=== PATIENT | male | born 1940 | race Caucasian/White ===

== ENCOUNTER → 2018-03-13 | Outpatient (CLI) | payer MEDICARE, OTHER ==
--- NOTE | 2018-03-14 07:33 | MR ---
EXAMINATION TYPE: MR lumbar spine wo con DATE OF EXAM: 03/13/2018 COMPARISON: Prior MRI lumbar spine November 22, 2011. HISTORY: Lumbar radiculopathy per order. Low back pain radiating to left buttocks for 6 months per keagan hernandez. History of back surgery 1999. TECHNIQUE: Multiplanar, multisequence imaging of the lumbar spine is performed without IV contrast. FINDINGS: Survey images redemonstrate levoconvex scoliosis centered in the mid lumbar spine. Sagittal images of the lumbar spine show vertebral body heights to remain satisfactory. There is loss of norm al lumbar lordosis redemonstrated on sagittal images. Multilevel disc desiccation and moderate to adv anced disc space narrowing remains present. There is now some ossific fusion identified involving the right L2-L3 level with increased disc space loss from prior study. Sagittal images show multilevel s mall posterior spur disc complexes and disc herniation similar to prior mildly effacing anterior thec al sac. The conus medullaris remains normal in position and signal ending at inferior L1 level. The bone marrow signal intensity redemonstrate overall heterogeneity and diffuse endplate changes through out the mid to lower lumbar spine at site of disc space narrowing and multilevel spurring most promin ent anteriorly L3-L4 level similar to prior. Axial images beginning at labeled T11-T12 level axial image 35 which shows moderate broad disc bulge and mild facet arthropathy with ligamentum flavum hypertrophy. There is mild effacement of the anteri or posterior lateral thecal sac. Bilateral neural foramina are patent. Axial images at T12-L1 level show mild to moderate facet degenerative changes bilaterally. There is m ild to moderate broad disc bulge mildly effacing anterior thecal sac, no significant neural foraminal narrowing is present. Axial images at the L1-L2 levels shows mild to moderate broad disc bulge and mild facet arthropathy, there is mild effacement of left posterior lateral thecal sac. There is mild to moderate left-sided a nterior inferior neural foraminal narrowing. Right-sided neural foramen is patent. Axial images at L2-L3 level show advanced disc space loss and mild facet arthropathy. There is efface ment anterior thecal sac due to spur disc complex axial image 19. There is moderate bilateral anterio r inferior neural foraminal narrowing. Axial images at L3-L4 level show moderate right greater than left facet degenerative changes. There i s mild to moderate broad disc bulge. There is advanced right-sided neural foraminal narrowing with en croachment on right L3 nerve redemonstrated even more prominent than prior. Left-sided neural foramin a shows mild to moderate anterior inferior neural foraminal narrowing. Axial images at L4-L5 level show mild facet arthropathy bilaterally. There is moderate broad disc bul ge. Spinal canal is preserved. There is mild to moderate right greater than left anterior inferior ne ural foraminal narrowing. Axial images at L5-S1 level show sacralization of left L5 segment. Spinal canal is preserved. Bilater al neural foramina are patent. There is prominent left renal pelvis without calyceal dilatation suggesting extrarenal pelvis unchang ed from prior. IMPRESSION: Scoliosis and loss of normal lumbar lordosis with advanced multilevel degenerative change s and some progression from 2012 MRI noted. Further details as discussed above.
== END | disposition home or self-care (01) ==
LOC: RADMRIMAIN 18:13
PROVIDERS: ATTEND Family Medicine
DX: M47.816 Spondylosis without myelopathy or radiculopathy, lumbar region (principal); M41.86 Other forms of scoliosis, lumbar region; M43.8X6 Other specified deforming dorsopathies, lumbar region
CPT/HCPCS: 72148

== ENCOUNTER 2018-09-05 15:02 | Inpatient (IN) | payer MEDICARE, OTHER ==
[2018-09-05] MEDS ORDERED: SODIUM CHLORIDE 0.9% 1,000 ML IV STA ×3 (15:52→17:26)
--- NOTE | 2018-09-05 16:01 | ED ---
Weakness HPI - General Chief complaint: Extremity Problem,Nontraumatic Stated complaint: Shoulder, leg pain Time Seen by Provider: 09/05/18 15:47 Source: patient, RN notes reviewed, old records reviewed Mode of arrival: wheelchair Limitations: no limitations - History of Present Illness Initial comments: This is an 78-year-old male to the ER for evaluation. Patient was sent in for evaluation of weakness. Inability to ambulate today. Patient's noticed fever for maybe 2-3 days. No significant diarrhea nausea vomiting no rashes. No known sick contacts no travel history. Patient states he did have the flu last year but he states he feels worse this time. No recent medication changes. Patient hasn't taken some Tylenol with no significant improvement MD Complaint: generalized weakness, lack of energy, difficulty walking -: days(s) (4) Location: generalized Severity: moderate Severity scale (1-10): 5 Quality: aching Consistency: constant Improves with: none Worsens with: none Context: recent illness Associated Symptoms: confusion, fever/chills, loss of appetite - Related Data Home Medications Medication Instructions Recorded Confirmed Aspirin [Adult Low Dose Aspirin EC] 81 mg PO DAILY 09/24/15 09/05/18 Lisinopril [Zestril] 20 mg PO DAILY 09/24/15 09/05/18 Metoprolol Succinate [Toprol XL] 25 mg PO DAILY 09/24/15 09/05/18 Acetaminophen Tab [Tylenol] 500 mg PO Q6H 09/05/18 09/05/18 Allergies Allergy/AdvReac Type Severity Reaction Status Date / Time adhesive tape AdvReac Rash/Hives Verified 09/05/18 16:31 Review of Systems ROS Statement: Those systems with pertinent positive or pertinent negative responses have been documented in the HPI. ROS Other: All systems not noted in ROS Statement are negative. Past Medical History Past Medical History: Deep Vein Thrombosis (DVT), Hyperlipidemia, Hypertension Additional Past Medical History / Comment(s): wound on buttocks History of Any Multi-Drug Resistant Organisms: None Reported Past Surgical History: Appendectomy, Cardiac Valve Replacement, Heart Catheterization, Joint Replacement Additional Past Surgical History / Comment(s): cardiac valve replacement x2, taryn shoulder replacement, lt hip replacement Past Anesthesia/Blood Transfusion Reactions: No Reported Reaction Smoking Status: Former smoker Past Alcohol Use History: Occasional Past Drug Use History: None Reported - Past Family History Brother(s) Family Medical History: Cancer Additional Family Medical History / Comment(s): melanoma General Exam Limitations: no limitations General appearance: alert, in no apparent distress Head exam: Present: atraumatic, normocephalic, normal inspection Eye exam: Present: normal appearance, PERRL, EOMI. Absent: scleral icterus, conjunctival injection, periorbital swelling ENT exam: Present: normal exam, mucous membranes moist Neck exam: Present: normal inspection. Absent: tenderness, meningismus, lymphadenopathy Respiratory exam: Present: normal lung sounds bilaterally. Absent: respiratory distress, wheezes, rales, rhonchi, stridor Cardiovascular Exam: Present: normal rhythm, tachycardia, normal heart sounds. Absent: systolic murmur, diastolic murmur, rubs, gallop, clicks GI/Abdominal exam: Present: soft, normal bowel sounds. Absent: distended, tenderness, guarding, rebound, rigid Extremities exam: Present: normal inspection, full ROM, normal capillary refill. Absent: tenderness, pedal edema, joint swelling, calf tenderness Back exam: Present: normal inspection Neurological exam: Present: alert, oriented X3, CN II-XII intact Psychiatric exam: Present: normal affect, normal mood Skin exam: Present: warm, dry, intact, normal color. Absent: rash Course Vital Signs 09/05/18 09/05/18 09/05/18 15:31 15:48 17:03 Temperature 100.6 F H 99.5 F 102.6 F H Pulse Rate 120 H 117 H Respiratory 20 20 Rate Blood Pressure 138/90 132/91 O2 Sat by Pulse 95 99 Oximetry 09/05/18 17:36 Temperature 101.3 F H Pulse Rate 120 H Respiratory 18 Rate Blood Pressure 123/63 O2 Sat by Pulse 97 Oximetry - Reevaluation(s) Reevaluation #1: 09/05/18 17:41 Medical record review noncontributory Reevaluation #2: 09/05/18 17:41 Patient feels mildly improved with fever control, still feeling very weak EKG Findings - EKG Comments: EKG Findings:: EKG shows sinus tacahycardia rate of 118, OH 184, QRS 96, QTc 437 Medical Decision Making - Medical Decision Making 78 male the ER for evaluation of fever and weakness, patient with persistent significant fever here in the emergency room, no acute cause found for fever either on exam or testing, patient will be admitted for blood cultures, broad- spectrum antibiotics - Lab Data Result diagrams: 09/05/18 16:20 09/05/18 16:20 Lab Results 09/05/18 09/05/18 09/05/18 Range/Units 16:20 16:20 16:20 WBC 8.9 (3.8-10.6) k/uL RBC 4.31 (4.30-5.90) m/uL Hgb 13.6 (13.0-17.5) gm/dL Hct 39.6 (39.0-53.0) % MCV 91.8 (80.0-100.0) fL MCH 31.6 (25.0-35.0) pg MCHC 34.4 (31.0-37.0) g/dL RDW 13.6 (11.5-15.5) % Plt Count 115 L (150-450) k/uL Neutrophils % 92 % Lymphocytes % 3 % Monocytes % 3 % Eosinophils % 1 % Basophils % 0 % Neutrophils # 8.2 H (1.3-7.7) k/uL Lymphocytes # 0.2 L (1.0-4.8) k/uL Monocytes # 0.3 (0-1.0) k/uL Eosinophils # 0.1 (0-0.7) k/uL Basophils # 0.0 (0-0.2) k/uL PT (9.0-12.0) sec INR (<1.2) APTT (22.0-30.0) sec Sodium 129 L (137-145) mmol/L Potassium 4.8 (3.5-5.1) mmol/L Chloride 96 L (98-107) mmol/L Carbon Dioxide 23 (22-30) mmol/L Anion Gap 10 mmol/L BUN 32 H (9-20) mg/dL Creatinine 0.82 (0.66-1.25) mg/dL Est GFR (CKD-EPI)AfAm >90 (>60 ml/min/1.73 sqM) Est GFR (CKD-EPI)NonAf 84 (>60 ml/min/1.73 sqM) Glucose 106 H (74-99) mg/dL Calcium 9.2 (8.4-10.2) mg/dL Phosphorus 3.0 (2.5-4.5) mg/dL Magnesium 1.7 (1.6-2.3) mg/dL Total Bilirubin 0.9 (0.2-1.3) mg/dL AST 37 (17-59) U/L ALT 31 (21-72) U/L Alkaline Phosphatase 65 (38-126) U/L Total Creatine Kinase 62 (55-170) U/L CK-MB (CK-2) 1.4 (0.0-2.4) ng/mL CK-MB (CK-2) Rel Index 2.3 Troponin I <0.012 (0.000-0.034) ng/mL Total Protein 7.0 (6.3-8.2) g/dL Albumin 3.9 (3.5-5.0) g/dL Influenza Type A RNA (Not Detectd) Influenza Type B (PCR) (Not Detectd) 09/05/18 09/05/18 Range/Units 16:20 16:37 WBC (3.8-10.6) k/uL RBC (4.30-5.90) m/uL Hgb (13.0-17.5) gm/dL Hct (39.0-53.0) % MCV (80.0-100.0) fL MCH (25.0-35.0) pg MCHC (31.0-37.0) g/dL RDW (11.5-15.5) % Plt Count (150-450) k/uL Neutrophils % % Lymphocytes % % Monocytes % % Eosinophils % % Basophils % % Neutrophils # (1.3-7.7) k/uL Lymphocytes # (1.0-4.8) k/uL Monocytes # (0-1.0) k/uL Eosinophils # (0-0.7) k/uL Basophils # (0-0.2) k/uL PT 11.6 (9.0-12.0) sec INR 1.1 (<1.2) APTT 28.1 (22.0-30.0) sec Sodium (137-145) mmol/L Potassium (3.5-5.1) mmol/L Chloride (98-107) mmol/L Carbon Dioxide (22-30) mmol/L Anion Gap mmol/L BUN (9-20) mg/dL Creatinine (0.66-1.25) mg/dL Est GFR (CKD-EPI)AfAm (>60 ml/min/1.73 sqM) Est GFR (CKD-EPI)NonAf (>60 ml/min/1.73 sqM) Glucose (74-99) mg/dL Calcium (8.4-10.2) mg/dL Phosphorus (2.5-4.5) mg/dL Magnesium (1.6-2.3) mg/dL Total Bilirubin (0.2-1.3) mg/dL AST (17-59) U/L ALT (21-72) U/L Alkaline Phosphatase (38-126) U/L Total Creatine Kinase (55-170) U/L CK-MB (CK-2) (0.0-2.4) ng/mL CK-MB (CK-2) Rel Index Troponin I (0.000-0.034) ng/mL Total Protein (6.3-8.2) g/dL Albumin (3.5-5.0) g/dL Influenza Type A RNA Not Detected (Not Detectd) Influenza Type B (PCR) Not Detected (Not Detectd) - Radiology Data Radiology results: report reviewed (Chest x-ray negative for acute disease, x- ray right shoulder negative for acute disease, x-ray pelvis negative for acute disease), image reviewed Disposition Clinical Impression: Fever, Weakness Narrative: roBacteremia Disposition: ADMITTED IP TO THIS HOSP Condition: Fair Is patient prescribed a controlled substance at d/c from ED?: No Referrals: Campos Girard MD [Primary Care Provider] - 1-2 days
[2018-09-05] MEDS ORDERED: DIAZEPAM 5 MG/ML 2 ML INJ IVP STA (16:16)
[2018-09-05] MEDS ORDERED: IBUPROFEN IV 800 MG in SODIUM CHLORIDE 0.9% 250 ML IV ONE (16:16)
[2018-09-05] MEDS ORDERED: ACETAMINOPHEN IV (For NPO) 1,000 MG in EMPTY BAG 1 BAG IVPB STA (16:16)
[2018-09-05 16:49] LABS: Basophils % (A) 0 %; Eosinophils # (A) 0.1 k/uL (0-0.7); Eosinophils % (A) 1 %; HCT 39.6 % (39.0-53.0); HGB 13.6 gm/dL (13.0-17.5); Lymphocytes # (A) 0.2 k/uL (1.0-4.8); Lymphocytes % (A) 3 %; MCH 31.6 pg (25.0-35.0); MCHC 34.4 g/dL (31.0-37.0); MCV 91.8 fL (80.0-100.0); Mean Platelet Volume 7.2; Monocytes # (A) 0.3 k/uL (0-1.0); Monocytes % (A) 3 %; Neutrophils # (A) 8.2 k/uL (1.3-7.7); Neutrophils % (A) 92 %; Platelet Count 115 k/uL (150-450); RBC 4.31 m/uL (4.30-5.90); RDW 13.6 % (11.5-15.5); WBC 8.9 k/uL (3.8-10.6)
--- NOTE | 2018-09-05 16:59 | XR ---
EXAMINATION TYPE: XR chest 2V DATE OF EXAM: 09/05/2018 COMPARISON: NONE HISTORY: Leg weakness TECHNIQUE: Frontal and lateral views of the chest are obtained. FINDINGS: There is moderate hiatal hernia. There is no heart failure. I see no pleural effusion. The re is minimal pleural reaction at the lateral right lung base. There are sternal wires. There is bila teral shoulder prosthesis. IMPRESSION: Mild pleural reaction or scarring at the lateral right lung base. No heart failure. Hiat al hernia. Previous cardiac surgery noted.
[2018-09-05 17:00] LABS: ALT 31 U/L (21-72); AST 37 U/L (17-59); Albumin 3.9 g/dL (3.5-5.0); Alkaline Phosphatase 65 U/L (38-126); Anion Gap 10 mmol/L; Blood Urea Nitrogen 32 mg/dL (9-20); Calcium 9.2 mg/dL (8.4-10.2); Carbon Dioxide 23 mmol/L (22-30); Chloride 96 mmol/L (98-107); Glucose 106 mg/dL (74-99); Magnesium 1.7 mg/dL (1.6-2.3); Potassium 4.8 mmol/L (3.5-5.1); Sodium 129 mmol/L (137-145); Total Bilirubin 0.9 mg/dL (0.2-1.3)
[2018-09-05 17:01] LABS: INR 1.1 (<1.2); Partial Thromboplastin Time 28.1 sec (22.0-30.0); Prothrombin Time 11.6 sec (9.0-12.0)
[2018-09-05 17:03] LABS: Creatine Kinase 62 U/L (55-170)
[2018-09-05 17:16] LABS: Creatine Kinase MB 1.4 ng/mL (0.0-2.4); Troponin I <0.012 ng/mL (0.000-0.034)
[2018-09-05] MEDS ORDERED: SODIUM CHLORIDE 0.9% 500 ML 500 ML IV STA (17:26)
--- NOTE | 2018-09-05 17:26 | XR ---
EXAMINATION TYPE: XR shoulder complete RT DATE OF EXAM: 09/05/2018 COMPARISON: NONE HISTORY: Shoulder pain TECHNIQUE: 3 views FINDINGS: There is right shoulder prosthesis. Components appear in anatomic position. There is narrow ing of the joint space. There is some narrowing of subacromial joint space. IMPRESSION: No fracture seen.
--- NOTE | 2018-09-05 17:27 | XR ---
EXAMINATION TYPE: XR pelvis AP view DATE OF EXAM: 09/05/2018 COMPARISON: NONE HISTORY: Bilateral leg weakness TECHNIQUE: Single view FINDINGS: Pelvic ring is intact. There is a left hip prosthesis. Components are in anatomic position. Sacroiliac joints are intact. There is no evidence of a fracture. IMPRESSION: No acute abnormality of the pelvis.
[2018-09-05 17:44] LABS: Appearance,Urine Clear (Clear); Bilirubin,Urine Negative (Negative); Blood,Urine Negative (Negative); Color,Urine Yellow; Glucose,Urine (UA) Negative (Negative); Ketones,Urine 1+ (Negative); Leukocyte Esterase,Urine Negative (Negative); Mucus,Urine Rare /hpf; Nitrite,Urine Negative (Negative); Protein,Urine 1+ (Negative); RBC,Urine 1 /hpf (0-5); Specific Gravity,Urine 1.022 (1.001-1.035); Urobilinogen,Urine <2.0 mg/dL (<2.0); WBC,Urine <1 /hpf (0-5)
[2018-09-05] MEDS ORDERED: ACETAMINOPHEN TAB 500 MG TAB PO PRN (21:00)
--- NOTE | 2018-09-05 21:41 | HP ---
HISTORY AND PHYSICAL DATE OF SERVICE: 09/05/2018. CHIEF COMPLAINT: Fever and shoulder pain. HISTORY OF PRESENT ILLNESS: This 78-year-old gentleman with a past medical history of DVT, history of hypertension and hyperlipidemia, also had a cardiac valve replacement. The patient also had recent stem cell injection for back pain. The patient apparently went to [facility] a few days ago and the patient developed fever, chills, and weakness. The patient is also complaining of some right shoulder pain. The patient was admitted for further evaluation and treatment. There is no history any headache, loss conscious, hematochezia or melena at this time. PAST MEDICAL HISTORY: History of DVT, hypertension, hyperlipidemia, history of cardiac valve replacement and appendectomy. MEDICATIONS: Prior to admission include: 1. Toprol-XL 25 mg daily. 2. Zestril 20 mg daily. 3. Ecotrin 81 mg daily. 4. Tylenol 100 mg p.m. ALLERGIES: ADHESIVE TAPES. FAMILY HISTORY: History of cancer, melanoma. SOCIAL HISTORY: Previous history of smoking. Occasional alcohol intake. REVIEW OF SYSTEMS: ENT: No diminished hearing or vision. CARDIOVASCULAR: No angina. GI: No nausea or vomiting. : No dysuria or hematuria. NERVOUS SYSTEM: No numbness or weakness. ALLERGY: No asthma or hayfever. MUSCULOSKELETAL: As mentioned. HEMATOLOGY: As mentioned. ENDOCRINE: No history of diabetes or hypothyroidism. CONSTITUTIONAL: No numbness or weakness. PSYCHIATRIC: As mentioned earlier. PHYSICAL EXAMINATION: GENERAL: Alert and oriented x3. VITAL SIGNS: Pulse is 117, blood pressure 118/66, respirations 20, temperature 100.1, pulse ox 96% on 2 L. HEENT: Conjunctivae normal. NECK: No JVD. CARDIOVASCULAR: S1 and S2 muffled. LUNGS: Breath sounds diminished at the bases. Scattered rhonchi and crackles. ABDOMEN: Soft, nontender. LEGS: No edema. NERVOUS SYSTEM: No focal weakness. LABS: WBC 8, hemoglobin 13.2, platelets 115. Sodium 129. ASSESSMENT: 1. Fever, for evaluation, possible influenza, possible pneumonia. 2. Hyponatremia. 3. Thrombocytopenia. 4. Deep venous thrombosis history. 5. Hypertension. 6. Hyperlipidemia. 7. History of cardiac valve replacement. 8. History of nicotine dependence. 9. History of degenerative joint disease. RECOMMENDATIONS AND DISCUSSION: This 78-year-old gentleman who presented with multiple complex medical issues, we will monitor the patient closely, continue the current management and symptomatic treatment. The patient is started on empiric antibiotics. I would also recommend cultures. Infectious disease evaluation. Symptomatic treatment. Resume home medications. Prognosis guarded because of multiple complex medical issues. Further recommendations to follow. MMYUMIKOL / SOBIAN: [id number] /
[2018-09-05] MEDS: OSELTAMIVIR 75 MG CAP PO SCH (23:32)
[2018-09-06] MEDS: HYDROcodone/APAP 5-325MG 1 EACH TAB PO PRN (05:06)
[2018-09-06] MEDS: OSELTAMIVIR 75 MG CAP PO SCH (07:52)
[2018-09-06] MEDS: ENOXAPARIN 40 MG/0.4 ML SYRINGE SQ SCH (07:52)
[2018-09-06] MEDS: PANTOPRAZOLE 40 MG TABLET PO SCH (07:53)
[2018-09-06] MEDS: METOPROLOL SUCCINATE (ER) 25 MG TAB.ER.24H PO SCH (07:53)
[2018-09-06] MEDS: LISINOPRIL 20 MG TAB PO SCH (07:53)
[2018-09-06] MEDS: ASPIRIN 81 MG PO SCH (07:53)
[2018-09-06 09:00] LABS: Basophils % (A) 0 %; Eosinophils % (A) 0 %; HCT 37.6 % (39.0-53.0); HGB 12.2 gm/dL (13.0-17.5); Lymphocytes # (A) 0.7 k/uL (1.0-4.8); Lymphocytes % (A) 8 %; MCH 30.7 pg (25.0-35.0); MCHC 32.5 g/dL (31.0-37.0); MCV 94.5 fL (80.0-100.0); Mean Platelet Volume 6.9; Monocytes # (A) 0.5 k/uL (0-1.0); Monocytes % (A) 6 %; Neutrophils # (A) 7.9 k/uL (1.3-7.7); Neutrophils % (A) 84 %; Platelet Count 117 k/uL (150-450); RBC 3.98 m/uL (4.30-5.90); RDW 13.9 % (11.5-15.5); WBC 9.4 k/uL (3.8-10.6)
[2018-09-06 09:04] LABS: Anion Gap 9 mmol/L; Blood Urea Nitrogen 20 mg/dL (9-20); Calcium 8.6 mg/dL (8.4-10.2); Carbon Dioxide 23 mmol/L (22-30); Chloride 103 mmol/L (98-107); Glucose 127 mg/dL (74-99); Potassium 4.3 mmol/L (3.5-5.1); Sodium 135 mmol/L (137-145)
[2018-09-06 11:18] VITALS: BMI 25.8
[2018-09-06] MEDS ORDERED: VANCOMYCIN IV PER PHARMACY 1 EACH MISC MISCELLANE PRN (12:44)
[2018-09-06] MEDS: NAPROXEN 250 MG TAB PO SCH ×2 (13:28→22:00)
--- NOTE | 2018-09-06 13:48 | CT ---
EXAMINATION TYPE: CT cervical spine wo/w con DATE OF EXAM: 09/06/2018 COMPARISON: 07/30/2012 HISTORY: Shoulder pain CT DLP: 851.2 mGycm CONTRAST: Performed without and with IV Contrast, patient injected with 100 mL of Isovue M300. CT of the cervical spine is performed in the axial plane at 2 mm thick sections. Reconstructed image s in the coronal, and sagittal plane are reviewed on the computer. No acute fractures are evident. There is a grade 1 spondylolisthesis of C7 anterior and T1. There is loss of disc height C5-6 C6-7. Vertebral body heights are preserved. No spinal canal stenosis is evident. Posterior spinal lamellar line has some anterior displacement of C7 in relation to T1. Facet changes are present on the left at C2-C3. Mild foraminal narrowing is present. Facet changes ar e present on the left at C3-4 with uncovertebral joint hypertrophy contributing to moderate left fora amilcar narrowing at this level. Facet hypertrophy and uncovertebral joint hypertrophy at C4-5 is contr ibuting to moderate right foraminal stenosis. Uncovertebral joint hypertrophy at C5-6 contributes to bilateral foraminal stenosis. Uncovertebral joint hypertrophy is C6-7 has bilateral moderate foramina l stenosis. IMPRESSIONS: 1. Grade 1 spondylolisthesis of C7 anterior and T1. No stenosis is evident. 2. Multilevel foraminal narrowing due to uncovertebral joint hypertrophy and facet hypertrophy discus sed above. Consider additional evaluation with MRI.
[2018-09-06] MEDS ORDERED: VANCOMYCIN 1,250 MG in SODIUM CHLORIDE 0.9% 250 ML IVPB ONE (14:00)
--- NOTE | 2018-09-06 15:24 | PN ---
PROGRESS NOTE DATE OF SERVICE: 09/06/2018 PRESENTING COMPLAINT: Fever, chills. INTERVAL HISTORY: This patient presented with fever, chills, had a temperature up to 102.6. Really did not have any much respiratory symptoms, was empirically treated for influenza with Tamiflu but influenza work has come back negative. Denies any urinary symptoms. Patient has been complaining of pain in the right shoulder, not able to move the shoulder much. Patient also has been seen by a bone specialist. He describes down in the [facility] and has had a bone marrow, stem cells infused for his arthritis that was about 4 months ago. is present. Fevers have come down a bit, though does feel weak and tired. REVIEW OF SYSTEMS: Done for constitutional, cardiovascular, GI, pulmonary; relevant findings as above. CURRENT MEDICATIONS: Reviewed that include IV ceftriaxone and Tamiflu. PHYSICAL EXAMINATION: On examination, T-max a 101.3, 102.6 yesterday evening. This morning, afebrile, pulse 117, respirations 20, blood pressure 135/86, pulse ox 96% on 2 L. GENERAL APPEARANCE: Tired-appearing. EYES: Pupils equal, conjunctivae normal. NECK: JVD not raised. Mass not palpable. RESPIRATORY: Effort normal. LUNGS: Slightly decreased breath sounds. CARDIOVASCULAR: First and second sounds normal. No edema. ABDOMEN: Soft, nontender. Liver and spleen not palpable. LYMPHATIC: No lymph node palpable. PSYCHIATRY: Alert and oriented x3. MUSCULOSKELETAL: Limited range of motion of the right shoulder. No point tenderness in upper spine, the cervical area where he complains of pain. INVESTIGATIONS: White count 9.5, hemoglobin 12.2, potassium 4.3, BUN and creatinine are normal. Patient's blood cultures are showing gram-positive cocci. ASSESSMENT: 1. This is a patient who presented with a septic picture with high fevers, tachycardia, complaining of upper back pain between the shoulder blades and pain in the right shoulder. The shoulder could be a source of infection. Also, the spine could be a source of infection. 2. Hyperlipidemia. 3. Essential hypertension. 4. Chronic osteoarthritis. 5. Sepsis. PLAN: Given patient's blood cultures coming back positive for gram-positive cocci., will add vancomycin. Will get a CT scan of the spine. Also consult Dr. Arboleda from Orthopedics both from a spine standpoint and the shoulder and also follow up with Orthopedics. Care was discussed in detail with the patient and . MMYUMIKOL / IJN: [id number] /
[2018-09-07] MEDS ORDERED: VANCOMYCIN 1,250 MG in SODIUM CHLORIDE 0.9% 250 ML IVPB SCH ×2
[2018-09-07] MEDS: ALPRAZolam 0.25 MG TAB PO PRN ×2 (00:22→21:43)
--- NOTE | 2018-09-07 01:29 | CONS ---
CONSULTATION DATE OF SURGERY: 09/06/2018. REASON FOR CONSULTATION: Bacteremia. HISTORY OF PRESENT ILLNESS: The patient is an 78-year-old male presenting to the ER with chief complaints of rigors and chills and fever that has been going on for the last 3 days. The patient also complaining of significant pain to his right shoulder area. Pain described to more of a throbbing almost 10/10 in severity, is worse with movement of the shoulder joint and relieved with some rest. Subsequently the patient also complaining of pain in his posterior neck area. The pain in the neck is almost 7 to 8/10, and no radiation. The patient denies any numbness or tingling in his arm. The patient with these symptoms, was evaluated by the ER physician. On arrival to the ER the patient did have a fever of 100.6. Subsequently did have fever 102.6. The patient did have shoulder x-rays, which shows no fracture seen and there was narrowing of the joint space though. He did have blood cultures drawn in the ER, which came back positive gram-positive cocci that prompted this infectious disease consultation. REVIEW OF SYSTEMS: Positive for weakness along with the fever. Eyes: No complaint. ENT no complaint. Respiratory no complaint. Cardiovascular no complaint. Genitourinary no complaint. Gastrointestinal: No complaint. Musculoskeletal as per HPI. Integumentary: No complaint. Psychological no complaint. Endocrine no complaint. Neurologic no complaint. PAST MEDICAL HISTORY: Hypertension, hyperlipidemia, DVT, chronic back pain. PAST SURGICAL HISTORY: Appendectomy, cardiac valve replacement, heart catheterization, multiple surgeries on his lumbosacral spine and he also had some stem cell injection 6 months ago. SOCIAL HISTORY: Remote history of smoking. Occasionally drinks, no drug use. FAMILY HISTORY: Brother history of melanoma. ALLERGIES: ADHESIVE TAPE. MEDICATIONS: The patient is currently on Tylenol, [place], Xanax, aspirin, Rocephin 1 g daily, Zestril, Melatonin, Toprol-XL, naproxen, Protonix and vancomycin pharmacy to dose. EXAMINATION: Blood pressure 104/61 with a pulse of 65, temperature 98.8, T-max 101. He is 96% on room air. General description is an elderly male lying in bed in no distress. No tachypnea or accessory muscles of respiration use. HEENT: Shows no pallor or scleral icterus. His oral mucosa is dry. No pharyngeal erythema or thrush. Neck: Trachea central. No thyromegaly. Lungs unlabored breathing, clear to auscultation. No wheeze or crackles. Heart S1, S2. Regular rate and rhythm with a systolic murmur. ABDOMEN: Soft, no tenderness. No guarding. No rigidity. Extremities: No edema of the feet. Examination right shoulder, the patient did have minimal swelling. No redness. Slight tenderness noticed. Examination of cervical spine currently with no significant tenderness, swelling, redness. Skin examination: No rash or mass palpable. Neurological: Patient is awake, alert, oriented times three. Mood and affect normal. LABS: Hemoglobin is 12.2, white count 9.4 with a BUN of 23 and creatinine 0.68. Electrolytes have been normal. Liver enzymes normal. Urine is negative. Influenza A/B PCR was negative. Chest x-ray report negative for any pneumonia. DIAGNOSTIC IMPRESSION AND PLAN: Patient presented to the hospital with a fever in this patient who did not have evidence of a gram-positive bacteremia. The patient has significant pain to his right shoulder area with a question of possible right shoulder septic arthritis. The patient also has pain in his posterior neck area however no significant tenderness was noticed on the cervical spine. Clinically doubt secondary to cervical spine diskitis. PLAN: 1. Recommend ortho evaluation and possible aspirate of his right shoulder. 2. Repeat blood cultures repeat to document clearance with bacteremia. 3. Vancomycin pharmacy to dose target of 15 while watching his kidney function closely. 4. We will follow up on clinical condition and culture to further adjust medication if needed. Thank you for this consultation. We will follow the patient along with you. MMODL / IJN: [id number] /
[2018-09-07] MEDS: ceFAZolin IN SWFI 2 GM/20 ML SYRINGE IVP SCH ×3 (02:07→16:52)
[2018-09-07] MEDS: MELATONIN 3 MG TABLET PO PRN ×2 (02:08→21:43)
[2018-09-07] MEDS: HYDROcodone/APAP 5-325MG 1 EACH TAB PO PRN ×2 (03:24→18:28)
[2018-09-07] MEDS: PANTOPRAZOLE 40 MG TABLET PO SCH (08:58)
[2018-09-07] MEDS: ASPIRIN 81 MG PO SCH (08:58)
[2018-09-07] MEDS: ENOXAPARIN 40 MG/0.4 ML SYRINGE SQ SCH (08:58)
[2018-09-07] MEDS: NAPROXEN 250 MG TAB PO SCH ×3 (08:58→21:13)
[2018-09-07] MEDS: METOPROLOL SUCCINATE (ER) 25 MG TAB.ER.24H PO SCH (08:59)
[2018-09-07] MEDS: LISINOPRIL 20 MG TAB PO SCH (08:59)
[2018-09-07 10:46] LABS: Basophils % (A) 0 %; Eosinophils # (A) 0.1 k/uL (0-0.7); Eosinophils % (A) 1 %; HCT 34.3 % (39.0-53.0); HGB 11.2 gm/dL (13.0-17.5); Lymphocytes # (A) 0.7 k/uL (1.0-4.8); Lymphocytes % (A) 9 %; MCHC 32.7 g/dL (31.0-37.0); MCV 94.7 fL (80.0-100.0); Mean Platelet Volume 7.2; Monocytes # (A) 0.5 k/uL (0-1.0); Monocytes % (A) 6 %; Neutrophils # (A) 6.7 k/uL (1.3-7.7); Neutrophils % (A) 81 %; Platelet Count 110 k/uL (150-450); RBC 3.62 m/uL (4.30-5.90); WBC 8.3 k/uL (3.8-10.6)
[2018-09-07 11:00] LABS: Anion Gap 7 mmol/L; Blood Urea Nitrogen 20 mg/dL (9-20); Calcium 8.5 mg/dL (8.4-10.2); Carbon Dioxide 25 mmol/L (22-30); Chloride 103 mmol/L (98-107); Glucose 97 mg/dL (74-99); Sodium 135 mmol/L (137-145)
--- NOTE | 2018-09-07 22:54 | PN ---
PROGRESS NOTE DATE OF SERVICE: 09/07/2018. REASON FOR FOLLOW UP: Gram-positive bacteremia, question of septic arthritis, right shoulder. INTERVAL HISTORY: The patient is afebrile. Did mention he had another episode of rigors and chills last night and did have a fever of 100.2 this afternoon. The patient pain is mostly in the right shoulder area. The patient denies having any chest pain or shortness of breath or cough. No abdominal pain. No diarrhea. PHYSICAL EXAMINATION: Blood pressure 109/70 with a pulse of 59, temperature 98.2. He is 96% on room air. General description is a middle aged male up in the chair in no distress. Respiratory system: Unlabored breathing. Clear to auscultation anteriorly. Heart S1, S2. Regular rate and rhythm. Abdomen soft, no tenderness. LABS: Hemoglobin 11.1, white count of 8.3 with a BUN of 20, creatinine 0.79. Blood culture with . DIAGNOSTIC IMPRESSION AND PLAN: Patient admitted to the hospital with fever, rigors and chills. The patient did have an initial presentation with right shoulder pain, concern for possible right shoulder septic arthritis. Blood cultures repeat currently pending. PLAN: 2 g q.8 hours. The patient will benefit from aspiration of the right shoulder which should be sent for cell count differential as well as cultures. Plan was discussed with the PA for the Orthopedic's. Continue supportive care. DAKOTA / JULIO: [id number] /
[2018-09-08] MEDS: ceFAZolin IN SWFI 2 GM/20 ML SYRINGE IVP SCH ×3 (00:11→16:37)
--- NOTE | 2018-09-08 08:17 | PN ---
PROGRESS NOTE DATE OF SERVICE: September 07, 2018. PRESENTING COMPLAINT: Fever, chills, shoulder pain. INTERVAL HISTORY: The patient was seen by me on September 07, 2018. Presented with pain in the right shoulder and positive blood cultures suspicious for septic arthritis. CT scan came back showing severe arthritis. Also being followed by ID and Orthopedics. Does feel a bit better today. at the bedside. REVIEW OF SYSTEMS: Done for constitutional, cardiovascular, GI, pulmonary, musculoskeletal and relevant findings as above. CURRENT MEDICATIONS: Reviewed that include IV Ancef. PHYSICAL EXAMINATION: VITAL SIGNS: T-max last night was 100.2. Pulse 59, respirations 16, blood pressure 108/70, pulse ox 96 percent on room air. GENERAL APPEARANCE: Lying in bed, looking slightly better. EYES: Pupils equal, conjunctivae normal. NECK: JVD not raised. Mass not palpable. RESPIRATORY: Effort normal. LUNGS: Decreased breath sounds. CARDIOVASCULAR: 1st and 2nd sounds normal. No edema. ABDOMEN: Soft, nontender. Liver and spleen not palpable. PSYCHIATRY: Alert and oriented times three. Mood and affect normal. MUSCULOSKELETAL: Slightly improved range of motion of the right shoulder. INVESTIGATIONS: White count 8.3, hemoglobin 11.2, potassium 4. Blood cultures growing alpha hemolytic Streptococcus cocci in 2 sets of cultures. ASSESSMENT: 1. Possibly septic arthritis of the right shoulder with blood cultures positive for alpha streptococcus. 2. Hyperlipidemia. 3. Essential hypertension. 4. Chronic osteoarthritis. 5. Sepsis on presentation. PLAN: Orthopedics was consulted. Awaiting the input. Should get right shoulder to be tapped as soon as possible. Infectious Disease is already involved. Care was discussed with the patient and . Patient's CT scan of the cervical spine showing multiple levels of arthritis. Follow. MMODL / IJN: [id number] /
[2018-09-08] MEDS: ENOXAPARIN 40 MG/0.4 ML SYRINGE SQ SCH (08:23)
[2018-09-08] MEDS: NAPROXEN 250 MG TAB PO SCH ×3 (08:24→20:57)
[2018-09-08] MEDS: METOPROLOL SUCCINATE (ER) 25 MG TAB.ER.24H PO SCH (08:24)
[2018-09-08] MEDS: ASPIRIN 81 MG PO SCH (08:25)
[2018-09-08] MEDS: LISINOPRIL 20 MG TAB PO SCH (08:25)
[2018-09-08] MEDS: PANTOPRAZOLE 40 MG TABLET PO SCH (08:25)
[2018-09-08 08:36] LABS: Basophils % (A) 0 %; Eosinophils # (A) 0.1 k/uL (0-0.7); Eosinophils % (A) 1 %; HCT 35.7 % (39.0-53.0); Lymphocytes # (A) 0.9 k/uL (1.0-4.8); Lymphocytes % (A) 12 %; MCHC 33.7 g/dL (31.0-37.0); MCV 94.9 fL (80.0-100.0); Monocytes # (A) 0.5 k/uL (0-1.0); Monocytes % (A) 7 %; Neutrophils # (A) 5.6 k/uL (1.3-7.7); Neutrophils % (A) 77 %; Platelet Count 129 k/uL (150-450); RBC 3.76 m/uL (4.30-5.90); WBC 7.3 k/uL (3.8-10.6)
[2018-09-08 08:49] LABS: Anion Gap 6 mmol/L; Blood Urea Nitrogen 20 mg/dL (9-20); Calcium 8.7 mg/dL (8.4-10.2); Carbon Dioxide 28 mmol/L (22-30); Chloride 103 mmol/L (98-107); Glucose 89 mg/dL (74-99); Potassium 4.2 mmol/L (3.5-5.1); Sodium 137 mmol/L (137-145)
--- NOTE | 2018-09-08 08:53 | P.CNOR ---
History of Present Illness - [facility] Consult date: 09/07/18 Requesting physician: Ovi Joiner Consult reason: joint pain (Right shoulder pain), neck pain (Cervical pain) History of present illness: Patient is a pleasant 78-year-old male who is seen and examined at bedside in regards to cervical pain and right shoulder pain. He states he has a history of previous right total shoulder arthroplasty and left total shoulder arthroplasty. He states last 09/01/2018 he began experiencing increased pain at the cervical spine radiating towards the right shoulder. He denies specific injury. He states he presented to the emergency department due to his symptoms on 09/05/2018. At that time he was found to have some weakness , a fever, as well as some pain towards his right shoulder. He continues to be seen and examined by medicine. After further testing, patient was found to have positive blood cultures with gram-positive cocci. He was started on vancomycin and Kefzol. Consultation has also been placed with infectious disease. He has continued to have some pain at the right shoulder. His pain is controlled while at rest. He does feel some weakness with the right upper extremity which she feel may be due to pain. 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 Imaging cervical spine and right shoulder were taken during his presentation without significant acute findings. Fever or presentation has resolved. Past Medical History Past Medical History: Deep Vein Thrombosis (DVT), Hyperlipidemia, Hypertension Additional Past Medical History / Comment(s): 09-05-18 pt wants a pne vaccine while here. other hx:wound on buttocks since healed, "hands shaky at times" History of Any Multi-Drug Resistant Organisms: None Reported Past Surgical History: Appendectomy, Cardiac Valve Replacement, Heart Catheterization, Joint Replacement Additional Past Surgical History / Comment(s): cardiac valve replacement x2, taryn shoulder replacement, lt hip replacement, cataracts, lt eye retinal tear-sx to repair, dental implants Past Anesthesia/Blood Transfusion Reactions: No Reported Reaction Additional Past Anesthesia/Blood Transfusion Reaction / Comm: past blood transfusions-no reactions Smoking Status: Former smoker - Past Family History Mother Family Medical History: Dementia Father History Unknown: Yes Brother(s) Family Medical History: Cancer Additional Family Medical History / Comment(s): melanoma Medications and Allergies Home Medications Medication Instructions Recorded Confirmed Type Aspirin [Adult Low Dose Aspirin EC] 81 mg PO DAILY 09/24/15 09/05/18 History Lisinopril [Zestril] 20 mg PO DAILY 09/24/15 09/05/18 History Metoprolol Succinate [Toprol XL] 25 mg PO DAILY 09/24/15 09/05/18 History Acetaminophen Tab [Tylenol] 500 mg PO Q6H 09/05/18 09/05/18 History Allergies Allergy/AdvReac Type Severity Reaction Status Date / Time adhesive tape AdvReac Rash/Hives Verified 09/05/18 16:31 Physical Examination Physical exam: Patient is awake, alert, and oriented 3 Vital signs stable Good chest excursion with deep inspiration and expiration Abdomen soft nontender Examination of the cervical spine reveals skin is intact with no abrasions, lacerations, or bruises; no erythema, purulence or signs of infection No significant pain with palpation of the cervical spine Full range of motion of the cervical spine with adequate flexion, extension, and bilateral rotation 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, thumb strength, interosseous strength, biceps strength, triceps strength, and shoulder strength positive sustained bilaterally Motor strength of the upper extremity is 4/5 including campus recruiting internship, thumb extension, and interosseous Pain with palpation over the right biceps tendon Increased pain at the right shoulder with active range of motion of the right shoulder Evidence of a well-healed incision over the anterior right shoulder Evidence of some spastic movements of the bilateral hands No significant erythema, bruising, swelling or obvious sign of infection over the right shoulder Upper extremity strength 5/5 on the left No upper extremity hyperreflexia bilaterally Hoffmans sign negative upper extremity bilaterally No signs or symptoms of DVT; no calf pain Results Pertinent studies: CT cervical spine: C2-3 facet arthropathy; C3-4 facet arthropathy greater on the left and uncovertebral joint hypertrophy resulting left neural foraminal narrowing C4-5 facet arthropathy and uncovertebral joint hypertrophy resulting in right neural foraminal stenosis; C5-6 severe degenerative disc disease and uncovertebral joint hypertrophy resulting in bilateral neural foraminal stenosis ; C6-7 severe degenerative disc diseaseand uncovertebral joint hypertrophy resulting in bilateral moderate foraminal stenosis: C7-T1 spondylolisthesis; No evidence of significant central canal stenosis; no evidence of fracture; could consider MRI for further evaluation X-rays the right shoulder: Evidence of right shoulder prosthesis which appear an anatomic position; narrowing of the joint space; evidence of some narrowing of the subacromial joint space - Labs Labs: Abnormal Lab Results - Last 24 Hours (Table) 09/07/18 09/07/18 Range/Units 10:14 10:14 RBC 3.62 L (4.30-5.90) m/uL Hgb 11.2 L (13.0-17.5) gm/dL Hct 34.3 L (39.0-53.0) % Plt Count 110 L (150-450) k/uL Lymphocytes # 0.7 L (1.0-4.8) k/uL Sodium 135 L (137-145) mmol/L Microbiology - Last 24 Hours (Table) 09/05/18 17:29 Urine Culture - Final Urine,Voided 09/05/18 16:25 Blood Culture Gram Stain - Preliminary Blood Blood Culture - Preliminary Alpha Hemolytic Streptococcus 09/05/18 16:25 Blood Culture - Final Blood H & H 09/05/18 09/06/18 09/07/18 Range/Units 16:20 08:00 10:14 Hgb 13.6 12.2 L 11.2 L (13.0-17.5) gm/dL Hct 39.6 37.6 L 34.3 L (39.0-53.0) % Coagulation 09/05/18 Range/Units 16:20 INR 1.1 (<1.2) Result Diagrams: 09/08/18 08:01 09/08/18 08:01 Assessment and Plan Assessment: Assessment: Cervical pain Right shoulder pain Right upper extremity weakness History of bilateral total shoulder arthroplasty Cervical degenerative disc disease and facet arthropathy Cervical foraminal stenosis C7-T1 spondylolisthesis Sepsis with positive blood cultures for gram-positive cocci; cause currently unknown (1) Cervical pain Current Visit: Yes Status: Acute Code(s): M54.2 - CERVICALGIA SNOMED Code( s): 04639018 (2) Right shoulder pain Current Visit: Yes Status: Acute Code(s): M25.511 - PAIN IN RIGHT SHOULDER SNOMED Code(s): 73882971 (3) History of arthroplasty of right shoulder Current Visit: Yes Status: Acute Code(s): Z96.611 - PRESENCE OF RIGHT ARTIFICIAL SHOULDER JOINT SNOMED Code(s): 6616125753700445 (4) History of arthroplasty of left shoulder Current Visit: Yes Status: Acute Code(s): Z96.612 - PRESENCE OF LEFT ARTIFICIAL SHOULDER JOINT SNOMED Code(s): 9164347551340484 (5) Right arm weakness Current Visit: Yes Status: Acute Code(s): R29.898 - OTH SYMPTOMS AND SIGNS INVOLVING THE MUSCULOSKELETAL SYSTEM SNOMED Code(s): 003322636 (6) Sepsis Current Visit: Yes Status: Acute Code(s): A41.9 - SEPSIS, UNSPECIFIED ORGANISM SNOMED Code(s): 72346812 (7) Degenerative disc disease, cervical Current Visit: Yes Status: Acute Code(s): M50.30 - OTHER CERVICAL DISC DEGENERATION, UNSP CERVICAL REGION SNOMED Code(s): 33911797 (8) Cervical radiculopathy Current Visit: Yes Status: Acute Code(s): M54.12 - RADICULOPATHY, CERVICAL REGION SNOMED Code(s): 91957874 Plan: Plan: 1. Patient will be discussed in detail with Dr. Lexx Arboleda. Imaging has been reviewed in detail by myself. After physical examination of the patient and discussion with the patient, we were planning to proceed forward with conservative treatment in regards to his cervical spine right shoulder. He has a history of bilateral total shoulder arthroplasty. He does have significant changes in his cervical spine. His cervical pain radiates towards the right shoulder started approximately 1 week ago without known injury. At presentation to the emergency department he was found to have a fever. Blood cultures have been positive for gram-positive cocci. Patient is currently on vancomycin and Kefzol. Patient has been seen and examined by infectious disease prior to the dictation of this note. Infectious disease does not feel his symptoms are stemming specifically from his cervical spine from in infectious disease standpoint they concerned his symptoms may be coming from his right shoulder. They're recommending possible right shoulder aspiration. There also planning for repeat blood cultures to document clearance of bacteremia. On physical examination, patient does not have significant findings to correlate with a septic joint. He has pain over the biceps tendon with palpation and pain with active range of motion of the shoulder. I do not see evidence of significant erythema, swelling, drainage, warmth to palpation, or obvious on infection of the right shoulder. There is evidence of a well- healed incision over the right anterior shoulder which has healed appropriately. Patient will be discussed in detail with Dr. Lexx Arboleda to discuss an appropriate plan of care proceeding forward. 2. Medicine and infectious disease will continue following the patient closely. Time with Patient: Less than 30
--- NOTE | 2018-09-08 11:07 | P.PCN ---
Date of Procedure: 09/08/18 Preoperative Diagnosis: Right shoulder pain with history of shoulder hemiarthroplasty approximately [address] Garcia Bacteremia Anesthesia: none Pathology: other (Minimal contents from aspiration sent in a culture tube to microbiology) Condition: stable Description of Procedure: Patient is seen and examined at bedside. I reviewed the notation from [facility] and discussed case with him. I reviewed the imaging of his shoulders as well as his cervical spine. His been requested from medicine and infectious disease to obtain aspiration of his right shoulder. The patient has been having some right shoulder pain which increased last month. He is not having specific injury or trauma that is new for him but does have history of chronic right shoulder pain and had shoulder hemiarthroplasty approximately [address] Garcia. He had both shoulders replaced with hemiarthroplasty and has done well over the past 18-20 years. He had some increased pain last month and he feels that is subsiding to some degree now. Both his bacteremia/diseases interested in us having a aspiration of his right shoulder. He does have some history of cervical issues and has significant disc degeneration and stenosis at his cervical spine as well. He does not feel he is having weakness. The patient has been afebrile and his white count has been normal. His labs showed positive cultures bacteremia Assessment and plan The patient has history of hemiarthroplasty had some increased pain in his right shoulder and also developed bacteremia. There was possibility of septic arthritis causing his bacteremia and we have been requested to do aspiration for his right shoulder. Patient has good motion in his right shoulder though is somewhat stiff which is chronic for him. I do not see any erythema or fluid collection. Per their request, I performed a right shoulder aspiration at bedside today. at bedside today I was able to diligently prep the right shoulder. I establish access point posteriorly and did multiple phase prepping to ensure sterile technique. The area of his right shoulder was isolated to provide sterility. Once we had adequate sterility and isolated feels I was able to use 18-gauge needle and a syringe to establish access to the right shoulder joint. I used one stick and I was able to enter into the shoulder joint itself. As able to feel the metal of the knee arthroplasty with my needle tip. I was not able to withdraw any significant fluid. There is no purulence. There is no pus. There is no significant fluid in the shoulder joint itself. I was able to redirect the needle without further needlesticks but I was not able to withdraw any fluid. I was not able to get any purulence or pus from the shoulder joint. We withdrew less than 1 small drop of blood which I injected into a sterile culture tube to be sent. There is no fluid for cell count. There is no joint fluid or pus. The patient tolerated the procedure very well The needle Is removed was cleaned and a Band-Aid was placed over the space. I think that he should continue with his treatment as per medicine and I do not anticipate further orthopedic intervention at this point. We will await cultures.
--- NOTE | 2018-09-08 20:02 | PN ---
PROGRESS NOTE DATE OF SERVICE: 09/08/2018 PRESENTING COMPLAINT: Fever, chills, shoulder pain. INTERVAL HISTORY: This patient presented with what appeared to be septic arthritis of the right shoulder. The patient did have a shoulder tap today, not much was obtained. The patient has had positive blood cultures. Overall pain is better. Fevers have come down. Did tolerate some diet. REVIEW OF SYSTEMS: Done for constitutional, cardiovascular, GI and pulmonary; findings as above. CURRENT MEDICATIONS: Reviewed that include IV Ancef. EXAMINATION: Afebrile, pulse 60, respirations 20, blood pressure 145/89, pulse ox 97% on room air. GENERAL APPEARANCE: Lying in bed, awake. EYES: Pupils equal. Conjunctivae normal. NECK: JVD not raised. Mass not palpable. Respiratory effort increased. LUNGS: Decreased breath sounds. CARDIOVASCULAR: First and second sounds. No edema. ABDOMEN: Soft, nontender. Liver and spleen not palpable. PSYCHIATRY: Alert and oriented x3. Mood and affect normal. MUSCULOSKELETAL: Limited range of motion of the right shoulder. INVESTIGATIONS: White count 7.3, hemoglobin 12, potassium 4.2. Blood cultures growing alpha hemolytic strep. ASSESSMENT: 1. Possible septic arthritis of the right shoulder with blood cultures positive for alpha streptococcus, status post right shoulder being tapped today. 2. Hyperlipidemia. 3. Essential hypertension. 4. Chronic osteoarthritis. 5. Sepsis on presentation. PLAN: Overall clinically she is doing better. Repeat blood cultures are pending. I spoke with the patient and . Await repeat blood cultures to come back and see what the shoulder tap showing. Follow. MMODL / IJN: [id number] /
[2018-09-08] MEDS: MELATONIN 3 MG TABLET PO PRN (20:57)
[2018-09-08] MEDS: ALPRAZolam 0.25 MG TAB PO PRN (20:58)
[2018-09-09] MEDS: ceFAZolin IN SWFI 2 GM/20 ML SYRINGE IVP SCH ×3 (00:01→15:39)
[2018-09-09] MEDS: HYDROcodone/APAP 5-325MG 1 EACH TAB PO PRN (04:12)
[2018-09-09] MEDS: ENOXAPARIN 40 MG/0.4 ML SYRINGE SQ SCH (08:32)
[2018-09-09] MEDS: LISINOPRIL 20 MG TAB PO SCH (08:33)
[2018-09-09] MEDS: METOPROLOL SUCCINATE (ER) 25 MG TAB.ER.24H PO SCH (08:33)
[2018-09-09] MEDS: ASPIRIN 81 MG PO SCH (08:33)
[2018-09-09] MEDS: PANTOPRAZOLE 40 MG TABLET PO SCH (08:33)
[2018-09-09] MEDS: NAPROXEN 250 MG TAB PO SCH ×3 (08:33→20:46)
[2018-09-09 09:50] LABS: Basophils % (A) 0 %; Eosinophils # (A) 0.1 k/uL (0-0.7); Eosinophils % (A) 2 %; HCT 34.1 % (39.0-53.0); HGB 11.4 gm/dL (13.0-17.5); Lymphocytes # (A) 0.5 k/uL (1.0-4.8); Lymphocytes % (A) 10 %; MCH 31.4 pg (25.0-35.0); MCHC 33.5 g/dL (31.0-37.0); Mean Platelet Volume 7.2; Monocytes # (A) 0.5 k/uL (0-1.0); Monocytes % (A) 11 %; Neutrophils # (A) 3.7 k/uL (1.3-7.7); Neutrophils % (A) 74 %; Platelet Count 159 k/uL (150-450); RBC 3.63 m/uL (4.30-5.90); RDW 13.8 % (11.5-15.5)
[2018-09-09 10:05] LABS: Anion Gap 8 mmol/L; Blood Urea Nitrogen 19 mg/dL (9-20); Calcium 8.7 mg/dL (8.4-10.2); Carbon Dioxide 25 mmol/L (22-30); Chloride 104 mmol/L (98-107); Glucose 130 mg/dL (74-99); Potassium 4.1 mmol/L (3.5-5.1); Sodium 137 mmol/L (137-145)
[2018-09-09] MEDS: ALPRAZolam 0.25 MG TAB PO PRN (20:45)
--- NOTE | 2018-09-09 22:32 | PN ---
PROGRESS NOTE DATE OF SERVICE: 09/09/2018 PRESENTING COMPLAINT: Right shoulder pain. INTERVAL HISTORY: Patient admitted with what appears now to be septic arthritis, right shoulder. Has been on antibiotics. Blood cultures were positive. Shoulder wound is much improved. Overall feeling better. Did walk. Appetite is getting better. at the bedside. REVIEW OF SYSTEMS: Done for constitutional, cardiovascular, GI, pulmonary, musculoskeletal and relevant findings as above. CURRENT MEDICATIONS: Reviewed that include IV Ancef. PHYSICAL EXAMINATION: VITAL SIGNS: Temperature 98.2, pulse 61, respiration 16, blood pressure 130/91, pulse ox 97% on room air. GENERAL APPEARANCE: Sitting up. Looking better. EYES: Pupils equal. Conjunctivae normal. NECK: JVD not raised. Mass not palpable. RESPIRATORY: Effort normal. LUNGS: Decreased breath sounds. CARDIOVASCULAR: 1st and 2nd sounds normal. No edema. ABDOMEN: Soft, nontender. Liver and spleen not palpable. PSYCHIATRY: Alert and oriented times three. Mood and affect normal. MUSCULOSKELETAL: Much improved range of motion of the right shoulder. INVESTIGATIONS: White count 5, hemoglobin 11.4, potassium 4.1, repeat blood cultures from September 06 are negative. Right shoulder culture also pending. ASSESSMENT: 1. Possible septic arthritis of the right shoulder with blood cultures positive for alpha strep with significant clinical improvement. 2. Hyperlipidemia. 3. Essential hypertension. 4. Chronic primary osteoarthritis. 5. Sepsis on presentation. Clinically patient doing much better. Await shoulder culture results. 6. Follow. MMODL / IJN: [id number] /
[2018-09-10] MEDS: ceFAZolin IN SWFI 2 GM/20 ML SYRINGE IVP SCH ×4 (00:09→23:42)
--- NOTE | 2018-09-10 00:09 | PN ---
PROGRESS NOTE DATE OF SERVICE: 09/09/2018. REASON FOR FOLLOWUP: Fever with strep bacteremia. INTERVAL HISTORY: The patient is currently afebrile. The patient was evaluated by Ortho and did have an aspirate of the right shoulder, however, no purulence was noted. The patient did mention improvement in the right shoulder and neck pain. Denies having any chest pain or shortness of breath or cough. No abdominal pain. No diarrhea. REVIEW OF SYSTEMS: Positive points have been mentioned in HPI. MEDICATIONS: No change in medications. EXAMINATION: Blood pressure 132/91 with a pulse of 61, temperature 98.2, he is 97% on room air. GENERAL DESCRIPTION: An elderly male up in the chair in no distress. HEENT: Shows slight pallor. No scleral icterus. Oral mucosa is dry. LUNGS: Unlabored breathing. Clear to auscultation anteriorly. No wheeze or crackle. HERAT: S1, S2. Regular rate and rhythm with systolic murmur. ABDOMEN: Soft, no tenderness. EXTREMITIES: No edema of feet. SKIN: No rashes or masses palpable. NEUROLOGIC: The patient is awake, alert, oriented. Mood and affect normal. LABS: Blood culture repeat 09/06/15. Troponin has been negative. The right shoulder respiratory cultures are currently pending. DIAGNOSTIC IMPRESSION AND PLAN: Patient presented to the hospital with fevers, rigors and chills. The patient did have evidence of alpha hemolytic streptococcus bacteremia. With symptom mostly right shoulder pain concern for likely right shoulder septic arthritis in patient who did have underlying hardware. However, the patient is status post aspirate of the joint with no evidence of any purulent fluid. A CT of the neck was negative for any destructive changes. The patient did have a systolic murmur and did have a history of heart valve replacements with alpha hemolytic Streptococcus bacteremia. Underlying endocarditis needs to be ruled out. The patient did have a short-lived bacteremia, which is not very typical for endocarditis. An echo will be ordered. Will also ordered the whole body WBC scan. Keep the patient on cefazolin 2 g every 8 hours while the workup is currently pending. Continue current care. MMODL / IJN: [id number] /
[2018-09-10] MEDS: METOPROLOL SUCCINATE (ER) 25 MG TAB.ER.24H PO SCH (08:41)
[2018-09-10] MEDS: ENOXAPARIN 40 MG/0.4 ML SYRINGE SQ SCH (08:41)
[2018-09-10] MEDS: LISINOPRIL 20 MG TAB PO SCH (08:41)
[2018-09-10] MEDS: PANTOPRAZOLE 40 MG TABLET PO SCH (08:42)
[2018-09-10] MEDS: NAPROXEN 250 MG TAB PO SCH ×3 (08:42→20:32)
[2018-09-10] MEDS: ASPIRIN 81 MG PO SCH (08:42)
[2018-09-10 10:54] LABS: Basophils % (A) 0 %; Eosinophils # (A) 0.2 k/uL (0-0.7); Eosinophils % (A) 2 %; HCT 34.3 % (39.0-53.0); Lymphocytes # (A) 0.6 k/uL (1.0-4.8); Lymphocytes % (A) 9 %; MCH 30.4 pg (25.0-35.0); MCHC 32.1 g/dL (31.0-37.0); MCV 94.7 fL (80.0-100.0); Mean Platelet Volume 6.7; Monocytes # (A) 0.5 k/uL (0-1.0); Monocytes % (A) 8 %; Neutrophils % (A) 79 %; Platelet Count 216 k/uL (150-450); RBC 3.63 m/uL (4.30-5.90); RDW 13.8 % (11.5-15.5); WBC 6.3 k/uL (3.8-10.6)
[2018-09-10 11:33] LABS: Anion Gap 7 mmol/L; Blood Urea Nitrogen 15 mg/dL (9-20); C Reactive Protein 52.5 mg/L (<10.0); Calcium 8.7 mg/dL (8.4-10.2); Carbon Dioxide 28 mmol/L (22-30); Chloride 101 mmol/L (98-107); Glucose 129 mg/dL (74-99); Potassium 4.4 mmol/L (3.5-5.1); Sodium 136 mmol/L (137-145)
[2018-09-10 12:51] LABS: Erythrocyte Sedimentation Rate 35 mm/hr (0-15)
--- NOTE | 2018-09-10 13:18 | ECHOF ---
Referral Reason:Bacteremia and murmur MEASUREMENTS -------- HEIGHT: 170.2 cm WEIGHT: 74.8 kg BP: 166/98 RVIDd: 3.6 cm (< 3.3) IVSd: 1.6 cm (0.6 - 1.1) LVIDd: 4.2 cm (3.9 - 5.3) LVPWd: 1.5 cm (0.6 - 1.1) IVSs: 2.2 cm LVIDs: 2.1 cm LVPWs: 1.9 cm LAESV Index (A-L): 68.08 ml/m Ao Diam: 3.8 cm (2.0 - 3.7) AV Cusp: 1.5 cm (1.5 - 2.6) LA Diam: 5.9 cm (2.7 - 3.8) MV E Stefan: 2.14 m/s MV DecT: 275 ms MV A Stefan: 0.66 m/s MV E/A Ratio: 3.24 AV maxP.36 mmHg AV meanP.37 mmHg RAP: 5.00 mmHg RVSP: 53.17 mmHg FINDINGS -------- Sinus rhythm. This was a technically adequate study. The left ventricular size is normal. There is moderate concentric left ventricular hypertrophy. O verall left ventricular systolic function is normal with, an EF between 65 - 70 %. The right ventricle is mildly enlarged. LA is severely dilated >40 ml/m2 RA appears enlarged. There is no evidence of aortic regurgitation. There is no evidence of aortic stenosis. Peak/mean gradient across the Aortic Valve is 29.36mmHg / 16.37mmHg. Normally functioning bioprosthetic valve . Ahwv-rn-cpbuqoip mitral regurgitation is present. The peak and mean MV gradients are 22.46mmHg 5.7 1mmHg as measured by doppler. Normally functioning bioprosthetic mitral valve. Difficult to estim ate mitral regurgitation due to artifact from MVR. Moderate tricuspid regurgitation present. There is mild to moderate pulmonary hypertension. The r ight ventricular systolic pressure, as measured by Doppler, is 53.17mmHg. Trace/mild (physiologic) pulmonic regurgitation. The aortic root is borderline dilated up to 3.9 cm. There is no pericardial effusion. CONCLUSIONS -------- 1. Sinus rhythm. 2. This was a technically adequate study. 3. The left ventricular size is normal. 4. There is moderate concentric left ventricular hypertrophy. 5. Overall left ventricular systolic function is normal with, an EF between 65 - 70 %. 6. The right ventricle is mildly enlarged. 7. LA is severely dilated >40 ml/m2 8. RA appears enlarged. 9. Peak/mean gradient across the Aortic Valve is 29.36mmHg / 16.37mmHg. 10. Normally functioning bioprosthetic valve. 11. Iacz-dp-vtpxsgam mitral regurgitation is present. 12. The peak and mean MV gradients are 22.46mmHg 5.71mmHg as measured by doppler. 13. Normally functioning bioprosthetic mitral valve. 14. Difficult to estimate mitral regurgitation due to artifact from MVR. 15. Moderate tricuspid regurgitation present. 16. There is mild to moderate pulmonary hypertension. 17. The right ventricular systolic pressure, as measured by Doppler, is 53.17mmHg. 18. Trace/mild (physiologic) pulmonic regurgitation. 19. The aortic root is borderline dilated up to 3.9 cm. 20. There is no pericardial effusion. SUPERVISOR SOUND TECHNICIAN: Patrice Oseguera RDCS
--- NOTE | 2018-09-10 22:24 | PN ---
PROGRESS NOTE DATE OF SERVICE: 09/10/2018. REASON FOR FOLLOWUP: Streptococcus bacteremia. INTERVAL HISTORY: The patient is afebrile. He has been breathing comfortably. Denies having any chest pain or shortness of breath or cough. His right shoulder pain has improved. No nausea, vomiting. No abdominal pain. No diarrhea. PHYSICAL EXAMINATION: Blood pressure is 139/98 with a pulse of 67, temperature 96.5. He is 95% on room air. General description is an elderly male up in the bed in no distress. Respiratory system: Unlabored breathing, clear to auscultation anteriorly. Heart S1, S2. Regular rate and rhythm. ABDOMEN: Soft, no tenderness. LABS: Hemoglobin is 11, white count 6.3, BUN of 15, creatinine 0.72. Echocardiogram with normal functioning bioprosthetic valve, no vegetation. WBC scan is currently pending. DIAGNOSTIC IMPRESSION AND PLAN: Patient with bacteremia in this patient admitted to the hospital with a fever predominantly right shoulder pain. However, the patient did not have any purulent secretion through the aspirate of the right shoulder. CT of the cervical spine did not show any destructive changes. Echocardiogram has been negative. Waiting for the WBC scan to pinpoint any possible source of infection. If the WBC scan is negative, we will recommend obtaining a PICC line for IV Rocephin 2 g daily for at least 4 weeks in view of patient with bacteremia and fever and did have a significant including both bioprosthetic valve and shoulder. Continue supportive care. MMODL / IJN: [id number] /
--- NOTE | 2018-09-10 23:25 | PN ---
PROGRESS NOTE DATE OF SERVICE: 09/10/2018. PRESENTING COMPLAINT: Right shoulder pain. INTERVAL HISTORY: The patient presented with positive blood cultures, right shoulder pain, severe, which is actually improving. The patient's shoulder type was rather relatively unremarkable. Earlier today ID did order a WBC scan. 2D echocardiogram was unremarkable. Overall, patient feels better. REVIEW OF SYSTEMS: Done for constitutional, cardiovascular, GI, pulmonary and relevant findings as above. Right shoulder is greatly improved. CURRENT MEDICATIONS: Reviewed that include IV Ancef. PHYSICAL EXAMINATION: VITAL SIGNS: Afebrile, pulse 61, respiratory 18, blood pressure 166/98, pulse 94 percent on room air. GENERAL APPEARANCE: Sitting up, more comfortable. EYES: Pupils equal. Conjunctivae normal. NECK: JVD not raised. Mass not palpable. RESPIRATORY: Effort normal. LUNGS: Decreased breath sounds. CARDIOVASCULAR: 1st and 2nd sounds normal. No edema. ABDOMEN: Soft, nontender. Liver and spleen not palpable. PSYCHIATRY: Alert and oriented times three. Mood and affect normal. MUSCULOSKELETAL: Much improved range of motion from right shoulder. INVESTIGATIONS: White count 6.3, hemoglobin 11, potassium 4.4. 2D echo does not report any vegetation. ASSESSMENT: 1. Possibly septic arthritis of the right shoulder with blood cultures positive for alpha Strep with significant clinical improvement, looking for any other source of infection. 2. Hyperlipidemia. 3. Essential hypertension. 4. Chronic primary osteoarthritis. 5. Sepsis on presentation. PLAN: Patient overall doing much better. High WBC scan has been ordered. We will see how it is all scored. We will then discuss with Dr. Miller about final disposition from there. This was discussed with the patient and the . MMYUMIKOL / IJN: [id number] /
[2018-09-10] MEDS: ALPRAZolam 0.25 MG TAB PO PRN (23:42)
[2018-09-11] MEDS: ASPIRIN 81 MG PO SCH (08:22)
[2018-09-11] MEDS: NAPROXEN 250 MG TAB PO SCH ×3 (08:22→21:51)
[2018-09-11] MEDS: METOPROLOL SUCCINATE (ER) 25 MG TAB.ER.24H PO SCH (08:22)
[2018-09-11] MEDS: PANTOPRAZOLE 40 MG TABLET PO SCH (08:23)
[2018-09-11] MEDS: LISINOPRIL 20 MG TAB PO SCH (08:23)
[2018-09-11] MEDS: ENOXAPARIN 40 MG/0.4 ML SYRINGE SQ SCH (08:23)
[2018-09-11] MEDS: ceFAZolin IN SWFI 2 GM/20 ML SYRINGE IVP SCH ×2 (08:37→16:13)
--- NOTE | 2018-09-11 15:41 | NM ---
EXAMINATION TYPE: NM WBC whole body DATE OF EXAM: 09/11/2018 COMPARISON: NONE HISTORY: 78-year-old male fever and strep bacteremia of unknown origin. TECHNIQUE: Following administration of 20.4 mCi Tc99m Ceretec. Images obtained 4 hour(s) and 24 jazmyn r(s) post injection. FINDINGS: Normal physiological tracer activity is noted in the liver and spleen and in the bone marrow of the a xial and appendicular skeleton. No focal abnormal activity is identified to explain a potential sourc e of infection. IMPRESSION: Normal white blood cell scan. No evidence for abnormal tracer activity.
[2018-09-11] MEDS: ALPRAZolam 0.25 MG TAB PO PRN (21:51)
--- NOTE | 2018-09-11 23:35 | PN ---
PROGRESS NOTE DATE OF SERVICE: 09/11/2028. REASON FOR FOLLOW UP: Bacteremia. INTERVAL HISTORY: The patient is afebrile. The patient right shoulder pain has improved as well as the neck pain. Denies having any chest pain or shortness of breath or cough. No abdominal pain. No diarrhea. EXAMINATION: Blood pressure 169/96, pulse of 73, temperature 97.6. He is 98% on room air. General description is an elderly male up in the room in no distress. Respiratory system: Unlabored breathing. Clear to auscultation anteriorly. Heart S1, S2. Regular rate and rhythm. Abdomen soft, no tenderness. LABS: Hemoglobin is 11.0, white count 6.3 with a BUN of 15, creatinine 0.72. Blood culture repeat has been negative. DIAGNOSTIC IMPRESSION AND PLAN: Patient enterococcal bacteremia in this patient admitted to the hospital with fever. The patient did have two bioprosthetic valve and hardware especially to the right shoulder and has been complaining of pain on initial presentation. However, aspirate of the right shoulder was negative. However, the patient improved with the IV cefazolin therapy. Will be transitioned to Rocephin 2 g daily for another 4 weeks with close outpatient followup. Family present at bedside. Questions answered. MMODL / IJN: [id number] /
[2018-09-12] MEDS: ceFAZolin IN SWFI 2 GM/20 ML SYRINGE IVP SCH ×2 (00:36→09:04)
--- NOTE | 2018-09-12 06:18 | PN ---
PROGRESS NOTE DATE OF SERVICE: September 11, 2018 PRESENTING COMPLAINT: Right shoulder pain. INTERVAL HISTORY: This patient with positive blood cultures, felt to have right shoulder septic arthritis on clinical grounds. Did have a WBC scan the 2nd part of which was pending for this afternoon. Overall feeling better. No more fevers. Tolerating a diet. REVIEW OF SYSTEMS: Done for constitutional, cardiovascular, GI, pulmonary, relevant findings as above. CURRENT MEDICATIONS: Reviewed that include IV Ancef. PHYSICAL EXAMINATION: VITAL SIGNS: Temperature 97.6, pulse 50, respiration 14, blood pressure 169/96, pulse ox 98% on room air. GENERAL APPEARANCE: Sitting up. Comfortable. EYES: Pupils equal. Conjunctivae normal. NECK: JVD not raised. Mass not palpable. RESPIRATORY: Effort normal. LUNGS: Decreased breath sounds. CARDIOVASCULAR: First and second sounds normal. No edema. ABDOMEN: Soft, nontender. Liver and spleen not palpable. PSYCHIATRY: Alert and oriented x3. Mood and affect normal. INVESTIGATIONS: White count 6.3, hemoglobin 11, potassium 4.4. Repeat blood cultures are negative. ASSESSMENT: 1. Possible septic arthritis of the right shoulder with blood cultures positive for alpha Strep with significant clinical improvement. 2. Hyperlipidemia. 3. Essential hypertension. 4. Chronic primary osteoarthritis. 5. Sepsis on presentation. PLAN: The patient did have a tagged WBC scan, second part of which is pending this afternoon. Antibiotics will be finalized by Dr. Miller. Clinically, otherwise patient doing much better. MMODL / IJN: [id number] /
[2018-09-12] MEDS ORDERED: LIDOCAINE 1% INJ 10MG/ML (20 ML MDV) ONE (08:33)
[2018-09-12] MEDS ORDERED: LIDOCAINE 1% INJ 10MG/ML (20 ML MDV) SQ ONE (08:42)
[2018-09-12] MEDS: METOPROLOL SUCCINATE (ER) 25 MG TAB.ER.24H PO SCH (09:04)
[2018-09-12] MEDS: NAPROXEN 250 MG TAB PO SCH ×2 (09:04→15:04)
[2018-09-12] MEDS: ENOXAPARIN 40 MG/0.4 ML SYRINGE SQ SCH (09:05)
[2018-09-12] MEDS: ASPIRIN 81 MG PO SCH (09:05)
[2018-09-12] MEDS: PANTOPRAZOLE 40 MG TABLET PO SCH (09:05)
[2018-09-12] MEDS: LISINOPRIL 20 MG TAB PO SCH (09:05)
[2018-09-12] MEDS ORDERED: cefTRIAXone 2,000 MG in SODIUM CHLORIDE 0.9% 100 ML IVPB STA (11:18)
--- NOTE | 2018-09-12 12:54 | IR ---
PICC LINE PLACEMENT: HISTORY: Infection requiring long-term antibiotic therapy PROCEDURE: Ultrasound and fluoroscopic guidance of PICC line placement. COMPLICATIONS: None ANESTHESIA: 1. 1% Lidocaine locally. FINDINGS/TECHNIQUE: The procedure was explained to the patient. The risks, complications, benefits and alternatives were discussed and any questions were answered. Informed consent was obtained. The patient was placed supine on the fluoroscopic table and prepped and draped in the usual sterile fash ion. Utilizing a 21 gauge needle and sonographic and fluoroscopic guidance, access in the left basi lic vein was achieved and there is placement of a 0.018 guidewire. The vein is patent. A 4-F sheath was placed over the guidewire. The guidewire and dilator were removed and a 4-F. PICC line was plac ed through the sheath with the tip at the level of the SVC. The sheath was removed, the catheter was flushed and sutured into position. The patient was stable throughout the procedure and remained sta ble upon discharge from the Department of Radiology. The vein puncture was patent under ultrasound. A mcknight scale image was obtained to document patency of the vein punctured. All elements of the maximal barrier technique were utilized. FLUOROSCOPY TIME: 0.3 minutes and one image submitted IMPRESSION: Successful PICC line placement under ultrasound and fluoroscopic guidance.
[2018-09-12 15:05] VITALS: BP 122/77; PULSE 63; RESP 16; TEMP 97.1
--- NOTE | 2018-09-12 17:27 | PN ---
PROGRESS NOTE DATE OF SERVICE: 09/12/2018 REASON FOR FOLLOWUP: Alpha hemolytic streptococcus bacteremia and a question of right shoulder septic arthritis. INTERVAL HISTORY: The patient is currently afebrile. He is feeling better, breathing comfortably. The patient did get his PICC line for outpatient IV antibiotic therapy. The patient's right shoulder pain has improved. No nausea, vomiting, no abdominal pain, no diarrhea. PHYSICAL EXAMINATION: Blood pressure 148/80 with a pulse of 65, temperature 98.3. He is 97% on room air. General description is an elderly male lying in bed in no distress. RESPIRATORY SYSTEM: Unlabored breathing. Clear to auscultation anteriorly. HEART: S1, S2. Regular rate and rhythm. ABDOMEN: Soft. No tenderness. LABS: Hemoglobin is 11, white count 6.3, BUN of 15, creatinine 0.72. Blood culture repeat has been negative so far. DIAGNOSTIC IMPRESSION AND PLAN: Patient with alpha hemolytic streptococcus bacteremia in a patient who did have a fever on presentation. Concern likely for a deep infection. Plan at this time is to switch him over to Rocephin 2 grams daily for a total of 4 weeks with weekly monitoring of CBC, BMP and sed rate. Continue supportive care. MMODL / IJN: [id number] /
--- NOTE | 2018-09-13 09:10 | DS ---
DISCHARGE SUMMARY DATE OF ADMISSION: 09/05/2018 DATE OF DISCHARGE: 09/12/2018 FINAL DIAGNOSES: 1. Possible septic arthritis of the right shoulder with blood cultures positive for alpha strep. 2. Hyperlipidemia. 3. Essential hypertension. 4. Primary osteoarthritis. 5. Sepsis on presentation. HOSPITAL COURSE: This patient presented with severe pain in the right shoulder and upper back. Patient was started on antibiotics. Shoulder tap was done, not much was improved. Not much resolved, but patient already had been on antibiotics for a good 48 hours. Patient did also have a WBC scan was unremarkable. Did also have a CT scan of the upper spine that was negative. A 2D echocardiogram did not reveal any vegetations. Patient will be treated for 4 weeks with antibiotics. Seen by Dr. Miller from Infectious Disease. Doing much better. CONSULTATION: 1. Dr. Miller from Infectious Disease. 2. Dr. Arboleda from Orthopedic Spine. PHYSICAL EXAMINATION: Temperature 97.1, pulse 63, respirations 16, blood pressure 120/77, pulse ox 95% on room air. Normal range of motion of the right shoulder, which he could hardly move when he first came in. INVESTIGATION: White count 6.3, hemoglobin 11. DISCHARGE MEDICATIONS: 1. Aspirin 81 mg a day. 2. Zestril 20 mg a day. 3. Toprol-XL 25 mg a day. 4. Tylenol 500 mg q.6. 5. Ceftriaxone 2 g IV piggyback daily for 28 days. 6. Naproxen 250 mg p.o. t.i.d. for 21 tablets. FOLLOWUP: Follow up with Dr. Girard on 09/21/2018. Follow up with Dr. Miller on 10/01/2018. [facility] infusion as well. Labs CBC, BMP, C-reactive protein, ESR weekly results to Dr. Miller. Discussion and discharge planning more than 35 minutes. Care was discussed with the patient. Questions were answered. MMODL / IJN: [id number] /
--- NOTE | 2018-09-14 08:22 | CDI ---
Documentation Clarification Form Date: 09/14/18 From: Ariane Shelton Phone: If you have a question regarding this query, please contact Kim Muro at [phone] between 8am and 5pm. Admit Date: 09/05/2018 5:43:00 PM Patient Name: Ruel Cook Visit Number: [id number] Discharge Date: 09/12/2018 3:35:00 PM ATTENTION: The Clinical Documentation Specialists (CDI) and [facility] Coding Staff appreciate your assistance in clarifying documentation. Please respond to the clarification below the line at the bottom and electronically sign. The CDI & [facility] Coding staff will review the response and follow-up if needed. Please note: Queries are made part of the Legal Health Record. If you have any questions, please contact the author of this message via ITS. Dr. Ovi Joiner The patient presented with septic arthritis of the right shoulder. History/Risk Factors: Patient has a history of bilateral shoulder prosthesis. Patieint also had sepsis on admission. Clinical Indicators: R shoulder pain, neck pain, right arm weakness and fever. Radiology findings: R. Shoulder: No fracture seen. Vital Signs: T. 100.6, P. 120, R. 20, BP 138/90 Treatment: IV Kefzol, IV Ceftriaxone, IV Vancomycin Consults: Dr. Miller documented possible right shoulder septic arthritis. In your professional opinion, can you please clarify the cause of the right shoulder septic arthritis? Due to internal joint prosthesis Joint trauma Other, please specify Unable to determine unable to determine MTDD
== END 2018-09-12 15:35 | disposition home health service (06) | DRG 872 ==
LOC: EC 15:02 → 4MS4W 17:43
PROVIDERS: ADMIT Hospitalist; ATTEND Hospitalist
PROC: 0R9J3ZZ Drainage of Right Shoulder Joint, Percutaneous Approach (ICD-10-PCS; principal; 2018-09-08)
PROC: 02HV33Z Insertion of Infusion Device into Superior Vena Cava, Percutaneous Approach (ICD-10-PCS; 2018-09-12 08:30)
DX: A40.8 Other streptococcal sepsis (principal); M00.211 Other streptococcal arthritis, right shoulder; E87.1 Hypo-osmolality and hyponatremia; D69.6 Thrombocytopenia, unspecified; M48.02 Spinal stenosis, cervical region; E78.5 Hyperlipidemia, unspecified; I10 Essential (primary) hypertension; M19.91 Primary osteoarthritis, unspecified site; M43.13 Spondylolisthesis, cervicothoracic region; M50.10 Cervical disc disorder with radiculopathy, unspecified cervical region; G89.29 Other chronic pain; M79.606 Pain in leg, unspecified; Z79.82 Long term (current) use of aspirin; Z79.899 Other long term (current) drug therapy; Z96.642 Presence of left artificial hip joint; Z96.612 Presence of left artificial shoulder joint; Z95.2 Presence of prosthetic heart valve; Z87.891 Personal history of nicotine dependence; Z86.718 Personal history of other venous thrombosis and embolism; Z90.49 Acquired absence of other specified parts of digestive tract; Z98.42 Cataract extraction status, left eye; Z98.41 Cataract extraction status, right eye; Z96.1 Presence of intraocular lens; Z80.8 Family history of malignant neoplasm of other organs or systems
CPT/HCPCS: 36415; 36569; 71046; 72127; 72170; 76937; 77001; 78806; 80048; 80053; 81001; 82550; 82553; 83605; 83735; 84100; 84484; 85025; 85610; 85652; 85730; 86140; 87040; 87070; 87075; 87086; 87150; 87205; 87502; 93005; 93306; 96361; 96365; 96367; 96375; 99285

== ENCOUNTER → 2018-09-13 | Outpatient (CLI) | payer MEDICARE, OTHER ==
--- NOTE | 2018-09-14 10:38 | MR ---
EXAMINATION TYPE: MR lumbar spine wo con DATE OF EXAM: 09/13/2018 7:02 PM COMPARISON: 03/13/2018 HISTORY: Low back pain Multiplanar, MultiSpin echo imaging of the lumbar spine was performed. L1-L2: Severe disc desiccation with vacuum disc. Mild posterior disc bulge. No evidence for herniatio n or central stenosis. Moderate bilateral foraminal encroachment. L2-L3: Severe disc desiccation with partial fusion. Posterior disc endplate complex effaces the ventr al thecal sac. No evidence for central stenosis. Right lateral recess stenosis noted. Moderate to sev ere bilateral foraminal encroachment. L3-L4: Severe disc desiccation with partial fusion. Posterior disc endplate complex effaces the ventr al thecal sac. No evidence for central stenosis. Left lateral recess stenosis noted. Moderate to derick re bilateral foraminal encroachment. L4-L5: Severe disc desiccation with vacuum disc. Mild posterior disc bulge. No evidence for herniatio n or central stenosis. Moderate bilateral foraminal encroachment. L5-S1: Partial sacralization of L5. Normal disc appearance without desiccation. No herniation, protr usion or disc bulging. No canal stenosis is present. Foramina are patent bilaterally. Moderate to large ventral spondylosis. Levoconvex scoliotic curvature is noted. Lumbar segments are i ntact. No paraspinal masses are identified. Conus medullaris has a normal appearance. IMPRESSION: 1. Severe multilevel degenerative disc disease with disc endplate complex noted and foraminal encroac hment. See above.
== END ==
LOC: RADMRIMAIN 18:04
PROVIDERS: ATTEND Physical Medicine & Rehabilitation
DX: M48.061 Spinal stenosis, lumbar region without neurogenic claudication (principal); M51.36 Other intervertebral disc degeneration, lumbar region; M47.816 Spondylosis without myelopathy or radiculopathy, lumbar region
CPT/HCPCS: 72148

== ENCOUNTER → 2018-12-03 | Outpatient (CLI) | payer MEDICARE ==
[2018-12-03 15:18] LABS: HCT 39.7 % (39.0-53.0); MCH 30.9 pg (25.0-35.0); MCHC 32.7 g/dL (31.0-37.0); MCV 94.6 fL (80.0-100.0); Mean Platelet Volume 7.2; Platelet Count 216 k/uL (150-450); RDW 14.7 % (11.5-15.5); WBC 5.9 k/uL (3.8-10.6)
[2018-12-03 15:23] LABS: Appearance,Urine Clear (Clear); Bilirubin,Urine Negative (Negative); Blood,Urine Negative (Negative); Color,Urine Yellow; Glucose,Urine (UA) Negative (Negative); Ketones,Urine Negative (Negative); Leukocyte Esterase,Urine Negative (Negative); Nitrite,Urine Negative (Negative); Protein,Urine Negative (Negative); Specific Gravity,Urine 1.012 (1.001-1.035); Urobilinogen,Urine <2.0 mg/dL (<2.0)
[2018-12-03 15:32] LABS: ALT 24 U/L (21-72); AST 27 U/L (17-59); Albumin 4.3 g/dL (3.5-5.0); Alkaline Phosphatase 72 U/L (38-126); Anion Gap 11 mmol/L; Blood Urea Nitrogen 28 mg/dL (9-20); Calcium 9.6 mg/dL (8.4-10.2); Carbon Dioxide 28 mmol/L (22-30); Chloride 97 mmol/L (98-107); Glucose 89 mg/dL (74-99); Potassium 4.8 mmol/L (3.5-5.1); Sodium 136 mmol/L (137-145); Total Bilirubin 0.6 mg/dL (0.2-1.3); Total Protein 7.3 g/dL (6.3-8.2)
[2018-12-03 15:33] LABS: INR 1.1 (<1.2); Partial Thromboplastin Time 25.4 sec (22.0-30.0); Prothrombin Time 11.4 sec (9.0-12.0)
== END | disposition home or self-care (01) ==
LOC: LABPAT 14:36
PROVIDERS: ATTEND Orthopaedic Surgery Sports Medicine
DX: Z01.812 Encounter for preprocedural laboratory examination (principal); Z79.01 Long term (current) use of anticoagulants
CPT/HCPCS: 36415; 80053; 81003; 85027; 85610; 85730; 87070

== ENCOUNTER 2018-12-26 10:06 | Inpatient (IN) | payer MEDICARE, OTHER ==
[2018-12-17 10:00] VITALS: BMI 25.0
[~2018-12-26 10:06] MED LIST: ACETAMINOPHEN TAB 500 MG TAB PO ONE; HYDROmorphone 0.5 MG/0.5 ML SYRINGE IVP PRN; LIDOCAINE 1% 20 ML VIAL (10MG/ML) FOR IV START INTRADERMA PRN; MELOXICAM 7.5 MG TAB PO ONE; ONDANSETRON 4 MG/2 ML VIAL IVP ONE; ONDANSETRON 4 MG/2 ML VIAL IVP PRN; ROPIVACAINE 246.25 MG, EPINEPHrine 0.5 MG, KETOROLAC 30 MG, cloNIDine HCL/PF 80 MCG, WA... MISCELLANE ONE; TRANEXAMIC ACID 1,000 MG in SODIUM CHLORIDE 0.9% 100 ML IVPB ONE; ceFAZolin IN SWFI 2 GM/20 ML SYRINGE IVP ONE
[2018-12-26] MEDS: LACTATED RINGERS 1,000 ML IV SCH ×3 (11:45→23:52)
[2018-12-26] MEDS ORDERED: LIDOCAINE 1% 20 ML VIAL (10MG/ML) FOR IV START INTRADERMA ONE (11:46)
[2018-12-26] MEDS ORDERED: TRANEXAMIC ACID 1,000 MG/10 ML VIAL ONE (12:49)
[2018-12-26] MEDS ORDERED: MIDAZOLAM 2 MG/2 ML VIAL ONE (12:49)
[2018-12-26] MEDS ORDERED: SODIUM CHLORIDE 0.9% 100 ML BAG ONE (12:49)
[2018-12-26] MEDS ORDERED: MORPHINE SULFATE (PF) 0.3 MG/0.3 ML SYR ONE (12:49)
[2018-12-26] MEDS ORDERED: ONDANSETRON 4 MG/2 ML VIAL IVP PRN (13:05)
[2018-12-26] MEDS ORDERED: DIAZEPAM 5 MG TAB PO PRN (13:05)
[2018-12-26] MEDS ORDERED: NALOXONE 0.4 MG/ML 1 ML VIAL IV PRN ×2 (13:05→15:36)
[2018-12-26] MEDS ORDERED: HYDROmorphone 0.5 MG/0.5 ML SYRINGE IVP PRN ×3 (13:05)
[2018-12-26] MEDS ORDERED: traMADol 50 MG TAB PO PRN (13:05)
[2018-12-26] MEDS ORDERED: TEMAZEPAM 15 MG CAP PO PRN (13:05)
[2018-12-26] MEDS ORDERED: HYDROcodone/APAP 7.5-325MG 1 EACH TAB PO PRN (13:05)
[2018-12-26] MEDS ORDERED: MAGNESIUM HYDROXIDE 2,400 MG/10 ML CUP PO PRN (13:05)
[2018-12-26] MEDS ORDERED: HYDROcodone/APAP 5-325MG 1 EACH TAB PO PRN ×2 (13:05)
[2018-12-26] MEDS ORDERED: HYDROcodone/APAP 10-325MG 1 EACH TAB PO PRN (13:05)
[2018-12-26] MEDS ORDERED: BISACODYL 10 MG SUPP RECTAL PRN (13:05)
[2018-12-26] MEDS ORDERED: NA PHOS,M-B/NA PHOS,DI-BA 133 ML ENEMA RECTAL PRN (13:05)
[2018-12-26] MEDS ORDERED: ACETAMINOPHEN TAB 325 MG TAB PO PRN (13:05)
[2018-12-26] MEDS ORDERED: ceFAZolin 3,000 MG in SODIUM CHLORIDE 0.9% IRRIGATIO 3,000 ML IRRIGATION ONE (13:24)
[2018-12-26] MEDS ORDERED: LACTATED RINGERS 1,000 ML IV ONE (14:00)
--- NOTE | 2018-12-26 15:21 | XR ---
EXAMINATION TYPE: XR knee limited LT DATE OF EXAM: 12/26/2018 COMPARISON: None HISTORY: Postop knee replacement TECHNIQUE: 2 views the left knee were obtained FINDINGS: Postsurgical changes are within the left knee. A tibial and femoral component placed. No ac douglas fractures are evident. Vascular calcification is noted. IMPRESSION: 1. No acute fractures post knee replacement.
[2018-12-26] MEDS ORDERED: METOCLOPRAMIDE 5 MG/ML 2 ML VIAL IVP PRN (15:36)
[2018-12-26] MEDS ORDERED: diphenhydrAMINE 50 MG/ML 1 ML VIAL IVP PRN (15:36)
[2018-12-26] MEDS ORDERED: NALBUPHINE 10 MG/ML (1 ML AMP) IV PRN (15:36)
[2018-12-26] MEDS: ceFAZolin IN SWFI 2 GM/20 ML SYRINGE IVP SCH (16:56)
[2018-12-26] MEDS: ASPIRIN 325 MG TAB PO SCH (20:45)
[2018-12-26] MEDS ORDERED: SENNOSIDES-DOCUSATE SODIUM 1 EACH TAB PO SCH (21:00)
--- NOTE | 2018-12-26 22:13 | CONS ---
CONSULTATION REASON FOR CONSULTATION: Advice regarding atrial ablation DVT and other medical issues requested by Dr. Morrow. HISTORY OF PRESENT ILLNESS: This 78-year-old gentleman with a past medical history of multiple medical problems including history of atrial fibrillation, history of DVT, hypertension, history of DJD, history of cardiac valve replacement x2, underwent left total knee joint arthroplasty. The patient tolerated the procedure well. The patient was admitted to the hospital for further evaluation and treatment. There is no history of fever, rigors or chills. No history of headache, loss of consciousness, seizures. PAST MEDICAL HISTORY: History of atrial ablation, history of DVT, history of hypertension, history of DJD, history of appendectomy, cardiac replacement. MEDICATIONS: Home medications are prior to admission include: 1. Testosterone 5 mg topically daily. 2. Toprol-XL 25 mg. 3. Zestril 20 mg. 4. Fish oil 1 p.o. daily. 5. Ecotrin 320 mg daily. 6. Tylenol 500 mg q.6h p.r.n. ALLERGIES: ADHESIVE TAPE AND GARLIC. FAMILY HISTORY: History of melanoma cancer. SOCIAL HISTORY: History of occasional alcohol. Previous history of smoking. REVIEW OF SYSTEMS: ENT: No diminished vision. No diminished hearing. CARDIOVASCULAR: As mentioned earlier. RESPIRATORY: As mentioned earlier. GI: No nausea or vomiting. no dysuria. CENTRAL NERVOUS SYSTEM: No numbness or weakness. ALLERGY/IMMUNOLOGY: No asthma or hayfever. MUSCULOSKELETAL: As mentioned earlier. HEMATOLOGY/ONCOLOGY: No history of anemia. ENDOCRINE: As mentioned earlier. CONSTITUTIONAL: As mentioned earlier. Dermatology: Negative. Rheumatology: Negative. Psychiatry: As mentioned earlier. PHYSICAL EXAMINATION: Alert and oriented x3. Pulse is 69, blood pressure 124/70, temperature normal, pulse ox 98% on room air. HEENT: Conjunctivae normal. Oral mucosa moist. Neck is no jugular venous distention. No carotid bruit. No lymph node enlargement. Cardiovascular system: S1, S2 muffled. RESPIRATORY: Breath sounds diminished in the bases. Ejection systolic murmur present. Otherwise, no S3, no S4. RESPIRATORY: Breath sounds diminished in the bases. No rhonchi. No crackles. ABDOMEN: Soft, nontender. No mass palpable. LEGS: Status post left knee knee arthroplasty. CENTRAL NERVOUS SYSTEM: Higher functions as mentioned earlier. Moves all four extremities. No focal deficits. Lymphatics: No lymph nodes palpable in the neck, axillae or groin. SKIN: No ulcer, no rash. No bleeding. JOINTS: No active deforming arthropathy. LABS: At this time not available. Preop labs: The CBC within normal limits. Coags are normal. Chemistry shows sodium 136 and UA unremarkable. ASSESSMENT: 1. Status post left total knee arthroplasty. 2. History atrial fibrillation. 3. History of deep vein thrombosis. 4. Hypertension. 5. Hyperlipidemia. 6. Degenerative joint disease. 7. 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 8. History of cardiac valve replacement x2. 9. Remote history of nicotine dependence. RECOMMENDATIONS AND DISCUSSION: In this 78-year-old gentleman who presented with multiple medical issues. I would recommend continue the current medications, management and symptomatic treatment. I would recommend remote telemetry for 24 hours. Otherwise, I would also recommend resume the home medications. Lovenox for DVT prophylaxis. We will continue to monitor. Thank you, Dr. Morrow, for letting us participate in the care of this patient. MMYUMIKOL / SOBIAN: [id number] / MTDD
--- NOTE | 2018-12-26 22:23 | OP ---
OPERATIVE REPORT DATE OF PROCEDURE: 12/26/2018. PREOPERATIVE DIAGNOSIS: Left knee osteoarthrosis. POSTOPERATIVE DIAGNOSIS: Left knee osteoarthrosis. OPERATION PERFORMED: Left total knee arthroplasty. SURGEON: Jose Morrow M.D. POWER TRANSFORMER REPAIRER: Romero KNOX. ANESTHESIA: Spinal with sedation. ESTIMATED BLOOD LOSS: 100 mL. TOURNIQUET TIME: 50 minutes at 250 mmHg. COMPLICATIONS: None apparent. DRAINS: None. DISPOSITION: Postanesthesia care unit. INDICATIONS: Ruel is an 78-year-old male with longstanding history of left knee pain. History and physical examination are consistent with advanced left knee osteoarthrosis. He has been through significant nonoperative management up to this point. Further treatment options were discussed and he decided to go forward with the left total knee arthroplasty. The risks of procedure were discussed with him in detail. These risks include, but are not limited to risk of infection, nerve damage, bleeding, pain, and a small risk of deep vein thrombosis which could lead to fatal pulmonary embolism. There is also risk of loosening of the implant which could require revision operation. The patient understands these risks. All of his questions were answered to his satisfaction. Appropriate informed consent was obtained. PROCEDURE: The patient identified in the preoperative holding area. Surgical sites marked by both the patient and myself. Given 2 g of Ancef IV for prophylactic purposes. He was then transferred to the operative suite. He was placed supine on the operative table. Spinal anesthetic was then administered and dosed per the anesthesia department without apparent complication. Examination under anesthesia was then performed. The patient was 2-3 degrees shy of full extension. He had 100 degrees of flexion. The medial collateral ligament, lateral collateral ligament and posterior cruciate ligaments were stable. Tourniquet was then placed high on the left upper thigh well-padded in preparation for surgery. The patient's left lower extremity was then prepped and draped in usual sterile fashion. Standard surgical pause undertaken to ensure that we were operating on the correct site and that appropriate preop antibiotics were given. All staff in the room were in agreement and we proceeded. The outlines of the patella were marked surgical pen. A planned 12 cm vertical incision centered over the patella was marked surgical pen. Leg was then exsanguinated with an Esmarch dressing. The knee was then flexed and the tourniquet was inflated to 250 mmHg. The total tourniquet time for the procedure was 50 minutes at 250 mmHg. Incision was then made with a 10 blade scalpel. Dissection was carried down sharply overlying fascia. Great care was taken to minimize the skin flaps. The knee was then exposed using a standard medial parapatellar approach. A small cuff of quadriceps tendon was then left for suturing. He was in quite a bit of valgus preoperatively. A very minimal medial release was made. This was done just for placement of the medial retractor. The medial meniscus was then excised as well. The lateral meniscus was also released anteriorly. The leg was then externally rotated. The patella was everted. The knee was flexed. The retractors were then placed to protect the collateral ligaments. I then proceeded to remove the infrapatellar fat pad. This was excised sharply tangentially with the fibers of the patellar tendon. I then proceeded to remove peripheral osteophytes. This was done with a rongeur. I then proceeded with the distal femoral resection. He did have near full extension. The planned 9 mm resection was then done. The femoral canal was then entered in midline of the femur approximately 10 mm anterior to the origin of the posterior cruciate ligament. The grace was then advanced down the center of the femur and placed intramedullary. Based on the preoperative radiographs, the angle between the anatomic and mechanical axis of the femur was approximately 4-5 degrees. The valgus angle the distal femoral cutting guide was then set at 4 degrees for the left knee. The distal femoral cutting guide was then advanced over the intramedullary grace. This was seated firmly against the femur. I then as mentioned planned to take 9 mm off the distal femur. The cutting block was then secured onto the femur with pins. The jig was removed. The distal femoral cut was made through the slot of the block. The pins were then removed. The distal femoral cutting block was removed. The accuracy of the distal femoral cuts was checked with 2 flat bars. I then proceeded with femoral sizing. The posterior referencing sizing guide was held firmly against the resected distal surface of the femur. The posterior condyles were resting on the posterior plane of the guide. The sizing stylus was then placed on the anterior femur. The size was measured as a size 8. I then assessed for femoral rotation. Plan was for 3 degrees of external rotation. Three degrees external rotation was placed onto the jig. These holes were then marked. I then confirmed the rotation by 3 separate methods. This was done using epicondylar axis as well as Whitesides line and posterior referencing. It was deemed that the external rotation was proper. I then went forward with placing the femoral cutting block. This was placed over the previously placed pin holes. The Armando wing was then placed onto the anterior slots to ensure that we would not notch the anterior femur with the anterior femoral cut. I then proceed with the anterior femoral cut. This was flush with the anterior cortex of the femur. The posterior cuts were then made followed by the anterior chamfer cut, then the posterior chamfer cut. The cutting block was then removed. Throughout the resection, the collateral ligaments were protected with retractors. I then placed a trial size 8 femur. It fit very nice medial-lateral and fit flush with the distal end of the femur. The drill holes were then made. I then proceeded with the tibial cut. I planned for cruciate retaining knee. The guide was placed and set for varus valgus and for slope. The height was set for approximate 2 mm resection from the lateral tibial plateau which was the lower side appears happy with the alignment and the model resection. The cutting block was then pinned to the proximal tibia. The alignment grace was removed and the proximal tibia was resected with a reciprocating saw. Again this was done with retractors protecting the collateral ligaments as well as the posterior cruciate ligament. I then proceeded to evaluate the flexion and extension gaps. A 10 mm block was then placed. The flexion-extension gaps were equal. I then proceed to resection of posterior osteophytes. Very minimal posterior osteophytes. This is done using a curved osteotome. This resected the posterior osteophytes and posterior capsule stripping was also done off the posterior aspect of the femur at this time, the osteophytes were then removed. I then proceeded with resection of patella. The thickness of patella was measured using the caliper. Thickness 22 mm. The thickness of the anticipated patellar dome was taken into account. Resection was then performed and confirmed to be equal in 4 quadrants using a caliper. Approximately 14 mm of bone remained after the resection. A 29 x 8 standard patellar trial was then placed. The holes were drilled. The trial was then placed. I then proceeded to size the tibial plate. A size F tibial plate fit very nicely. I then placed the trial femur in the tibial tray and patellar button. A 10 mm trial insert was also placed. The components fit very nicely. He had full extension and flexion. The extension and flexion gaps were equal and stable to both varus and valgus stress. The patella tracked appropriately. The tibial tray rotation was marked with a Bovie. This was externally rotated properly. I then proceeded with tibial preparation. I first drilled the femoral hole, removed the femoral component. The tibial tray was then set for proper external rotation as well as mediolateral placement of the tibia. It was then pinned into place. I then proceed with punching the keel. I then decided to proceed with cementing of all of our components. The knee was thoroughly irrigated with sterile saline solution via pulse lavage. The lateral geniculate artery was identified and cauterized. All blood was removed from the bone of the tibia femur and patella with pulse lavage. I then proceed with cementing. Two packs of antibiotic bone cement prepared on the back table by the biomedical equipment tech. I then proceed with cementing the tibia first. The cement was impacted into the keel as well as deeply seated in the bone. A second coat of cement was then placed. The tibia was then impacted into place. Excess cement was removed with [place]'s and Joker's. I then proceed with cementing of the femoral component. The femoral component was also cemented using standard technique. Excess cement was removed. A 10 mm trial insert was then placed into the knee. It was brought into full extension with a constant axial load placed until the cement had hardened. The patellar component was then cemented. This held firmly with a compressive device until the cement had dried. When the cement had dried, the knee was taken out of extension. All excess cement was removed from around the prosthesis. I then trialed the knee with a 10 mm insert. Flexion extension gaps were appropriate. The knee was stable. It came to full extension. I decided to go forward with a 10 mm cross-linked cruciate-retaining tibial insert. Polyethylene was then placed onto the tibial tray and locked into place. The knee was then reduced. The knee was again further irrigated with sterile saline solution with antibiotic added. The tourniquet was then deflated. Total tourniquet time for the procedure was 50 minutes at 250 mmHg. Final components were Shahab Persona size 8 cruciate-retaining femoral component, a size F tibial tray, a 10 mm cruciate retaining polyethylene insert and a 29 x 8 mm patella. I then proceeded with closure. Again, the knee was thoroughly irrigated. The quadriceps tendon and medial retinaculum reapproximated with #2 Ethibond suture. Next extensor mechanism was then closed with a running #2 Quill suture. Subcutaneous tissues were closed with 2-0 Vicryl suture. The skin was closed with a running 3-0 Quill suture. Dermabond was applied to the incision. All sponge and needle counts were deemed correct prior to closure. The patient tolerated procedure without apparent complication. He was transferred to recovery room in stable condition. MMODL / IJN: [id number] /
[2018-12-27] MEDS: ceFAZolin IN SWFI 2 GM/20 ML SYRINGE IVP SCH (00:22)
[2018-12-27] MEDS: LACTATED RINGERS 1,000 ML IV SCH ×2 (05:17→09:18)
--- NOTE | 2018-12-27 07:34 | P.PN ---
Progress Note - Text Anesthesia POD 1. Patient is status post left TKR under spinal anesthesia with intra-thecal preservative free morphine 300 g. No pruritus, excellent post-op analgesia, and no headache or other complications.
[2018-12-27 08:17] VITALS: BP 133/82; PULSE 117; TEMP 96.9
[2018-12-27 08:35] LABS: Basophils % (A) 1 %; Eosinophils # (A) 0.1 k/uL (0-0.7); Eosinophils % (A) 1 %; HCT 37.1 % (39.0-53.0); HGB 12.4 gm/dL (13.0-17.5); Lymphocytes # (A) 0.6 k/uL (1.0-4.8); Lymphocytes % (A) 9 %; MCH 30.6 pg (25.0-35.0); MCHC 33.5 g/dL (31.0-37.0); MCV 91.4 fL (80.0-100.0); Mean Platelet Volume 7.1; Monocytes # (A) 0.4 k/uL (0-1.0); Monocytes % (A) 6 %; Neutrophils # (A) 5.6 k/uL (1.3-7.7); Neutrophils % (A) 82 %; Platelet Count 179 k/uL (150-450); RBC 4.06 m/uL (4.30-5.90); RDW 14.6 % (11.5-15.5); WBC 6.8 k/uL (3.8-10.6)
[2018-12-27 08:38] LABS: Anion Gap 9 mmol/L; Blood Urea Nitrogen 17 mg/dL (9-20); Calcium 9.2 mg/dL (8.4-10.2); Carbon Dioxide 28 mmol/L (22-30); Chloride 96 mmol/L (98-107); Glucose 85 mg/dL (74-99); Potassium 4.4 mmol/L (3.5-5.1); Sodium 133 mmol/L (137-145)
[2018-12-27] MEDS ORDERED: ENOXAPARIN 30 MG/0.3 ML SYRINGE SQ SCH (09:00)
[2018-12-27] MEDS ORDERED: METOPROLOL SUCCINATE (ER) 25 MG TAB.ER.24H PO SCH (09:00)
[2018-12-27] MEDS ORDERED: LISINOPRIL 20 MG TAB PO SCH (09:00)
[2018-12-27] MEDS: ASPIRIN 325 MG TAB PO SCH (09:19)
[2018-12-27 10:08] VITALS: RESP 18
--- NOTE | 2018-12-27 10:11 | P.DS ---
Providers Date of admission: 12/26/18 10:37 Expected date of discharge: 12/27/18 Attending physician: Jose Morrow Consults: 12/26/18 13:05 Consult Physician Routine Consulting Provider: Ovi Joiner Consult Reason/Comments: post op medical management Do you want consulting provider notified?: Yes Primary care physician: Campos Girard - Discharge Diagnosis(es) (1) Status post total left knee replacement Patient was admitted to the OR on 12/26/2018 to undergo a left total knee arthroplasty. He had failed conservative measures as an outpatient and desired to proceed with elective surgery after given informed consent. He underwent the above procedure which he tolerated well without complication. Postoperative hospital course has remained without complication. On day of discharge he is afebrile, vital signs stable, labs within acceptable ranges, tolerating by mouth meds and diet, voiding without difficulty, positive flatus, denies abdominal pain or calf pain, pain is controlled on oral pain medication and has no new complaints. Wound is benign, neurovascular status is intact, calf is soft and nontender, abdomen soft and nontender. Review of systems is negative for numbness, tingling, fever, chills, chest pain, shortness breath, nausea, vomiting, dizziness, headaches, slurred speech or other Current Visit: Yes Status: Acute Priority: Medium (2) Osteoarthritis of left knee Current Visit: Yes Status: Acute Priority: Medium Procedures: Left TKA Patient Condition at Discharge: Good Plan - Discharge Summary Discharge Rx Participant: Yes New Discharge Prescriptions: No Action Metoprolol Succinate [Toprol XL] 25 mg PO DAILY Lisinopril [Zestril] 20 mg PO DAILY Acetaminophen Tab [Tylenol] 500 mg PO Q6H PRN PRN Reason: Pain Fish Oil/Dha/Epa [Fish Oil 1,200 mg Fish Oil] 1 each PO DAILY Testosterone [Testim 1%] 5 gm TOPICAL DAILY Aspirin EC [Ecotrin] 325 mg PO DAILY Discharge Medication List Lisinopril [Zestril] 20 mg PO DAILY 09/24/15 [History] Metoprolol Succinate [Toprol XL] 25 mg PO DAILY 09/24/15 [History] Acetaminophen Tab [Tylenol] 500 mg PO Q6H PRN 09/05/18 [History] Fish Oil/Dha/Epa [Fish Oil 1,200 mg Fish Oil] 1 each PO DAILY 12/17/18 [History] Testosterone [Testim 1%] 5 gm TOPICAL DAILY 12/17/18 [History] Aspirin EC [Ecotrin] 325 mg PO DAILY 12/26/18 [History] Follow up Appointment(s)/Referral(s): [facility], [[facility]STAFF[facility] - [facility] - 1 Week Jose Morrow MD [STAFF PHYSICIAN] - 10 Days Activity/Diet/Wound Care/Special Instructions: Walker to be delivered to the bedside before discharge by [facility]. Keep wound clean and dry Take meds as directed Follow-up with Dr. Morrow in office Weight bear as tolerated May shower in 3 days if no bleeding Discharge Disposition: HOME WITH HOME HEALTH SERVICES
[2018-12-27] MEDS ORDERED: MULTIVITAMINS, THERA 1 EACH TAB PO SCH (13:07)
--- NOTE | 2018-12-27 23:15 | PN ---
PROGRESS NOTE DATE OF VISIT: 12/27/2018 This 78-year-old gentleman who was admitted after left knee arthroplasty improving significantly. No chest pain. No palpitations. No fever. EXAM: Alert and oriented times three. Pulse 117, blood pressure 133/84, respiratory 20, temperature 96.9, pulse ox 94% on room air. HEENT: Conjunctivae normal. NECK: No jugular venous distention. CARDIOVASCULAR: S1, S2 muffled. RESPIRATORY: Breath sounds diminished in the bases. No rhonchi. No crackles. Abdomen is soft. Nervous system: No focal deficits. LABS: WBC 6.2, hemoglobin is 12.4, sodium 133. ASSESSMENT: 1. Status post left total knee arthroplasty. 2. History of atrial fibrillation. 3. History of deep vein thrombosis. 4. Mild hyponatremia. 5. Hypertension. 6. Hyperlipidemia. 7. History of degenerative joint disease. 8. 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 9. History of cardiac valve replacement times two. 10.Remote history of nicotine dependence. RECOMMENDATIONS AND DISCUSSION: Recommend continue current medications, management and symptomatic treatment. I would recommend Xarelto for 10 mg daily for 2 weeks followed by aspirin b.i.d. per Ortho recommendations. Otherwise, closely follow with the primary physician as well as orthopedic surgery. Further recommendations to follow. MMODL / IJN: [id number] /
== END 2018-12-27 15:10 | disposition home health service (06) | DRG 470 ==
LOC: 2ORMAIN 10:37 → 4SSUR 14:52
PROVIDERS: ADMIT Orthopaedic Surgery Sports Medicine; ATTEND Orthopaedic Surgery Sports Medicine
PROC: 0SRD0J9 Replacement of Left Knee Joint with Synthetic Substitute, Cemented, Open Approach (ICD-10-PCS; principal; 2018-12-26 12:30)
DX: M17.12 Unilateral primary osteoarthritis, left knee (principal); E87.1 Hypo-osmolality and hyponatremia; I42.9 Cardiomyopathy, unspecified; I48.91 Unspecified atrial fibrillation; E78.5 Hyperlipidemia, unspecified; I10 Essential (primary) hypertension; Z86.718 Personal history of other venous thrombosis and embolism; Z87.891 Personal history of nicotine dependence; Z90.49 Acquired absence of other specified parts of digestive tract; Z95.2 Presence of prosthetic heart valve; Z79.82 Long term (current) use of aspirin; Z79.899 Other long term (current) drug therapy; Z83.3 Family history of diabetes mellitus; Z80.8 Family history of malignant neoplasm of other organs or systems; Z82.49 Family history of ischemic heart disease and other diseases of the circulatory system
CPT/HCPCS: 80048; 85025; 88300

== ENCOUNTER → 2019-01-07 | Outpatient (CLI) | payer MEDICARE ==
--- NOTE | 2019-01-07 13:35 | US ---
EXAMINATION TYPE: US venous doppler duplex LE LT DATE OF EXAM: 01/07/2019 1:25 PM COMPARISON: NONE CLINICAL HISTORY: 78-year-old male R60.0 Edema. Total knee 14 days prior. SIDE PERFORMED: Left TECHNIQUE: The lower extremity deep venous system is examined utilizing real time linear array sonog kassandra with graded compression, doppler sonography and color-flow sonography. FINDINGS: VESSELS IMAGED: External Iliac Vein (EIV) Common Femoral Vein Deep Femoral Vein Greater Saphenous Vein * Femoral Vein Popliteal Vein Small Saphenous Vein * Proximal Calf Veins (* superficial vessels) Left Leg: Negative for DVT IMPRESSION: No evidence for DVT within the left lower extremity imaged from the groin to the upper calf.
== END | disposition home or self-care (01) ==
LOC: RADUSWWP 12:44
PROVIDERS: ATTEND Family Medicine
DX: R60.0 Localized edema (principal)

== ENCOUNTER → 2019-07-26 | Outpatient (CLI) | payer MEDICARE ==
--- NOTE | 2019-07-28 17:32 | US ---
EXAMINATION TYPE: US carotid duplex BILAT DATE OF EXAM: 07/26/2019 COMPARISON: NONE CLINICAL HISTORY: 79-year-old male R09.89 Carotid Bruit. Bruit. JH TECHNIQUE: Carotid duplex ultrasound examination. In direct Doppler criteria is utilized. FINDINGS: EXAM MEASUREMENTS: RIGHT: Peak Systolic Velocity (PSV) cm/sec ----- Right CCA: 75.3 ----- Right ICA: 67.7 ----- Right ECA: 75.3 ICA/CCA ratio: 0.9 RIGHT: End Diastole cm/sec ----- Right CCA: 19.7 ----- Right ICA: 24.8 ----- Right ECA: 12.1 LEFT: Peak Systolic Velocity (PSV) cm/sec ----- Left CCA: 65.2 ----- Left ICA: 65.2 ----- Left ECA: 62.7 ICA/CCA ratio: 0.8 LEFT: End Diastole cm/sec ----- Left CCA: 23.5 ----- Left ICA: 21 ----- Left ECA: 0 VERTEBRALS (direction of flow): Right Vertebral: Antegrade Left Vertebral: Antegrade Rhythm: Normal Mild atherosclerotic calcifications at the bifurcations. No significant stenosis seen IMPRESSION: No hemodynamically significant proximal ICA stenosis on either side. Criteria for Assigning % of Stenosis / Diameter reduction (Estimation based on the indirect measurements of the internal carotid artery velocities (ICA PSV). 1. Normal (no stenosis)=ICA PSV < 125 cm/s: ratio < 2.0: ICA EDV<40 cm/s. 2. Less than 50% stenosis=ICA PSV < 125 cm/s: ratio < 2.0: ICA EDV<40 cm/s. 3. 50 to 69% stenosis=ICA PSV of 125 to 230 cm/s: ration 2.0 ? 4.0: ICA EDV 40-100 cm/s. 4. Greater than 70% stenosis to near occlusion= ICA PSV > 230 cm/s: ratio > 4.0: ICA EDV > 100 cm/s. 5. Near occlusion= ICA PSV velocities may be low or undetectable: variable ratio and ICA EDV. 6. Total occlusion=unable to detect flow.
== END | disposition home or self-care (01) ==
LOC: RADUSWWP 14:47
PROVIDERS: ATTEND Family Medicine
DX: R09.89 Other specified symptoms and signs involving the circulatory and respiratory systems (principal)
CPT/HCPCS: 93880

== ENCOUNTER → 2019-11-29 | Outpatient (CLI) | payer MEDICARE ==
--- NOTE | 2019-12-04 10:36 | P.ARTDOP ---
Arterial Doppler LOWER EXTREMITY ARTERIAL DOPPLER: DATE OF SERVICE: 11/29/2019 Reason for study: Lower extremity occlusive disease. Doppler waveforms: Multiphasic bilaterally throughout but blunted at the toe level. Pulse volume recording: Toe waveforms blunted bilaterally. Pressure gradients: []. Ankle-brachial indices: Greater than 1 on the right and 0.95 on the left. left Toe brachial indices: 0.53 on the right and not registered on the left Impression: Suspect flattening of toe pressures related to vasospastic phenomenon. Distal disease less likely. Otherwise normal study..
== END | disposition home or self-care (01) ==
LOC: RADUSWWP 12:55
PROVIDERS: ATTEND Family Medicine
DX: I73.9 Peripheral vascular disease, unspecified (principal)
CPT/HCPCS: 93923

== ENCOUNTER 2021-04-12 18:12 | Inpatient (IN) | payer MEDICARE ==
[2021-04-12 18:23] LABS: Glucose,Whole Blood 153 mg/dL (75-99)
[2021-04-12] MEDS ORDERED: Alteplase PER PHARMACY Stroke 1 EACH MISC MISCELLANE PRN (18:41)
[2021-04-12 18:45] LABS: INR 1.1 (<1.2); Partial Thromboplastin Time 23.4 sec (22.0-30.0); Prothrombin Time 11.8 sec (9.0-12.0)
[2021-04-12 18:47] LABS: ALT 24 U/L (4-49); AST 38 U/L (17-59); African American GFR (CKD) >90 (>60 ml/min/1.73 sqM); Albumin 4.4 g/dL (3.5-5.0); Alkaline Phosphatase 93 U/L (38-126); Anion Gap 9 mmol/L; Blood Urea Nitrogen 25 mg/dL (9-20); Calcium 9.4 mg/dL (8.4-10.2); Carbon Dioxide 27 mmol/L (22-30); Chloride 99 mmol/L (98-107); Glucose 160 mg/dL (74-99); Non-African American GFR(CKD) 83 (>60 ml/min/1.73 sqM); Potassium 4.6 mmol/L (3.5-5.1); Sodium 135 mmol/L (137-145); Total Bilirubin 0.7 mg/dL (0.2-1.3); Total Protein 7.1 g/dL (6.3-8.2)
[2021-04-12] MEDS ORDERED: LABETALOL 5 MG/ML VIAL MDV IVP STA ×2 (18:48→19:17)
[2021-04-12 18:49] LABS: Basophils # (A) 0.1 k/uL (0-0.2); Basophils % (A) 1 %; Eosinophils # (A) 0.2 k/uL (0-0.7); Eosinophils % (A) 3 %; HCT 47.4 % (39.0-53.0); HGB 15.9 gm/dL (13.0-17.5); Lymphocytes # (A) 2.1 k/uL (1.0-4.8); Lymphocytes % (A) 27 %; MCH 33.2 pg (25.0-35.0); MCHC 33.6 g/dL (31.0-37.0); MCV 98.7 fL (80.0-100.0); Mean Platelet Volume 7.4; Monocytes # (A) 0.7 k/uL (0-1.0); Monocytes % (A) 9 %; Neutrophils # (A) 4.5 k/uL (1.3-7.7); Neutrophils % (A) 57 %; Platelet Count 181 k/uL (150-450); WBC 7.9 k/uL (3.8-10.6)
[2021-04-12] MEDS ORDERED: ALTEPLASE 62 MG in EMPTY BAG 1 BAG IV STA (18:49)
[2021-04-12] MEDS ORDERED: ALTEPLASE BOLUS 7 MG in EMPTY SYRINGE 1 SYR IV STA (18:50)
--- NOTE | 2021-04-12 18:51 | CT ---
EXAMINATION TYPE: CT brain wo con for TPA DATE OF EXAM: 04/12/2021 COMPARISON: None HISTORY: Confusion. CT DLP: 1197.8 mGycm Automated exposure control for dose reduction was used. There is cerebral cortical atrophy. There is no mass effect nor mid line shift. There is no sign of i ntracranial hemorrhage. The calvarium is intact. There is normal aeration of the mastoid sinuses. The re is some symmetric mild thalamic calcification. IMPRESSION: Cerebral atrophy. No acute intracranial abnormality.
[2021-04-12] MEDS ORDERED: SODIUM CHLORIDE 0.9% 1,000 ML IV ONE (19:15)
--- NOTE | 2021-04-12 19:20 | CT ---
EXAMINATION TYPE: CT angio head neck DATE OF EXAM: 04/12/2021 COMPARISON: None HISTORY: Confusion. CT DLP: 543.1 mGycm Automated exposure control for dose reduction was used. CONTRAST: Performed with IV Contrast, patient injected with 65 mL of Isovue 370. Images obtained from the aortic arch to the vertex of the brain with IV contrast. There are 3-D post processed images. There is normal branching pattern of the great vessels on the aortic arch. There is arterial flow in both subclavian arteries. There is arterial flow in the common internal and external carotid arteries bilaterally. There is arterial flow in the vertebrobasilar artery system. Vertebral arteries are lynn rly symmetric. There is no evidence of carotid or vertebral artery aneurysm or dissection. There is s ome plaque formation at the carotid artery bifurcations. Estimated stenosis is less than 20%. There is arterial flow in the anterior middle and posterior cerebral arteries. There is no mass effec t. There is no evidence of intracranial aneurysm or neovascularity. I see no evidence of intracranial arterial stenosis. There is normal enhancement of the venous sinuses. IMPRESSION: Negative CT angiogram of the brain. Minimal plaque at the carotid artery bifurcations with less than 20% stenosis.
[2021-04-12] MEDS: niCARdipine 20 MG in SODIUM CHLORIDE 0.9% 192 ML IV SCH (19:25)
[2021-04-12] MEDS ORDERED: LORazepam 2 MG/ML INJ IV STA (19:31)
[2021-04-12] MEDS: levETIRAcetam IV 1,000 MG in SALINE 1 100ML.BAG IVPB SCH ×2 (19:48→20:01)
[2021-04-12] MEDS ORDERED: SODIUM CHLORIDE 0.9% 50 ML MINI-BAG IV ONE (19:48)
--- NOTE | 2021-04-12 19:50 | ED ---
General Adult HPI - General Chief complaint: Neuro Symptoms/Deficit Stated complaint: confusion Time Seen by Provider: 04/12/21 18:18 Source: patient, RN notes reviewed, old records reviewed Mode of arrival: ambulatory Limitations: no limitations - History of Present Illness Initial comments: Patient is an 81-year-old male with past medical history multiple for multiple replacements. Valves, hypertension who is not on anticoagulation presents emergency Department with strokelike symptoms. At approximately 5 PM, patient began having symptoms where he was talking but not making sense. He seemed a little weak per family members. Patient was brought to the emergency department for evaluation for possible stroke. Patient has extensive expressive dysphasia which makes it difficult to understand him. He cannot provide a review of systems. Patient's is the primary historian. She states she has no history of blood thinners as, TIAs, strokes. She states that this was sudden onset of 5 PM. He is not having any complaints at the time. He was otherwise acting normally. Has not missed any medications. - Related Data Home Medications Medication Instructions Recorded Confirmed Metoprolol Succinate [Toprol XL] 25 mg PO DAILY 09/24/15 04/12/21 lisinopriL [Zestril] 20 mg PO DAILY 09/24/15 04/12/21 Fluocinolone Acetonide Oil 1 applic BOTH EARS DAILY PRN 04/12/21 04/12/21 [Dermotic] Testosterone Cypionate 200 mg IM MO 04/12/21 04/12/21 [Depo-Testosterone] Allergies Allergy/AdvReac Type Severity Reaction Status Date / Time adhesive tape AdvReac Rash/Hives Verified 04/12/21 19:03 garlic AdvReac Rash/Hives Verified 04/12/21 19:03 Review of Systems ROS Statement: Those systems with pertinent positive or pertinent negative responses have been documented in the HPI. Unable to obtain secondary to patient's clinical status. ROS Other: All systems not noted in ROS Statement are negative. Past Medical History Past Medical History: Deep Vein Thrombosis (DVT), Hyperlipidemia, Hypertension Additional Past Medical History / Comment(s): 09-05-18 pt wants a pne vaccine while here. other hx:wound on buttocks since healed, "hands shaky at times" History of Any Multi-Drug Resistant Organisms: None Reported Past Surgical History: Appendectomy, Cardiac Valve Replacement, Heart Catheterization, Joint Replacement Additional Past Surgical History / Comment(s): cardiac valve replacement x2, taryn shoulder replacement, lt hip replacement, cataracts, lt eye retinal tear-sx to repair, dental implants Past Anesthesia/Blood Transfusion Reactions: No Reported Reaction Additional Past Anesthesia/Blood Transfusion Reaction / Comment(s): past blood transfusions-no reactions Past Psychological History: No Psychological Hx Reported Smoking Status: Unknown if ever smoked Past Alcohol Use History: Occasional Past Drug Use History: None Reported - Past Family History Mother Family Medical History: Dementia Father History Unknown: Yes Brother(s) Family Medical History: Cancer Additional Family Medical History / Comment(s): melanoma General Exam - General Exam Comments Initial Comments: General: Appears in mild distress but is now making sense secondary to expressive aphasia. HEAD: Normal with no signs of head trauma. EYES: PERRLA, EOMI, conjunctiva normal, no discharge. Pupils are 3 mm and equal bilaterally. ENT: Hearing grossly intact, normal oropharynx. RESPIRATORY: Clear breath sounds bilaterally. No wheezes, rales, or rhonchi. C/V: Patient is mildly tachycardic with an irregular rhythm. S1 and S2 auscultated. No peripheral edema. Peripheral pulses are 2+ and intact throughout. ABD: Abd is soft, nontender, nondistended EXT: Normal range of motion, no obvious deformity SKIN: No rashes or lesions observed on exposed skin. NEURO: Alert but not oriented Neurological exam is difficult to complete secondary to patient's strokelike symptoms. He does have expressive aphasia. He appears to be able to move all 4 extremities with some mild weakness in the right upper extremity. There is no facial droop. He has full range of motion of the eyes. Does not appear to have neglect. NIH stroke scale was found to be 7, 1. for right upper extremity weakness, 2 points for aphasia, 2 points for confusion with month and age, as well as 2 points for inability to follow commands. Patient's sensation appears to be intact as he does pull away with light touch. Limitations: no limitations Course Vital Signs 04/12/21 04/12/21 04/12/21 18:13 18:28 18:43 Temperature 97.8 F Pulse Rate 104 H 112 H 112 H Respiratory 20 20 20 Rate Blood Pressure 189/133 201/125 195/139 O2 Sat by Pulse 90 L 97 98 Oximetry 07/04/12/21 04/12/21 18:58 19:13 19:26 Temperature Pulse Rate 67 108 H 69 Respiratory 20 20 20 Rate Blood Pressure 243/157 225/154 198/153 O2 Sat by Pulse 98 96 97 Oximetry 04/12/21 04/12/21 04/12/21 19:31 19:32 19:35 Temperature Pulse Rate 101 H 104 H 107 H Respiratory 20 20 20 Rate Blood Pressure 108/51 127/104 172/110 O2 Sat by Pulse 96 97 96 Oximetry 04/12/21 04/12/21 04/12/21 19:37 19:40 19:45 Temperature Pulse Rate 104 H 104 H 108 H Respiratory 20 20 20 Rate Blood Pressure 162/104 160/98 139/112 O2 Sat by Pulse 98 98 96 Oximetry 04/12/21 04/12/21 04/12/21 19:50 19:55 20:00 Temperature Pulse Rate 107 H 108 H 109 H Respiratory 20 20 20 Rate Blood Pressure 141/89 135/87 134/84 O2 Sat by Pulse 96 96 96 Oximetry 04/12/21 04/12/21 04/12/21 20:05 20:10 20:15 Temperature Pulse Rate 109 H 110 H 110 H Respiratory 20 20 20 Rate Blood Pressure 129/83 135/86 137/89 O2 Sat by Pulse 96 97 98 Oximetry 04/12/21 04/12/21 04/12/21 20:20 20:30 20:45 Temperature Pulse Rate 110 H 110 H 111 H Respiratory 20 20 20 Rate Blood Pressure 143/98 150/97 160/102 O2 Sat by Pulse 97 96 96 Oximetry 04/12/21 04/12/21 04/12/21 20:50 20:55 21:00 Temperature Pulse Rate 112 H 112 H 112 H Respiratory 20 20 20 Rate Blood Pressure 147/95 146/92 148/92 O2 Sat by Pulse 96 95 96 Oximetry 04/12/21 04/12/21 04/12/21 21:05 21:10 21:15 Temperature Pulse Rate 112 H 112 H 112 H Respiratory 20 20 20 Rate Blood Pressure 136/94 142/94 143/90 O2 Sat by Pulse 96 97 96 Oximetry Medical Decision Making - Medical Decision Making Based on the patient's presentation and physical exam, I'm concerned for an acute stroke. Differential also includes possible hypertensive emergency the patient is mildly hypertensive with systolics in the 180s. However he has extensive aphasia. He is not on blood thinners. Therefore code stroke was called. Point of care blood sugar was within normal limits. IV access was obtained. Laboratory studies were drawn and sent. EKG was obtained as I was evaluating the patient which revealed atrial fibrillation which is suspected to be new onset. Patient was immediately taken to CT for imaging. The neuro veneer supervisor was paged. Patient is in the TPA window. Patient's CT head revealed no acute intracranial bleed., And no acute intracranial process. Patient CTAs of the brain and neck were negative for acute occlusion. There is a minimal plaque at the carotid artery bifurcations with less than 20% stenosis. Imaging was reviewed by the neuro veneer supervisor and I spoke with him over the phone. As the patient is within the TPA window, we did discuss the patient is a TPA candidate pending consent from family members as the patient is not consentable.The neurointensivist, Dr. Holly evaluated the patient via robot and was in agreement with my assessment. The patient is hypertensive, his symptoms did not resolve upon administration of labetalol and lowering his blood pressures to within a reasonable level. My suspicion is extremely high for CVA at this time as the patient's neurological exam did not improve with improvement of the blood pressure. I spoke with family members extensively both in person and over the phone. I explained to the risks and benefits of tPA, including the risk of and bleeding. The possible benefits of that for the patient, as he does have a life altering stroke with his extensive aphasia. After speaking with the patient's and daughter for approximately 10 minutes, they did consent for TPA administration. The patient returned from CT imaging, he was hypertensive and wasn't ministered 20 mg of IV push of labetalol. Blood pressure did improve, however it did worsen. TPA was at bedside the blood pressure was systolics to 250. Patient was ministered an additional labetalol 20 mg IV push was placed on nicardipine drip. Just prior to starting the nicardipine drip, with the patient having systolics above 200, he did have a short seizure that lasted less than 1 minute that self resolved. He was initially 1 mg of IV Ativan. He was administered a 2 g bolus of Keppra. Patient was still maintaining his airway and was alert following the seizure. Blood pressure at this time was <180 systolic. As a seizure at this point is a relative contraindication to TPA, as the seizure did not start on the onset of symptoms, I do believe it is still appropriate to administer TPA at this time with his significant aphasia and prior negative CT brain just prior to the seizure. Patient was administered TPA while on the Cardene drip. Goal Systolic blood pressures are less than 180 while on nicardipine. Patient's chest x-ray was completed was read as possible new-onset congestive heart failure with some pulmonary interstitial edema. Laboratory studies were remarkable for normal glycemia. Troponin is negative. Remainder of his labs are unremarkable. On reevaluation, patient is still alert. Neurological exam is still still difficult to obtained as he does not follow commands. Intermittently moves his extremities. Aphasia is slightly worsening, and sees no longer talking but does address the speaker with his eyes. I reevaluated the patient many times to monitor his blood pressure as well as neurological condition. I spoke with family multiple times updating them on the status and the overall plan. After discussion with Dr. holly, the patient will remain here at our hospital and be admitted to the ICU. Patient will be given rectal aspirin as I do not believe he is able tolerate swallowing aspirin. I spoke with the veneer supervisor on-call, Dr. Antonio, who accepted the patient. The patient will be admitted under [facility] Dr. Tsai, who I spoke with and who accepted the patient. The patient's new-onset atrial fibrillation as well as his hypertensive elodia gency/urgency, did consult cardiology. I spoke with Dr. Ortiz who agreed to consult. Dr. Antonio of neurology was consulted for evaluation of the patient in the morning. Patient was therefore admitted to the ICU in serous condition. - Lab Data Result diagrams: 04/12/21 18:27 04/12/21 18:28 Lab Results 04/12/21 04/12/21 04/12/21 Range/Units 18: 18:27 18:27 WBC 7.9 (3.8-10.6) k/uL RBC 4.80 (4.30-5.90) m/uL Hgb 15.9 (13.0-17.5) gm/dL Hct 47.4 (39.0-53.0) % MCV 98.7 (80.0-100.0) fL MCH 33.2 (25.0-35.0) pg MCHC 33.6 (31.0-37.0) g/dL RDW 13.0 (11.5-15.5) % Plt Count 181 (150-450) k/uL MPV 7.4 Neutrophils % 57 % Lymphocytes % 27 % Monocytes % 9 % Eosinophils % 3 % Basophils % 1 % Neutrophils # 4.5 (1.3-7.7) k/uL Lymphocytes # 2.1 (1.0-4.8) k/uL Monocytes # 0.7 (0-1.0) k/uL Eosinophils # 0.2 (0-0.7) k/uL Basophils # 0.1 (0-0.2) k/uL PT 11.8 (9.0-12.0) sec INR 1.1 (<1.2) APTT 23.4 (22.0-30.0) sec Sodium (137-145) mmol/L Potassium (3.5-5.1) mmol/L Chloride (98-107) mmol/L Carbon Dioxide (22-30) mmol/L Anion Gap mmol/L BUN (9-20) mg/dL Creatinine (0.66-1.25) mg/dL Est GFR (CKD-EPI)AfAm (>60 ml/min/1.73 sqM) Est GFR (CKD-EPI)NonAf (>60 ml/min/1.73 sqM) Glucose (74-99) mg/dL POC Glucose (mg/dL) 153 H (75-99) mg/dL POC Glu Global Ceo ID Rivera Humza Calcium (8.4-10.2) mg/dL Total Bilirubin (0.2-1.3) mg/dL AST (17-59) U/L ALT (4-49) U/L Alkaline Phosphatase (38-126) U/L Troponin I (0.000-0.034) ng/mL Total Protein (6.3-8.2) g/dL Albumin (3.5-5.0) g/dL 04/12/21 04/12/21 Range/Units 18:28 18:28 WBC (3.8-10.6) k/uL RBC (4.30-5.90) m/uL Hgb (13.0-17.5) gm/dL Hct (39.0-53.0) % MCV (80.0-100.0) fL MCH (25.0-35.0) pg MCHC (31.0-37.0) g/dL RDW (11.5-15.5) % Plt Count (150-450) k/uL MPV Neutrophils % % Lymphocytes % % Monocytes % % Eosinophils % % Basophils % % Neutrophils # (1.3-7.7) k/uL Lymphocytes # (1.0-4.8) k/uL Monocytes # (0-1.0) k/uL Eosinophils # (0-0.7) k/uL Basophils # (0-0.2) k/uL PT (9.0-12.0) sec INR (<1.2) APTT (22.0-30.0) sec Sodium 135 L (137-145) mmol/L Potassium 4.6 (3.5-5.1) mmol/L Chloride 99 (98-107) mmol/L Carbon Dioxide 27 (22-30) mmol/L Anion Gap 9 mmol/L BUN 25 H (9-20) mg/dL Creatinine 0.79 (0.66-1.25) mg/dL Est GFR (CKD-EPI)AfAm >90 (>60 ml/min/1.73 sqM) Est GFR (CKD-EPI)NonAf 83 (>60 ml/min/1.73 sqM) Glucose 160 H (74-99) mg/dL POC Glucose (mg/dL) (75-99) mg/dL POC Glu Global Ceo ID Calcium 9.4 (8.4-10.2) mg/dL Total Bilirubin 0.7 (0.2-1.3) mg/dL AST 38 (17-59) U/L ALT 24 (4-49) U/L Alkaline Phosphatase 93 (38-126) U/L Troponin I <0.012 (0.000-0.034) ng/mL Total Protein 7.1 (6.3-8.2) g/dL Albumin 4.4 (3.5-5.0) g/dL - EKG Data -: EKG Interpreted by Me EKG Comments: 12-lead Electrocardiogram Interpretation Note EKG was reviewed and interpreted by myself. 12-lead ECG performed at 1816 is interpreted by me as revealing atrial fibrillation at a rate of 103 beats per minute. [place] is normal. IN interval is unobtainable. QRS duration is 96 pulse seconds, QTC is 434 ms.. [There were no ST or T wave abnormalities to suggest myocardial ischemia or injury]. [R wave progression across the precordium was satisfactory]. [By my interpretation this EKG is non-diagnostic for acute ischemia]. Prior EKG shows sinus rhythm, and I suspect this is new onset atrial fibrillation. Critical Care Time Critical Care Time: Yes Critical Care Time: Upon my evaluation, this patient had a high probability of imminent or life- threatening deterioration due to cerebral vascular accident, which required my direct attention, intervention, and personal management. I have personally provided 35 minutes of critical care time exclusive of time spent on separately billable procedures. Time includes review of laboratory data, radiology results, discussion with consultants, and monitoring for potential decompensation. Interventions were performed as documented in my note. Disposition Clinical Impression: Cerebrovascular accident (CVA), Uncontrolled hypertension, Seizure, New onset atrial fibrillation Disposition: ADMITTED IP TO THIS HOSP Condition: Critical
--- NOTE | 2021-04-12 20:21 | XR ---
EXAMINATION TYPE: XR chest 1V portable DATE OF EXAM: 04/12/2021 COMPARISON: NONE HISTORY: Weakness. Short of breath. TECHNIQUE: FINDINGS: A single view shows some pulmonary vascular congestion. Heart appears enlarged. There are c hest leads. There is pulmonary interstitial edema. IMPRESSION: There is evidence of congestive heart failure that appears new compared to last exam. Moderate hiatal hernia noted. Previous cardiac valve surgery noted.
[2021-04-12 21:48] LABS: Glucose,Whole Blood 165 mg/dL (75-99)
[2021-04-12] MEDS ORDERED: ASPIRIN 600 MG SUPP RECTAL ONE (22:15)
--- NOTE | 2021-04-12 22:45 | CT ---
EXAMINATION TYPE: CT brain wo con DATE OF EXAM: 04/12/2021 COMPARISON: Today HISTORY: neuro changes CT DLP: 1111.4 mGycm Automated exposure control for dose reduction was used. There is cerebral cortical atrophy. There is no mass effect nor midline shift. There is no sign of in tracranial hemorrhage. Calvarium is intact. IMPRESSION: Cerebral atrophy. No acute intracranial abnormality. No change compared to the exam 4 hours ago.
--- NOTE | 2021-04-13 03:09 | P.HPIM ---
History of Present Illness H&P Date: 04/12/21 Chief Complaint: Stroke 81-year-old male with history of valve replacement in the heart family thinks possibly aortic valve, hypertension. Patient was at his baseline status of health per the he is an active person and continues to workout in the care of his yard and mowing on daily basis. Today after dinner he starting to show abnormal behavior describes that he was having his hand in the plate not talking back to her when she tried to get his attention and she noticed that he is not being himself for which she suspected stroke and decided to bring him to the hospital for evaluation upon arrival he seems to be having severe suppressive aphasia code stroke activated CT angiogram of the brain did not show significant disease, CT of the brain showed no acute pathology. Interventional neurologist salesperson pianos and organs. The patient is a good candidate for TPA however his blood pressure was elevated. In the ED blood pressure medications were given to help lower blood pressure to below 185/110. However patient did experience a possible seizure-like activity he was given Ativan and then loaded with Keppra, per ED doctor he did not have any post ictal confusion and he remained aphasic for which TPA was given for the stroke and patient was started on cardene drip and admitted to the ICU for strict blood pressure control and close monitoring. denies any prior history of seizures Patient is unable to provide any meaningful history due to expressive aphasia. However patient is observed moving all 4 extremities but does not follow commands properly Patient indicated that the patient is on baby aspirin but no blood thinners. She denies any recent GI bleeding or hospitalization. Upon arrival to the [facility] noticed that the patient was having possible new focal neuro deficits for which she communicated with the on-call neurologist who ordered a CAT scan of the brain to be repeated and that was unremarkable again showing no acute pathology Review of Systems ROS unobtainable: due to mental status Past Medical History Past Medical History: Deep Vein Thrombosis (DVT), Hyperlipidemia, Hypertension Additional Past Medical History / Comment(s): 09-05-18 pt wants a pne vaccine while here. other hx:wound on buttocks since healed, "hands shaky at times" History of Any Multi-Drug Resistant Organisms: None Reported Past Surgical History: Appendectomy, Cardiac Valve Replacement, Heart Cathete rization, Joint Replacement Additional Past Surgical History / Comment(s): cardiac valve replacement x2, taryn shoulder replacement, lt hip replacement, cataracts, lt eye retinal tear-sx to repair, dental implants Past Anesthesia/Blood Transfusion Reactions: No Reported Reaction Additional Past Anesthesia/Blood Transfusion Reaction / Comment(s): past blood transfusions-no reactions Past Psychological History: No Psychological Hx Reported Smoking Status: Unknown if ever smoked Past Alcohol Use History: Occasional Past Drug Use History: None Reported - Past Family History Mother Family Medical History: Dementia Father History Unknown: Yes Brother(s) Family Medical History: Cancer Additional Family Medical History / Comment(s): melanoma Medications and Allergies Home Medications Medication Instructions Recorded Confirmed Type Metoprolol Succinate [Toprol XL] 25 mg PO DAILY 09/24/15 04/12/21 History lisinopriL [Zestril] 20 mg PO DAILY 09/24/15 04/12/21 History Fluocinolone Acetonide Oil 1 applic BOTH EARS DAILY PRN 04/12/21 04/12/21 History [Dermotic] Testosterone Cypionate 200 mg IM MO 04/12/21 04/12/21 History [Depo-Testosterone] Allergies Allergy/AdvReac Type Severity Reaction Status Date / Time adhesive tape AdvReac Rash/Hives Verified 04/12/21 19:03 garlic AdvReac Rash/Hives Verified 04/12/21 19:03 Physical Exam Vitals: Vital Signs Temp Pulse Resp BP Pulse Ox 04/13/21 02:30 114 H 23 130/86 96 04/13/21 02:15 115 H 25 H 136/81 97 04/13/21 02:00 115 H 26 H 135/82 96 04/13/21 01:45 115 H 136/80 96 04/13/21 01:30 115 H 18 141/91 96 04/13/21 01:15 114 H 28 H 145/90 96 04/13/21 01:00 114 H 20 143/83 97 04/13/21 00:45 113 H 143/90 97 04/13/21 00:30 114 H 22 150/88 95 04/13/21 00:15 113 H 20 158/93 96 04/13/21 00:00 113 H 23 160/94 89 L 04/12/21 23:45 113 H 22 146/92 97 04/12/21 23:42 16 04/12/21 23:30 112 H 20 143/94 96 04/12/21 23:15 113 H 20 157/98 95 04/12/21 23:00 113 H 16 145/96 96 04/12/21 22:45 112 H 16 154/100 98 04/12/21 22:30 18 140/97 98 04/12/21 22:15 112 H 23 146/96 96 04/12/21 22:00 97.5 F L 111 H 20 150/98 97 04/12/21 21:44 150/98 04/12/21 21:35 107 H 20 154/100 96 04/12/21 21:20 112 H 20 145/97 96 04/12/21 21:15 112 H 20 143/90 96 04/12/21 21:10 112 H 20 142/94 97 04/12/21 21:05 112 H 20 136/94 96 04/12/21 21:00 112 H 20 148/92 96 04/12/21 20:55 112 H 20 146/92 95 04/12/21 20:50 112 H 20 147/95 96 04/12/21 20:45 111 H 20 160/102 96 04/12/21 20:35 110 H 20 154/96 96 04/12/21 20:30 110 H 20 150/97 96 04/12/21 20:20 110 H 20 143/98 97 04/12/21 20:15 110 H 20 137/89 98 04/12/21 20:10 110 H 20 135/86 97 04/12/21 20:05 109 H 20 129/83 96 04/12/21 20:00 109 H 20 134/84 96 04/12/21 19:55 108 H 20 135/87 96 04/12/21 19:50 107 H 20 141/89 96 04/12/21 19:45 108 H 20 139/112 96 04/12/21 19:40 104 H 20 160/98 98 04/12/21 19:37 104 H 20 162/104 98 04/12/21 19:35 107 H 20 172/110 96 04/12/21 19:32 104 H 20 127/104 97 04/12/21 19:31 101 H 20 108/51 96 04/12/21 19:26 69 20 198/153 97 04/12/21 19:13 108 H 20 225/154 96 04/12/21 18:58 67 20 243/157 98 04/12/21 18:43 112 H 20 195/139 98 04/12/21 18:28 112 H 20 201/125 97 04/12/21 18:13 97.8 F 104 H 20 189/133 90 L Intake and Output 04/12/21 04/12/21 04/13/21 14:59 22:59 06:59 Intake Total 34.334 20 Output Total 350 775 Balance -315.796 -074 Intake: IV 20 Sodium Chloride 0.9% 20 Intake, IV Titration 34.334 Amount niCARdipine 20 mg In 34.334 Sodium Chloride 0.9% 192 ml @ 5 MG/HR 50 mls/hr IV .Q4H [facility] Rx#:[id number] Output: Urine 350 775 Other: Voiding Method Indwelling Catheter Weight 79.2 kg Constitutional: No acute distress, makes brief eye contact, expressive aphasia Eyes: Anicteric sclerae, moist conjunctiva, Pupils equal round reactive to light ENMT: NC/AT Oropharynx clear, no erythema, or exudates Neck: Supple, FROM, no masses, or JVD No carotid bruits No thyromegaly Lungs: Clear to auscultation Clear to percussion Normal respiratory effort, no accessory muscle use Cardiovascular: Heart regular in rate and rhythm, No murmurs, gallops, or rubs No peripheral edema Abdominal: Soft Nontender, no guarding, rebound or rigidity Abdomen moving with respiration Normoactive bowel sounds No hepatomegaly, No splenomegaly No palpable mass No abdominal wall hernia noted Skin: Normal temperature, tone, texture, turgor No induration No subcutaneous nodules No rash, lesions No ulcers Extremities: No digital cyanosis No clubbing Pedal pulses intact and symmetrical Radial pulses intact and symmetrical No calf tenderness Psychiatric: Alert with severe expressive aphasia Neuro patient unable to follow instructions unable to perform neurologic exam however he is moving all 4 extremities spontaneously , and purposefully Lymphatics: no palpable cervical or supraclavicular , or inguinal lymph nodes Results CBC & Chem 7: 04/12/21 18:27 04/12/21 18:28 Labs: Abnormal Lab Results - Last 24 Hours (Table) 04/12/21 04/12/21 04/12/21 Range/Units 18:21 18:28 21:45 Sodium 135 L (137-145) mmol/L BUN 25 H (9-20) mg/dL Glucose 160 H (74-99) mg/dL POC Glucose (mg/dL) 153 H 165 H (75-99) mg/dL Thrombosis Risk Factor Assmnt - Choose All That Apply Each Factor Represents 1 point: Oral contraceptives or hormone replacement therapy Each Risk Factor Represents 5 Points: Stroke (< 1 month) Thrombosis Risk Factor Assessment Total Risk Factor Score: 6 Thrombosis Risk Factor Assessment Level: High Risk Assessment and Plan Assessment: Acute ischemic stroke Expressive aphasia secondary to above Possible seizure-like activity associated with stroke Malignant hypertension Plan Code stroke activated in the ED patient was evaluated by neuro intervention salesperson pianos and organs, CT angiogram the brain did not show any severe disease, CT of the brain was unremarkable Patient was given TPA Strict blood pressure control with Cardene Avoid any blood thinners anticoagulation or antiplatelet medications for at least 24-48 hours until cleared by neurology Neurochecks every hour Strict control of blood pressure to below 180/105 Continue with Cardene drip as needed Fall precautions PT/OT eval Check A1c, lipid profile, TSH Check echocardiogram Swallow eval Nothing by mouth History of coronary artery disease status post CABG with one-vessel bypass History of heart valve replacement with pig valve family thinks his aortic valve History of hypertension History of blood clots 2 not on chronic anticoagulation unknown precipitating factors CODE STATUS: Full code DVT prophylaxis: Mechanical Discussed with: Patient, ER, RN Anticipated length of stay more than [address]: Pending clinical course A total of 75 minutes was spent on the care of this complex patient more than 50% of the time was spent in counseling and care coordination.
[2021-04-13 03:58] LABS: Basophils # (A) 0.1 k/uL (0-0.2); Basophils % (A) 1 %; Eosinophils # (A) 0.1 k/uL (0-0.7); Eosinophils % (A) 1 %; HCT 47.7 % (39.0-53.0); HGB 15.7 gm/dL (13.0-17.5); Lymphocytes # (A) 0.4 k/uL (1.0-4.8); Lymphocytes % (A) 6 %; MCH 33.1 pg (25.0-35.0); MCV 100.2 fL (80.0-100.0); Mean Platelet Volume 7.6; Monocytes # (A) 0.3 k/uL (0-1.0); Monocytes % (A) 3 %; Neutrophils # (A) 7.1 k/uL (1.3-7.7); Neutrophils % (A) 89 %; Platelet Count 147 k/uL (150-450); RBC 4.76 m/uL (4.30-5.90); RDW 13.1 % (11.5-15.5)
[2021-04-13 04:13] LABS: African American GFR (CKD) >90 (>60 ml/min/1.73 sqM); Anion Gap 8 mmol/L; Blood Urea Nitrogen 21 mg/dL (9-20); Calcium 8.8 mg/dL (8.4-10.2); Carbon Dioxide 26 mmol/L (22-30); Chloride 100 mmol/L (98-107); Glucose 146 mg/dL (74-99); Non-African American GFR(CKD) >90 (>60 ml/min/1.73 sqM); Potassium 4.8 mmol/L (3.5-5.1); Sodium 134 mmol/L (137-145)
[2021-04-13] MEDS: niCARdipine 20 MG in SODIUM CHLORIDE 0.9% 192 ML IV SCH ×4 (04:31→19:38)
--- NOTE | 2021-04-13 07:02 | P.CNPUL ---
History of Present Illness Consult date: 04/13/21 Requesting physician: Marek Tsai Reason for consult: other Chief complaint: Stroke-like symptoms. History of present illness: Pulmonary/critical care consult dated 04/13/2021. 81-year-old male seen in the emergency department yesterday, April 12. The patient presented to the hospital with strokelike symptoms including difficulty in speech, confusion, right-sided weakness, and inappropriate behavior. The patient's NIH score initially was 7. The patient was hypertensive in the emergency department and got 2 doses of labetalol, and was placed on nicardipine. The patient also had a seizure at 1930 yesterday. The patient did receive TPA, and was admitted to the intensive care unit for further monitoring. Neurology consultation was performed. The patient's currently on 2 L nasal cannula. He is getting saline at 10 mL an hour. Still very confused with garbled speech. He does move all 4 extremities. White count 8, hemoglobin 15.7, hematocrit 47.7, and platelet count 147,000. Sodium 134, potassium 4.8, chlorides 100, CO2 26, anion gap 8, BUN 21, and creatinine 0.62. Initial brain CT showed cerebral atrophy but no acute intracranial abnormality. Angiography CT showed a negative CT angiogram of the brain. There was minimal plaque in the carotid artery bifurcations with less than 20% stenosis. Chest x-ray showed changes of CHF. Repeat brain CT showed no changes. Review of Systems A reliable review of systems cannot be obtained from this patient as he still quite confused. He's not really sure where he is at. He apparently presented with confusion, right-sided weakness, and unusual behavior, and an NIH score of 7. Past Medical History Past Medical History: Deep Vein Thrombosis (DVT), Hyperlipidemia, Hypertension Additional Past Medical History / Comment(s): 09-05-18 pt wants a pne vaccine while here. other hx:wound on buttocks since healed, "hands shaky at times" History of Any Multi-Drug Resistant Organisms: None Reported Past Surgical History: Appendectomy, Cardiac Valve Replacement, Heart Catheterization, Joint Replacement Additional Past Surgical History / Comment(s): cardiac valve replacement x2, taryn shoulder replacement, lt hip replacement, cataracts, lt eye retinal tear-sx to repair, dental implants Past Anesthesia/Blood Transfusion Reactions: No Reported Reaction Additional Past Anesthesia/Blood Transfusion Reaction / Comment(s): past blood transfusions-no reactions Past Psychological History: No Psychological Hx Reported Smoking Status: Unknown if ever smoked Past Alcohol Use History: Occasional Past Drug Use History: None Reported - Past Family History Mother Family Medical History: Dementia Father History Unknown: Yes Brother(s) Family Medical History: Cancer Additional Family Medical History / Comment(s): melanoma Medications and Allergies Home Medications Medication Instructions Recorded Confirmed Type Metoprolol Succinate [Toprol XL] 25 mg PO DAILY 09/24/15 04/12/21 History lisinopriL [Zestril] 20 mg PO DAILY 09/24/15 04/12/21 History Fluocinolone Acetonide Oil 1 applic BOTH EARS DAILY PRN 04/12/21 04/12/21 History [Dermotic] Testosterone Cypionate 200 mg IM MO 04/12/21 04/12/21 History [Depo-Testosterone] Allergies Allergy/AdvReac Type Severity Reaction Status Date / Time adhesive tape AdvReac Rash/Hives Verified 04/12/21 19:03 garlic AdvReac Rash/Hives Verified 04/12/21 19:03 Physical Exam Osteopathic Statement: *. No significant issues noted on an osteopathic structural exam other than those noted in the History and Physical/Consult. Vitals: Vital Signs Temp Pulse Resp BP Pulse Ox 04/13/21 06:15 115 H 22 126/88 96 04/13/21 06:00 115 H 20 123/75 96 04/13/21 05:45 114 H 22 133/75 95 04/13/21 05:30 114 H 24 137/89 96 04/13/21 05:15 115 H 21 137/95 94 L 04/13/21 05:00 117 H 20 122/80 97 04/13/21 04:45 116 H 23 122/77 97 04/13/21 04:30 115 H 25 H 124/84 96 04/13/21 04:15 115 H 23 139/88 96 04/13/21 04:00 98.0 F 114 H 20 136/89 97 04/13/21 03:45 115 H 18 142/101 97 04/13/21 03:30 116 H 20 135/88 97 04/13/21 03:15 115 H 27 H 146/83 97 04/13/21 03:00 115 H 14 135/75 97 04/13/21 02:45 114 H 25 H 143/35 98 04/13/21 02:30 114 H 23 130/86 96 04/13/21 02:15 115 H 25 H 136/81 97 04/13/21 02:00 115 H 26 H 135/82 96 04/13/21 01:45 115 H 136/80 96 04/13/21 01:30 115 H 18 141/91 96 04/13/21 01:15 114 H 28 H 145/90 96 04/13/21 01:00 114 H 20 143/83 97 04/13/21 00:45 113 H 143/90 97 04/13/21 00:30 114 H 22 150/88 95 04/13/21 00:15 113 H 20 158/93 96 04/13/21 00:00 113 H 23 160/94 89 L 04/12/21 23:45 113 H 22 146/92 97 04/12/21 23:42 16 04/12/21 23:30 112 H 20 143/94 96 04/12/21 23:15 113 H 20 157/98 95 04/12/21 23:00 113 H 16 145/96 96 04/12/21 22:45 112 H 16 154/100 98 04/12/21 22:30 18 140/97 98 04/12/21 22:15 112 H 23 146/96 96 04/12/21 22:00 97.5 F L 111 H 20 150/98 97 04/12/21 21:44 150/98 04/12/21 21:35 107 H 20 154/100 96 04/12/21 21:20 112 H 20 145/97 96 04/12/21 21:15 112 H 20 143/90 96 04/12/21 21:10 112 H 20 142/94 97 04/12/21 21:05 112 H 20 136/94 96 04/12/21 21:00 112 H 20 148/92 96 04/12/21 20:55 112 H 20 146/92 95 04/12/21 20:50 112 H 20 147/95 96 04/12/21 20:45 111 H 20 160/102 96 04/12/21 20:35 110 H 20 154/96 96 04/12/21 20:30 110 H 20 150/97 96 04/12/21 20:20 110 H 20 143/98 97 04/12/21 20:15 110 H 20 137/89 98 04/12/21 20:10 110 H 20 135/86 97 04/12/21 20:05 109 H 20 129/83 96 04/12/21 20:00 109 H 20 134/84 96 04/12/21 19:55 108 H 20 135/87 96 04/12/21 19:50 107 H 20 141/89 96 04/12/21 19:45 108 H 20 139/112 96 04/12/21 19:40 104 H 20 160/98 98 04/12/21 19:37 104 H 20 162/104 98 04/12/21 19:35 107 H 20 172/110 96 04/12/21 19:32 104 H 20 127/104 97 04/12/21 19:31 101 H 20 108/51 96 04/12/21 19:26 69 20 198/153 97 04/12/21 19:13 108 H 20 225/154 96 04/12/21 18:58 67 20 243/157 98 04/12/21 18:43 112 H 20 195/139 98 04/12/21 18:28 112 H 20 201/125 97 04/12/21 18:13 97.8 F 104 H 20 189/133 90 L Intake and Output 04/12/21 04/12/21 04/13/21 14:59 22:59 06:59 Intake Total 34.334 216.250 Output Total 350 1285 Balance -315.666 -1068.750 Intake: IV 70 Sodium Chloride 0.9% 70 Intake, IV Titration 34.334 146.250 Amount niCARdipine 20 mg In 34.334 146.250 Sodium Chloride 0.9% 192 ml @ 5 MG/HR 50 mls/hr IV .Q4H [facility] Rx#:[id number] Output: Urine 350 1285 Other: Voiding Method Indwelling Catheter Weight 79.2 kg 79.2 kg No acute distress, confused, with garbled speech. HEENT examination is grossly unremarkable. Neck supple. Full range of motion. No adenopathy thyromegaly or neck vein distention. Cardiovascular examination reveals regular rhythm rate. S1-S2 normal. No S3 or S4. No discernible murmur noted. Heart rate 115 bpm. Lungs reveal scattered bilateral rhonchi. No wheezes or crackles. Breath sounds are equal bilaterally. Abdomen soft bowel sounds are heard. No masses or tenderness. Extremities are intact. No cyanosis clubbing or edema. Skin is without rash or lesion. Neurologic examination reveals a confused gentleman, with garbled speech. He does move all 4 extremities. He is not quite sure where he sat. He was initially aphasic when he presented to the ICU. Results - Laboratory Findings CBC and BMP: 04/13/21 03:41 04/13/21 03:41 PT/INR, D-dimer PT 11.8 sec (9.0-12.0) 04/12/21 18:27 INR 1.1 (<1.2) 04/12/21 18:27 Abnormal lab findings: Abnormal Labs 04/12/21 04/12/21 04/12/21 18:21 18:28 21:45 MCV Plt Count Lymphocytes # Sodium 135 L BUN 25 H Creatinine Glucose 160 H POC Glucose (mg/dL) 153 H 165 H 04/13/21 04/13/21 03:41 03:41 MCV 100.2 H Plt Count 147 L Lymphocytes # 0.4 L Sodium 134 L BUN 21 H Creatinine 0.62 L Glucose 146 H POC Glucose (mg/dL) - Diagnostic Findings Chest x-ray: image reviewed Assessment and Plan Assessment: Acute CVA, status post TPA, with initial NIH score of 7. New-onset atrial fibrillation with RVR. Hypertensive urgency/emergency, with changes of CHF. History of deep venous thrombosis. History of hyperlipidemia. History of hypertension. Status post cardiac valve replacement 2. Plan: Plan dated 04/13/2021. Currently, the patient's on 2 L nasal cannula and saline at 10 mL an hour. Labs, and X-rays are reviewed. The patient came in initially with an NIH score of 7. The patient did receive TPA. In addition, the patient had some atrial fibrillation with RVR, and also had a seizure at 1930. Finally, the patient did present with hypertensive urgency/emergency, and changes of CHF on chest x-ray. Currently, the patient is much more stable. We will continue to follow. We will make recommendations where appropriate. Time with Patient: Greater than 30
[2021-04-13] MEDS ORDERED: METOPROLOL SUCCINATE (ER) 25 MG TAB.ER.24H PO SCH ×2 (09:00)
[2021-04-13] MEDS ORDERED: ATORVASTATIN 80 MG TAB PO SCH (09:00)
--- NOTE | 2021-04-13 09:12 | CONS ---
CONSULTATION Mr. Cook is an 81-year-old male who presented with symptoms consistent with cerebrovascular accident with speech disturbance, confusion and right-sided weakness as well as inappropriate behavior. He was evaluated in the emergency room and subsequently received tPA. He was noted to be in atrial fibrillation. Cardiology consultation was requested. The patient is awake, confused with garbled speech. Reviewing the records from the office, patient has been followed on a regular basis by Dr. Martinez. He has a history of chronic persistent atrial fibrillation. Patient declined anticoagulation and declined statin in the past. He has a history of aortic valve placement and mitral valve repair as well history of coronary bypass grafting, although the details of his CABG is not available to me. He had an echocardiogram in March of 2020. At that time, he had a normal left ventricular systolic function with normal function of his bioprosthetic aortic valve with a mean gradient of 16 mmHg. His mitral valve repair was stable. He had moderate pulmonary hypertension. I am not able to obtain any other history from the patient. MEDICATION: At the time of admission included: Zestril 20 mg daily and Toprol-XL 25 mg a day. PHYSICAL EXAMINATION: He is an 81-year-old male, alert, following command with garbled speech. Blood pressure 133/80 with a heart rate in the one teens with atrial fibrillation. HEAD: Normocephalic. Eyes: Sclerae anicteric. NECK: No bruit appreciated. LUNGS: Clear to auscultation. HEART: Irregularly irregular S1, S2. No S3 with systolic murmur heard at the base, ejection type. No diastolic murmur. No rub. ABDOMEN: Soft, nontender. Positive bowel sounds. No megaly. EXTREMITIES: No edema. NEUROLOGICAL: He is moving all extremities. He still has difficulty remembering words. LAB DATA: Lab data revealed a hemoglobin 15.7, BUN and creatinine 28 and 1.62. Potassium 4.8. His troponin less than 0.012. His EKG is consistent with atrial fibrillation with rapid ventricular response and nonspecific ST-T wave changes. His CT scan of the chest showed no acute bleeding. His CT angiogram of his neck showed minimal plaquing of the carotid arteries. IMPRESSION: 1. Status post cerebrovascular accident status post tPA. 2. Atrial fibrillation, chronic persistent. Patient has declined anticoagulation in the past. 3. Status post coronary artery bypass grafting and aortic valve replacement with mitral valve repair. 4. History of hyperlipidemia. Patient declined any statin in the past. 5. History of hypertension. 6. History of deep venous thrombosis. RECOMMENDATION: From the cardiac standpoint, we will obtain an echocardiogram with Doppler. Patient has been started on anticoagulation. He is on IV nicardipine at this time. I will increase the dose of his beta joan. The patient will need to be on chronic anticoagulation in view of his cerebrovascular accident and atrial fibrillation. Depending on his progress, further recommendations will be made. Thank you for this consult. We will follow with you. DAKOTA / SOBIAN: [id number] /
--- NOTE | 2021-04-13 10:08 | ECHOF ---
Referral Reason:post stroke MEASUREMENTS -------- HEIGHT: 175.3 cm WEIGHT: 78.9 kg BP: 133/86 IVSd: 1.8 cm (0.6 - 1.1) LVIDd: 2.9 cm (3.9 - 5.3) LVPWd: 1.7 cm (0.6 - 1.1) IVSs: 2.2 cm LVIDs: 2.7 cm LVPWs: 1.8 cm LAESV Index (A-L): 60.98 ml/m Ao Diam: 3.1 cm (2.0 - 3.7) AV Cusp: 1.2 cm (1.5 - 2.6) AV maxP.02 mmHg AV meanP.29 mmHg RAP: 15.00 mmHg RVSP: 79.55 mmHg FINDINGS -------- Undetermined rhythm. This was a technically good study. There is severe concentric left ventricular hypertrophy. Overall left ventricular systolic function is normal with, an EF between 60 - 65 %. The right ventricle is normal in size. LA is severely dilated >40 ml/m2 The right atrial size is normal. Peak/mean gradient across the Aortic Valve is 33.02mmHg / 19.29mmHg. Pt has bioprosthetic valve. The peak and mean MV gradients are 20.49mmHg 6.96mmHg as measured by doppler. Mitral ring annullopl asty is in place. Moderate to severe tricuspid regurgitation present. There is severe pulmonary hypertension. The r ight ventricular systolic pressure, as measured by Doppler, is 79.55mmHg. Trace/mild (physiologic) pulmonic regurgitation. The aortic root size is normal. There is no pericardial effusion. CONCLUSIONS -------- 1. There is severe concentric left ventricular hypertrophy. 2. Overall left ventricular systolic function is normal with, an EF between 60 - 65 %. 3. The right ventricle is normal in size. 4. LA is severely dilated >40 ml/m2 5. The right atrial size is normal. 6. Peak/mean gradient across the Aortic Valve is 33.02mmHg / 19.29mmHg. 7. Pt has bioprosthetic valve. 8. The peak and mean MV gradients are 20.49mmHg 6.96mmHg as measured by doppler. 9. Mitral ring annulloplasty is in place. 10. Moderate to severe tricuspid regurgitation present. 11. There is severe pulmonary hypertension. 12. The right ventricular systolic pressure, as measured by Doppler, is 79.55mmHg. 13. Trace/mild (physiologic) pulmonic regurgitation. 14. The aortic root size is normal. 15. There is no pericardial effusion. DIRECTOR OF MATERNITY SERVICES: Radha Ignacio RDCS
--- NOTE | 2021-04-13 10:22 | P.CNNES ---
History of Present Illness Consult date: 04/13/21 Requesting physician: Andrea Wilson Reason for Consult: CVA post tpa History of Present Illness: This is an 81-year-old gentleman with medical history of hypertension, dyslipidemia, DVT, cardiac valve replacement 2 who presented emergency department on 04/12/2021 for difficulty getting his words out at. History is obtained from medical record. It seems that the patient's symptoms onset was around 5:00 in the afternoon on 04/12/2021 in which he was having difficulty getting his words out and the family was having a hard time understanding him. Patient presented to our facility on the 04/12/2021 around 1812. The patient is not on any anticoagulation. It does not seem to the patient has any history of stroke or TIA from the medical record. As well as it does not seem to the patient has any history of seizures. Patient home medication per EMR as lisinopril, metoprolol, testosterone. Some of the work-up in the hospital consisted of: Per the ED the patient had NIH of 7: 1 for right upper extremity weakness, 2 for aphasia, 2 for confusion regarding the month and age, 2 for inability to follow commands. The ED team was concerned that the patient has acute ischemic stroke. A stroke code was activated that. He was discussed with the family regarding the TPA and the benefits and the risks was discussed per the ED note. Initial CT of the head is reported as cerebral atrophy. No acute intercranial abnormality. CT angiography of the head and neck was reported as negative CT angiography of the brain. Minimal plaque at the carotid artery bifurcation with less than 20% stenosis. Initial vitals: Blood pressure of 189/133, heart rate of 104, respiratory was 20, temperature of 97.8 Fahrenheit oral and pulse ox of 90% room air. Patient's blood pressure was uncontrolled and got as high as the 243/157 within the same hour of presenting to the hospital. The ED team the systolic blood pressure got as as high as a 250. Patient was given a 20 mg IV push of labetalol. Then the patient was started on nicardipine drip. Prior to the nicardipine drip by being started the patient's systolic blood pressure was above 200 and he had a short seizure that lasted less than 1 minute that self resolved. She was given 1 mg Ativan then was given 2 g of bolus of Keppra. The patient was given TPA because of his significant aphasia while he was on nicardipine that drip and was documented as blood pressu re during that time was less than 180 systolic. It seems that the patient was given 7mg milligrams of alteplase (bolus) at around 1935 and then maintenance of 62 mg at around 19:37. Dr. Byrd was the stroke attending and evaluated patient via robot. The night nurse called me regarding this patient prior to given the aspirin and notify me but the patient and I never received any information from the ED physician regarding what transpired and I notified her not to give the aspirin and avoid any anticoagulation on told 24 hours post TPA and we'll make that judgment. As well as in the ED note they mentioned that the patient that to be given rectal aspirin and they ordered aspirin which goes against IV tPA but upon looking at [facility] summary it was stated at 23:48 it was not given. Regarding the episode of the seizure I don't see any documentation regarding what type of seizure he had. Upon asking the ICU nurse regarding the sign out the seizure she stated that she didn't get any description regarding the seizure but it was short lasting. Per the patient's ICU nurse she was notified that the systolic blood pressure drops significantly after the labetalol. As a result I asked for repeat CT of the head and it's reported as cerebral atrophy. No acute intracranial abnormality. No change compared to the exam 4 hours ago. Per the patient ICU nurse at nighttime as well as that today and the patient has not had any further clinical seizures and no reported of seizures in the past. I also notified the patient nurse to keep the systolic blood pressure less than 185/110 per TPA protocol. I recommended that the goal to be between 160-180 systolic and diastolic 65-95 if possible and to try treated with nicardipine and the blood pressure has been the and manageable and the has not been over one the 185/110 over night. Other workup: CBC with differential initially is unremarkable. Repeated is that the MCV is 100.2 and the platelet count is 147. Initial chemistry panel is the serum glucose is 160 which is slightly elevated, sodium is 1:30/slightly low but not remarkable. Otherwise the rest of the chemistry panel is unremarkable. Calcium is 9.4, AST of 38, ALT of 24, TSH is 0.694 which is within normal limits. Coagulation study: PT of 11.8, INR 1.1 and PTT of 23.4 Review of Systems Review of system is limited because of his aphasia but the pertinent positive and negative as per HPI. Past Medical History Past Medical History: Deep Vein Thrombosis (DVT), Hyperlipidemia, Hypertension Additional Past Medical History / Comment(s): 09-05-18 pt wants a pne vaccine while here. other hx:wound on buttocks since healed, "hands shaky at times" History of Any Multi-Drug Resistant Organisms: None Reported Past Surgical History: Appendectomy, Cardiac Valve Replacement, Heart Catheterization, Joint Replacement Additional Past Surgical History / Comment(s): cardiac valve replacement x2, taryn shoulder replacement, lt hip replacement, cataracts, lt eye retinal tear-sx to repair, dental implants Past Anesthesia/Blood Transfusion Reactions: No Reported Reaction Additional Past Anesthesia/Blood Transfusion Reaction / Comment(s): past blood transfusions-no reactions Past Psychological History: No Psychological Hx Reported Smoking Status: Unknown if ever smoked Past Alcohol Use History: Occasional Past Drug Use History: None Reported - Past Family History Mother Family Medical History: Dementia Father History Unknown: Yes Brother(s) Family Medical History: Cancer Additional Family Medical History / Comment(s): melanoma Medications and Allergies Home Medications Medication Instructions Recorded Confirmed Type Metoprolol Succinate [Toprol XL] 25 mg PO DAILY 09/24/15 04/12/21 History lisinopriL [Zestril] 20 mg PO DAILY 09/24/15 04/12/21 History Fluocinolone Acetonide Oil 1 applic BOTH EARS DAILY PRN 04/12/21 04/12/21 History [Dermotic] Testosterone Cypionate 200 mg IM MO 04/12/21 04/12/21 History [Depo-Testosterone] Allergies Allergy/AdvReac Type Severity Reaction Status Date / Time adhesive tape AdvReac Rash/Hives Verified 04/12/21 19:03 garlic AdvReac Rash/Hives Verified 04/12/21 19:03 Physical Examination - Vital Signs Vital Signs: Vital Signs Temp Pulse Resp BP Pulse Ox 04/13/21 07:47 25 H 04/13/21 07:15 115 H 133/86 95 04/13/21 07:00 115 H 25 H 145/103 92 L 04/13/21 06:45 116 H 25 H 138/88 95 04/13/21 06:30 116 H 25 H 134/87 97 04/13/21 06:15 115 H 22 126/88 96 04/13/21 06:00 115 H 20 123/75 96 04/13/21 05:45 114 H 22 133/75 95 04/13/21 05:30 114 H 24 137/89 96 04/13/21 05:15 115 H 21 137/95 94 L 04/13/21 05:00 117 H 20 122/80 97 04/13/21 04:45 116 H 23 122/77 97 04/13/21 04:30 115 H 25 H 124/84 96 04/13/21 04:15 115 H 23 139/88 96 04/13/21 04:00 98.0 F 114 H 20 136/89 97 04/13/21 03:45 115 H 18 142/101 97 04/13/21 03:30 116 H 20 135/88 97 04/13/21 03:15 115 H 27 H 146/83 97 04/13/21 03:00 115 H 14 135/75 97 04/13/21 02:45 114 H 25 H 143/35 98 04/13/21 02:30 114 H 23 130/86 96 04/13/21 02:15 115 H 25 H 136/81 97 04/13/21 02:00 115 H 26 H 135/82 96 04/13/21 01:45 115 H 136/80 96 04/13/21 01:30 115 H 18 141/91 96 04/13/21 01:15 114 H 28 H 145/90 96 04/13/21 01:00 114 H 20 143/83 97 04/13/21 00:45 113 H 143/90 97 04/13/21 00:30 114 H 22 150/88 95 04/13/21 00:15 113 H 20 158/93 96 04/13/21 00:00 113 H 23 160/94 89 L 04/12/21 23:45 113 H 22 146/92 97 04/12/21 23:42 16 04/12/21 23:30 112 H 20 143/94 96 04/12/21 23:15 113 H 20 157/98 95 04/12/21 23:00 113 H 16 145/96 96 04/12/21 22:45 112 H 16 154/100 98 04/12/21 22:30 18 140/97 98 04/12/21 22:15 112 H 23 146/96 96 04/12/21 22:00 97.5 F L 111 H 20 150/98 97 04/12/21 21:44 150/98 04/12/21 21:35 107 H 20 154/100 96 04/12/21 21:20 112 H 20 145/97 96 04/12/21 21:15 112 H 20 143/90 96 04/12/21 21:10 112 H 20 142/94 97 04/12/21 21:05 112 H 20 136/94 96 04/12/21 21:00 112 H 20 148/92 96 04/12/21 20:55 112 H 20 146/92 95 04/12/21 20:50 112 H 20 147/95 96 04/12/21 20:45 111 H 20 160/102 96 04/12/21 20:35 110 H 20 154/96 96 04/12/21 20:30 110 H 20 150/97 96 04/12/21 20:20 110 H 20 143/98 97 04/12/21 20:15 110 H 20 137/89 98 04/12/21 20:10 110 H 20 135/86 97 04/12/21 20:05 109 H 20 129/83 96 04/12/21 20:00 109 H 20 134/84 96 04/12/21 19:55 108 H 20 135/87 96 04/12/21 19:50 107 H 20 141/89 96 04/12/21 19:45 108 H 20 139/112 96 04/12/21 19:40 104 H 20 160/98 98 04/12/21 19:37 104 H 20 162/104 98 04/12/21 19:35 107 H 20 172/110 96 04/12/21 19:32 104 H 20 127/104 97 04/12/21 19:31 101 H 20 108/51 96 04/12/21 19:26 69 20 198/153 97 04/12/21 19:13 108 H 20 225/154 96 04/12/21 18:58 67 20 243/157 98 04/12/21 18:43 112 H 20 195/139 98 04/12/21 18:28 112 H 20 201/125 97 04/12/21 18:13 97.8 F 104 H 20 189/133 90 L Intake and Output 04/12/21 04/13/21 04/13/21 22:59 06:59 14:59 Intake Total 34.334 216.250 20 Output Total 350 1285 120 Balance -315.666 -1068.750 -100 Intake: IV 70 20 Sodium Chloride 0.9% 70 20 Intake, IV Titration 34.334 146.250 Amount niCARdipine 20 mg In 34.334 146.250 Sodium Chloride 0.9% 192 ml @ 5 MG/HR 50 mls/hr IV .Q4H [facility] Rx#:[id number] Output: Urine 350 1285 120 Other: Voiding Method Indwelling Catheter Indwelling Catheter Weight 79.2 kg 79.2 kg GENERAL: The patient is lying in bed and is not in acute distress. CHEST: The heart rate is regular rate rhythm. No murmurs to auscultation. No carotid bruit bilaterally. LUNG: Clear to auscultation bilaterally no wheezing noted throughout. Not labored breathing. ABDOMEN/GI: Bowel sounds present in all 4 quadrants. No tenderness to palpation throughout. NEUROLOGICAL: Higher mental function: The patient is awake, alert, oriented to self. He state he was in the hospital and the year is 2021. He correctly stated the month. He has brocha aphasia. He has paraphrasic errors (states deek instead of cheek). He states time rather than watch. He had difficulty repeating sentences. Patient is following commands but needs pontomine at time. No neglect. Cranial nerves: The pupils are round, equal and reactive to light. Visual casanova are full to confrontation throughout. Extraocular movement is intact no nystagmus is noted. Facial sensation is normal to touch throughout. The facial strength is normal throughout. Hearing is mildly decrease bilaterally to hand rub. Tongue is midline and moved [id number] without any difficulty. No dysarthria is noted. Shoulder shrug is normal bilaterally. Motor: Gait is deferred. The strength is 5 over 5 throughout. Normal tone and bulk. Cerebellum: Normal finger to nose bilaterally. Sensation: Sensation is normal to touch throughout. Reflexes (right/left): 2+ throughout.. Plantars are mute bilaterally. Results - Laboratory Findings CBC and BMP: 04/13/21 03:41 04/13/21 03:41 Abnormal Lab Findings: Abnormal Labs 0704/12/21 04/12/21 18:21 18:28 21:45 MCV Plt Count Lymphocytes # Sodium 135 L BUN 25 H Creatinine Glucose 160 H POC Glucose (mg/dL) 153 H 165 H 04/13/21 04/13/21 03:41 03:41 MCV 100.2 H Plt Count 147 L Lymphocytes # 0.4 L Sodium 134 L BUN 21 H Creatinine 0.62 L Glucose 146 H POC Glucose (mg/dL) Assessment and Plan Assessment: Acute ischemic stroke (predominately broca aphasia with initial NIH 7) s/p IV tpa on 04/12/2021. Seems embolic especially with a new onset atrial fibrillation with RVR Questionable new reported seizure due to above and signifcant drop in blood pressure per ICU nurse (unknow description of seizure but reported it was < 1 minute) Hypertensive emergency on Nicardipine drip New onset atrial fibrillation with RVR Status post cardiac valve replacement 2 History of DVT History of hypertension History of dyslipidemia Plan: I ordered MRI of the brain for 4 PM today. After MRI and if it's negative we'll start the patient on aspirin (81mg) and Plavix (75mg). Placed the patient on Lipitor 80 mg daily at bedtime for secondary stroke prophylaxis. Continue to keep the systolic blood pressure less than 180 and diastolic blood pressure less than 110 per IV TPA protocol. We'll defer the management to the ICU as well as primary team. Ordered the lipid panel, hemoglobin A1c, 2-D echo. Continue neuro checks personality. Protocol Patient on continuous cardiac monitoring PT, OT and ACQUISITION ADVISOR are consulted Cardiology is consulted for atrial fibrillation with RVR. Please avoid any anticoagulation in the first 24 hours since patient got TPA and after MRI the brain we can decide regarding the use of anticoagulation. An EEG is ordered and is pending. I'll hold off on starting antiepileptic unless the EEG shows a seizure or epileptiform discharges. It's not clear [place] seizure the patient had and whether it was because of the drastic decrease in the blood pressure or as a result of the stroke. If the patient does have any further clinical seizures then we'll start the patient on maintenance of antiepileptic drug. Seizure precaution and seizure pads are ordered that. DVT prophylaxis: Recommend SCD for now and after MRI will consider modifying if needed. The plan is discussed with the patient's nurse. Thank you for the consultation. UPDATE: Patient did not get MRI the brain and rather got CT of the head since the no availability per the patient nurse. CT of the head is reported as cerebral atrophy. No acute intracranial abn ormality. No change compared to yesterday. I will start the patient on aspirin 81mg and Plavix 75mg daily starting at 2100 today. Brian Antonio MD Neuro-Hospitalist Time with Patient: Greater than 30
[2021-04-13 12:15] LABS: Chol/HDL Ratio 2.83; Cholesterol 130 mg/dL (0-200); Triglycerides <50.0 mg/dL (0.0-149.0)
--- NOTE | 2021-04-13 15:10 | EEG ---
ELECTROENCEPHALOGRAM REPORT DATE OF SERVICE: 04/13/2021. CLINICAL HISTORY: This is an an 81-year-old gentleman who presented to the ED for stroke-like symptoms, who had reported brief seizure-like episode per the ED. The video EEG is obtained to evaluate for seizure and epileptiform activity. RELEVANT MEDICATION: The patient received Keppra 2 g and 1 mg of Ativan in the ED. EEG TYPE: Routine 21 channel EEG is performed with video using the 10/20 electrode placement system. DESCRIPTION: Awake state is only obtained. The study is very difficult to assess because of diffuse myogenic artifact since the patient would not hold still. It is hard to assess the focal slowing as well as interictal and ictal. ACTIVATION PROCEDURE: Photic stimulation and hyperventilation is not performed. CLINICAL INTERPRETATION: This is a poor study because of the significant diffuse myogenic artifact. I cannot comment on the patient's background, neither interictal and ictal activity. Clinical correlation is recommended. RECOMMENDATION: Consider repeating the EEG if needed. MMYUMIKOL / IJN: [id number] / MARC
[2021-04-13 15:23] LABS: Hemoglobin A1C 5.2 % (4.0-6.0)
--- NOTE | 2021-04-13 15:34 | P.PN ---
Subjective Progress Note Date: 04/13/21 (Delayed charting seen and 0945) Principal diagnosis: aphasia Patient is an 81-year-old male with a history of hypertension, dyslipidemia, tremor, and prior DVT who presented to the hospital with a aphasia. He was diagnosed with a stroke and had an NIH of 7. [place] stroke workup was contacted and recommended TPA after CT brain ruled out hemorrhagic stroke. Patient received TPA and was admitted to the ICU. There was concern that he possibly had a seizure and he was given Keppra. He was noted to develop A. fib which was relatively rate controlled overnight after admission. Echocardiogram showed ejection fraction 60-65% with severely dilated left atria, moderate to severe tricuspid regurgitation, severe pulmonary hypertension, and bioprosthetic aortic valve. CTA head and neck head showed carotid artery bifurcations with less than 20% stenosis. He was noted to have hypertension and he was started on nifedipine drip. He was admitted to the ICU. Patient seen and examined at bedside. He appears very confused. We discussed that he is in the hospital for a stroke and I will not be leaving for a few days. He denies any headache, nausea, vomiting, chest pain, or shortness of breath. He is able to follow commands. General: non toxic, no distress, appears at stated age Derm: warm, dry Head: atraumatic, normocephalic, symmetric Eyes: EOMI, no lid lag, anicteric sclera Mouth: no lip lesion, mucus membranes moist Cardiovascular: [S1S2 irregular with grade 2 diastolic murmur, positive posterior tibial pulse bilateral, Lungs: CTA bilateral, no rhonchi, no rales , no accessory muscle use Abdominal: soft, nontender to palpation, no guarding, no appreciable organomegaly Ext: no gross muscle atrophy, no edema, no contractures Neuro: Pupils equal round reactive to light, extraocular motion intact, no tongue deviation, uvula palate elevation symmetric, light touch intact all 4 extremities and bilateral phase, muscle strength 4 out of 5 bilateral upper extremities and lower extremities Psych: Alert to self, not year or location Acute ischemic CVA status post TPA -Patient was administered TPA on 04/14 -Neurology recommendations -Patient was found to have A. fib -lipitor - ASA once cleared by nuerology - repeat head CT this AM - 24 hours of permissive HTN do not treat BP unless systolic blood pressure greater than 180 or diastolic blood pressure greater than 105. - PT/OT/Speech evaluation Paroxysmal A. fib newly recognized -Do not start anticoagulation until approved by neuro. Patient will need to be 48 hours to 5 days out from TPA prior to starting anticoagulation. -Continue with telemetry monitoring -Hold beta joan at this time his rate is currently controlled and ideally should allow for 24 hours of permissive hypertension for protection of the ischemic penumbra. Chronic: Hypertension Dyslipidemia DVT Malignant hypertension, improved -Off nicardipine drip -Allow for 24 hours of permissive hypertension tension as outlined with the rules above -Likely can resume a beta joan on the morning of 04/14 and orders are written. DVT prophylaxis: SCDs Discussed with: patient, neurology, nurisng Anticipated discharge: undetermined Anticipated discharge place: undetermined A total of 65 minutes was spent on the care of this complex patient more than 50% of the time was spent in counseling and care coordination. Objective - Vital Signs Vital signs: Vital Signs Temp 98.4 F 04/13/21 12:00 Pulse 58 L 04/13/21 14:15 Resp 12 04/13/21 14:15 BP 119/77 04/13/21 14:15 Pulse Ox 94 L 04/13/21 12:00 Intake & Output 04/12/21 04/13/21 04/13/21 18:59 06:59 18:59 Intake Total 250.584 280 Output Total 1635 465 Balance -1384.416 -185 Weight 79.2 kg 79.2 kg Intake: IV 70 30 Sodium Chloride 0.9% 70 30 Intake, IV Titration 180.584 Amount niCARdipine 20 mg In 180.584 Sodium Chloride 0.9% 192 ml @ 5 MG/HR 50 mls/hr IV .Q4H [facility] Rx#:[id number] Oral 250 Output: Urine 1635 465 Other: Voiding Method Indwelling Catheter Indwelling Catheter - Labs CBC & Chem 7: 04/13/21 03:41 04/13/21 03:41 Labs: Abnormal Lab Results - Last 24 Hours (Table) 04/12/21 04/12/21 04/12/21 Range/Units 18:21 18:28 21:45 MCV (80.0-100.0) fL Plt Count (150-450) k/uL Lymphocytes # (1.0-4.8) k/uL Sodium 135 L (137-145) mmol/L BUN 25 H (9-20) mg/dL Creatinine (0.66-1.25) mg/dL Glucose 160 H (74-99) mg/dL POC Glucose (mg/dL) 153 H 165 H (75-99) mg/dL 04/13/21 04/13/21 Range/Units 03:41 03:41 MCV 100.2 H (80.0-100.0) fL Plt Count 147 L (150-450) k/uL Lymphocytes # 0.4 L (1.0-4.8) k/uL Sodium 134 L (137-145) mmol/L BUN 21 H (9-20) mg/dL Creatinine 0.62 L (0.66-1.25) mg/dL Glucose 146 H (74-99) mg/dL POC Glucose (mg/dL) (75-99) mg/dL
[2021-04-13 17:01] LABS: Glucose,Whole Blood 111 mg/dL (75-99)
[2021-04-13] MEDS: INSULIN ASPART (NovoLOG) 100 UNIT/ML VIAL SQ SCH (17:37)
--- NOTE | 2021-04-13 18:30 | CT ---
EXAMINATION TYPE: CT brain wo con DATE OF EXAM: 04/13/2021 COMPARISON: 04/12/2021 HISTORY: Confusion. Post TPA CT DLP: 1217.4 mGycm Automated exposure control for dose reduction was used. There is cerebral atrophy. There is no mass effect nor midline shift. There is no sign of intracrania l hemorrhage. Calvarium is intact. There is normal aeration of the mastoid sinuses. IMPRESSION: Cerebral atrophy. No acute intracranial abnormality. No change compared to yesterday.
[2021-04-13] MEDS: ATORVASTATIN 80 MG TAB PO SCH (20:57)
[2021-04-13] MEDS: ASPIRIN 81 MG PO SCH (20:57)
[2021-04-13] MEDS: QUEtiapine 25 MG TAB PO SCH (20:57)
[2021-04-13] MEDS: CLOPIDOGREL 75 MG TAB PO SCH (20:57)
[2021-04-13 22:06] LABS: Glucose,Whole Blood 115 mg/dL (75-99)
[2021-04-13] MEDS: HALOPERIDOL LACTATE 5 MG/ML 1 ML VIAL IVP PRN (22:22)
[2021-04-13] MEDS: LORazepam 2 MG/ML INJ IV PRN (22:54)
[2021-04-13] MEDS ORDERED: SODIUM CHLORIDE 0.9% 500 ML 500 ML IV ONE (23:57)
[2021-04-14] MEDS: SODIUM CHLORIDE 0.9% 1,000 ML IV SCH ×2 (00:43→13:15)
[2021-04-14 04:25] LABS: Basophils % (A) 0 %; Eosinophils % (A) 0 %; HCT 41.6 % (39.0-53.0); HGB 13.5 gm/dL (13.0-17.5); Lymphocytes # (A) 0.8 k/uL (1.0-4.8); Lymphocytes % (A) 9 %; MCH 33.3 pg (25.0-35.0); MCHC 32.4 g/dL (31.0-37.0); MCV 102.8 fL (80.0-100.0); Macrocytosis Slight; Mean Platelet Volume 7.3; Monocytes # (A) 0.5 k/uL (0-1.0); Monocytes % (A) 5 %; Neutrophils # (A) 7.4 k/uL (1.3-7.7); Neutrophils % (A) 84 %; Platelet Count 147 k/uL (150-450); RBC 4.04 m/uL (4.30-5.90); RDW 13.7 % (11.5-15.5); WBC 8.9 k/uL (3.8-10.6)
[2021-04-14] MEDS: LORazepam 2 MG/ML INJ IV PRN ×3 (04:52→16:07)
[2021-04-14] MEDS: HALOPERIDOL LACTATE 5 MG/ML 1 ML VIAL IVP PRN ×3 (06:45→14:54)
[2021-04-14 07:10] LABS: ALT 41 U/L (4-49); AST 51 U/L (17-59); African American GFR (CKD) >90 (>60 ml/min/1.73 sqM); Albumin 3.6 g/dL (3.5-5.0); Alkaline Phosphatase 65 U/L (38-126); Anion Gap 3 mmol/L; Blood Urea Nitrogen 23 mg/dL (9-20); Calcium 8.9 mg/dL (8.4-10.2); Carbon Dioxide 32 mmol/L (22-30); Chloride 97 mmol/L (98-107); Glucose 108 mg/dL (74-99); Non-African American GFR(CKD) 88 (>60 ml/min/1.73 sqM); Potassium 4.2 mmol/L (3.5-5.1); Sodium 132 mmol/L (137-145); Total Bilirubin 1.1 mg/dL (0.2-1.3); Total Protein 6.1 g/dL (6.3-8.2)
[2021-04-14 07:13] LABS: Glucose,Whole Blood 102 mg/dL (75-99)
[2021-04-14] MEDS: INSULIN ASPART (NovoLOG) 100 UNIT/ML VIAL SQ SCH ×3 (07:14→17:06)
--- NOTE | 2021-04-14 08:32 | P.PN ---
Subjective Progress Note Date: 04/14/21 Principal diagnosis: CVA. Pulmonary/critical care consult dated 04/13/2021. 81-year-old male seen in the emergency department yesterday, April 12. The patient presented to the hospital with strokelike symptoms including difficulty in speech, confusion, right-sided weakness, and inappropriate behavior. The patient's NIH score initially was 7. The patient was hypertensive in the emergency department and got 2 doses of labetalol, and was placed on nicardipine. The patient also had a seizure at 1930 yesterday. The patient did receive TPA, and was admitted to the intensive care unit for further monitoring. Neurology consultation was performed. The patient's currently on 2 L nasal cannula. He is getting saline at 10 mL an hour. Still very confused with garbled speech. He does move all 4 extremities. White count 8, hemoglobin 15.7, hematocrit 47.7, and platelet count 147,000. Sodium 134, potassium 4.8, chlorides 100, CO2 26, anion gap 8, BUN 21, and creatinine 0.62. Initial brain CT showed cerebral atrophy but no acute intracranial abnormality. Angiography CT showed a negative CT angiogram of the brain. There was minimal plaque in the carotid artery bifurcations with less than 20% stenosis. Chest x-ray showed changes of CHF. Repeat brain CT showed no changes. Progress note dated 04/14/2021. 81-year-old male seen in consultation yesterday. He was initially admitted in the emergency department on April 12 with some mental status changes, and str okelike symptoms. He had confusion, some poor speech, aphasia, right-sided weakness, and inappropriate behavior. The patient's initial NIH score was 7. The patient was hypertensive in the emergency department and did receive some labetalol, and IV nicardipine. The patient did end up receiving TPA. The patient also had a seizure in the emergency department. Yesterday when I saw him, he was calm, but he was confused with garbled speech. Today he is a bit more agitated and pulling at things. I've asked the nurse to go ahead and give him some Haldol. White count 8.9, heme him 13.5, hematocrit 41.6, platelet count 147,000. Sodium 132, potassium 4.2, chlorides 97, CO2 32, anion gap 3, BU N 23, and creatinine 0.69. The repeat brain CT done yesterday shows only cerebral atrophy, nothing acute. Objective - Vital Signs Vital signs: Vital Signs Temp 98.3 F 04/14/21 08:00 Pulse 95 04/14/21 08:00 Resp 12 04/14/21 08:00 BP 145/78 04/14/21 08:00 Pulse Ox 95 04/14/21 08:00 Intake & Output 04/13/21 04/14/21 04/14/21 18:59 06:59 18:59 Intake Total 530 725 75 Output Total 915 352 20 Balance -385 373 55 Weight 77.6 kg Intake: IV 30 Sodium Chloride 0.9% 30 Intake, IV Titration 725 75 Amount Sodium Chloride 0.9% 1, 225 75 000 ml @ 75 mls/hr IV . [id number] [facility] Rx#:[id number] Sodium Chloride 0.9% 500 500 ml 500 ml @ 999 mls/hr IV .Q31M [facility] Rx#:[id number] Oral 500 Output: Urine 915 352 20 Other: Voiding Method Indwelling Catheter Indwelling Catheter # Bowel Movements 1 - Exam The patient is more agitated today, confused, with garbled speech, pulling at things including his IV and his gown. HEENT examination is grossly unremarkable. Nasal O2 in place at 3 L. Neck supple. Full range of motion. No adenopathy thyromegaly or neck vein distention. Cardiovascular examination reveals regular rhythm rate. S1-S2 normal. No S3 or S4. No discernible murmur noted. Heart rate 95 bpm. Lungs reveal scattered bilateral rhonchi. No wheezes or crackles. Breath sounds are equal bilaterally. Abdomen soft bowel sounds are heard. No masses or tenderness. Extremities are intact. No cyanosis clubbing or edema. Skin is without rash or lesion. Neurologic examination reveals a confused gentleman, with garbled speech. He does move all 4 extremities. The patient is and remains confused. He was initially aphasic when he presented to the ICU. Currently he is very agitated. - Labs CBC & Chem 7: 04/14/21 03:37 04/14/21 03:37 Labs: Abnormal Lab Results - Last 24 Hours (Table) 04/13/21 04/13/21 04/14/21 Range/Units 17:00 22:05 03:37 RBC (4.30-5.90) m/uL MCV (80.0-100.0) fL Plt Count (150-450) k/uL Lymphocytes # (1.0-4.8) k/uL Sodium 132 L (137-145) mmol/L Chloride 97 L (98-107) mmol/L Carbon Dioxide 32 H (22-30) mmol/L BUN 23 H (9-20) mg/dL Glucose 108 H (74-99) mg/dL POC Glucose (mg/dL) 111 H 115 H (75-99) mg/dL Total Protein 6.1 L (6.3-8.2) g/dL 04/14/21 04/14/21 Range/Units 03:37 07:12 RBC 4.04 L (4.30-5.90) m/uL MCV 102.8 H (80.0-100.0) fL Plt Count 147 L (150-450) k/uL Lymphocytes # 0.8 L (1.0-4.8) k/uL Sodium (137-145) mmol/L Chloride (98-107) mmol/L Carbon Dioxide (22-30) mmol/L BUN (9-20) mg/dL Glucose (74-99) mg/dL POC Glucose (mg/dL) 102 H (75-99) mg/dL Total Protein (6.3-8.2) g/dL Assessment and Plan Assessment: Acute CVA, status post TPA, with initial NIH score of 7. New-onset atrial fibrillation with RVR. Hypertensive urgency/emergency, with changes of CHF. History of deep venous thrombosis. History of hyperlipidemia. History of hypertension. Status post cardiac valve replacement 2. Plan: Plan dated 04/13/2021. Currently, the patient's on 2 L nasal cannula and saline at 10 mL an hour. Labs, and X-rays are reviewed. The patient came in initially with an NIH score of 7. The patient did receive TPA. In addition, the patient had some atrial fibrillation with RVR, and also had a seizure at 1930. Finally, the patient did present with hypertensive urgency/emergency, and changes of CHF on chest x-ray. Currently, the patient is much more stable. We will continue to follow. We will make recommendations where appropriate. Plan dated 04/14/2021. The patient remains on 3 L nasal cannula. The brain CT has not changed. Nothing acute. He is getting saline at 75 mL an hour. The patient is very agitated and confused this morning. I've asked the nurse to go ahead and give the patient Haldol IV. Additional recommendations and suggestions are for thcoming. Prognosis is guarded. We will continue to follow make recommendations where appropriate. Time with Patient: Less than 30
[2021-04-14] MEDS: METOPROLOL SUCCINATE (ER) 25 MG TAB.ER.24H PO SCH ×2 (08:54→22:00)
[2021-04-14] MEDS: QUEtiapine 25 MG TAB PO SCH ×2 (08:54→22:00)
--- NOTE | 2021-04-14 09:24 | PN ---
PROGRESS NOTE Mr. Cook is an 81-year-old male with a known history of mitral valve repair, aortic valve replacement, coronary bypass grafting, history of chronic persistent atrial fibrillation who has declined anticoagulation in the past, who presented with cerebrovascular accident. He is confused at this time, but appears to be more alert. He is following command. He knows where he is. He continues to be in atrial fibrillation was controlled ventricular response. He denies any dizziness or palpitation. Hemodynamically, he is stable. He had an echocardiogram performed that revealed an ejection fraction of 60-65% with normal functioning bioprosthetic aortic valve and a normal mitral valve. He had evidence of moderate to severe tricuspid regurgitation with severe pulmonary hypertension. He received tPA upon his admission. He is on aspirin once a day, Plavix 75 mg daily, Lipitor 80 mg daily, metoprolol succinate 25 mg twice a day. PHYSICAL EXAMINATION: Blood pressure running in the 110s to 130s, with a heart rate in the 80s. LUNGS: Clear. HEART: Irregularly irregular S1, S2. No S3 with a systolic murmur. No diastolic murmur. ABDOMEN: Soft and nontender. EXTREMITIES: No edema. He is following commands and has no weakness in the upper extremities or lower extremities. LAB DATA: Lab data revealed hemoglobin 13.5, BUN and creatinine 23 and 0.69, potassium 4.2. IMPRESSION: 1. Status post cerebrovascular accident, treated with tPA. 2. Chronic persistent atrial fibrillation. Patient declined anticoagulation in the past. 3. Status post coronary artery bypass grafting with aortic valve replacement and mitral valve repair. 4. History of hyperlipidemia. RECOMMENDATION: From the cardiac standpoint, I will recommend to initiate treatment with anticoagulation in the form of Eliquis or Xarelto. I will await for the input of the Neurology Service in that regard. I will continue on the rest of his medical regimen. Will follow his blood pressure and depending on his progress further recommendation will be made. MMODL / IJN: [id number] /
[2021-04-14 11:39] LABS: Glucose,Whole Blood 91 mg/dL (75-99)
[2021-04-14 12:09] LABS: Chol/HDL Ratio 3.14; Cholesterol 110 mg/dL (0-200); LDL Cholesterol,Calculated 62.6 mg/dL (0.0-131.0)
--- NOTE | 2021-04-14 12:32 | P.PN ---
Subjective Progress Note Date: 04/14/21 The patient was seen at bedside, and is agitated and restless. He keep on trying of getting out of bed. Per the patient's nurse no further seizure episodes. Because the patient agitation and restlessness the patient was started on Seroquel 25 mg 1 tablet twice a day yesterday at night and then the patient was started on the Haldol 4 mg IV every 4 hours as needed for acute psychosis and agitation but ICU team. I spoke with the via phone and she stated that regarding his seizure episode during ED she described as the right hand was tremoring, his face turned red. He was not responsive during. He does not having any seizure prior to that. Per the she stated that the patient gets the restless and agitated the because of his the lower back pain and she wants someone to address this. She said that this chronic low back pain. Objective - Vital Signs Vital signs: Vital Signs Temp 98.3 F 04/14/21 08:00 Pulse 105 H 04/14/21 11:00 Resp 22 04/14/21 11:00 BP 137/70 04/14/21 10:00 Pulse Ox 96 04/14/21 11:00 Intake & Output 04/13/21 04/14/21 04/14/21 18:59 06:59 18:59 Intake Total 530 725 300 Output Total 915 352 185 Balance -385 373 115 Weight 77.6 kg Intake: IV 30 225 Sodium Chloride 0.9% 30 Sodium Chloride 0.9% 1, 225 000 ml @ 75 mls/hr IV . [id number] [facility] Rx#:[id number] Intake, IV Titration 725 75 Amount Sodium Chloride 0.9% 1, 225 75 000 ml @ 75 mls/hr IV . [id number] [facility] Rx#:[id number] Sodium Chloride 0.9% 500 500 ml 500 ml @ 999 mls/hr IV .Q31M [facility] Rx#:[id number] Oral 500 Output: Urine 915 352 185 Other: Voiding Method Indwelling Catheter Indwelling Catheter Indwelling Catheter # Bowel Movements 1 - Exam GENERAL: The patient is lying in bed and is agitated and restless. NEUROLOGICAL: Higher mental function: The patient is severely drowsy but is awakeable to voice. He is oriented to self and stated he is in the hospital. He correctly stated the month. Is following commands (squeezing hands and wiggling toes on command). Hard to assess language because of limited examination. No neglect. Cranial nerves: The pupils are round, equal and reactive to light. Visual casanova could not assess. Extraocular movement is intact no nystagmus is noted. The facial strength is normal throughout. No dysarthria is noted. Could not assess rest of cranial nerves because of his cooperation. Motor: Gait is deferred. The strength is moving bilateral extremities above gravity. Normal tone and bulk. Cerebellum: Could not assess. Sensation: Could not assess. Reflexes (right/left): 2+ throughout.. Plantars are mute bilaterally. WORK-UP: CT of the head is reported as cerebral atrophy. No acute intercranial abnormality. CT angiography of the head and neck was reported as negative CT angiography of the brain. Minimal plaque at the carotid artery bifurcation with less than 20% stenosis. Repeat CT of the head (post 24 hour tpa) is reported as cerebral atrophy. No acute intracranial abnormality. No change compared to yesterday. 2-D echo was reported as severe concentric left ventricular hypertrophy. Overall left ventricular systolic function is normal with ejection fraction of 66 5%. Left atrium is severely dilated. Moderate to severe tricuspid regurgitation present. Lipid panel: Triglyceride of 62, cholesterol 110, LDL of 62, HDL of 35. TSH is 0.694 which is within normal limits. Hemoglobin A1c is 5.2 which is within normal limits. An EEG on 04/13/2021 it's a poor study because of significant diffuse myogenic artifact. I cannot comment on the patient's background, neither interictal and ictal activity. - Labs CBC & Chem 7: 04/14/21 03:37 04/14/21 03:37 Labs: Abnormal Lab Results - Last 24 Hours (Table) 04/13/21 04/13/21 04/14/21 Range/Units 17:00 22:05 03:37 RBC (4.30-5.90) m/uL MCV (80.0-100.0) fL Plt Count (150-450) k/uL Lymphocytes # (1.0-4.8) k/uL Sodium 132 L (137-145) mmol/L Chloride 97 L (98-107) mmol/L Carbon Dioxide 32 H (22-30) mmol/L BUN 23 H (9-20) mg/dL Glucose 108 H (74-99) mg/dL POC Glucose (mg/dL) 111 H 115 H (75-99) mg/dL Total Protein 6.1 L (6.3-8.2) g/dL 04/14/21 04/14/21 Range/Units 03:37 07:12 RBC 4.04 L (4.30-5.90) m/uL MCV 102.8 H (80.0-100.0) fL Plt Count 147 L (150-450) k/uL Lymphocytes # 0.8 L (1.0-4.8) k/uL Sodium (137-145) mmol/L Chloride (98-107) mmol/L Carbon Dioxide (22-30) mmol/L BUN (9-20) mg/dL Glucose (74-99) mg/dL POC Glucose (mg/dL) 102 H (75-99) mg/dL Total Protein (6.3-8.2) g/dL Assessment and Plan Assessment: Acute ischemic stroke (predominately broca aphasia with initial NIH 7) s/p IV tpa on 04/12/2021. Seems embolic especially with a new onset atrial fibrillation with RVR New onset seizure in the ED (per the had shaking of the right hand and face turned red < 1 minute. Possible due to above) Agitation/Restless New onset atrial fibrillation with RVR Hypertensive emergency ---resolved Chronic low back pain Status post cardiac valve replacement 2 History of DVT History of hypertension History of dyslipidemia Plan: * Continue aspirin 81mg and Plavix 75mg daily for now. After MRI Brain (hopefully today) will make recommendation of start on anticoagualtion (will avoid early start of anticoagulation to avoid hemorrhagic conversion). Continue Lipitor 80mg qhs. * Pending MRI of the brain. * Continue neuro checks. * Patient on continuous cardiac monitoring * PT, OT and ASSOCIATE SOFTWARE ENGINEER are consulted * Cardiology is consulted for atrial fibrillation with RVR. * Will try to repeat EEG today. I'll hold off on starting antiepileptic unless the EEG shows a seizure or epileptiform discharges. If the patient does have any further clinical seizures then we'll start the patient on maintenance of antiepileptic drug. * Seizure precaution and seizure pads are ordered. * Consulted Orthopedic team because of his low back pain (his wants it addressed). * Regarding Agitation on Haldol IV 4mg Q4hour. Also on seroquel 25mg 1 tab bid. * Recommend normotensive blood pressure control and will defer management to the primary team. * Will defer the rest of medical management to the primary/ICU team. * DVT prophylaxis: started the patient on subq heparin 5000U every 12 hours. The plan is discussed with the patient's (Miriam) and her son via phone. Brian Antonio MD Neuro-Hospitalist Time with Patient: Less than 30
[2021-04-14] MEDS: HEPARIN SODIUM,PORCINE/PF 5,000 UNIT/0.5 ML SYRINGE SQ SCH ×2 (13:15→22:00)
--- NOTE | 2021-04-14 13:23 | P.PN ---
Subjective Progress Note Date: 04/14/21 Principal diagnosis: aphasia Patient is still confused and agitated. He had to be placed on restraints and started on halodol as of last night. No other acute overnight events. Objective - Vital Signs Vital signs: Vital Signs Temp 98.3 F 04/14/21 12:00 Pulse 66 04/14/21 13:00 Resp 27 H 04/14/21 13:00 BP 158/92 04/14/21 13:00 Pulse Ox 96 04/14/21 13:00 Intake & Output 04/13/21 04/14/21 04/14/21 18:59 06:59 18:59 Intake Total 530 725 450 Output Total 915 352 385 Balance -385 373 65 Weight 77.6 kg Intake: IV 30 375 Sodium Chloride 0.9% 30 Sodium Chloride 0.9% 1, 375 000 ml @ 75 mls/hr IV . [id number] [facility] Rx#:[id number] Intake, IV Titration 725 75 Amount Sodium Chloride 0.9% 1, 225 75 000 ml @ 75 mls/hr IV . [id number] [facility] Rx#:[id number] Sodium Chloride 0.9% 500 500 ml 500 ml @ 999 mls/hr IV .Q31M [facility] Rx#:[id number] Oral 500 Output: Urine 915 352 385 Other: Voiding Method Indwelling Catheter Indwelling Catheter Indwelling Catheter # Bowel Movements 1 - Exam General: non toxic, no distress, appears at stated age Derm: warm, dry Head: atraumatic, normocephalic, symmetric Eyes: EOMI, no lid lag, anicteric sclera Mouth: no lip lesion, mucus membranes moist Cardiovascular: [S1S2 irregular with grade 2 diastolic murmur, positive posterior tibial pulse bilateral, Lungs: CTA bilateral, no rhonchi, no rales , no accessory muscle use Abdominal: soft, nontender to palpation, no guarding, no appreciable organomegaly Ext: no gross muscle atrophy, no edema, no contractures Neuro: confused and agitated. Pupils equal round reactive to light, extraocular motion intact, no tongue deviation, uvula palate elevation symmetric, light touch intact all 4 extremities and bilateral phase, muscle strength 4 out of 5 bilateral upper extremities and lower extremities Psych: Alert to self, not year or location - Labs CBC & Chem 7: 04/14/21 03:37 04/14/21 03:37 Labs: Abnormal Lab Results - Last 24 Hours (Table) 04/13/21 04/13/21 04/14/21 Range/Units 17:00 22:05 03:37 RBC (4.30-5.90) m/uL MCV (80.0-100.0) fL Plt Count (150-450) k/uL Lymphocytes # (1.0-4.8) k/uL Sodium 132 L (137-145) mmol/L Chloride 97 L (98-107) mmol/L Carbon Dioxide 32 H (22-30) mmol/L BUN 23 H (9-20) mg/dL Glucose 108 H (74-99) mg/dL POC Glucose (mg/dL) 111 H 115 H (75-99) mg/dL Total Protein 6.1 L (6.3-8.2) g/dL HDL Cholesterol 35.0 L (40.0-60.0) mg/dL 04/14/21 04/14/21 Range/Units 03:37 07:12 RBC 4.04 L (4.30-5.90) m/uL MCV 102.8 H (80.0-100.0) fL Plt Count 147 L (150-450) k/uL Lymphocytes # 0.8 L (1.0-4.8) k/uL Sodium (137-145) mmol/L Chloride (98-107) mmol/L Carbon Dioxide (22-30) mmol/L BUN (9-20) mg/dL Glucose (74-99) mg/dL POC Glucose (mg/dL) 102 H (75-99) mg/dL Total Protein (6.3-8.2) g/dL HDL Cholesterol (40.0-60.0) mg/dL Assessment and Plan Plan: Acute ischemic CVA status post TPA likely embolic due to newly found a-fib - Neurology recommendations - Continue statin - Started on ASA and plavix. - Repeat head CT ok - PT/OT/Speech evaluation Paroxysmal A. fib newly recognized -AC per neuro -Continue with telemetry monitoring -Hold beta joan at this time his rate is currently controlled and ideally should allow for 24 hours of permissive hypertension for protection of the ischemic penumbra. Possible seizure -Neuro following -No AED as of now. -EEG Malignant hypertension, improved -Off nicardipine drip, bp better controlled. -Resume lopressor Chronic: Hypertension Dyslipidemia DVT DVT prophylaxis: SCDs Anticipated discharge: undetermined Anticipated discharge place: undetermined A total of 65 minutes was spent on the care of this complex patient more than 50% of the time was spent in counseling and care coordination.
--- NOTE | 2021-04-14 16:13 | P.CNOR ---
History of Present Illness - [facility] Consult date: 04/14/21 Consult reason: low back pain History of present illness: 81-year-old male with a recent history of TIA CVA who has a long-standing history of chronic low back pain was seen and examined on consult from Dr. Antonio of neurology. Patient presented on Monday night Monday with signs and symptoms of TIA CVA. He was worked up appropriately for this and was treated appropriately. He is currently in the ICU for monitoring as well as mental status changes. The patient has a long history of prior himself his daughter and his of low back pain as well as lower extremity pain. He is able to answer questions appropriately although he is moving around a lot bed secondary to some mental status changes. His daughter and think that this is related to his back pain. He states the pain in his back is intermittent at this time and that it does go down his leg. It seems to go down the back of his right leg more than left and stops at about the calf. He denies any perineal numbness or tingling he denies any bowel or bladder issues he does currently have a Corral placed however this is due to his current restrained status in bed secondary to his agitation. His and daughter state no issues at home bowel or bladder they stated a long history of back pain but never any neurologic deficits. The and daughter state that he was seeing Dr. Bond outpatient for possible placement of a neurostimulator and they are still planning on continuing with this when he is able to Review of Systems 14 points review of systems completed and as stated in HPI, all other systems reviewed are negative. Past Medical History Past Medical History: Deep Vein Thrombosis (DVT), Hyperlipidemia, Hypertension Additional Past Medical History / Comment(s): 09-05-18 pt wants a pne vaccine while here. other hx:wound on buttocks since healed, "hands shaky at times" History of Any Multi-Drug Resistant Organisms: None Reported Past Surgical History: Appendectomy, Cardiac Valve Replacement, Heart Catheterization, Joint Replacement Additional Past Surgical History / Comment(s): cardiac valve replacement x2, taryn shoulder replacement, lt hip replacement, cataracts, lt eye retinal tear-sx to repair, dental implants Past Anesthesia/Blood Transfusion Reactions: No Reported Reaction Additional Past Anesthesia/Blood Transfusion Reaction / Comm: past blood transfusions-no reactions Past Psychological History: No Psychological Hx Reported Smoking Status: Unknown if ever smoked Past Alcohol Use History: Occasional Past Drug Use History: None Reported - Past Family History Mother Family Medical History: Dementia Father History Unknown: Yes Brother(s) Family Medical History: Cancer Additional Family Medical History / Comment(s): melanoma Medications and Allergies Home Medications Medication Instructions Recorded Confirmed Type Metoprolol Succinate [Toprol XL] 25 mg PO DAILY 09/24/15 04/12/21 History lisinopriL [Zestril] 20 mg PO DAILY 09/24/15 04/12/21 History Fluocinolone Acetonide Oil 1 applic BOTH EARS DAILY PRN 04/12/21 04/12/21 History [Dermotic] Testosterone Cypionate 200 mg IM MO 04/12/21 04/12/21 History [Depo-Testosterone] Allergies Allergy/AdvReac Type Severity Reaction Status Date / Time adhesive tape AdvReac Rash/Hives Verified 04/12/21 19:03 garlic AdvReac Rash/Hives Verified 04/12/21 19:03 Physical Examination Osteopathic Statement: *. No significant issues noted on an osteopathic structural exam other than those noted in the History and Physical/Consult. PHYSICAL EXAMINATION: Vitals: Stable at this time General: Awake, alert, appropriate for age, in no acute distress. HEENT: No unusual neck masses around region of lateral neck triangle, thyroid, supraclavicular groove. Extremities: Skin warm and dry without no acute lesions, coloration, temperature, skin intact, no tenderness or erythema. Integument: Hairy patches: Absent Dorsal skin dimples: Absent Cafe au lait spots: Absent Surgical incisions: None Palpation: Please see Pain drawing on Intake sheet for further detail. (Tenderness = T, Nontender = NT, Swelling = S, Ecchymosis = E) Findings on Midline and paraspinal palpation and percussion: Cervical: NT Thoracic: NT Lumbar: NT Sacral: NT Special findings: Known POSTURAL and MUSCULO-SKELETAL EVALUATION: Coronal Balance: Neutral Recumbent testing: Patient can lay flat on back Sagittal Balance: [Neutral] Shoulder Profile: [Level] Pelvic Girdle: [Level] Neck ROM: [Unrestricted in six directions] Lumbar ROM: [Unrestricted in six directions] Shoulder ROM: Symmetric in abduction, ER/IR Hip ROM: Symmetric in abduction, adduction, ER/IR Knee ROM: Symmetric and intact in Flexion / extension Hands: Normal appearing structure L and R Feet: Normal appearing structure L and R VASCULAR STATUS : Wrist Pulses: [2/4 bilateral radial and ulnar] Pedal Pulses: [2/4 bilateral DP and PT] Color: [Normal] Edema: [None] NEUROLOGIC EXAMINATION: Mental Status: Awake and alert, not fully oriented, with abnormal attention, concentration and memory. He does have fluent speech however he does not open his eyes he rises around in bed he answers questions appropriately however he does not seem to have full mental capacities at this time Attempted to test cranial nerves however patient was uncooperative with these te sts Special Tests: L'hermitte's Sign: Absent Spurling'Sign: Absent Bilateral Cubital percussion test: Absent Bilateral Rasheeda-Tinel sign - Carpal region: Absent Bilateral Straight Leg Raising: Absent Bilateral Motor Exam (0-5/5, N/T) STRENGTH UPPER EXTREMITY Patient again somewhat uncooperative however he is moving his upper extremities with reasonable and good strength with no focal deficits that can be determined at this point LOWER EXTREMITY Again patient moves bilateral lower extremities with reasonable strength and coordination however he is not very cooperative with specific exams are no focal deficits REFLEXES Biecp: RIGHT [2] LEFT [2] Tricep: RIGHT [2] LEFT [2] Brachioradialis: RIGHT [2] LEFT [2] Patellar: RIGHT [2] LEFT [2] Achilles: RIGHT [2] LEFT [2] Pathological Reflexes Sánchez's: RIGHT [Absent] LEFT [Absent] Babinski: RIGHT [Absent] LEFT [Absent] Clonus: RIGHT [None] LEFT [None] SENSORY SILT C5-T1 and L2-S1 B/L Results No spine imaging currently available for review - Labs Labs: Abnormal Lab Results - Last 24 Hours (Table) 04/13/21 04/13/21 04/14/21 Range/Units 17:00 22:05 03:37 RBC (4.30-5.90) m/uL MCV (80.0-100.0) fL Plt Count (150-450) k/uL Lymphocytes # (1.0-4.8) k/uL Sodium 132 L (137-145) mmol/L Chloride 97 L (98-107) mmol/L Carbon Dioxide 32 H (22-30) mmol/L BUN 23 H (9-20) mg/dL Glucose 108 H (74-99) mg/dL POC Glucose (mg/dL) 111 H 115 H (75-99) mg/dL Total Protein 6.1 L (6.3-8.2) g/dL HDL Cholesterol 35.0 L (40.0-60.0) mg/dL 04/14/21 04/14/21 Range/Units 03:37 07:12 RBC 4.04 L (4.30-5.90) m/uL MCV 102.8 H (80.0-100.0) fL Plt Count 147 L (150-450) k/uL Lymphocytes # 0.8 L (1.0-4.8) k/uL Sodium (137-145) mmol/L Chloride (98-107) mmol/L Carbon Dioxide (22-30) mmol/L BUN (9-20) mg/dL Glucose (74-99) mg/dL POC Glucose (mg/dL) 102 H (75-99) mg/dL Total Protein (6.3-8.2) g/dL HDL Cholesterol (40.0-60.0) mg/dL H & H 04/12/21 04/13/21 04/14/21 Range/Units 18:27 03:41 03:37 Hgb 15.9 15.7 13.5 (13.0-17.5) gm/dL Hct 47.4 47.7 41.6 (39.0-53.0) % Coagulation 04/12/21 Range/Units 18:27 INR 1.1 (<1.2) Result Diagrams: 04/14/21 03:37 04/14/21 03:37 Assessment and Plan Assessment: 81-year-old male status post TIA CVA with low back pain and complicated medical history Plan: Appreciate consult Continue conservative measures Recommend trial of gabapentin or Lyrica for any nerve pain Recommend anti-inflammatories or pain medications as needed for back pain Recommend lidocaine patches for the low back PT OT as appropriate Ice or heat to back as helpful No urgent or emergent surgical intervention Time with Patient: Greater than 30
--- NOTE | 2021-04-14 16:24 | EEG ---
ELECTROENCEPHALOGRAM REPORT DATE OF SERVICE: 04/14/2021 CLINICAL HISTORY: This is an 81-year-old gentleman who presented to the emergency department for stroke- like symptoms and had seizure-like episodes in the emergency department. This video EEG is obtained to evaluate for seizure epileptiform activity. RELEVANT MEDICATION: Currently, the patient is not on any antiepileptic drugs. He did receive Keppra in the ED. EEG TYPE: A routine 21 channel EEG is performed with video using the 10/20 electrode system. DESCRIPTION: Awake and drowsiness are obtained. During the awake state, there is significant myogenic artifact and it is hard to assess the patient's background. Otherwise, the patient is in a drowsy state. There is no sleep architecture seen. There is no focal slowing that is seen. Interictal and ictal is none. ACTIVATION PROCEDURE: Photic stimulation and hyperventilation is not performed. CLINICAL INTERPRETATION: There is no epileptiform or seizure seen during this study. I cannot comment on the patient's background since he was in a drowsy state. While during awake state, there is a significant myogenic artifact. Clinical correlation is recommended. MMODL / IJN: [id number] / MARC
[2021-04-14] MEDS ORDERED: LORazepam 2 MG/ML INJ IV PRN (16:38)
[2021-04-14 16:51] LABS: Glucose,Whole Blood 94 mg/dL (75-99)
[2021-04-14] MEDS: CLOPIDOGREL 75 MG TAB PO SCH (22:00)
[2021-04-14] MEDS: ASPIRIN 81 MG PO SCH (22:00)
[2021-04-14] MEDS: ATORVASTATIN 80 MG TAB PO SCH (22:00)
[2021-04-15] MEDS: HALOPERIDOL LACTATE 5 MG/ML 1 ML VIAL IVP PRN ×2 (00:30→05:45)
[2021-04-15] MEDS: LORazepam 2 MG/ML INJ IV PRN (01:46)
[2021-04-15 06:20] LABS: Basophils % (A) 0 %; Eosinophils # (A) 0.1 k/uL (0-0.7); Eosinophils % (A) 1 %; HCT 45.6 % (39.0-53.0); HGB 14.6 gm/dL (13.0-17.5); Lymphocytes # (A) 0.8 k/uL (1.0-4.8); Lymphocytes % (A) 10 %; MCH 32.3 pg (25.0-35.0); MCV 100.8 fL (80.0-100.0); Macrocytosis Slight; Monocytes # (A) 0.6 k/uL (0-1.0); Monocytes % (A) 7 %; Neutrophils # (A) 6.5 k/uL (1.3-7.7); Neutrophils % (A) 81 %; Platelet Count 134 k/uL (150-450); RBC 4.53 m/uL (4.30-5.90); RDW 13.6 % (11.5-15.5); WBC 8.1 k/uL (3.8-10.6)
[2021-04-15 06:33] VITALS: RESP 33
[2021-04-15 06:40] LABS: African American GFR (CKD) >90 (>60 ml/min/1.73 sqM); Anion Gap 7 mmol/L; Blood Urea Nitrogen 15 mg/dL (9-20); Calcium 8.9 mg/dL (8.4-10.2); Carbon Dioxide 30 mmol/L (22-30); Chloride 96 mmol/L (98-107); Glucose 82 mg/dL (74-99); Non-African American GFR(CKD) >90 (>60 ml/min/1.73 sqM); Potassium 3.7 mmol/L (3.5-5.1); Sodium 133 mmol/L (137-145)
[2021-04-15 07:10] LABS: Glucose,Whole Blood 73 mg/dL (75-99)
--- NOTE | 2021-04-15 10:03 | P.PN ---
Subjective Progress Note Date: 04/15/21 Principal diagnosis: CVA. Pulmonary/critical care consult dated 04/13/2021. 81-year-old male seen in the emergency department yesterday, April 12. The patient presented to the hospital with strokelike symptoms including difficulty in speech, confusion, right-sided weakness, and inappropriate behavior. The patient's NIH score initially was 7. The patient was hypertensive in the emergency department and got 2 doses of labetalol, and was placed on nicardipine. The patient also had a seizure at 1930 yesterday. The patient did receive TPA, and was admitted to the intensive care unit for further monitoring. Neurology consultation was performed. The patient's currently on 2 L nasal cannula. He is getting saline at 10 mL an hour. Still very confused with garbled speech. He does move all 4 extremities. White count 8, hemoglobin 15.7, hematocrit 47.7, and platelet count 147,000. Sodium 134, potassium 4.8, chlorides 100, CO2 26, anion gap 8, BUN 21, and creatinine 0.62. Initial brain CT showed cerebral atrophy but no acute intracranial abnormality. Angiography CT showed a negative CT angiogram of the brain. There was minimal plaque in the carotid artery bifurcations with less than 20% stenosis. Chest x-ray showed changes of CHF. Repeat brain CT showed no changes. Progress note dated 04/14/2021. 81-year-old male seen in consultation yesterday. He was initially admitted in the emergency department on April 12 with some mental status changes, and str okelike symptoms. He had confusion, some poor speech, aphasia, right-sided weakness, and inappropriate behavior. The patient's initial NIH score was 7. The patient was hypertensive in the emergency department and did receive some labetalol, and IV nicardipine. The patient did end up receiving TPA. The patient also had a seizure in the emergency department. Yesterday when I saw him, he was calm, but he was confused with garbled speech. Today he is a bit more agitated and pulling at things. I've asked the nurse to go ahead and give him some Haldol. White count 8.9, heme him 13.5, hematocrit 41.6, platelet count 147,000. Sodium 132, potassium 4.2, chlorides 97, CO2 32, anion gap 3, BU N 23, and creatinine 0.69. The repeat brain CT done yesterday shows only cerebral atrophy, nothing acute. Progress note dated 04/15/2021. 81-year-old male admitted with a diagnosis of CVA. The patient did receive TPA in the emergency department. He also was admitted with a diagnosis of hyperten sive emergency/urgency. He was treated with both labetalol and IV nicardipine. Currently, the patient's biggest issues related to agitation and confusion. The patient has been given Haldol, Seroquel, and Ativan, with some improvement. The patient is to go for an MRI scan in the near future. He has been seen by neurology here at the hospital. White count 8.1, hemoglobin 14.6, hematocrit 45.6, platelet count 134,000. Sodium 133, potassium 3.7, chlorides 96, CO2 30, anion gap 7, BUN 15, creatinine 0.54. Objective - Vital Signs Vital signs: Vital Signs Temp 98 F 04/15/21 04:00 Pulse 77 04/15/21 06:00 Resp 33 H 04/15/21 06:00 BP 144/96 04/15/21 06:00 Pulse Ox 95 04/15/21 06:00 Intake & Output 04/14/21 04/15/21 04/15/21 18:59 06:59 18:59 Intake Total 900 75 Output Total 1200 1770 180 Balance -300 -1695 -180 Weight 70.3 kg Intake: IV 825 75 Sodium Chloride 0.9% 150 75 Sodium Chloride 0.9% 1, 675 000 ml @ 75 mls/hr IV . [id number] [facility] Rx#:[id number] Intake, IV Titration 75 Amount Sodium Chloride 0.9% 1, 75 000 ml @ 75 mls/hr IV . [id number] [facility] Rx#:[id number] Output: Urine 1200 1770 180 Other: Voiding Method Indwelling Catheter Indwelling Catheter - Exam The patient is more agitated today, confused, with garbled speech, pulling at things including his IV and his gown. HEENT examination is grossly unremarkable. Currently not receiving any supplemental oxygen. Neck supple. Full range of motion. No adenopathy thyromegaly or neck vein distention. Cardiovascular examination reveals regular rhythm rate. S1-S2 normal. No S3 or S4. No discernible murmur noted. Heart rate 77 bpm. Lungs reveal scattered bilateral rhonchi. No wheezes or crackles. Breath sounds are equal bilaterally. Abdomen soft bowel sounds are heard. No masses or tenderness. Extremities are intact. No cyanosis clubbing or edema. Skin is without rash or lesion. Neurologic examination reveals a confused gentleman, with garbled speech. He do es move all 4 extremities. The patient is and remains confused. He was initially aphasic when he presented to the ICU. Currently he is very agitated. - Labs CBC & Chem 7: 04/15/21 05:49 04/15/21 05:49 Labs: Abnormal Lab Results - Last 24 Hours (Table) 04/14/21 04/15/21 04/15/21 Range/Units 03:37 05:49 05:49 MCV 100.8 H (80.0-100.0) fL Plt Count 134 L (150-450) k/uL Lymphocytes # 0.8 L (1.0-4.8) k/uL Sodium 133 L (137-145) mmol/L Chloride 96 L (98-107) mmol/L Creatinine 0.54 L (0.66-1.25) mg/dL POC Glucose (mg/dL) (75-99) mg/dL HDL Cholesterol 35.0 L (40.0-60.0) mg/dL 04/15/21 Range/Units 07:08 MCV (80.0-100.0) fL Plt Count (150-450) k/uL Lymphocytes # (1.0-4.8) k/uL Sodium (137-145) mmol/L Chloride (98-107) mmol/L Creatinine (0.66-1.25) mg/dL POC Glucose (mg/dL) 73 L (75-99) mg/dL HDL Cholesterol (40.0-60.0) mg/dL Assessment and Plan Assessment: Acute CVA, status post TPA, with initial NIH score of 7. New-onset atrial fibrillation with RVR. Hypertensive urgency/emergency, with changes of CHF. History of deep venous thrombosis. History of hyperlipidemia. History of hypertension. Status post cardiac valve replacement 2. Plan: Plan dated 04/13/2021. Currently, the patient's on 2 L nasal cannula and saline at 10 mL an hour. Labs, and X-rays are reviewed. The patient came in initially with an NIH score of 7. The patient did receive TPA. In addition, the patient had some atrial fibrillation with RVR, and also had a seizure at 1930. Finally, the patient did present with hypertensive urgency/emergency, and changes of CHF on chest x-ray. Currently, the patient is much more stable. We will continue to follow. We will make recommendations where appropriate. Plan dated 04/14/2021. The patient remains on 3 L nasal cannula. The brain CT has not changed. Nothing acute. He is getting saline at 75 mL an hour. The patient is very agitated and confused this morning. I've asked the nurse to go ahead and give the patient Haldol IV. Additional recommendations and suggestions are forthcoming. Prognosis is guarded. We will continue to follow make recommendations where appropriate. Plan dated 04/15/2021. The patient's overall neurologic status is about the same today as it was yesterday. He has been given Haldol, Seroquel, and Ativan when necessary. He's to have an MRI in the near future. No additional recommendations are made at this time. From the cardiopulmonary standpoint, the patient stable could be transferred out. Additional recommendations and suggestions are forthcoming. Once he leaves the ICU, will see the patient only as needed. Time with Patient: Less than 30
--- NOTE | 2021-04-15 10:23 | P.PN ---
Subjective Progress Note Date: 04/15/21 Principal diagnosis: aphasia Patient continues to be confused and agitated. He is currently off restraints. He is asking to ''get moving''. Still on halodol prn. No other acute overnight events. Objective - Vital Signs Vital signs: Vital Signs Temp 98 F 04/15/21 04:00 Pulse 77 04/15/21 06:00 Resp 33 H 04/15/21 06:00 BP 144/96 04/15/21 06:00 Pulse Ox 95 04/15/21 06:00 Intake & Output 04/14/21 04/15/21 04/15/21 18:59 06:59 18:59 Intake Total 900 75 Output Total 1200 1770 180 Balance -300 -1695 -180 Weight 70.3 kg Intake: IV 825 75 Sodium Chloride 0.9% 150 75 Sodium Chloride 0.9% 1, 675 000 ml @ 75 mls/hr IV . [id number] [facility] Rx#:[id number] Intake, IV Titration 75 Amount Sodium Chloride 0.9% 1, 75 000 ml @ 75 mls/hr IV . [id number] [facility] Rx#:[id number] Output: Urine 1200 1770 180 Other: Voiding Method Indwelling Catheter Indwelling Catheter - Exam General: non toxic, no distress, appears at stated age Derm: warm, dry Head: atraumatic, normocephalic, symmetric Eyes: EOMI, no lid lag, anicteric sclera Mouth: no lip lesion, mucus membranes moist Cardiovascular: [S1S2 irregular with grade 2 diastolic murmur, positive posterior tibial pulse bilateral, Lungs: CTA bilateral, no rhonchi, no rales , no accessory muscle use Abdominal: soft, nontender to palpation, no guarding, no appreciable organomegaly Ext: no gross muscle atrophy, no edema, no contractures Neuro: confused and agitated. Pupils equal round reactive to light, extraocular motion intact, no tongue deviation, uvula palate elevation symmetric, light touch intact all 4 extremities and bilateral phase, muscle strength 4 out of 5 bilateral upper extremities and lower extremities Psych: Alert to self, not year or location - Labs CBC & Chem 7: 04/15/21 05:49 04/15/21 05:49 Labs: Abnormal Lab Results - Last 24 Hours (Table) 04/14/21 04/15/21 04/15/21 Range/Units 03:37 05:49 05:49 MCV 100.8 H (80.0-100.0) fL Plt Count 134 L (150-450) k/uL Lymphocytes # 0.8 L (1.0-4.8) k/uL Sodium 133 L (137-145) mmol/L Chloride 96 L (98-107) mmol/L Creatinine 0.54 L (0.66-1.25) mg/dL POC Glucose (mg/dL) (75-99) mg/dL HDL Cholesterol 35.0 L (40.0-60.0) mg/dL 04/15/21 Range/Units 07:08 MCV (80.0-100.0) fL Plt Count (150-450) k/uL Lymphocytes # (1.0-4.8) k/uL Sodium (137-145) mmol/L Chloride (98-107) mmol/L Creatinine (0.66-1.25) mg/dL POC Glucose (mg/dL) 73 L (75-99) mg/dL HDL Cholesterol (40.0-60.0) mg/dL Assessment and Plan Plan: Acute ischemic CVA status post TPA likely embolic due to newly found a-fib - Neurology recommendations - Continue statin - Started on ASA and plavix. - Repeat head CT ok - PT/OT/Speech evaluation - Reattempt MRI brain today under mild sedation Paroxysmal A. fib newly recognized -AC per neuro, continue toprol xl -Continue with telemetry monitoring Possible seizure -Neuro following -No AED as of now. -EEG ok Malignant hypertension, improved -Off nicardipine drip, bp better controlled. -Resume lopressor Chronic: Hypertension Dyslipidemia DVT DVT prophylaxis: SCDs Anticipated discharge: undetermined Anticipated discharge place: undetermined A total of 65 minutes was spent on the care of this complex patient more than 50% of the time was spent in counseling and care coordination.
--- NOTE | 2021-04-15 11:21 | PN ---
PROGRESS NOTE Mr. Cook is an 80-year-old male known history of aortic valve replacement and mitral valve repair, history of chronic persistent atrial fibrillation who declined anticoagulation in the past. He presents with cerebrovascular accident, received tPA. He is awake, following commands, then becomes confused. He is agitated, trying to get out of bed. He continued to be in atrial fibrillation with controlled ventricular response. There is no evidence of malignant arrhythmia. He continues to be at this time on aspirin once a da, Lipitor 80 mg daily, Plavix 75 mg daily, metoprolol succinate 25 mg twice a day. PHYSICAL EXAMINATION: Blood pressure running in the 120s with a heart rate in the 70s. LUNGS: Clear heart irregular regular S1, S2. No S3. No rub with a systolic murmur. ABDOMEN: Soft nontender. EXTREMITIES: No edema. There is weakness and mild weakness noted on the right side, although he is not very cooperative. LAB DATA: Lab data revealed BUN and creatinine 15, .054, potassium 3.7, hemoglobin 14.6. IMPRESSION: 1. Status post cerebrovascular accident, treated with tPA. 2. Chronic persistent atrial fibrillation, patient declined anticoagulation in the past. 3. History of aortic valve replacement and mitral valve repair. RECOMMENDATION: From the cardiac standpoint, will await the input of Neurology Service regarding anticoagulation with Eliquis or Xarelto. They are awaiting to proceed with a MRI and depending on his progress further recommendation will be made. MMYUMIKOL / JULIO: [id number] /
[2021-04-15 11:38] LABS: Glucose,Whole Blood 75 mg/dL (75-99)
[2021-04-15] MEDS: INSULIN ASPART (NovoLOG) 100 UNIT/ML VIAL SQ SCH ×3 (11:47→17:06)
[2021-04-15] MEDS: SODIUM CHLORIDE 0.9% 1,000 ML IV SCH ×2 (11:47→18:35)
[2021-04-15 12:23] VITALS: PULSE 106; TEMP 98
[2021-04-15 12:25] VITALS: BP 154/89
[2021-04-15] MEDS: METOPROLOL SUCCINATE (ER) 25 MG TAB.ER.24H PO SCH (12:25)
[2021-04-15] MEDS: HEPARIN SODIUM,PORCINE/PF 5,000 UNIT/0.5 ML SYRINGE SQ SCH (12:25)
[2021-04-15] MEDS: QUEtiapine 25 MG TAB PO SCH (12:37)
[2021-04-15] MEDS ORDERED: LORazepam 2 MG/ML INJ IV ONE (13:30)
--- NOTE | 2021-04-15 14:57 | P.PN ---
Subjective Progress Note Date: 04/15/21 The patient is seen at bedside and that per the patient nurse she did not get the MRI since the patient was extremely agitated that yesterday at. But will attempt to get the MRI today. Patient has a sitter and that they stated that the patient has the fluctuation of restlessness and agitation. Patient has a sitter at bedside and she stated that the patient gets restless and agitated and that's without even given her Ativan. Patient wants to get out of bed. Objective - Vital Signs Vital signs: Vital Signs Temp 98.0 F 04/15/21 09:00 Pulse 106 H 04/15/21 09:00 Resp 33 H 04/15/21 06:00 BP 154/89 04/15/21 09:00 Pulse Ox 95 04/15/21 09:00 Intake & Output 04/14/21 04/15/21 04/15/21 18:59 06:59 18:59 Intake Total 900 75 Output Total 1200 1770 180 Balance -300 -1695 -180 Weight 70.3 kg Intake: IV 825 75 Sodium Chloride 0.9% 150 75 Sodium Chloride 0.9% 1, 675 000 ml @ 75 mls/hr IV . [id number] NAVI Rx#:[id number] Intake, IV Titration 75 Amount Sodium Chloride 0.9% 1, 75 000 ml @ 75 mls/hr IV . [id number] NAVI Rx#:[id number] Output: Urine 1200 1770 180 Other: Voiding Method Indwelling Catheter Indwelling Catheter Indwelling Catheter - Exam GENERAL: The patient is lying in bed and is mildly restless. NEUROLOGICAL: Higher mental function: The patient is awake, alert, oriented to self, place but not time (stated it was 1997). He is able to name objects (pen and watch). He is able to repeat sentences appropriately. No paraphrasic error. No obvious aphasia noted . No neglect. . Cranial nerves: The pupils are round, equal and reactive to light. Visual fi elds are full to confrontation throughout. Extraocular movement is intact no nystagmus is noted. Facial sensation is normal to touch throughout. The facial strength is normal throughout. Tongue is midline and moved [id number]-nosp without any difficulty. No dysarthria is noted. Shoulder shrug is normal bilaterally. Motor: Gait is deferred. The strength is 5 over 5 throughout. Normal tone and bulk. Cerebellum: Normal finger to nose bilaterally. Sensation: Sensation is normal to touch throughout. Reflexes (right/left): 2+ throughout.. Plantars are mute bilaterally. WORK-UP: CT of the head is reported as cerebral atrophy. No acute intercranial abnormality. CT angiography of the head and neck was reported as negative CT angiography of the brain. Minimal plaque at the carotid artery bifurcation with less than 20% stenosis. Repeat CT of the head (post 24 hour tpa) is reported as cerebral atrophy. No acute intracranial abnormality. No change compared to yesterday. 2-D echo was reported as severe concentric left ventricular hypertrophy. Overall left ventricular systolic function is normal with ejection fraction of 66 5%. Left atrium is severely dilated. Moderate to severe tricuspid regurgitation present. Lipid panel: Triglyceride of 62, cholesterol 110, LDL of 62, HDL of 35. TSH is 0.694 which is within normal limits. Hemoglobin A1c is 5.2 which is within normal limits. An EEG on 04/13/2021 it's a poor study because of significant diffuse myogenic artifact. I cannot comment on the patient's background, neither interictal and ictal activity. A repeat EEG on 04/14/2021: There is no epileptiform or seizures seen during the study. I cannot comment on the patient background since he was in a drowsy state. While he was in the awake state there is significant myogenic artifact. 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 Seems embolic especially history of atrial fibrillation New onset seizure in the ED (per the had shaking of the right hand and face turned red < 1 minute. Possible due to above)--no further seizures Delerium with Agitation/Restless Chronic atrial fibrillation (per photoengraving helper this is chronic and not new) Hypertensive emergency ---resolved Chronic low back pain Status post cardiac valve replacement 2 History of DVT History of hypertension History of dyslipidemia Plan: * Continue aspirin 81mg and Plavix 75mg daily for now. After MRI Brain (hopefully today) will make recommendation of start on anticoagualtion (will avoid early start of anticoagulation to avoid hemorrhagic conversion). If cannot get MRI then will get repeat CT head. Continue Lipitor 80mg qhs. * Pending MRI of the brain. wants anesthesiology team involved and it was consulted to assist with sedation for MRI. * Continue neuro checks. * Patient on continuous cardiac monitoring * PT, OT and RN POOL are consulted * Cardiology is consulted for atrial fibrillation with RVR. * Seizure precaution and seizure pads are ordered. * Orthopedic team is consulted for his chronic low back pain. * Regarding Agitation on Haldol IV 4mg Q4hour. Also on seroquel 25mg 1 tab bid. I started the patient on gabapentin 100 mg 1 tablet 3 times a day and if needed will gradually increase dose. Also ordered lidocaine patch for his low back. * Recommend normotensive blood pressure control and will defer management to the primary team. * Will defer the rest of medical management to the primary/ICU team. * DVT prophylaxis:On subq heparin 5000U every 12 hours. The plan is discussed with the patient's (Miriam) via phone. UPDATE: Late in the afternoon, was notified by the patient nurse that the patient could not handle the MRI. Patient was too restless and agitated. Patient received 2 mg to help assist with MRI. The patient arriving to the floors the patient was sleepy and the family arrived and the I spoke with the patient daughter and she was not happy with the management because the patient was drowsy and sleepy. I notified her that the patient is restless and agitated even before given Ativan and I got multiple calls at nighttime and during the day that the patient is restless agitated, trying to get out of bed and that gave him Seroquel and Haldol and that is not helping and he is at risk of falling and he requires a sitter. I notified her that we consulted anesthesiology team to help assist in sedation in order to get the MRI but that was unsuccessful. I notified her that we will use Ativan unless the patient has a seizure and he requires a sitter. Notified the family that we would not pursue with MRIs since we tried multiple a ttempts and they're all unsuccessful and he is at risk of hurting himself. Therefore will get a repeat CT of the head to assess whether there is any ischemia seen on the CT which would be a sufficient time to see a stroke by now. The patient family requested transfer to a different facility for escalation of care. Brian Antonio MD Neuro-Hospitalist Time with Patient: Greater than 30
[2021-04-15] MEDS ORDERED: LIDOCAINE 5% PATCH TOPICAL SCH (15:00)
[2021-04-15] MEDS ORDERED: GABAPENTIN 100 MG CAP PO SCH (16:00)
[2021-04-15 17:05] LABS: Glucose,Whole Blood 88 mg/dL (75-99)
--- NOTE | 2021-04-15 18:41 | P.DS ---
Providers Date of admission: 04/12/21 20:44 Expected date of discharge: 04/15/21 Attending physician: Marek Tsai MD Consults: 04/12/21 20:35 Consult Physician Stat Consulting Provider: Marck Antonio Consult Reason/Comments: CVA, HTN emergency, TPA Do you want consulting provider notified?: Already Contacted Consult Physician Stat Consulting Provider: Brian Antonio Consult Reason/Comments: CVA, TPA Do you want consulting provider notified?: Yes, Notify in am Consult Physician Stat Consulting Provider: Konrad Ortiz Consult Reason/Comments: New onset Afib. Do you want consulting provider notified?: Already Contacted 04/14/21 12:18 Consult Physician Routine Consulting Provider: Tae Singleton Consult Reason/Comments: low back pain Do you want consulting provider notified?: Yes 04/15/21 11:52 Consult to Anesthesia Routine Consulting Provider: Anesthesia,Services Consult Reason/Comments: possible sedation for MRI 04/15/21 13:58 Consult Physician Routine Consulting Provider: Alessio Emmanuel Consult Reason/Comments: possible IPR Do you want consulting provider notified?: Yes Primary care physician: Campos Oakes [facility] Course: 81-year-old gentleman with medical history of hypertension, dyslipidemia, DVT, cardiac valve replacement 2 who presented emergency department on 04/12/2021 for right-sided weakness as well as difficulty getting his words out at. His family was having a hard time understanding him. Patient also had a questionable seizure episode with right-sided shaking. Per the ED the patient had NIH of 7: 1 for right upper extremity weakness, 2 for aphasia, 2 for confusion regarding the month and age, 2 for inability to follow commands. The ED team was concerned that the patient has acute ischemic stroke. A stroke code was activated that. He was discussed with the family regarding the TPA and the benefits and the risks was discussed per the ED note. Initial CT of the head is reported as cerebral atrophy. No acute intercranial abnormality. CT angiography of the head and neck was reported as negative CT angiography of the brain. Minimal plaque at the carotid artery bifurcation with less than 20% stenosis. Initial vitals: Blood pressure of 189/133, heart rate of 104, respiratory was 20, temperature of 97.8 Fahrenheit oral and pulse ox of 90% room air. Patient's blood pressure was uncontrolled and got as high as the 243/157 within the same hour of presenting to the hospital. Patient was given a 20 mg IV push of labetalol. Then the patient was started on nicardipine drip. Clinically at that time patient was agitated and restless. Due to suspicion for seizure patient was given 1 mg Ativan then was given 2 g of bolus of Keppra. After controlling the blood pressure with nicardipine drip patient was given TPA because of his significant aphasia. His blood pressure during that time was less than [address] Byrd was the stroke attending and evaluated patient via robot. Due questionable seizure history a repeat head computed tomography scan was ordered by the neurologist and did not show any acute intracranial abnormality. Throughout the course of the admission and due to severe and persistent agitation even with sedatives including Haldol and Ativan, patient could not undergo MRI of the brain. His HbA1c was normal, LDL was 62 and his serial 35. According to cardiology notes patient has a history of persistent atrial fibrillation and he declined treatment with anticoagulation in the past. During the hospitalization patient also had an EEG that did not show any seizure focus. Patient also had an echocardiogram that showed severe LVH, severe tricuspid regurgitation, severe pulmonary hypertension, normal EF. Patient was started on aspirin, Plavix as well as high-intensity statin by neurology. Hospitalization was most prominent for severe agitation requiring recurrent and multiple doses of Haldol and Ativan. Patient was also require a sitter 17/04. He was flailing all of his extremities all over the place. His family elected to transfer him to the higher level of care where a continuous EEG monitoring is available. Case was discussed with the neurologist who spoke with the chief drop wire stringer in [facility]. Patient will be transferred to the ICU at [facility] by ambulance shortly. Patient Condition at Discharge: Critical Plan - Discharge Summary Discharge Rx Participant: No New Discharge Prescriptions: No Action Metoprolol Succinate [Toprol XL] 25 mg PO DAILY lisinopriL [Zestril] 20 mg PO DAILY Testosterone Cypionate [Depo-Testosterone] 200 mg IM MO Fluocinolone Acetonide Oil [Dermotic] 1 applic BOTH EARS DAILY PRN PRN Reason: Itching Discharge Medication List Metoprolol Succinate [Toprol XL] 25 mg PO DAILY 09/24/15 [History] lisinopriL [Zestril] 20 mg PO DAILY 09/24/15 [History] Fluocinolone Acetonide Oil [Dermotic] 1 applic BOTH EARS DAILY PRN 04/12/21 [History] Testosterone Cypionate [Depo-Testosterone] 200 mg IM MO 04/12/21 [History] Follow up Appointment(s)/Referral(s): Campos Girard MD [Primary Care Provider] - 1-2 days (Patient to call to make appt ) Milton Martinez MD [STAFF PHYSICIAN] - 2 Weeks (patient to call to make appointment ) [facility] Visiting Nurse, [NON-STAFF] - 1 Week (patient to call to make appt. ) Patient Instructions/Handouts: Seizure/Epilepsy Discharge Instructions & Follow-Up, Stroke (DC)
== END 2021-04-15 18:52 | disposition short-term general hospital (02) | DRG 62 ==
LOC: EC 18:12 → 2SICU 20:44 → 3SCARD 04-15 14:17
PROVIDERS: ADMIT Internal Medicine; ATTEND Internal Medicine
DX: I63.9 Cerebral infarction, unspecified (principal); I48.19 Other persistent atrial fibrillation; I16.1 Hypertensive emergency; R29.707 NIHSS score 7; I27.20 Pulmonary hypertension, unspecified; I07.1 Rheumatic tricuspid insufficiency; I25.10 Atherosclerotic heart disease of native coronary artery without angina pectoris; I50.9 Heart failure, unspecified; R56.9 Unspecified convulsions; Z95.3 Presence of xenogenic heart valve; I11.0 Hypertensive heart disease with heart failure; E78.5 Hyperlipidemia, unspecified; G89.29 Other chronic pain; R45.1 Restlessness and agitation; R47.01 Aphasia; R47.02 Dysphasia; Z78.1 Physical restraint status; Z79.02 Long term (current) use of antithrombotics/antiplatelets; Z79.82 Long term (current) use of aspirin; Z79.899 Other long term (current) drug therapy; Z80.8 Family history of malignant neoplasm of other organs or systems; Z86.718 Personal history of other venous thrombosis and embolism; Z86.73 Personal history of transient ischemic attack (TIA), and cerebral infarction without residual deficits; Z95.1 Presence of aortocoronary bypass graft; Z96.612 Presence of left artificial shoulder joint; Z96.611 Presence of right artificial shoulder joint; Z96.642 Presence of left artificial hip joint; Z98.890 Other specified postprocedural states; Z98.49 Cataract extraction status, unspecified eye; Z79.890 Hormone replacement therapy; Z90.49 Acquired absence of other specified parts of digestive tract
CPT/HCPCS: 36415; 70450; 70496; 70498; 71045; 80048; 80053; 80061; 83036; 84443; 84484; 85025; 85610; 85730; 93005; 93306; 95816; 96365; 96368; 96375; 99291

== ENCOUNTER → 2021-08-18 | Outpatient (CLI) | payer MEDICARE ==
[2021-08-18 15:19] LABS: HCT 39.9 % (39.0-53.0); HGB 13.6 gm/dL (13.0-17.5); MCH 33.5 pg (25.0-35.0); MCV 98.4 fL (80.0-100.0); Mean Platelet Volume 7.5; Platelet Count 183 k/uL (150-450); RBC 4.05 m/uL (4.30-5.90); RDW 13.2 % (11.5-15.5); WBC 6.3 k/uL (3.8-10.6)
[2021-08-18 15:28] LABS: ALT 17 U/L (4-49); AST 30 U/L (17-59); African American GFR (CKD) >90 (>60 ml/min/1.73 sqM); Albumin 4.1 g/dL (3.5-5.0); Alkaline Phosphatase 86 U/L (38-126); Anion Gap 9 mmol/L; Blood Urea Nitrogen 22 mg/dL (9-20); Calcium 9.5 mg/dL (8.4-10.2); Carbon Dioxide 25 mmol/L (22-30); Chloride 97 mmol/L (98-107); Glucose 108 mg/dL (74-99); Non-African American GFR(CKD) 79 (>60 ml/min/1.73 sqM); Potassium 4.1 mmol/L (3.5-5.1); Sodium 131 mmol/L (137-145); Total Bilirubin 0.5 mg/dL (0.2-1.3); Total Protein 7.1 g/dL (6.3-8.2)
[2021-08-18 15:33] LABS: INR 1.1 (<1.2); Partial Thromboplastin Time 24.8 sec (22.0-30.0); Prothrombin Time 11.5 sec (9.0-12.0)
[2021-08-18 17:37] LABS: Appearance,Urine Clear (Clear); Bilirubin,Urine Negative (Negative); Blood,Urine Negative (Negative); Color,Urine Yellow; Glucose,Urine (UA) Negative (Negative); Ketones,Urine Negative (Negative); Leukocyte Esterase,Urine Negative (Negative); Nitrite,Urine Negative (Negative); PH, Urine 6.5 (5.0-8.0); Protein,Urine Negative (Negative); Specific Gravity,Urine 1.018 (1.001-1.035); Urobilinogen,Urine <2.0 mg/dL (<2.0)
== END | disposition home or self-care (01) ==
LOC: LABWHC1 14:54
PROVIDERS: ATTEND Orthopaedic Surgery Sports Medicine
DX: Z01.812 Encounter for preprocedural laboratory examination (principal)
CPT/HCPCS: 80053; 81003; 85027; 85610; 85730; 87070; 93005

== ENCOUNTER 2021-09-02 10:55 | Day surgery (SDC) | payer MEDICARE ==
[2021-08-26 15:21] VITALS: BMI 24.3
[~2021-09-02 10:55] MED LIST changes: -ACETAMINOPHEN TAB 500 MG TAB PO ONE; +ACETAMINOPHEN TAB 500 MG TAB PO PRN; +GABAPENTIN 300 MG CAP PO PRN; +LACTATED RINGERS 1,000 ML IV SCH; +LIDOCAINE 1% (10MG/ML) FOR IV START INTRADERMA PRN; -LIDOCAINE 1% 20 ML VIAL (10MG/ML) FOR IV START INTRADERMA PRN; -MELOXICAM 7.5 MG TAB PO ONE; +MELOXICAM 7.5 MG TAB PO PRN; -ONDANSETRON 4 MG/2 ML VIAL IVP ONE; -ROPIVACAINE 246.25 MG, EPINEPHrine 0.5 MG, KETOROLAC 30 MG, cloNIDine HCL/PF 80 MCG, WA... MISCELLANE ONE; -TRANEXAMIC ACID 1,000 MG in SODIUM CHLORIDE 0.9% 100 ML IVPB ONE; +TRANEXAMIC ACID 1,000 MG in SODIUM CHLORIDE 0.9% 100 ML IVPB PRN; -ceFAZolin IN SWFI 2 GM/20 ML SYRINGE IVP ONE
[2021-09-02] MEDS ORDERED: MIDAZOLAM 2 MG/2 ML VIAL IVP ONE (12:06)
[2021-09-02] MEDS ORDERED: HYDROmorphone 0.2 MG/1 ML SYRINGE IVP PRN (12:33)
[2021-09-02] MEDS ORDERED: NALOXONE 0.4 MG/ML 1 ML VIAL IV PRN (12:33)
[2021-09-02] MEDS ORDERED: NA PHOS,M-B/NA PHOS,DI-BA 133 ML ENEMA RECTAL PRN (12:33)
[2021-09-02] MEDS ORDERED: traMADol 50 MG TAB PO PRN (12:33)
[2021-09-02] MEDS ORDERED: bisacodyL 10 MG SUPP RECTAL PRN (12:33)
[2021-09-02] MEDS ORDERED: ACETAMINOPHEN TAB 325 MG TAB PO PRN (12:33)
[2021-09-02] MEDS ORDERED: MAGNESIUM HYDROXIDE 2,400 MG/10 ML CUP PO PRN (12:33)
[2021-09-02] MEDS ORDERED: HYDROcodone/APAP 10-325MG 1 EACH TAB PO PRN (12:33)
[2021-09-02] MEDS ORDERED: ONDANSETRON 4 MG/2 ML VIAL IVP PRN (12:33)
[2021-09-02] MEDS ORDERED: HYDROmorphone 0.5 MG/0.5 ML SYRINGE IVP PRN ×2 (12:33)
[2021-09-02] MEDS ORDERED: LACTATED RINGERS 1,000 ML IV ONE (13:44)
[2021-09-02] MEDS ORDERED: ROPIVACAINE 0.2%-NS ON-Q PUMP 1,090 MG, EMPTY PAIN BALL 1 EACH MISCELLANE PRN (15:24)
--- NOTE | 2021-09-02 15:40 | XR ---
Right knee HISTORY: Status post right knee arthroplasty 2 views the right knee Patient is status post right knee arthroplasty. There is near anatomic alignment. Lucency is present in the soft tissues. There are dense vascular calcifications. Bone mineralization is reduced. IMPRESSION: Orthopedic follow-up.
--- NOTE | 2021-09-02 17:49 | OP ---
OPERATIVE REPORT DATE OF PROCEDURE: 09/02/2021. SURGEON: Jose Morrow MD. STRATEGIC SOURCING MANAGER: Romero KNOX. PREOPERATIVE DIAGNOSIS: Right knee osteoarthrosis. POSTOP DIAGNOSIS: Right knee osteoarthrosis. OPERATION: Right total knee arthroplasty. ANESTHESIA: Spinal with sedation. ESTIMATED BLOOD LOSS: 100 mL. TOURNIQUET: Tourniquet time was 43 minutes at 250 mmHg. COMPLICATIONS: None apparent. DRAINS: None. DISPOSITION: Postanesthesia care unit. INDICATIONS: Ruel is a very pleasant 81-year-old male with longstanding history of right knee pain. History and physical examination are consistent with advanced right knee osteoarthrosis. He has been through significant nonoperative management up to this point. Further treatment options were discussed and he has decided to go forward with a right total knee arthroplasty. The risks of the procedure were discussed with him in detail. These risks included, but were not with limited to risk of infection, nerve damage, bleeding, pain, and a small risk of deep vein thrombosis which could lead to fatal pulmonary embolism. There is also risk of loosening of the implant which could require revision operation. The patient understands these risks. All of his questions were answered to his satisfaction. An appropriate informed consent was obtained. DESCRIPTION OF THE PROCEDURE: The patient was identified in the preoperative holding area. Surgical site was marked by both the patient and myself. He was given 2 grams of Ancef IV for prophylactic purposes. He was then transferred to the operative suite. He was placed supine on the operative table. Spinal anesthetic was then administered, dosed per the Anesthesia Department without apparent complication. Examination under anesthesia was then performed. The patient was 2-3 degrees shy of full extension. He had 100 degrees of flexion. Medial collateral ligament, lateral collateral ligament posterior cruciate ligaments were stable. Tourniquet was then placed high on the right upper thigh well-padded in preparation for surgery. The patient's right lower extremity was then prepped and draped in usual sterile fashion. Standard surgical pause undertaken to ensure that we were operating on the correct site and that appropriate preoperative antibiotics were given. All staff in the room were in agreement and we proceeded. The outlines of patella marked with surgical pen. A planned 12 cm vertical incision centered over the patella was marked with a surgical pen. Leg was then exsanguinated with an Esmarch dressing. The knee was then flexed and tourniquet inflated to 250 mmHg. Total tourniquet time for the procedure was 43 minutes Incision was then made with a 10 blade scalpel. Dissection carried down sharply overlying fascia. Great care was taken to minimize the skin flaps. The knee was then exposed using a standard medial parapatellar approach. A small cuff of quadriceps tendon was then left for suturing. He was in a bit of valgus preoperatively. A very minimal medial release was made. This was just enough to place the medial retractor to protect the medial collateral ligament. The medial meniscus was then excised as well. The lateral meniscus was also released anteriorly. The leg was then externally rotated. The patella was everted. The knee was flexed. Retractors were then placed to protect the collateral ligaments. I then proceeded to remove the infrapatellar fat pad. This was excised sharply tangentially with fibers of the patellar tendon. I then proceeded to remove the peripheral osteophytes. This was done with a rongeur. I then proceeded with the distal femoral resection. He did have near full extension. A planned 9 mm resection was then done. The femoral canal was then entered in the midline. The femur approximately 10 mm anterior to the origin of the posterior cruciate ligament. The grace was then advanced on the center of the femur and placed intramedullary. Based on the preoperative radiographs, the angle between the anatomic and mechanical axis of the femur was approximately 4-5 degrees. The valgus angle of the distal femoral cutting guide was set at 4 degrees for the right knee. The distal femoral cutting guide was then advanced over the intramedullary grace. This was seated firmly against the femur. Then as mentioned planned to take 9 mm off the distal femur. The cutting block was then secured onto the femur with pins. The jig was then removed. The distal femoral cut was then made through the slot of the block. The pins were then removed. The distal femoral cutting block was removed. The accuracy of the distal femoral cuts was checked with 2 flat bars. I then proceeded with femoral sizing. Posterior referencing sizing guide was held firmly against the resected distal surface of the femur. The posterior condyles were resting on the posterior plane of the guide. The sizing guide was then placed on the anterior femur. The size was measured as a size 8. I then assessed for femoral rotation. Plan was for 3 degrees of external rotation. Three degrees external rotation was placed onto the jig. These holes were then marked. I then confirmed the rotation by 3 separate methods. This was done using epicondylar axis as well as Whitesides line and posterior referencing. It was deemed that the external rotation was proper. I then went forward with placing the femoral cutting block. This was placed over the previously placed pin holes. The Armando wing was then placed on the anterior slots to ensure that we would not notch the anterior femur with the anterior femoral cut. I then proceeded with the anterior femoral cut. This was flush with the anterior cortex of the femur. The posterior cuts were then made followed by the anterior chamfer cut, then the posterior chamfer cut. The cutting block was then removed. Throughout the resection, the collateral ligaments were protected with retractors. I then placed a trial size 8 femur. It would fit very nice medial-lateral and fit flush with the distal end of the femur. The drill holes were then made. I then proceeded with the tibial cut. I planned for a cruciate-retaining knee. The guide was placed in separate varus valgus and for slope. The height was set for approximate 2 mm resection from the lateral tibial plateau which was the lower side. I was happy with the alignment and the amount of resection. The cutting block was then pinned to the proximal tibia. The alignment grace was removed and the proximal tibia was resected with a reciprocating saw. Again, this was done with retractors protecting the collateral ligaments as well as the posterior cruciate ligament. I then proceeded to evaluate the flexion extension gaps. A 10 mm block was then placed. The flexion and extension gaps were equal. I then proceeded with resection of posterior osteophytes. He had very minimal posterior osteophytes. This was done using a curved osteotome. This resected the posterior osteophytes and posterior capsule stripping was done off the posterior aspect of the femur at this time. The osteophytes were then removed. I then proceeded with resection of the patella. The thickness of patella was measured using the caliper. The thickness was 22 mm. The thickness of the anticipated patellar dome was taken into account. The resection was then performed and confirmed to be equal in 4 quadrants using a caliper. Approximately 14 mm of bone remained after resection. A 29 x 8 standard patellar trial was then placed. The holes drilled. The trial was then placed. I then proceeded with sizing tibial plate and a size E tibial plate fit very nicely. I then placed the trial femur in the tibial tray and patellar button. A 10 mm trial tibial insert was also placed. The components fit very nicely. He had full extension and flexion. The extension and flexion gaps were equal and stable to both varus and valgus stress. The patella tracked appropriately. The tibial tray rotation was marked with a Bovie. This was externally rotated properly. I then proceeded with tibial preparation. First drilled the femoral holes, removed femoral component. The tibial tray was then set for proper external rotation as well as mediolateral placement onto the tibia. It was then pinned into place. I then proceeded with punching the keel. I then decided to proceed with cementing of all of our components. The knee was thoroughly irrigated with sterile saline solution via pulse lavage. The lateral geniculate artery was identified and cauterized. All blood was removed from the bone of the tibia femur and patella with pulse lavage. I then proceed with cementing. Two packs of antibiotic bone cement prepared on the back table by the surgical supply assistant. I then proceed with cementing the tibia first. Cement was impacted into the keel as well as deeply seated in the bone. A second coat of cement was then placed. The tibia was then impacted in place. Excess cement was removed with Clint's and jokers. I then proceeded with cementing the femoral component. The femoral component was also cemented using standard technique. Excess cement was removed. A 10 mm trial insert was then placed into the knee. It was brought in full extension with a constant axial load placed until the cement had hardened. The patellar component was then cemented. This held with the compressive device until the cement had dried. When the cement had dried, using our extension, all excess cement was removed from around the prosthesis. I then trialed the knee with a 10 mm insert. Flexion extension gaps were appropriate. The knee was stable. It came into full extension. I decided to go forward with a 10 mm medial congruent cross-linked cruciate-retaining tibial insert. Polyethylene was then placed on the tibial tray and locked in place. The knee was then reduced. The knee was again further irrigated with sterile saline solution with antibiotic added. The tourniquet was then deflated. Total tourniquet time for the procedure was 43 minutes at 250 mmHg. Final components were Shahab Persona size 8 cruciate-retaining femoral component, size E tibial tray, a 10 mm medial congruent cross cruciate-retaining polyethylene insert, and a 29 x 8 mm patella. I then proceeded with closure. Again, the knee was thoroughly irrigated. The quadriceps tendon and medial retinaculum were reapproximated with #2 Ethibond suture. The extensor mechanism was then closed with a running #2 Quill suture. Subcutaneous tissues were closed with 2-0 Vicryl interrupted suture. The skin was closed with a running 3-0 Quill suture. Dermabond applied to the incision. Sterile compressive dressings were applied. All sponge and needle counts were deemed correct prior to closure. The patient tolerated the procedure without apparent complication. He was transferred to recovery room in stable condition. MMODL / IJN: [id number] /
--- NOTE | 2021-09-02 18:45 | P.ANPRN ---
Procedure Note - Anesthesia - Nerve Block Performed Right Adductor Canal Infusion Time Out Performed: Yes Date of Procedure: 09/02/21 Procedure Start Time: 12:05 Procedure Stop Time: 12:14 Indication: Acute Post-Operative Pain, Requested by Surgeon Sedation Type: Sedate with meaningful contact maintained Preparation: Sterile Prep, Sterile Dressing Position: Supine Catheter: Indwelling Needle Types: Pajunk Needle Gauge: 21 Ultrasound used to visualize needle placement: Yes Ultrasound used to observe medication spread: Yes Blood Aspirated: No Pain Paresthesia on Injection Noted: No Resistance on Injection: Normal Image Stored and Saved: Yes Events: Uneventful and Well Tolerated (ropi .5% 20cc)
--- NOTE | 2021-09-02 18:46 | P.ANPRN ---
Procedure Note - Anesthesia - Nerve Block Performed Right Blasck Single Time Out Performed: Yes Date of Procedure: 09/02/21 Procedure Start Time: 12:15 Procedure Stop Time: 12:19 Location of Patient: PreOp Indication: Acute Post-Operative Pain, Requested by Surgeon Sedation Type: Sedate with meaningful contact maintained Preparation: Sterile Prep Position: Supine Needle Gauge: 21, Other (see comment) Ultrasound used to visualize needle placement: Yes Ultrasound used to observe medication spread: Yes Blood Aspirated: No Pain Paresthesia on Injection Noted: No Resistance on Injection: Normal Image Stored and Saved: Yes Events: Uneventful and Well Tolerated (ropi .5% 20cc plus dexamethasone 4mg)
[2021-09-02] MEDS: LACTATED RINGERS 1,000 ML IV SCH (20:32)
[2021-09-02] MEDS: ASPIRIN 81 MG PO SCH (20:38)
[2021-09-02] MEDS ORDERED: SENNOSIDES-DOCUSATE SODIUM 1 EACH TAB PO SCH (21:00)
[2021-09-03] MEDS: LACTATED RINGERS 1,000 ML IV SCH (00:18)
[2021-09-03] MEDS ORDERED: MELATONIN 3 MG TABLET PO SCH (00:30)
--- NOTE | 2021-09-03 00:39 | P.CONS ---
History of Present Illness - Reason for Consult Consult date: 09/02/21 MEDICAL MANAGEMENT Requesting physician: Jose Morrow - Chief Complaint scheduled right knee replacement - History of Present Illness 81 year old male with hypertension , OA patient comes in for scheduled right total knee replacement due to advanced OA . patient tolerated procedure well, no immediate observed post op complications. denies any chest pain or trouble breathing ,he was ambulating with assistance. he tolerated PO intake pain is currently well controlled and tolerated Review of Systems Pertinent positives as noted in HPI. All other systems were reviewed and are negative Past Medical History Past Medical History: Atrial Fibrillation, CVA/TIA, Deep Vein Thrombosis (DVT), Hyperlipidemia, Hypertension, Osteoarthritis (OA) Additional Past Medical History / Comment(s): "hands shaky at times", blood clot in leg 2-3 yrs. ago, TIA in February-mild memory issues History of Any Multi-Drug Resistant Organisms: None Reported Past Surgical History: Appendectomy, Cardiac Valve Replacement, Coronary Bypass/CABG, Heart Catheterization, Joint Replacement Additional Past Surgical History / Comment(s): aortic valve replacement & mitral valve repair, taryn shoulder replacement, lt hip replacement, left knee replacement, cataracts, lt eye retinal tear-sx to repair, dental implants Past Anesthesia/Blood Transfusion Reactions: No Reported Reaction Additional Past Anesthesia/Blood Transfusion Reaction / Comm: past blood transfusions-no reactions Past Psychological History: No Psychological Hx Reported Additional Psychological History / Comment(s): lives with spouse alex Smoking Status: Never smoker Past Alcohol Use History: Occasional Additional Past Alcohol Use History / Comment(s): started smoking at age 11(1951) and quit 1984 smoked 1 ppd Past Drug Use History: None Reported - Past Family History Mother Family Medical History: Dementia Father History Unknown: Yes Brother(s) Family Medical History: Cancer Additional Family Medical History / Comment(s): melanoma Medications and Allergies Home Medications Medication Instructions Recorded Confirmed Type Metoprolol Succinate [Toprol XL] 25 mg PO DAILY 09/24/15 09/02/21 History lisinopriL [Zestril] 20 mg PO DAILY 09/24/15 09/02/21 History Aspirin 81 mg PO DAILY 08/26/21 09/02/21 History Ibuprofen 200 mg PO Q6H PRN 08/26/21 09/02/21 History Allergies Allergy/AdvReac Type Severity Reaction Status Date / Time adhesive tape AdvReac Rash/Hives Verified 09/02/21 11:25 garlic AdvReac Rash/Hives Verified 09/02/21 11:25 Physical Exam Vitals: Vital Signs Temp Pulse Pulse Resp BP BP Pulse Ox 09/02/21 20:37 15 09/02/21 19:20 97.7 F 54 L 15 132/87 94 L 09/02/21 18:06 17 09/02/21 16:30 88 18 149/85 95 09/02/21 16:00 54 L 16 138/83 98 09/02/21 15:45 54 L 16 121/78 98 09/02/21 15:30 52 L 17 140/80 09/02/21 15:15 54 L 16 141/74 98 09/02/21 15:00 54 L 18 125/74 100 09/02/21 14:48 99.3 F 18 1218/82 100 09/02/21 12:30 54 L 18 148/75 100 09/02/21 11:31 98.1 F 56 L 18 150/73 100 Intake and Output 09/02/21 09/02/21 09/03/21 14:59 22:59 06:59 Intake Total 751 150 Output Total 100 Balance 651 150 Intake: IV 751 150 Output: Estimated Blood Loss 100 Other: Voiding Method Toilet Weight 68.4 kg 68.4 kg Constitutional: No acute distress, conversant, pleasant Eyes: Anicteric sclerae, moist conjunctiva, Pupils equal round reactive to light ENMT: NC/AT Oropharynx clear, no erythema, or exudates Neck: Supple, FROM, no masses, or JVD No carotid bruits No thyromegaly Lungs: Clear to auscultation Clear to percussion Normal respiratory effort, no accessory muscle use Cardiovascular: Heart regular in rate and rhythm, systolic murmur, no gallops, or rubs No peripheral edema Abdominal: Soft Nontender, no guarding, rebound or rigidity Abdomen moving with respiration Normoactive bowel sounds No hepatomegaly, No splenomegaly No palpable mass No abdominal wall hernia noted Skin: Normal temperature, tone, texture, turgor No induration No subcutaneous nodules No rash, lesions No ulcers Extremities: right knee in surgical dressing dry intatct and clean , pain pump in place. No digital cyanosis No clubbing Pedal pulses intact and symmetrical Radial pulses intact and symmetrical No calf tenderness Psychiatric: Alert and oriented to person, place and time Appropriate affect fair judgement Neuro Muscles Strength 5/5 in all 4 extremities , limited over right lower extremity due to surgery Sensation to light touch grossly present throughout Cranial nerves II-XII grossly intact No focal sensory deficits Lymphatics: no palpable cervical or supraclavicular , or inguinal lymph nodes Assessment and Plan Assessment: right knee arthroplasty s/p total knee arthroplasty POD zero pain control and DVT ppx per orthopedics chronic conditions hypertension , resume BP meds follow up CBCand BMP Fall Code Thank you for allowing us to participate in the care of this patient. Do not hesitate to contact us with questions. Someone can be reached from the [facility] hospitalist group at all hours of the day at [phone].
[2021-09-03] MEDS: HYDROcodone/APAP 5-325MG 1 EACH TAB PO PRN ×2 (05:14→12:11)
--- NOTE | 2021-09-03 07:53 | P.PN ---
Progress Note - Text 09/03/21 700a,m 81-year-old male status post total knee replacement by Dr. Morrow area patient has an On-Q pump for postop pain control with the solution running at 8 mL an hour with a VAS of 1. Dressing clean dry and intact. Plan to continue On-Q pump infusion
[2021-09-03 08:38] VITALS: BP 111/72; PULSE 71; RESP 19; TEMP 97.9
[2021-09-03] MEDS ORDERED: lisinopriL 20 MG TAB PO SCH (09:00)
[2021-09-03] MEDS ORDERED: METOPROLOL SUCCINATE (ER) 25 MG TAB.ER.24H PO SCH (09:00)
[2021-09-03] MEDS: ASPIRIN 81 MG PO SCH (09:01)
[2021-09-03 09:18] LABS: Basophils # (A) 0.01 X 10*3/uL (0.00-0.10); Basophils % (A) 0.1 %; Eosinophils # (A) 0 X 10*3/uL (0.04-0.35); Eosinophils % (A) 0 %; HCT 35.9 % (39.6-50.0); HGB 11.8 g/dL (13.0-17.0); Lymphocytes # (A) 0.92 X 10*3/uL (0.90-5.00); Lymphocytes % (A) 9.9 %; MCH 32.1 pg (27.0-32.0); MCHC 32.9 g/dL (32.0-37.0); MCV 97.6 fL (80.0-97.0); Mean Platelet Volume 9.6 fL (9.5-12.2); Monocytes # (A) 0.73 X 10*3/uL (0.20-1.00); Monocytes % (A) 7.8 %; Neutrophils % (A) 81.8 %; Platelet Count 156 X 10*3/uL (140-440); RBC 3.68 X 10*6/uL (4.40-5.60); RDW 13.1 % (11.5-14.5)
[2021-09-03 10:27] LABS: African American GFR (CKD) 101.1 (60.0-200.0); Anion Gap 11.6 mmol/L (10.00-18.00); BUN/Creat Ratio 26.14 Ratio (12.00-20.00); Blood Urea Nitrogen 18.3 mg/dL (9.0-27.0); Calcium 9.1 mg/dL (8.7-10.3); Carbon Dioxide 22.4 mmol/L (20.0-27.5); Non-African American GFR(CKD) 87.3 (60.0-200.0); Potassium 4.7 mmol/L (3.5-5.5)
--- NOTE | 2021-09-03 10:57 | P.DS ---
Providers Expected date of discharge: 09/03/21 Attending physician: Jose Morrow Consults: 09/02/21 12:33 Consult Physician Routine Consulting Provider: Elsie Ramirez Consult Reason/Comments: post op medical management Do you want consulting provider notified?: Yes Primary care physician: Campos Girard - Discharge Diagnosis(es) (1) Osteoarthritis of right knee Patient was admitted to the OR on 09/02/21 to undergo a right total knee arthroplasty. He had failed conservative measures as an outpatient and desired to proceed with elective surgery after given informed consent. He underwent the above procedure which he tolerated well without complication. Postoperative hospital course has remained without complication. On day of discharge he is afebrile, vital signs stable, labs within acceptable ranges, tolerating by mouth meds and diet, voiding without difficulty, positive flatus, denies abdominal pain or calf pain, pain is controlled on oral pain medication and has no new complaints. Wound is benign, neurovascular status is intact, calf is soft and nontender, abdomen soft and nontender. Review of systems is negative for numbness, tingling, fever, chills, chest pain, shortness of breath, nausea, vomiting, dizziness, headaches, slurred speech or other. Current Visit: Yes Status: Acute Priority: Medium Procedures: Right TKA Patient Condition at Discharge: Good Plan - Discharge Summary Discharge Rx Participant: No New Discharge Prescriptions: New Aspirin [Adult Low Dose Aspirin EC] 81 mg PO BID #60 tab Docusate [Colace] 100 mg PO BID #60 capsule HYDROcodone/APAP 7.5-325MG [[place] 7.5-325] 1 - 2 each PO Q6HR PRN #42 tab PRN Reason: Pain Rosuvastatin Calcium [Crestor] 10 mg PO DAILY #30 tab Continue Metoprolol Succinate [Toprol XL] 25 mg PO DAILY lisinopriL [Zestril] 20 mg PO DAILY Aspirin 81 mg PO DAILY Discontinued Ibuprofen 200 mg PO Q6H PRN PRN Reason: Pain Discharge Medication List Metoprolol Succinate [Toprol XL] 25 mg PO DAILY 09/24/15 [History] lisinopriL [Zestril] 20 mg PO DAILY 09/24/15 [History] Aspirin 81 mg PO DAILY 08/26/21 [History] Aspirin [Adult Low Dose Aspirin EC] 81 mg PO BID #60 tab 09/03/21 [Rx] Docusate [Colace] 100 mg PO BID #60 capsule 09/03/21 [Rx] HYDROcodone/APAP 7.5-325MG [[place] 7.5-325] 1 - 2 each PO Q6HR PRN #42 tab 09/03/21 [Rx] Rosuvastatin Calcium [Crestor] 10 mg PO DAILY #30 tab 09/03/21 [Rx] Follow up Appointment(s)/Referral(s): Campos Girard MD [Primary Care Provider] - 1 Week [facility], [NON-STAFF] - ([facility] will call you to schedule your in home physical therapy visits. ) Jose Morrow MD [STAFF PHYSICIAN] - 09/13/21 1:00 pm Activity/Diet/Wound Care/Special Instructions: Weight bear as tolerated May shower after 3 days if no bleeding Keep wound clean and dry Take meds as directed F/U with Dr. Morrow in office Discharge Disposition: HOME WITH HOME HEALTH SERVICES
[2021-09-03] MEDS ORDERED: MULTIVITAMINS, THERA 1 EACH TAB PO SCH (12:00)
--- NOTE | 2021-09-03 15:23 | P.PN ---
Subjective Progress Note Date: 09/03/21 right knee arthroplasty s/p total knee arthroplasty POD zero pain control and DVT ppx per orthopedics chronic conditions hypertension , resume BP meds CAD s/p CABG - added atorvastatin on discharge. follow up CBCand BMP Fall Code Thank you for allowing us to participate in the care of this patient. Do not hesitate to contact us with questions. Someone can be reached from the [facility] hospitalist group at all hours of the day at [phone]. Objective - Vital Signs Vital signs: Vital Signs Temp 97.9 F 09/03/21 08:00 Pulse 71 09/03/21 08:00 Resp 19 09/03/21 08:00 BP 111/72 09/03/21 08:00 Pulse Ox 98 09/03/21 08:00 Intake & Output 09/02/21 09/03/21 09/03/21 18:59 06:59 18:59 Intake Total 901 Output Total 100 Balance 801 Weight 68.4 kg Intake: IV 901 Output: Estimated Blood Loss 100 Other: Voiding Method Toilet Toilet # Voids 2 - Labs CBC & Chem 7: 09/03/21 05:38 09/03/21 05:38 Labs: Abnormal Lab Results - Last 24 Hours (Table) 09/03/21 09/03/21 Range/Units 05:38 05:38 RBC 3.68 L (4.40-5.60) X 10*6/uL Hgb 11.8 L (13.0-17.0) g/dL Hct 35.9 L (39.6-50.0) % MCV 97.6 H (80.0-97.0) fL MCH 32.1 H (27.0-32.0) pg Eosinophils # 0 L (0.04-0.35) X 10*3/uL Sodium 132 L (135-145) mmol/L BUN/Creatinine Ratio 26.14 H (12.00-20.00) Ratio
== END 2021-09-03 13:45 | disposition home health service (06) ==
LOC: OR 10:55 → 4SSUR 17:27 → OR 09-03 13:45
PROVIDERS: ATTEND Orthopaedic Surgery Sports Medicine
DX: M17.11 Unilateral primary osteoarthritis, right knee (principal); Z20.822 Contact with and (suspected) exposure to COVID-19
CPT/HCPCS: 27447; 87635; 73560; J2250; J0690; J2405; J1170; J2795; 64448; 64999; 76942; 80048; 85025

== ENCOUNTER → 2021-11-23 | Outpatient (CLI) | payer MEDICARE ==
--- NOTE | 2021-11-23 08:34 | CT ---
EXAMINATION TYPE: CT iac wo con DATE OF EXAM: 11/23/2021 COMPARISON: CT dated 04/13/2021 HISTORY: nerve disorder and poss fluid CT DLP: 150.0mGycm Automated exposure control for dose reduction was used. FINDINGS: Opacified left mastoid cells with partial opacification of the left aditus ad antrum and middle ear c avity. This includes the epitympanum and mesotympanum. The hypotympanum is rather preserved. Intact s cutum. Apparently intact left middle ear ossicles with no evidence of erosion. Questionable subtle pe rforation of the left tympanic membrane superiorly. Symmetrical unremarkable inner ear structures and internal auditory canals. Unremarkable right mastoi d air cells and right middle ear cavity. Apparently intact right tympanic membrane. Debris is seen in the right external auditory canal, otherwise unremarkable external auditory canals. Intact tegmen ty mpani bilaterally. Clear visualized paranasal sinuses. Osteopenia. Scattered arterial atherosclerotic calcifications. IMPRESSION: Findings are suggestive of left otomastoiditis as described above, please correlate clinically.
== END | disposition home or self-care (01) ==
LOC: RADCTMAIN 06:50
PROVIDERS: ATTEND Otolaryngology
DX: H93.3X9 Disorders of unspecified acoustic nerve (principal)
CPT/HCPCS: 70480

== ENCOUNTER → 2022-01-05 | Outpatient (CLI) | payer MEDICARE ==
--- NOTE | 2022-01-07 06:54 | US ---
EXAMINATION TYPE: US arterial LE single level DATE OF EXAM: 01/05/2022 11:01 AM CLINICAL HISTORY: I27.0 PVOD. Pre-op study. History of hypertension. Doppler Waveforms: Right: Biphasic Left: Biphasic Ankle-Brachial Indices: Right: 1.23 Left: 1.05 Toe Brachial Indices: Right: 0.67 Left: 0.73 IMPRESSION: Normal values.
== END | disposition home or self-care (01) ==
LOC: RADUSWWP 09:47
PROVIDERS: ATTEND Orthopaedic Surgery Foot and Ankle Surgery
DX: Z01.818 Encounter for other preprocedural examination (principal)
CPT/HCPCS: 93922

== ENCOUNTER 2022-02-05 15:03 | Emergency (ER) | payer MEDICARE ==
[2022-02-05 15:09] VITALS: BP 133/76; PULSE 64; RESP 18; TEMP 98.2
[2022-02-05] MEDS ORDERED: methylPREDNISolone SOD SUCCI 125 MG/2 ML VIAL IM STA (16:30)
[2022-02-05] MEDS ORDERED: diphenhydrAMINE 25 MG CAP PO STA (16:30)
--- NOTE | 2022-02-05 16:32 | ED ---
General Adult HPI - General Chief complaint: Skin/Abscess/Foreign Body Stated complaint: Rash Time Seen by Provider: 02/05/22 15:51 Source: patient, family Mode of arrival: wheelchair Limitations: no limitations - History of Present Illness Initial comments: 82-year-old male presents to the emergency room for a chief complaint of hives. Patient developed hives last night. They are very itchy. He did take Benadryl around noon which helped with the itching started to come back. Patient and his wanted him evaluated because they were afraid it could progress to causing facial swelling or shortness of breath. Patient states he ate a lot of tomatoes yesterday which may have caused it however no previous ALLERGIES to tomatoes. No new medications. No new detergents. Patient denies any lip tongue or throat swelling. Denies shortness of breath.Patient has no other complaints at this time including shortness of breath, chest pain, abdominal pain, nausea or vomiting, headache, or visual changes. - Related Data Home Medications Medication Instructions Recorded Confirmed Metoprolol Succinate [Toprol XL] 25 mg PO DAILY 09/24/15 09/02/21 lisinopriL [Zestril] 20 mg PO DAILY 09/24/15 09/02/21 Aspirin 81 mg PO DAILY 08/26/21 09/02/21 Previous Rx's Medication Instructions Recorded Aspirin [Adult Low Dose Aspirin EC] 81 mg PO BID #60 tab 09/03/21 Docusate [Colace] 100 mg PO BID #60 capsule 09/03/21 HYDROcodone/APAP 7.5-325MG [[place] 1 - 2 each PO Q6HR PRN #42 tab 09/03/21 7.5-325] Rosuvastatin Calcium [Crestor] 10 mg PO DAILY #30 tab 09/03/21 predniSONE 50 mg PO DAILY #4 tablet 02/05/22 Allergies Allergy/AdvReac Type Severity Reaction Status Date / Time adhesive tape AdvReac Rash/Hives Verified 02/05/22 15:09 garlic AdvReac Rash/Hives Verified 02/05/22 15:09 Review of Systems ROS Statement: Those systems with pertinent positive or pertinent negative responses have been documented in the HPI. ROS Other: All systems not noted in ROS Statement are negative. Past Medical History Past Medical History: Deep Vein Thrombosis (DVT), Hyperlipidemia, Hypertension Additional Past Medical History / Comment(s): 09-05-18 pt wants a pne vaccine while here. other hx:wound on buttocks since healed, "hands shaky at times" History of Any Multi-Drug Resistant Organisms: None Reported Past Surgical History: Appendectomy, Cardiac Valve Replacement, Heart Catheterization, Joint Replacement Additional Past Surgical History / Comment(s): cardiac valve replacement x2, taryn shoulder replacement, lt hip replacement, cataracts, lt eye retinal tear-sx to repair, dental implants Past Anesthesia/Blood Transfusion Reactions: No Reported Reaction Additional Past Anesthesia/Blood Transfusion Reaction / Comment(s): past blood transfusions-no reactions Past Psychological History: No Psychological Hx Reported Smoking Status: Never smoker Past Alcohol Use History: Occasional Past Drug Use History: None Reported - Past Family History Mother Family Medical History: Dementia Father History Unknown: Yes Brother(s) Family Medical History: Cancer Additional Family Medical History / Comment(s): melanoma General Exam Limitations: no limitations General appearance: alert, in no apparent distress Head exam: Present: atraumatic Eye exam: Present: normal appearance, PERRL, EOMI. Absent: scleral icterus, conjunctival injection ENT exam: Present: normal exam, normal oropharynx (No swelling of the lips tongue or throat), mucous membranes moist, normal external ear exam Neck exam: Present: normal inspection, full ROM. Absent: tenderness Respiratory exam: Present: normal lung sounds bilaterally. Absent: respiratory distress, wheezes Cardiovascular Exam: Present: regular rate, normal rhythm, normal heart sounds Neurological exam: Present: alert Skin exam: Present: other (Erythematous plaque-like lesions consistent with urticaria noted to the bilateral upper and lower extremities and back.) Course Vital Signs 02/05/22 15:05 Temperature 98.2 F Pulse Rate 64 Respiratory 18 Rate Blood Pressure 133/76 O2 Sat by Pulse 98 Oximetry Medical Decision Making - Medical Decision Making Patient is well-appearing. No evidence of angioedema or anaphylaxis. Patient given Benadryl for itching and Solu-Medrol. Prednisone sent to pharmacy. He does have a ride home. He will return for any worsening symptoms and will otherwise follow up with primary care. Disposition Clinical Impression: Urticaria Disposition: HOME SELF-CARE Condition: Good Instructions (If sedation given, give patient instructions): Urticaria (ED) Additional Instructions: Please continue to take Benadryl as needed for itching. Take prednisone as directed. Avoid hot showers or heat. Follow-up with primary care. Return to the emergency room for any worsening symptoms. Prescriptions: predniSONE 50 mg PO DAILY #4 tablet Is patient prescribed a controlled substance at d/c from ED?: No Referrals: Campos Girard MD [Primary Care Provider] - 1-2 days Time of Disposition: 16:30
== END 2022-02-05 17:18 | disposition home or self-care (01) ==
LOC: EC 15:03
DX: L50.9 Urticaria, unspecified (principal); I10 Essential (primary) hypertension; Z91.018 Allergy to other foods; Z91.09 Other allergy status, other than to drugs and biological substances; Z79.899 Other long term (current) drug therapy
CPT/HCPCS: 99282; 96372; J2930

== ENCOUNTER 2022-02-13 11:42 | Inpatient (IN) | payer MEDICARE ==
[2022-02-13 11:47] LABS: Glucose,Whole Blood 134 mg/dL (75-99)
[2022-02-13 11:54] LABS: Basophils % (A) 0 %; Eosinophils # (A) 0.1 k/uL (0-0.7); Eosinophils % (A) 1 %; HCT 44.2 % (39.0-53.0); HGB 14.4 gm/dL (13.0-17.5); Lymphocytes # (A) 1.4 k/uL (1.0-4.8); Lymphocytes % (A) 13 %; MCH 31.5 pg (25.0-35.0); MCHC 32.5 g/dL (31.0-37.0); MCV 96.8 fL (80.0-100.0); Mean Platelet Volume 6.9; Monocytes # (A) 0.6 k/uL (0-1.0); Monocytes % (A) 5 %; Neutrophils # (A) 8.9 k/uL (1.3-7.7); Neutrophils % (A) 81 %; Platelet Count 210 k/uL (150-450); RBC 4.56 m/uL (4.30-5.90); RDW 13.7 % (11.5-15.5); WBC 11.1 k/uL (3.8-10.6)
[2022-02-13] MEDS ORDERED: levETIRAcetam IV 1,000 MG in SALINE 1 100ML.BAG IVPB STA (11:55)
[2022-02-13] MEDS ORDERED: Alteplase PER PHARMACY Stroke 1 EACH MISC MISCELLANE PRN (11:55)
[2022-02-13] MEDS ORDERED: ALTEPLASE BOLUS FOR STROKE 6 MG in EMPTY SYRINGE 1 SYR IV STA (11:58)
[2022-02-13] MEDS ORDERED: ALTEPLASE 58 MG in EMPTY BAG 1 BAG IV STA (11:58)
[2022-02-13 12:02] LABS: INR 1.1 (<1.2); Prothrombin Time 11.9 sec (9.0-12.0)
--- NOTE | 2022-02-13 12:06 | CT ---
EXAMINATION TYPE: CT brain wo con for TPA DATE OF EXAM: 02/13/2022 HISTORY: Neuro deficit. Acute onset. CT DLP: 1110.6 mGycm. Automated Exposure Control for Dose Reduction was Utilized. TECHNIQUE: CT scan of the head is performed without contrast. COMPARISON: CT brain April 13, 2021. FINDINGS: There is no acute intracranial hemorrhage or midline shift identified. There is mild to m oderate diffuse ventricular and sulcal prominence consistent with diffuse age-related cerebral atroph y. There is mild to moderate low-attenuation in the periventricular white matter consistent with chr onic small vessel ischemic change. Vascular consultation distal internal carotid arteries is redemons trated. Globes are intact and visualized sinuses are clear. Bilateral basal ganglia calcifications ar e redemonstrated. IMPRESSION: No acute intracranial hemorrhage or midline shift. There is mild to moderate diffuse ce rebral atrophy and chronic small vessel ischemic change redemonstrated. No significant change from r ecent CT.
[2022-02-13] MEDS ORDERED: LORazepam 2 MG/ML INJ IV STA (12:08)
[2022-02-13 12:11] LABS: ALT 34 U/L (4-49); AST 41 U/L (17-59); African American GFR (CKD) >90 (>60 ml/min/1.73 sqM); Albumin 4.5 g/dL (3.5-5.0); Alkaline Phosphatase 91 U/L (38-126); Anion Gap 16 mmol/L; Blood Urea Nitrogen 31 mg/dL (9-20); Calcium 8.9 mg/dL (8.4-10.2); Carbon Dioxide 21 mmol/L (22-30); Chloride 94 mmol/L (98-107); Glucose 139 mg/dL (74-99); Non-African American GFR(CKD) 79 (>60 ml/min/1.73 sqM); Potassium 3.8 mmol/L (3.5-5.1); Sodium 131 mmol/L (137-145); Total Bilirubin 0.8 mg/dL (0.2-1.3); Total Protein 7.5 g/dL (6.3-8.2)
[2022-02-13 12:22] LABS: Partial Thromboplastin Time 21.1 sec (22.0-30.0)
[2022-02-13] MEDS ORDERED: LABETALOL SYRINGE 5 MG/ML IVP STA ×2 (12:37→12:41)
[2022-02-13] MEDS ORDERED: SODIUM CHLORIDE 0.9% 500 ML 500 ML IV STA ×2 (12:37→13:03)
[2022-02-13] MEDS ORDERED: LABETALOL 5 MG/ML VIAL MDV IVP STA (12:41)
[2022-02-13] MEDS ORDERED: SODIUM CHLORIDE 0.9% 50 ML MINI-BAG IV ONE ×2 (12:57→16:26)
--- NOTE | 2022-02-13 13:27 | CT ---
EXAMINATION TYPE: CT angio head neck DATE OF EXAM: 02/13/2022 HISTORY: Acute onset Neuro deficit and seizure COMPARISON: CTA head and neck April 12, 2021 CT DLP: 564.6 mGycm. Automated Exposure Control for Dose Reduction was Utilized. TECHNIQUE: CTA scan of the head and neck is performed with IV Contrast, patient injected with 65 mL of Isovue 370, axial images are obtained, coronal and sagittal reformatted images are reviewed. 3D re constructed images are created on an independent workstation and reviewed. FINDINGS: Carotid/Vascular Structures: Normal three-vessel origin from aortic arch without significant stenosis . Unusual origin right common carotid artery from the lateral aspect of the brachiocephalic artery wi th focal narrowing at the origin without focal plaque down to 2.6 mm raw data image 171 with reconsti tution to 6.7 mm superior to this. There is no significant plaque or stenosis along the common caroti d arteries bilaterally. Right common carotid artery has mild to moderate calcified plaque without sig nificant stenosis extending into proximal internal carotid artery. There is mild mixed plaque distal to this without significant stenosis. There is a patent right external carotid artery without signifi cant plaque or stenosis. There is moderate peripheral plaque left carotid bulb extending into proxima l internal carotid artery without significant stenosis. There is a patent external carotid artery wit hout significant stenosis. There is increased plaque with significant stenosis in the smaller caliber right vertebral artery but remains patent to the basilar junction. There is no significant stenosis in the dominant left verteb ral artery. No aneurysm in the posterior circulation. There is new significant stenosis in the left P1 segment wi th reconstitution in the P2 segment likely from patent posterior communicating artery for reference n ear raw data image 175. Small caliber patent right posterior communicating artery. Anterior circulati on redemonstrates hypoplastic right A1 segment with filling of the A2 segment due to patent anterior communicating artery. Small aneurysm up to 3.6 mm portion of right A2 segment axial image 180 is rede monstrated. Other: Slight scoliotic curvature redemonstrated. Grade 1 anterolisthesis C7 on T1. Advanced disc spa ce narrowing C5-C6 and C6-C7 levels redemonstrated. Moderate disc space narrowing C7-T1 level redemon strated. IMPRESSION: 1. 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 No significant plaque. No significant stenosis in the remainder of the common or internal carotid arteries. Signific ant narrowings of the nondominant right vertebral artery are now present. 2. Significant stenosis in the left P1 segment on current study. 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 NASCET criteria was used in interpretation of this exam?
--- NOTE | 2022-02-13 14:52 | ED ---
Neuro HPI - General Chief Complaint: Neuro Symptoms/Deficit Stated Complaint: stroke Time Seen by Provider: 02/13/22 11:42 Source: family, EMS, RN notes reviewed, old records reviewed Mode of arrival: EMS Limitations: altered mental status, physical limitation - History of Present Illness Is the patient presenting with stroke symptoms?: Yes Last Known Well Date: 02/13/22 Last Known Well Time: 11:10 Initial Comments: 82-year-old male with a history of previous CVA and seizures this past year who presents today with what appears be strokelike symptoms he apparently started de veloping some altered mental status this morning with difficulty placing a splint on his left foot that was recently operated on also some confusion apparently he later developed a seizure this lasted about 6 minutes. He did at that time demonstrate right lateral gaze shaking on the right side facility on the left side. He was given IV Versed in the seizure did cease. He still remained unresponsive with the above deficits noted. He was transported here for further evaluation. No trauma reported the last known well time was approximately 11 to 11:15 this morning. EMS report. - Related Data Home Medications: Home Medications Medication Instructions Recorded Confirmed Metoprolol Succinate [Toprol XL] 25 mg PO DAILY 09/24/15 02/13/22 lisinopriL [Zestril] 20 mg PO DAILY 09/24/15 02/13/22 Acetaminophen [Tylenol Extra 1,000 mg PO BID 02/13/22 02/13/22 Strength] Cephalexin [Keflex] 500 mg PO TID 02/13/22 02/13/22 predniSONE 10 mg PO TID 02/13/22 02/13/22 Previous Rx's Medication Instructions Recorded Rosuvastatin Calcium [Crestor] 10 mg PO DAILY #30 tab 09/03/21 Allergies/Adverse Reactions: Allergies Allergy/AdvReac Type Severity Reaction Status Date / Time adhesive tape AdvReac Rash/Hives Verified 02/13/22 13:43 garlic AdvReac Rash/Hives Verified 02/13/22 13:43 Review of Systems ROS Statement: Those systems with pertinent positive or pertinent negative responses have been documented in the HPI. ROS Other: All systems not noted in ROS Statement are negative. Limitations: ROS unobtainable due to patients medical condition General Exam - General Exam Comments Initial Comments: This is a well-developed well-nourished unresponsive male initially demonstrate no seizure activity evidence a right facial asymmetry Limitations: altered mental status, physical limitation General appearance: obtunded Head exam: Present: atraumatic, normocephalic, normal inspection Eye exam: Present: normal appearance, PERRL, EOMI. Absent: scleral icterus, conjunctival injection, periorbital swelling ENT exam: Present: normal exam, mucous membranes moist Neck exam: Present: normal inspection, other (Genitourinary or bruits). Absent: tenderness Respiratory exam: Present: normal lung sounds bilaterally. Absent: respiratory distress, wheezes, rales, rhonchi, stridor Cardiovascular Exam: Present: normal rhythm, tachycardia, normal heart sounds. Absent: systolic murmur, diastolic murmur, rubs, gallop, clicks GI/Abdominal exam: Present: soft, normal bowel sounds. Absent: distended, tenderness, guarding, rebound, rigid, bruit, pulsatile mass Extremities exam: Present: other (Orthopedic appliance on the left foot no obvious deformity seen on any extremity) Back exam: Present: normal inspection Neurological exam: Present: altered, motor sensory deficit Psychiatric exam: Present: other (Unable to evaluate) Skin exam: Present: warm, dry, intact Stroke MDM - Lab Data Result diagrams: 02/13/22 11:44 02/13/22 11:44 Lab Results 02/13/22 02/13/22 02/13/22 Range/Units 11:44 11:44 11:44 WBC 11.1 H (3.8-10.6) k/uL RBC 4.56 (4.30-5.90) m/uL Hgb 14.4 (13.0-17.5) gm/dL Hct 44.2 (39.0-53.0) % MCV 96.8 (80.0-100.0) fL MCH 31.5 (25.0-35.0) pg MCHC 32.5 (31.0-37.0) g/dL RDW 13.7 (11.5-15.5) % Plt Count 210 (150-450) k/uL MPV 6.9 Neutrophils % 81 % Lymphocytes % 13 % Monocytes % 5 % Eosinophils % 1 % Basophils % 0 % Neutrophils # 8.9 H (1.3-7.7) k/uL Lymphocytes # 1.4 (1.0-4.8) k/uL Monocytes # 0.6 (0-1.0) k/uL Eosinophils # 0.1 (0-0.7) k/uL Basophils # 0.0 (0-0.2) k/uL PT 11.9 (9.0-12.0) sec INR 1.1 (<1.2) APTT 21.1 L (22.0-30.0) sec Sodium 131 L (137-145) mmol/L Potassium 3.8 (3.5-5.1) mmol/L Chloride 94 L (98-107) mmol/L Carbon Dioxide 21 L (22-30) mmol/L Anion Gap 16 mmol/L BUN 31 H (9-20) mg/dL Creatinine 0.88 (0.66-1.25) mg/dL Est GFR (CKD-EPI)AfAm >90 (>60 ml/min/1.73 sqM) Est GFR (CKD-EPI)NonAf 79 (>60 ml/min/1.73 sqM) Glucose 139 H (74-99) mg/dL POC Glucose (mg/dL) (75-99) mg/dL POC Glu Commissioning Editor ID Calcium 8.9 (8.4-10.2) mg/dL Total Bilirubin 0.8 (0.2-1.3) mg/dL AST 41 (17-59) U/L ALT 34 (4-49) U/L Alkaline Phosphatase 91 (38-126) U/L Troponin I (0.000-0.034) ng/mL Total Protein 7.5 (6.3-8.2) g/dL Albumin 4.5 (3.5-5.0) g/dL 02/13/22 02/13/22 Range/Units 11:44 11:44 WBC (3.8-10.6) k/uL RBC (4.30-5.90) m/uL Hgb (13.0-17.5) gm/dL Hct (39.0-53.0) % MCV (80.0-100.0) fL MCH (25.0-35.0) pg MCHC (31.0-37.0) g/dL RDW (11.5-15.5) % Plt Count (150-450) k/uL MPV Neutrophils % % Lymphocytes % % Monocytes % % Eosinophils % % Basophils % % Neutrophils # (1.3-7.7) k/uL Lymphocytes # (1.0-4.8) k/uL Monocytes # (0-1.0) k/uL Eosinophils # (0-0.7) k/uL Basophils # (0-0.2) k/uL PT (9.0-12.0) sec INR (<1.2) APTT (22.0-30.0) sec Sodium (137-145) mmol/L Potassium (3.5-5.1) mmol/L Chloride (98-107) mmol/L Carbon Dioxide (22-30) mmol/L Anion Gap mmol/L BUN (9-20) mg/dL Creatinine (0.66-1.25) mg/dL Est GFR (CKD-EPI)AfAm (>60 ml/min/1.73 sqM) Est GFR (CKD-EPI)NonAf (>60 ml/min/1.73 sqM) Glucose (74-99) mg/dL POC Glucose (mg/dL) 134 H (75-99) mg/dL POC Glu Commissioning Editor ID Pierre Romero Calcium (8.4-10.2) mg/dL Total Bilirubin (0.2-1.3) mg/dL AST (17-59) U/L ALT (4-49) U/L Alkaline Phosphatase (38-126) U/L Troponin I <0.012 (0.000-0.034) ng/mL Total Protein (6.3-8.2) g/dL Albumin (3.5-5.0) g/dL - NIH Stroke Scale 1a. Level of Consciousness: (2) not alert, rep stimuli 1b. LOC Questions: (2) answers no questions correctly 1c. LOC Commands: (2) performs no tasks correctly 2. Best Gaze: (1) partial gaze palsy 3. Visual: (0) no visual loss 4. Facial Palsy: (2) partial paralysis 5a. Motor Arm Left: (4) no movement 5b. Motor Arm Right: (4) no movement 6a. Motor Leg Left: (4) no movement 6b. Motor Leg Right: (4) no movement 7. Limb Ataxia: (0) absent 8. Sensory: (2) severe/total sensory loss 9. Best Language: (un) mute/global aphasia 10. Dysarthria: (un) intubated/barrier 11. Extinction/Inattention: (2) profound inattention - Thrombolytic Inclusion/Exclusion Thrombolytic Inclusion Criteria: Symptom Onset < 4.5 h, NIH Stroke Scale Deficit, Negative CT Scan for ICH, Age 18 or Older - Medical Decision Making Patient present with evidence of CVA with seizure activity additionally. I had a long discussion on multiple occasions with the patient's family the patient's family did finally agree after some time to TPA administration. Patient did get some return of of function though he still remains confused. Patient will be admitted to intensive care unit with neurological consultation by Dr. Ho. The patient has a history of noncompliance of medication he does have a history of atrial flutter is currently not on anticoagulants. - EKG Data -: EKG Interpreted by Me (Evidence of atrial flutter rate 1:15 QRS 106 QT since QTC 302/370 ) Past Medical History Past Medical History: Deep Vein Thrombosis (DVT), Hyperlipidemia, Hypertension Additional Past Medical History / Comment(s): 09-05-18 pt wants a pne vaccine while here. other hx:wound on buttocks since healed, "hands shaky at times" History of Any Multi-Drug Resistant Organisms: None Reported Past Surgical History: Appendectomy, Cardiac Valve Replacement, Heart Catheteriz ation, Joint Replacement Additional Past Surgical History / Comment(s): cardiac valve replacement x2, taryn shoulder replacement, lt hip replacement, cataracts, lt eye retinal tear-sx to repair, dental implants Past Anesthesia/Blood Transfusion Reactions: No Reported Reaction Additional Past Anesthesia/Blood Transfusion Reaction / Comment(s): past blood transfusions-no reactions Past Psychological History: No Psychological Hx Reported Smoking Status: Never smoker Past Alcohol Use History: Occasional Past Drug Use History: None Reported - Past Family History Mother Family Medical History: Dementia Father History Unknown: Yes Brother(s) Family Medical History: Cancer Additional Family Medical History / Comment(s): melanoma Course Vital Signs 02/13/22 02/13/22 02/13/22 11:42 11:57 12:12 Temperature 97.8 F Pulse Rate 107 H 111 H 114 H Respiratory 18 18 18 Rate Blood Pressure 121/94 125/90 150/106 O2 Sat by Pulse 99 99 95 Oximetry 02/13/22 02/13/22 02/13/22 12:27 12:34 12:42 Temperature Pulse Rate 104 H 90 109 H Respiratory 18 16 18 Rate Blood Pressure 147/111 147/111 127/95 O2 Sat by Pulse 98 96 97 Oximetry 02/13/22 02/13/22 02/13/22 12:57 13:12 13:27 Temperature Pulse Rate 92 92 89 Respiratory 18 18 20 Rate Blood Pressure 140/110 158/98 162/105 O2 Sat by Pulse 996 H 96 96 Oximetry 02/13/22 02/13/22 02/13/22 13:42 13:57 14:12 Temperature Pulse Rate 90 91 91 Respiratory 20 22 22 Rate Blood Pressure 150/102 162/103 167/107 O2 Sat by Pulse 96 96 96 Oximetry 02/13/22 02/13/22 14:27 14:42 Temperature Pulse Rate 96 96 Respiratory 20 20 Rate Blood Pressure 161/104 147/107 O2 Sat by Pulse 96 96 Oximetry - Reevaluation(s) Reevaluation #1: 02/13/22 15:09 The patient was a code alteplase. Patient did have a CAT scan with and without contrast. Dr. Harding fellow was contacted. Based on findings the patient would be a candidate for alteplase if the CT was negative which it was. Reevaluation #2: 02/13/22 15:09 I did a long discussion with the patient's family has and son. There is delay and decision-making with multiple discussions with both parties. They did ultimately decide to have tPA administered. He was still within the window of 4-1/2 hours with the last known well time being approximately 11 to 11:15 AM. Critical Care Time Critical Care Time: Yes Total Critical Care Time: 49 Critical Care Time: Critical care time including initial presentation with history physical labs x- rays and other imaging studies multiple evaluations the patient review old charting was available discussed with multiple physicians including the admitting physician Dr. Berrios as well as Dr. Morales and Dr. Dave. Dr. Ho as he contacted also. Disposition Clinical Impression: Cerebrovascular accident (CVA), Seizure, Atrial flutter, Noncompliance Disposition: ADMITTED IP TO THIS [facility] Condition: Serious Referrals: Campos Girard MD [Primary Care Provider] - 1-2 days Decision Date: 02/13/22 Decision Time: 14:00
[2022-02-13] MEDS ORDERED: MORPHINE SULFATE 4 MG/ML SYRINGE IVP PRN (15:38)
--- NOTE | 2022-02-13 16:53 | XR ---
EXAMINATION TYPE: XR chest 2V DATE OF EXAM: 02/13/2022 4:36 PM COMPARISON: Chest radiographs from 04/12/2021 TECHNIQUE: XR chest 2V Frontal and lateral views of the chest. CLINICAL INDICATION:Male, 82 years old with history of altered mental status; FINDINGS: Lungs/Pleura: There is no evidence of pleural effusion, focal consolidation, or pneumothorax. Pulmonary vascularity: Pulmonary vascular congestion. Heart/mediastinum: Cardiomediastinal silhouette is enlarged and stable. Aortic valve replaced in finley ges are present. Musculoskeletal: No acute osseous pathology. Sternotomy wires are present. Partial visualization of r ight shoulder arthroplasty. IMPRESSION: Cardiomegaly and mild pulmonary vascular congestion. Correlate with BNP for congestive heart failure.
[2022-02-13 17:05] LABS: Glucose,Whole Blood 112 mg/dL (75-99)
[2022-02-13] MEDS ORDERED: ACETAMINOPHEN IV (For NPO) 1,000 MG in EMPTY BAG 1 BAG IVPB STA (18:17)
[2022-02-13] MEDS ORDERED: ONDANSETRON 4 MG/2 ML VIAL IVP PRN (19:10)
[2022-02-13] MEDS ORDERED: NALOXONE 0.4 MG/ML 1 ML VIAL IV PRN (19:10)
[2022-02-13] MEDS ORDERED: LABETALOL 5 MG/ML VIAL MDV IVP PRN (19:10)
--- NOTE | 2022-02-13 19:10 | P.HPIM ---
History of Present Illness H&P Date: 02/13/22 Chief Complaint: Decreased responsiveness Patient is an 82 yo male with hx of CVA, Seizures, HTN, and HLD who presented to the ED after a sizure and was noted to have lateral gaze preference and weakness. Stroke network was activated and patient was determined to be a TPA ca ndidate. CT head showed no acute intracranial hemorrhage or midline shift. It did show chronic small vessel ischemic changes. 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 He was slightly tachycardic on arrival. Initial laboratory analysis showed an elevated white blood cell count of 11, sodium 131, BUN 31, carbon dioxide 21. EKG demonstrated a regular rhythm at 115 appears to be consistent with possible atrial tachycardia. He was also loaded with Keppra in the ER. He was admitted to the ICU for further monitoring. He was noted to have A fib with controlled ventricular response on tele in the ICU. Patient seen and examined at bedside. He is not responding to questioning. All information is gathered from family. Per patient was attempting to place boot on recent surgery site on left foot and stood back up. He was confused and not responding and staring into space. She lead him to a chair and he then developed tonic/clonic movements. This resolved and then recurred at home. On EMS arrival he was seiziin in chair with right sided facial droop and right larios gaze. He again had another seizure during transport to the hospital and then another in the emergency department. He had a similar episode in March 2021. It when he was here was difficult to ascertain whether he was continuing to have seizures due to his severe agitation. Patient ultimately required transfer to [place]. and son state that he had a continuous EEG and an MRI there area and they're unsure if he was diagnosed with a stroke at that time or just seizures. They report that he was discharged home on medications they're unsure what. He did follow with the neurologist and the believes he was supposed to be on seizure medications however he did not take these. He had an episode similar to this in June which abated after several minutes and he did not seek medical attention at that time. He follows with Dr. Garcia for cardiology. The pros reports no history of A. fib but he has had valve replacements. She also states that he does not typically follow cardiology's or physician's recommendation. He did have surgery on his right foot to fix a great toe deformity about 2 weeks ago. She states he was not supposed to be walking on it without a boot however he has been. 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 She is unsure of a history of congestive heart failure but states he did need to valve replacement. Past medical history confirmed with . Unable to obtain ROS due to altered mentation. General: non toxic, no distress, appears at stated age Derm: warm, dry Head: atraumatic, normocephalic, symmetric Eyes: EOMI, no lid lag, anicteric sclera, pupils equal round reactive to light ENT: Nose and ears atraumatic, no thrush, no pharyngeal erythema Neck: No thyromegaly, no cervical lymphadenopathy, trachea midline, supple Mouth: no lip lesion, mucus membranes moist Cardiovascular: S1S2 reg, no murmur, positive posterior tibial pulse bilateral, no edema, capillary refill less than 2 seconds Lungs: clear to ascultation bilateral, no ronchi, no rales, no wheeze, no accessory muscle use Abdominal: soft, nontender to palpation, no guarding, no appreciable organomegaly, normal bowel sounds Ext: no gross muscle atrophy, muscle strength muscle strength 5 out of 5 in all 4 extremities, no contractures Neuro: PERRL, Moving upper and lower extrmities independently against gravity but will not follow commands for formal testing, + withdrawal to pain in all 4 extremities, not phonating Psych: awake agitated and moving all over bed. Assessment/plan: Status epilepticus Right-sided flaccid paralysis, improving -Status post TPA for possible CVA -Loaded with Keppra -Neuro recommendations -Seizure precautions -EEG -MRI in a.m. if able -PT/OT/speech evaluation -Start aspirin and DVT prophylaxis in a.m. - Echo - Obtain records from [facility] Atrial fibrillation -Appears to be new onset -[facility] -If confirmations me that this is new onset patient will need cardiology consultation. -Obtain echocardiogram -We'll need to start anticoagulation when patient is appropriate after TPA Valvular disease status post valve replacement Hypertension Dyslipidemia The patient is admitted with an anticipated greater than 2 midnight stay for evaluation of acute CVA. Surrogate decision-maker: CODE STATUS: DNR DVT prophylaxis: SCDs Discussed with: Nursing, Dr. Garcia, and family Anticipated discharge date: undetermined Anticipated discharge place: undetermined A total of 65 minutes was spent on the care of this complex patient more than 50% of the time was spent in counseling and care coordination. Past Medical History Past Medical History: Deep Vein Thrombosis (DVT), Hyperlipidemia, Hypertension, Seizure Disorder Additional Past Medical History / Comment(s): hx:wound on buttocks since healed History of Any Multi-Drug Resistant Organisms: None Reported Past Surgical History: Appendectomy, Cardiac Valve Replacement, Heart C atheterization, Joint Replacement Additional Past Surgical History / Comment(s): cardiac valve replacement x2 bioprosthetic, taryn shoulder replacement, lt hip replacement, cataracts, lt eye retinal tear-sx to repair, dental implants, right toe surgeyr Past Anesthesia/Blood Transfusion Reactions: No Reported Reaction Additional Past Anesthesia/Blood Transfusion Reaction / Comment(s): past blood transfusions-no reactions Past Psychological History: No Psychological Hx Reported Smoking Status: Never smoker Past Alcohol Use History: Occasional Past Drug Use History: None Reported Additional History: uses a cane since surgery - Past Family History Mother Family Medical History: Dementia Father History Unknown: Yes Brother(s) Family Medical History: Cancer Additional Family Medical History / Comment(s): melanoma Medications and Allergies Home Medications Medication Instructions Recorded Confirmed Type Metoprolol Succinate [Toprol XL] 25 mg PO DAILY 09/24/15 02/13/22 History lisinopriL [Zestril] 20 mg PO DAILY 09/24/15 02/13/22 History Rosuvastatin Calcium [Crestor] 10 mg PO DAILY #30 tab 09/03/21 02/13/22 Rx Acetaminophen [Tylenol Extra 1,000 mg PO BID 02/13/22 02/13/22 History Strength] Cephalexin [Keflex] 500 mg PO TID 02/13/22 02/13/22 History predniSONE 10 mg PO TID 02/13/22 02/13/22 History Allergies Allergy/AdvReac Type Severity Reaction Status Date / Time adhesive tape AdvReac Rash/Hives Verified 02/13/22 13:43 garlic AdvReac Rash/Hives Verified 02/13/22 13:43 hydrocodone AdvReac Rash/Hives Verified 02/13/22 15:39 Physical Exam Osteopathic Statement: *. No significant issues noted on an osteopathic structural exam other than those noted in the History and Physical/Consult. Vitals: Vital Signs Temp Pulse Resp BP Pulse Ox 02/13/22 16:29 97.8 F 95 20 146/102 96 02/13/22 16:12 95 20 146/102 96 02/13/22 15:42 95 20 144/107 96 02/13/22 15:12 96 20 146/107 96 02/13/22 14:42 96 20 147/107 96 02/13/22 14:27 96 20 161/104 96 02/13/22 14:12 91 22 167/107 96 02/13/22 13:57 91 22 162/103 96 02/13/22 13:42 90 20 150/102 96 02/13/22 13:27 89 20 162/105 96 02/13/22 13:12 92 18 158/98 96 02/13/22 12:57 92 18 140/110 996 H 02/13/22 12:42 109 H 18 127/95 97 02/13/22 12:34 90 16 147/111 96 02/13/22 12:27 104 H 18 147/111 98 02/13/22 12:12 114 H 18 150/106 95 02/13/22 11:57 111 H 18 125/90 99 02/13/22 11:42 97.8 F 107 H 18 121/94 99 Intake and Output 02/13/22 02/13/22 02/13/22 06:59 14:59 22:59 Other: Weight 71.6 kg Results CBC & Chem 7: 02/13/22 11:44 02/13/22 11:44 Labs: Abnormal Lab Results - Last 24 Hours (Table) 02/13/22 02/13/22 02/13/22 Range/Units 11:44 11:44 11:44 WBC 11.1 H (3.8-10.6) k/uL Neutrophils # 8.9 H (1.3-7.7) k/uL APTT 21.1 L (22.0-30.0) sec Sodium 131 L (137-145) mmol/L Chloride 94 L (98-107) mmol/L Carbon Dioxide 21 L (22-30) mmol/L BUN 31 H (9-20) mg/dL Glucose 139 H (74-99) mg/dL POC Glucose (mg/dL) (75-99) mg/dL 02/13/22 02/13/22 Range/Units 11:44 17:03 WBC (3.8-10.6) k/uL Neutrophils # (1.3-7.7) k/uL APTT (22.0-30.0) sec Sodium (137-145) mmol/L Chloride (98-107) mmol/L Carbon Dioxide (22-30) mmol/L BUN (9-20) mg/dL Glucose (74-99) mg/dL POC Glucose (mg/dL) 134 H 112 H (75-99) mg/dL
[2022-02-13] MEDS ORDERED: diphenhydrAMINE 50 MG/ML 1 ML VIAL IVP PRN (19:21)
[2022-02-13] MEDS: ATORVASTATIN 80 MG TAB PO SCH (20:37)
[2022-02-13] MEDS: FAMOTIDINE 20 MG/2 ML VIAL IV SCH (20:37)
[2022-02-13] MEDS: levETIRAcetam IV 1,000 MG in SALINE 1 100ML.BAG IVPB SCH (20:37)
[2022-02-13 21:34] LABS: Amphetamine Screen,Urine Not Detected (NotDetected); Barbiturate Screen,Urine Not Detected (NotDetected); Benzodiazepines Screen,Urine Not Detected (NotDetected); Cocaine Screen,Urine Not Detected (NotDetected); Methadone Screen, Urine Not Detected (NotDetected); Opiate Screen,Urine Detected (NotDetected); Oxycodone Screen, Urine Not Detected (NotDetected); Phencyclidine Screen,Urine Not Detected (NotDetected); Tricyclic Antidepressant,Urine Not Detected (NotDetected); Urn Cannabinoid Scrn Not Detected (NotDetected)
[2022-02-13 22:17] LABS: Glucose,Whole Blood 93 mg/dL (75-99)
--- NOTE | 2022-02-14 00:06 | P.CNNES ---
History of Present Illness Consult date: 02/13/22 Requesting physician: Marck Mcneil Reason for Consult: CVA, seizure, status post TPA History of Present Illness: Patient is a 82-year-old male came to the hospital by ambulance at 11:42 AM. As per EMS flow sheet, when they arrived, patient was actively seizing in the chair with pronounced right-sided facial droop. Patient's left arm was flaccid with rigidity right side and rightward gaze. Per patient's , patient was having a good morning when he started seizing. 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 Patient has not had any seizures since having the stroke. EKG did reveal atrial flutter with rapid ventricular rate. Oxygen saturation was 95% on room air. Blood glucose was 156. Patient was given 2.5 mg Versed via IV push and seizures stopped. Patient remained nonverbal with moaning to painful stimuli. While en-route patient started to have another seizure, was given additional 2.5 mg Versed via IVP which stopped the seizure. Patient was placed on oxygen at 15 liter per minute. Patient's blood pressure was 145/95 pulse rate 114, respiration 16 saturation 95%. Blood glucose 156. Per patient's description, patient was attempting to place boot on recent surgery site on the left foot and he stood back up. He was confused and not responding and staring into space. She led him into the chair and he then developed tonic-clonic seizure. On EMS arrival, he was seizing in the chair with right-sided facial droop and right gaze deviation. He had another seizure during transport as mentioned above. Vital signs on arrival blood pressure 121/94 pulse rate 107 temperature 97.8. Blood tests with WBC 11.1 hemoglobin 14.4, platelets 210. PT/PTT normal, sodium 131 potassium 3.8, normal renal functions. Hepatic panel is normal troponin negative. CT head showed no acute intracranial hemorrhage or midline shift. There is mild to moderate diffuse cerebral atrophy and chronic small vessel ischemic change redemonstrated. No significant change from recent CT. I personally reviewed CT of the head and agree with the findings. EKG shows atrial flutter/tachycardia with rapid 20 to her response. Chest x-ray revealed cardiomegaly and mild pulmonary vascular congestion. Patient's last hemoglobin A1c 5.2 on 04/13/2021. Lipid panel with LDL 62.6. Patient's home medications include Crestor 10 mg, prednisone 10 mg 3 times a day, lisinopril 20 mg and metoprolol 25 mg. Patient does not take any antiplatelet medication or seizure medication. Patient's family has mentioned that patient had a seizure versus stroke on 04/12/2021. He received TPA at that time as well. Patient was diagnosed with new onset atrial fibrillation at that time. He was transferred to [facility] for continuous EEG monitoring. Patient had an MRI performed in that [facility]. Family does not remember if the MRI showed positive for stroke. Patient was subsequently followed up with Dr. Humphreys, who recommended a seizure medication, but patient apparently did not continue the seizure medication. He had 1 further episode on 07/23/2021, when he was sitting and started moaning, gurgling and shortly after came out of it. He did not seek medical attention for that. Review of Systems ROS unobtainable: due to mental status Past Medical History Past Medical History: Deep Vein Thrombosis (DVT), Hyperlipidemia, Hypertension Additional Past Medical History / Comment(s): 09-05-18 pt wants a pne vaccine while here. other hx:wound on buttocks since healed, "hands shaky at times" History of Any Multi-Drug Resistant Organisms: None Reported Past Surgical History: Appendectomy, Cardiac Valve Replacement, Heart Ca theterization, Joint Replacement Additional Past Surgical History / Comment(s): cardiac valve replacement x2, taryn shoulder replacement, lt hip replacement, cataracts, lt eye retinal tear-sx to repair, dental implants Past Anesthesia/Blood Transfusion Reactions: No Reported Reaction Additional Past Anesthesia/Blood Transfusion Reaction / Comment(s): past blood transfusions-no reactions Past Psychological History: No Psychological Hx Reported Smoking Status: Never smoker Past Alcohol Use History: Occasional Past Drug Use History: None Reported - Past Family History Mother Family Medical History: Dementia Father History Unknown: Yes Brother(s) Family Medical History: Cancer Additional Family Medical History / Comment(s): melanoma Medications and Allergies Home Medications Medication Instructions Recorded Confirmed Type Metoprolol Succinate [Toprol XL] 25 mg PO DAILY 09/24/15 02/13/22 History lisinopriL [Zestril] 20 mg PO DAILY 09/24/15 02/13/22 History Rosuvastatin Calcium [Crestor] 10 mg PO DAILY #30 tab 09/03/21 02/13/22 Rx Acetaminophen [Tylenol Extra 1,000 mg PO BID 02/13/22 02/13/22 History Strength] Cephalexin [Keflex] 500 mg PO TID 02/13/22 02/13/22 History predniSONE 10 mg PO TID 02/13/22 02/13/22 History Allergies Allergy/AdvReac Type Severity Reaction Status Date / Time adhesive tape AdvReac Rash/Hives Verified 02/13/22 13:43 garlic AdvReac Rash/Hives Verified 02/13/22 13:43 hydrocodone AdvReac Rash/Hives Verified 02/13/22 15:39 lorazepam [From Ativan] AdvReac Hallucinati Verified 02/13/22 20:09 ons Physical Examination - Vital Signs Vital Signs: Vital Signs Temp Pulse Resp BP Pulse Ox 02/13/22 17:20 65 19 96 02/13/22 17:10 98.3 F 62 18 147/92 96 02/13/22 17:01 76 18 02/13/22 16:29 97.8 F 95 20 146/102 96 02/13/22 16:12 95 20 146/102 96 02/13/22 15:42 95 20 144/107 96 02/13/22 15:12 96 20 146/107 96 02/13/22 14:42 96 20 147/107 96 02/13/22 14:27 96 20 161/104 96 02/13/22 14:12 91 22 167/107 96 02/13/22 13:57 91 22 162/103 96 02/13/22 13:42 90 20 150/102 96 02/13/22 13:27 89 20 162/105 96 02/13/22 13:12 92 18 158/98 96 02/13/22 12:57 92 18 140/110 996 H 02/13/22 12:42 109 H 18 127/95 97 02/13/22 12:34 90 16 147/111 96 02/13/22 12:27 104 H 18 147/111 98 02/13/22 12:12 114 H 18 150/106 95 02/13/22 11:57 111 H 18 125/90 99 02/13/22 11:42 97.8 F 107 H 18 121/94 99 Intake and Output 05/22/22 05/22/22 05/22/22 06:59 14:59 22:59 Other: # Voids 2 Weight 71.6 kg Patient is an elderly male, who is laying in the bed, appears quite restless, aphasic. Patient is awake, restless, and does make eye contact at times, but does not follow directions. Patient is aphasic/mute. Attention, concentration is impaired and fund of knowledge cannot be assessed. On cranial examination, pupils are equal, round and reacting to light, visual casanova cannot be tested, extraocular muscles appears intact. He did not cooperate with the testing, only on random eye movements. Face is symmetric, lower cranial nerves cannot be tested due to mental status. On muscle strength testing, there is no pronator drift. Patient was not co operating with examination. He did hold the arms in the air for few seconds and slowly bring it down. No flaccidity on one side. At times it appears that patient was moving less than the right side, but on repeated testing, appeared equal. Likewise in the lower limbs, he appeared to move right leg slightly less, but when both legs were held in the air, he kept them up equally. Deep tendon reflexes are diminished and plantars are downgoing. Sensory examination couldn't be performed. Cerebellar function and gait cannot be assessed. Tone and bulk of muscles normal. On general examination, there is no carotid bruit or murmur, S1-S2 audible. Abdomen is soft nontender. no organomegaly, bowel sounds present. Chest is clear to auscultation . Peripheral pulses are present. No edema. No obvious seizure activity noted. Results - Laboratory Findings CBC and BMP: 02/13/22 11:44 02/13/22 11:44 Abnormal Lab Findings: Abnormal Labs 02/13/22 02/13/22 02/13/22 11:44 11:44 11:44 WBC 11.1 H Neutrophils # 8.9 H APTT 21.1 L Sodium 131 L Chloride 94 L Carbon Dioxide 21 L BUN 31 H Glucose 139 H POC Glucose (mg/dL) 02/13/22 02/13/22 11:44 17:03 WBC Neutrophils # APTT Sodium Chloride Carbon Dioxide BUN Glucose POC Glucose (mg/dL) 134 H 112 H Assessment and Plan Assessment: * Status epilepticus, resolved. Patient now with aphasia, perhaps postictal effect. Rule out CVA due to atrial fibrillation. Patient was not on anticoagulation. Patient is status post TPA. * History of similar presentation on 04/12/2021. Patient had no residual deficits. * Paroxysmal Atrial fibrillation. Patient had atrial fibrillation also confirmed with the previous admission 04/12/2021. * Seizure disorder, currently not on seizure medication due to medication nonc ompliance. * Hyperlipidemia * Hypertension * History of cardiac valve replacement Plan: * Patient has received TPA. Need to follow-up post-TPA order set. * Patient has clear seizure witnessed by family, as well as paramedics. Patient was not taking antiepileptic medication despite recommendation by the neurologist in the past. Patient will be continued on Keppra 1000 mg IV twice a day. * Consider MRI brain, if patient cooperates to evaluate for CVA * Obtain records from hospitalization at [facility]. * 2-D echo to evaluate for embolic source. 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 No significant plaque. No significant stenosis in the remainder of the common or internal carotid arteri es. Significant narrowings of the nondominant right vertebral artery are normal present. Significant stenosis of the P1 segment on current study. 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 * No antiplatelets or anticoagulants for 24 hour post-TPA. * Stat EEG in the morning. * Repeat CT head 24 hours post-TPA rule out hemorrhage. * Lipid panel, hemoglobin A1c * Consider Cardiology consultation for atrial fibrillation. * Discussed with family and primary physician in detail. * For DVT prophylaxis, suggest SCDs. * Continue Pepcid 20 mg IV every 12 hours for gastric ulcer prophylaxis. * Dr. Brian Antonio Will resume neurology service the morning. Thank you for the consult. Time with Patient: Greater than 30
[2022-02-14 02:28] LABS: Glucose,Whole Blood 76 mg/dL (75-99)
[2022-02-14 05:01] LABS: HCT 45.2 % (39.0-53.0); HGB 14.3 gm/dL (13.0-17.5); MCH 30.9 pg (25.0-35.0); MCHC 31.7 g/dL (31.0-37.0); MCV 97.5 fL (80.0-100.0); Mean Platelet Volume 7.3; Platelet Count 162 k/uL (150-450); RBC 4.63 m/uL (4.30-5.90); RDW 13.1 % (11.5-15.5)
[2022-02-14 07:24] LABS: Magnesium 2.2 mg/dL (1.6-2.3); Phosphorus 3.9 mg/dL (2.5-4.5)
--- NOTE | 2022-02-14 08:46 | P.CNPUL ---
History of Present Illness Consult date: 02/13/22 History of present illness: Patient is an 82 yo male with hx of CVA, Seizures, HTN, and HLD who presented to the ED after a seizure and was noted to have lateral gaze preference and weakness. Per patient was attempting to place boot on recent surgery site on left foot. He did have surgery on his right foot to fix a great toe deformity about 2 weeks ago He was confused and not responding and staring. She lead him to a chair and he then developed tonic/clonic movements. This resolved and then recurred. On EMS arrival he was seizing in chair with right sided facial droop and right larios gaze. He again had another seizure during transport to the hospital and then another in the emergency department. Stroke network was activated and patient was determined to be a TPA candidate. He was given TPA for an NIH score of 34 , completed [address] head showed no acute intracranial hemorrhage or midline shift. It did show chronic small vessel ischemic changes. 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 He was also loaded with Keppra in the ER. He was admitted to the ICU for further monitoring. He was noted to have A fib with controlled ventricular response on telemetry in the ICU. He had a similar episode in March 2021 and he was evaluated at [facility]. and son state that he had a continuous EEG and an MRI and they're unsure if he was diagnosed with a stroke at that time or just seizures. They report that he was discharged home on medications they're unsure what. He did follow with the neurologist and the believes he was supposed to be on seizure medications however he did not take these. He had an episode similar to this in June which abated after several minutes and he did not seek medical attention at that time. He follows with Dr. Garcia for cardiology. This morning, the patient is awake. He has expressive aphasia. He remains hard to communicate with. As such, no information can be obtained from this patient. He will occasionally gets agitated, shouts randomly and he is requiring a sitter at all times. He is unable to fully communicate. Have some right-sided weakness. Nevertheless, no seizure activity has been noted overnight. The patient is hemodynamically stable. His cardiac rhythm is atrial fibrillation. A swallow evaluation is to be done this morning. He is currently on oxygen at 4 L per minute nasal cannula. Neurologist on the case. EEG has been done . Review of Systems ROS unobtainable: due to mental status Past Medical History Past Medical History: Deep Vein Thrombosis (DVT), Hyperlipidemia, Hypertension, Seizure Disorder Additional Past Medical History / Comment(s): hx:wound on buttocks since healed, severe OA, history of valvular heart disease and the patient has AVR (bioprosthetic valve and mitral valve repair and preserved LV with severe concentric LVH and secondary pulmonary hypertension. History of Any Multi-Drug Resistant Organisms: None Reported Past Surgical History: Appendectomy, Cardiac Valve Replacement, Heart Catheterization, Joint Replacement Additional Past Surgical History / Comment(s): cardiac valve replacement x2 bioprosthetic, taryn shoulder replacement, lt hip replacement, cataracts, lt eye retinal tear-sx to repair, dental implants, right toe surgeyr Past Anesthesia/Blood Transfusion Reactions: No Reported Reaction Additional Past Anesthesia/Blood Transfusion Reaction / Comment(s): past blood transfusions-no reactions Past Psychological History: No Psychological Hx Reported Additional Psychological History / Comment(s): lives with spouse alex Smoking Status: Never smoker Past Alcohol Use History: Occasional Additional Past Alcohol Use History / Comment(s): started smoking at age 11(1953) and quit 1985 smoked 1 ppd Past Drug Use History: None Reported - Past Family History Mother Family Medical History: Dementia Father History Unknown: Yes Brother(s) Family Medical History: Cancer Additional Family Medical History / Comment(s): melanoma Medications and Allergies Home Medications Medication Instructions Recorded Confirmed Type Metoprolol Succinate [Toprol XL] 25 mg PO DAILY 09/24/15 02/13/22 History lisinopriL [Zestril] 20 mg PO DAILY 09/24/15 02/13/22 History Rosuvastatin Calcium [Crestor] 10 mg PO DAILY #30 tab 09/03/21 02/13/22 Rx Acetaminophen [Tylenol Extra 1,000 mg PO BID 02/13/22 02/13/22 History Strength] Cephalexin [Keflex] 500 mg PO TID 02/13/22 02/13/22 History predniSONE 10 mg PO TID 02/13/22 02/13/22 History Allergies Allergy/AdvReac Type Severity Reaction Status Date / Time adhesive tape AdvReac Rash/Hives Verified 02/13/22 13:43 garlic AdvReac Rash/Hives Verified 02/13/22 13:43 hydrocodone AdvReac Rash/Hives Verified 02/13/22 15:39 lorazepam [From Ativan] AdvReac Hallucinati Verified 02/13/22 20:09 ons Physical Exam Vitals: Vital Signs Temp Pulse Resp BP Pulse Ox 02/13/22 19:00 96 12 153/72 99 02/13/22 18:50 62 12 153/72 99 02/13/22 18:45 20 02/13/22 18:40 96 16 153/72 98 02/13/22 18:30 94 18 152/119 96 02/13/22 18:20 90 93 L 02/13/22 18:10 96 20 152/119 02/13/22 18:00 105 H 14 02/13/22 17:50 61 19 96 02/13/22 17:40 76 18 126/86 96 02/13/22 17:30 63 18 147/92 96 02/13/22 17:20 65 19 96 02/13/22 17:10 98.3 F 62 18 147/92 96 02/13/22 17:01 76 18 02/13/22 16:29 97.8 F 95 20 146/102 96 02/13/22 16:12 95 20 146/102 96 02/13/22 15:42 95 20 144/107 96 02/13/22 15:12 96 20 146/107 96 02/13/22 14:42 96 20 147/107 96 02/13/22 14:27 96 20 161/104 96 02/13/22 14:12 91 22 167/107 96 02/13/22 13:57 91 22 162/103 96 02/13/22 13:42 90 20 150/102 96 02/13/22 13:27 89 20 162/105 96 02/13/22 13:12 92 18 158/98 96 02/13/22 12:57 92 18 140/110 996 H 02/13/22 12:42 109 H 18 127/95 97 02/13/22 12:34 90 16 147/111 96 02/13/22 12:27 104 H 18 147/111 98 02/13/22 12:12 114 H 18 150/106 95 02/13/22 11:57 111 H 18 125/90 99 02/13/22 11:42 97.8 F 107 H 18 121/94 99 Intake and Output 02/13/22 02/13/22 02/13/22 06:59 14:59 22:59 Output Total 0 Balance 0 Output: Urine 0 Other: Voiding Method Incontinent External Catheter # Voids 0 Weight 71.6 kg 71.6 kg General: non toxic, no distress, the patient keeps on saying that he doesn't know. He is unable to ambulate conversation. He is unable to answer questions appropriately. He is currently on oxygen at 4 L per minute nasal cannula. Derm: warm, dry Head: atraumatic, normocephalic, symmetric Eyes: EOMI, no lid lag, anicteric sclera, pupils equal round reactive to light ENT: Nose and ears atraumatic, no thrush, no pharyngeal erythema Neck: No thyromegaly, no cervical lymphadenopathy, trachea midline, supple Mouth: no lip lesion, mucus membranes moist Cardiovascular: S1S2 reg, no murmur, positive posterior tibial pulse bilateral, no edema, capillary refill less than 2 seconds Lungs: clear to ascultation bilateral, no ronchi, no rales, no wheeze, no accessory muscle use Abdominal: soft, nontender to palpation, no guarding, no appreciable organomegaly, normal bowel sounds Ext: no gross muscle atrophy, muscle strength muscle strength 5 out of 5 in all 4 extremities, no contractures Neuro: PERRL, Moving upper and lower extrmities independently against gravity does have some weakness in the right side especially in the right upper extremity. No seizure activity has been noted. No facial asymmetry. Speech is consistent with expressive aphasia. The patient also has receptive aphasia. Pupils are equal and reactive to light. No facial asymmetry. Tongue is in midline. Results - Laboratory Findings CBC and BMP: 02/14/22 03:45 02/13/22 11:44 PT/INR, D-dimer PT 11.9 sec (9.0-12.0) 02/13/22 11:44 INR 1.1 (<1.2) 02/13/22 11:44 Abnormal lab findings: Abnormal Labs 02/13/22 02/13/22 02/13/22 11:44 11:44 11:44 WBC 11.1 H Neutrophils # 8.9 H APTT 21.1 L Sodium 131 L Chloride 94 L Carbon Dioxide 21 L BUN 31 H Glucose 139 H POC Glucose (mg/dL) 02/13/22 02/13/22 11:44 17:03 WBC Neutrophils # APTT Sodium Chloride Carbon Dioxide BUN Glucose POC Glucose (mg/dL) 134 H 112 H - Diagnostic Findings Chest x-ray: image reviewed Assessment and Plan Plan: Status epilepticus, known history of previous seizure and the patient is stable on Keppra, no seizure activity over the past 24 hours and the patient had an EEG this morning. Acute CVA, likely embolic. The patient presented to us with Right-sided flaccid paralysis, post TPA and the patient had an initial NIH score of 34 and the current score is down to 7, improving, and on today's evaluation, it's hard to assess the patient's motor function. Nevertheless, the motor function on the right is improved although still weak compared to the left. Follow-up CAT scan of the brain is pending. The patient continues to be in atrial fibrillation. 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 No significant plaque. No significant stenosis and the remainder of the common or internal carotid arteries. 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 The left vertebral arteries were patent. paroxysmal atrial fibrillation current rhythm is atrial fibrillation with a controlled rate Aortic valve replacement and mitral valve repair , secondary pulmonary hypertension Hypertension Hyperlipidemia Severe OA Left foot surgery, surgical wound site is dry clean and intact. plan Neuro checks in the MICU Repeat CT of the brain 24 hours post TPA, a repeat CAT scan of the brain will be done at around 3 PM today. Motor function on the right that is improving although it still be compared to the left MRI of the brain Continue with Keppra 1 gram BID Seizure precautions EEG results are still pending PT/OT/speech evaluation/swallow evaluation was completed today and the patient was able to swallow appropriately Echo this am Neurology consult Start the patient on aspirin within 24 hours of the TPA. The need for anticoagulation will be kept up to neurology as the patient has chronic atrial fibrillation. We'll start the patient on oral statins. DC Benadryl. Restart the patient on metoprolol at a dose of 25 mg by mouth XL 1 tablet a day. We will also investigate the reason why the patient was on prednisone on outpatient basis. If needed, we'll restart the prednisone. Keep the patient intensive care unit for today.
[2022-02-14] MEDS: levETIRAcetam IV 1,000 MG in SALINE 1 100ML.BAG IVPB SCH ×2 (09:07→20:02)
[2022-02-14] MEDS: FAMOTIDINE 20 MG/2 ML VIAL IV SCH ×2 (09:07→20:02)
[2022-02-14 09:24] LABS: Glucose,Whole Blood 44 mg/dL (75-99)
[2022-02-14 09:26] LABS: Glucose,Whole Blood 38 mg/dL (75-99)
[2022-02-14] MEDS ORDERED: DEXTROSE 50% SYRINGE 50 ML IVP STA (09:30)
[2022-02-14 09:33] LABS: Estimated Average Glucose UNC
[2022-02-14 09:57] LABS: Glucose,Whole Blood 112 mg/dL (75-99)
[2022-02-14] MEDS: METOPROLOL SUCCINATE (ER) 25 MG TAB.ER.24H PO SCH (09:58)
[2022-02-14 10:37] LABS: ALT 28 U/L (4-49); AST 33 U/L (17-59); African American GFR (CKD) >90 (>60 ml/min/1.73 sqM); Alkaline Phosphatase 72 U/L (38-126); Anion Gap 9 mmol/L; Blood Urea Nitrogen 19 mg/dL (9-20); Calcium 9.1 mg/dL (8.4-10.2); Carbon Dioxide 28 mmol/L (22-30); Chloride 96 mmol/L (98-107); Glucose 167 mg/dL (74-99); Non-African American GFR(CKD) >90 (>60 ml/min/1.73 sqM); Potassium 3.7 mmol/L (3.5-5.1); Sodium 133 mmol/L (137-145); Total Bilirubin 0.9 mg/dL (0.2-1.3); Total Protein 6.7 g/dL (6.3-8.2)
[2022-02-14] MEDS ORDERED: ONDANSETRON 4 MG/2 ML VIAL IVP PRN (11:12)
[2022-02-14] MEDS ORDERED: bisacodyL 5 MG TABLET.DR PO PRN (11:12)
[2022-02-14 11:40] LABS: Glucose,Whole Blood 73 mg/dL (75-99)
[2022-02-14] MEDS ORDERED: POTASSIUM CHLORIDE 10 MEQ in WATER FOR INJECTION 1 100ML.BAG IVPB STA (11:58)
--- NOTE | 2022-02-14 12:00 | P.PN ---
Subjective Progress Note Date: 02/14/22 I am seeing the patient for the first time during this admission. Per Dr. Ho it was felt patient was in status epilepticus that resuloved with aphasia and possibly due to post-ictal state. To rule out CVA due to atrial fibrillation. Patient received IV tpa yesterday. Please refer to Dr. Ho's note for further details. Per the nurse the patient continues to be aphasic. No clinical seizure witn essed. Objective - Vital Signs Vital signs: Vital Signs Temp 97.8 F 02/14/22 08:00 Pulse 71 02/14/22 09:00 Resp 24 02/14/22 09:00 BP 154/94 02/14/22 09:00 Pulse Ox 96 02/14/22 06:00 FiO2 Intake & Output 02/13/22 02/14/22 02/14/22 18:59 06:59 18:59 Intake Total 100 100 Output Total 2450 Balance -2350 100 Weight 71.6 kg Intake: IV 100 100 levETIRAcetam IV 1,000 mg 100 100 In Saline 1 100ml.bag @ 400 mls/hr IVPB ONCE STA Rx#:[id number] Output: Urine 2450 Other: Voiding Method Incontinent Incontinent Incontinent External Catheter External Catheter External Catheter # Voids 2 0 0 - Exam GENERAL: The patient is lying in bed and does not seem in acute distress. NEUROLOGICAL: Limited. Higher mental function: The patient is awake, alert. Is aphasic and seems global aphasia. All he tells me is "I have not seen you before" and repeats that phrase. Is not following commands. Cranial nerves: The pupils are round, equal and reactive to light. Has sleft nasolabial flattening (unsure if acute or chronic). No dysarthria. Otherwise rest could not be assess. Motor: The strength is hard to assess because of his condition. He spontaneously lifts bilateral uppers above gravity and no focality noted. While lowers he would cross his feet. Normal tone and bulk. Cerebellum: Unable to assess. Sensation: Unable to assess sensation. - Labs CBC & Chem 7: 02/14/22 03:45 02/14/22 10:03 Labs: Abnormal Lab Results - Last 24 Hours (Table) 02/13/22 02/13/22 02/13/22 Range/Units 11:44 11:44 11:44 WBC 11.1 H (3.8-10.6) k/uL Neutrophils # 8.9 H (1.3-7.7) k/uL APTT 21.1 L (22.0-30.0) sec Sodium 131 L (137-145) mmol/L Chloride 94 L (98-107) mmol/L Carbon Dioxide 21 L (22-30) mmol/L BUN 31 H (9-20) mg/dL Creatinine (0.66-1.25) mg/dL Glucose 139 H (74-99) mg/dL POC Glucose (mg/dL) (75-99) mg/dL Urine Opiates Screen (NotDetected) 02/13/22 02/13/22 02/13/22 Range/Units 11:44 17:03 20:13 WBC (3.8-10.6) k/uL Neutrophils # (1.3-7.7) k/uL APTT (22.0-30.0) sec Sodium (137-145) mmol/L Chloride (98-107) mmol/L Carbon Dioxide (22-30) mmol/L BUN (9-20) mg/dL Creatinine (0.66-1.25) mg/dL Glucose (74-99) mg/dL POC Glucose (mg/dL) 134 H 112 H (75-99) mg/dL Urine Opiates Screen Detected H (NotDetected) 02/14/22 02/14/22 02/14/22 Range/Units 03:45 09:22 09:24 WBC 12.0 H (3.8-10.6) k/uL Neutrophils # (1.3-7.7) k/uL APTT (22.0-30.0) sec Sodium (137-145) mmol/L Chloride (98-107) mmol/L Carbon Dioxide (22-30) mmol/L BUN (9-20) mg/dL Creatinine (0.66-1.25) mg/dL Glucose (74-99) mg/dL POC Glucose (mg/dL) 44 L 38 L (75-99) mg/dL Urine Opiates Screen (NotDetected) 02/14/22 02/14/22 02/14/22 Range/Units 09:56 10:03 11:38 WBC (3.8-10.6) k/uL Neutrophils # (1.3-7.7) k/uL APTT (22.0-30.0) sec Sodium 133 L (137-145) mmol/L Chloride 96 L (98-107) mmol/L Carbon Dioxide (22-30) mmol/L BUN (9-20) mg/dL Creatinine 0.60 L (0.66-1.25) mg/dL Glucose 167 H (74-99) mg/dL POC Glucose (mg/dL) 112 H 73 L (75-99) mg/dL Urine Opiates Screen (NotDetected) Assessment and Plan Assessment: * 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 I feel unlikely seizure since continues aphasia and especially with history of atrial fibrillation my suspicion of stroke is higher. Post IV tpa. For atrial fibrillation he was not on anticoagulation. * Reported Status epilepticus, resolved. * History of similar presentation on 04/12/2021. Patient had no residual deficits. * Paroxysmal Atrial fibrillation. Patient had atrial fibrillation also confirmed with the previous admission 04/12/2021. * Seizure disorder, currently not on seizure medication due to medication noncompliance. * Hyperlipidemia * Hypertension * History of cardiac valve replacement Plan: * Pending repeat [address] post IV tpa today (around 3pm). If negative for stroke recommend ASA 325mg daily and will recommend start of anticoagulation for atrial fibrillation after imaging. * Lipid panel pending. Primary team ordered [facility]. * Consider MRI brain, if patient cooperates to evaluate for CVA * Patient has clear seizure that is reported witnessed by family, as well as paramedics. Patient was not taking antiepileptic medication despite recommendation by the neurologist in the past. Patient will be continued on Keppra 1000 mg IV twice a day. * Stat EEG in the morning is pending. * Obtain records from hospitalization at [facility]. 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 No significant plaque. No significant stenosis in the remainder of the common or internal carotid arteries. Significant narrowings of the nondominant right vertebral artery are normal present. Significant stenosis of the P1 segment on current study. 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 * Consider Cardiology consultation for atrial fibrillation. * For DVT prophylaxis, suggest SCDs for now since received IV tpa. If negative for bleed post 24 hours tpa then can start on subq heparin or lovenox. The plan is discussed with the patient's nurse. Brian Antonio M.D. Neuro-Hospitalist Time with Patient: Less than 30
[2022-02-14] MEDS ORDERED: HYDROCORTISONE 1% CREAM 30 GM TUBE TOPICAL PRN (12:58)
[2022-02-14 14:24] LABS: Glucose,Whole Blood 86 mg/dL (75-99)
[2022-02-14 14:37] LABS: LDL Cholesterol,Calculated 58.5 mg/dL (0.0-131.0); VLDL Calculation 10.42 mg/dL (5.00-40.00)
--- NOTE | 2022-02-14 14:40 | EEG ---
ELECTROENCEPHALOGRAM REPORT DATE OF SERVICE: 02/14/2022. CLINICAL HISTORY: This is an 82-year-old gentleman with reported status epilepticus that resolved. He continues to have aphasia. The video EEG is obtained to evaluate for seizure epileptiform activity. RELEVANT MEDICATION: Keppra. EEG TYPE: A routine 21-channel EEG is performed with video using the 10/20 electrode system. DESCRIPTION: Awake state is obtained. During awake state, the posterior-dominant rhythm consists of low to moderate voltage of 9.5 to 10 hertz activity. There is no physiological stage II sleep architecture. There is no focal slowing. There is a moderate amount of bilateral hemispheric myogenic artifact, predominantly the temporal/central regions. Interictal and ictal is none. ACTIVATION PROCEDURE: Photic stimulation and hyperventilation are not performed. CLINICAL INTERPRETATION: This is a normal routine EEG. There is no focal slowing, epileptiform discharge or seizure on the EEG. Clinical correlation is recommended. DAKOTA / JULIO: [id number] / MTDD
--- NOTE | 2022-02-14 15:28 | CT ---
EXAMINATION TYPE: CT brain wo con DATE OF EXAM: 02/14/2022 COMPARISON: CT dated 02/13/2022 HISTORY: [address] DLP: 1100.4 mGycm Automated exposure control for dose reduction was used. TECHNIQUE: CT scan of the brain is performed without IV contrast administration. FINDINGS: Stable brain volume loss changes and chronic microvascular ischemic changes. Scattered arterial ather osclerotic calcifications. No acute intracranial hemorrhage or gross acute cortical infarct. No midli ne shift or herniation. No gross space-occupying lesion, vasogenic edema or mass effect. Unremarkable orbits. Stable right oc cipital subcutaneous tissue density measuring up to 2.7 cm, please correlate clinically. Opacified le ft inferior mastoid air cells. Osteopenia. IMPRESSION: No acute intracranial hemorrhage or gross acute cortical infarct. Incidental findings as described ab ove.
[2022-02-14 16:24] LABS: Glucose,Whole Blood 68 mg/dL (75-99)
--- NOTE | 2022-02-14 16:44 | P.PN ---
Subjective Progress Note Date: 02/14/22 (delayed charting seen at 1100) Principal diagnosis: CVA Patient is an 82 yo male with hx of CVA, Seizures, HTN, and HLD who presented to the ED after a sizure and was noted to have lateral gaze preference and weakness. Stroke network was activated and patient was determined to be a TPA candidate. CT head showed no acute intracranial hemorrhage or midline shift. It did show chronic small vessel ischemic changes. 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 He was slightly tachycardic on arrival. Initial laboratory analysis showed an elevated white blood cell count of 11, sodium 131, BUN 31, carbon dioxide 21. EKG demonstrated a regular rhythm at 115 appears to be consistent with possible atrial tachycardia. He was also loaded with Keppra in the ER. He was admitted to the ICU for further monitoring. He was noted to have A fib with controlled ventri cular response on tele in the ICU. Patient had a similar episode in March 2021. Records reviewed from [place]. At that point in time he did have a small CVA. He was also known to have A. fib. He has been recommended for anticoagulation by [facility] and his primary care physician however he does not take this. He was also discharged from [facility] on Depakote but again has not been taking this per the . Patient seen and examined at bedside. He now has clear and fluent speech that i s nonsensical. He is unable to follow commands. He is moving all 4 extremity's independently. Per nursing episode of hypoglycemia over night corrected with dextrose and son at bedside all questions answered. General: non toxic, no distress, appears at stated age Derm: warm, dry Head: atraumatic, normocephalic, symmetric Eyes: EOMI, no lid lag, anicteric sclera Mouth: no lip lesion, mucus membranes moist Cardiovascular: S1S2 reg, no murmur, positive posterior tibial pulse bilateral, Lungs: CTA bilateral, no rhonchi, no rales , no accessory muscle use Abdominal: soft, nontender to palpation, no guarding, no appreciable organomegaly Ext: no gross muscle atrophy, no edema, no contractures Neuro: CN II-XI grossly intact, unable to follow up commands or answer questions, moving all 4 extremities independently Psych: Awake, not following commands, appears slightly scared Assessment/plan: Status epilepticus Right-sided flaccid paralysis, improving -Status post TPA for possible CVA -[facility] -Neuro recommendations -Seizure precautions -EEG pending -repeat CT today unable to sit still for MRI -PT/OT/speech evaluation -Start aspirin and DVT prophylaxis per norco - Echo pending Hyponatremia, mild -IV fluids -Improving -Repeat in a.m. Perminent Atrial fibrillation -patient has refused anticoagulation in the past -awaitechocardiogram Valvular disease status post valve replacement Hypertension Dyslipidemia Active Medications Acetaminophen (Acetaminophen Tab 325 Mg Tab) 650 mg PO Q6HR PRN PRN Reason: Fever and/ or Pain Atorvastatin Calcium (Atorvastatin 80 Mg Tab) 80 mg PO HS [facility] Last Admin: 02/13/22 20:37 Dose: Not Given Bisacodyl (Bisacodyl 5 Mg Tablet.Dr) 5 mg PO DAILY PRN PRN Reason: Constipation Famotidine (Famotidine 20 Mg/2 Ml Vial) 20 mg IV Q12HR [facility] Last Admin: 02/14/22 09:07 Dose: 20 mg Hydrocortisone (Hydrocortisone 1% Cream 30 Gm Tube) 1 applic TOPICAL BID PRN; Protocol PRN Reason: Skin Irritation Last Admin: 02/14/22 13:34 Dose: 1 applic Levetiracetam 1,000 mg/ IV (Solution) 100 mls @ 400 mls/hr IVPB Q12HR [facility] Last Admin: 02/14/22 09:07 Dose: 400 mls/hr Labetalol HCl (Labetalol 5 Mg/Ml Vial Mdv) 10 mg IVP Q1HR PRN PRN Reason: Hypertension Stop: 02/14/22 19:11 Melatonin (Melatonin 5 Mg Tablet) 5 mg PO HS PRN PRN Reason: Insomnia Metoprolol Succinate (Metoprolol Succinate (Er) 25 Mg Tab.Er.24h) 25 mg PO DAILY [facility] Last Admin: 02/14/22 09:07 Dose: 25 mg Morphine Sulfate (Morphine Sulfate 4 Mg/Ml Syringe) 4 mg IVP ONCE PRN PRN Reason: Pain Last Admin: 02/13/22 15:38 Dose: 4 mg Naloxone HCl (Naloxone 0.4 Mg/Ml 1 Ml Vial) 0.2 mg IV Q2M PRN PRN Reason: Opioid Reversal Ondansetron HCl (Ondansetron 4 Mg/2 Ml Vial) 4 mg IVP Q8HR PRN PRN Reason: Nausea And Vomiting Ondansetron HCl (Ondansetron 4 Mg/2 Ml Vial) 4 mg IVP Q6H PRN PRN Reason: Nausea Objective - Vital Signs Vital signs: Vital Signs Temp 97.9 F 02/14/22 12:00 Pulse 60 02/14/22 15:00 Resp 11 L 02/14/22 15:00 BP 135/90 02/14/22 15:00 Pulse Ox 96 02/14/22 15:00 FiO2 Intake & Output 02/13/22 02/14/22 02/14/22 18:59 06:59 18:59 Intake Total 100 200 Output Total 2450 500 Balance -2350 -300 Weight 71.6 kg Intake: IV 100 100 levETIRAcetam IV 1,000 mg 100 100 In Saline 1 100ml.bag @ 400 mls/hr IVPB ONCE STA Rx#:[id number] Intake, IV Titration 100 Amount Potassium Chloride 10 meq 100 In Water For Injection 1 100ml.bag @ 100 mls/hr IVPB ONCE STA Rx#: [id number] Output: Urine 2450 500 Other: Voiding Method Incontinent Incontinent Incontinent External Catheter External Catheter External Catheter # Voids 2 0 0 - Labs CBC & Chem 7: 02/14/22 03:45 02/14/22 10:03 Labs: Abnormal Lab Results - Last 24 Hours (Table) 02/13/22 02/13/22 02/14/22 Range/Units 17:03 20:13 03:45 WBC 12.0 H (3.8-10.6) k/uL Sodium (137-145) mmol/L Chloride (98-107) mmol/L Creatinine (0.66-1.25) mg/dL Glucose (74-99) mg/dL POC Glucose (mg/dL) 112 H (75-99) mg/dL HDL Cholesterol (40.00-60.00) mg/dL Urine Opiates Screen Detected H (NotDetected) 02/14/22 02/14/22 02/14/22 Range/Units 09:22 09:24 09:56 WBC (3.8-10.6) k/uL Sodium (137-145) mmol/L Chloride (98-107) mmol/L Creatinine (0.66-1.25) mg/dL Glucose (74-99) mg/dL POC Glucose (mg/dL) 44 L 38 L 112 H (75-99) mg/dL HDL Cholesterol (40.00-60.00) mg/dL Urine Opiates Screen (NotDetected) 02/14/22 02/14/22 02/14/22 Range/Units 10:03 11:38 16:23 WBC (3.8-10.6) k/uL Sodium 133 L (137-145) mmol/L Chloride 96 L (98-107) mmol/L Creatinine 0.60 L (0.66-1.25) mg/dL Glucose 167 H (74-99) mg/dL POC Glucose (mg/dL) 73 L 68 L (75-99) mg/dL HDL Cholesterol 69.10 H (40.00-60.00) mg/dL Urine Opiates Screen (NotDetected)
[2022-02-14 18:11] LABS: Glucose,Whole Blood 102 mg/dL (75-99)
[2022-02-14] MEDS: ATORVASTATIN 80 MG TAB PO SCH (20:01)
[2022-02-14] MEDS: ASPIRIN 81 MG PO SCH (20:01)
[2022-02-14 22:07] LABS: Glucose,Whole Blood 102 mg/dL (75-99)
[2022-02-15] MEDS: HALOPERIDOL LACTATE 5 MG/ML 1 ML VIAL IVP PRN ×4 (00:38→20:22)
[2022-02-15 02:34] LABS: Glucose,Whole Blood 131 mg/dL (75-99)
[2022-02-15 07:19] LABS: Glucose,Whole Blood 120 mg/dL (75-99)
[2022-02-15 07:35] LABS: Basophils % (A) 0 %; Eosinophils # (A) 0.1 k/uL (0-0.7); Eosinophils % (A) 0 %; HCT 45.5 % (39.0-53.0); HGB 14.6 gm/dL (13.0-17.5); Lymphocytes # (A) 0.6 k/uL (1.0-4.8); Lymphocytes % (A) 4 %; MCH 30.6 pg (25.0-35.0); MCHC 32.1 g/dL (31.0-37.0); MCV 95.2 fL (80.0-100.0); Mean Platelet Volume 7.3; Monocytes # (A) 0.7 k/uL (0-1.0); Monocytes % (A) 5 %; Neutrophils # (A) 13.6 k/uL (1.3-7.7); Neutrophils % (A) 90 %; Platelet Count 179 k/uL (150-450); RBC 4.78 m/uL (4.30-5.90); RDW 13.1 % (11.5-15.5)
[2022-02-15 07:46] LABS: African American GFR (CKD) >90 (>60 ml/min/1.73 sqM); Anion Gap 12 mmol/L; Blood Urea Nitrogen 28 mg/dL (9-20); Calcium 9.5 mg/dL (8.4-10.2); Carbon Dioxide 23 mmol/L (22-30); Chloride 99 mmol/L (98-107); Glucose 124 mg/dL (74-99); Non-African American GFR(CKD) 88 (>60 ml/min/1.73 sqM); Potassium 4.5 mmol/L (3.5-5.1); Sodium 134 mmol/L (137-145)
[2022-02-15] MEDS: levETIRAcetam 500 MG TAB PO SCH ×2 (08:43→20:19)
[2022-02-15] MEDS: FAMOTIDINE 20 MG/2 ML VIAL IV SCH ×2 (08:43→20:22)
[2022-02-15] MEDS: HEPARIN SODIUM,PORCINE/PF 5,000 UNIT/0.5 ML SYRINGE SQ SCH ×2 (08:43→15:10)
[2022-02-15] MEDS: METOPROLOL SUCCINATE (ER) 25 MG TAB.ER.24H PO SCH (08:43)
--- NOTE | 2022-02-15 09:19 | P.PN ---
Subjective Progress Note Date: 02/15/22 Patient is an 82 yo male with hx of CVA, Seizures, HTN, and HLD who presented to the ED after a seizure and was noted to have lateral gaze preference and weakness. Per patient was attempting to place boot on recent surgery site on left foot. He did have surgery on his right foot to fix a great toe deformity about 2 weeks ago He was confused and not responding and staring. She lead him to a chair and he then developed tonic/clonic movements. This resolved and then recurred. On EMS arrival he was seizing in chair with right sided facial droop and right larios gaze. He again had another seizure during transport to the hospital and then another in the emergency department. Stroke network was activ ated and patient was determined to be a TPA candidate. He was given TPA for an NIH score of 34 , completed [address] head showed no acute intracranial hemorrhage or midline shift. It did show chronic small vessel ischemic changes. 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 He was also loaded with Keppra in the ER. He was admitted to the ICU for further monitoring. He was noted to have A fib with controlled ventricular response on telemetry in the ICU. He had a similar episode in March 2021 and he was evaluated at [place]. and son state that he had a continuous EEG and an MRI and they're unsure if he was diagnosed with a stroke at that time or just seizures. They report that he was discharged home on medications they're unsure what. He did follow with the neurologist and the believes he was supposed to be on seizure medications however he did not take these. He had an episode similar to this in June which abated after several minutes and he did not seek medical attention at that time. He follows with Dr. Garcia for cardiology. This morning, the patient is awake. He has expressive aphasia. He remains hard to communicate with. As such, no information can be obtained from this patient. He will occasionally gets agitated, shouts randomly and he is requiring a sitter at all times. He is unable to fully communicate. Have some right-sided weakness. Nevertheless, no seizure activity has been noted overnight. The patient is hemodynamically stable. His cardiac rhythm is atrial fibrillation. A swallow evaluation is to be done this morning. He is currently on oxygen at 4 L per minute nasal cannula. Neurologist on the case. EEG has been done . 02/15/2022, neurologically the patient is still having issues with expressive aphasia and receptive aphasia. I was told by the nursing staff that occasionally is following some commands. He has a sitter at the bedside and is resting comfortably in bed. No new onset focal neurological deficit. As far as motor function, it's hard to assess as the patient has also receptive aphasia. We have noted some weakness in the right upper extremity. A repeat CAT scan of the brain was done yesterday and showed no evidence of any acute bleed. The patient is going to have an MRI of the brain. Echocardiogram was also done today. His cardiac rhythm is still atrial fibrillation. No hypotension. Hemodynamically stable. He passed a swallow evaluation yesterday and the patient is being fed with chopped food diet. EEG of the brain was done yesterday and showed no this of any seizure activity. He was essentially normal EEG without any seizure activity. The CAT scan of the brain was repeated yesterday at 3:20 PM and it showed no evidence of any acute bleed. For now, the patient is being followed up by neurology. The patient was given aspirin 81 mg by mouth daily. He is also on heparin subcu for DVT prophylaxis. Objective - Vital Signs Vital signs: Vital Signs Temp 98.5 F 02/15/22 08:00 Pulse 120 H 02/15/22 08:00 Resp 18 02/15/22 08:00 BP 169/107 02/15/22 08:00 Pulse Ox 94 L 02/15/22 08:00 FiO2 Intake & Output 02/14/22 02/15/22 02/15/22 18:59 06:59 18:59 Intake Total 320 100 Output Total 900 850 Balance -580 -750 Weight 65.4 kg Intake: IV 100 levETIRAcetam IV 1,000 mg 100 In Saline 1 100ml.bag @ 400 mls/hr IVPB ONCE STA Rx#:[id number] Intake, IV Titration 100 100 Amount Potassium Chloride 10 meq 100 In Water For Injection 1 100ml.bag @ 100 mls/hr IVPB ONCE STA Rx#: [id number] levETIRAcetam IV 1,000 mg 100 In Saline 1 100ml.bag @ 400 mls/hr IVPB Q12HR [facility] Rx#:[id number] Oral 120 Output: Urine 900 850 Other: Voiding Method Incontinent Incontinent Incontinent External Catheter External Catheter External Catheter # Voids 0 0 0 - Exam General: non toxic, no distress, the patient keeps on saying that he doesn't know. He is unable to ambulate conversation. He is unable to answer questions appropriately. He is currently on oxygen at 2 L per minute nasal cannula. Derm: warm, dry Head: atraumatic, normocephalic, symmetric Eyes: EOMI, no lid lag, anicteric sclera, pupils equal round reactive to light ENT: Nose and ears atraumatic, no thrush, no pharyngeal erythema Neck: No thyromegaly, no cervical lymphadenopathy, trachea midline, supple Mouth: no lip lesion, mucus membranes moist Cardiovascular: S1S2 reg, no murmur, positive posterior tibial pulse bilateral, no edema, capillary refill less than 2 seconds Lungs: clear to ascultation bilateral, no ronchi, no rales, no wheeze, no accessory muscle use Abdominal: soft, nontender to palpation, no guarding, no appreciable organomegaly, normal bowel sounds Ext: no gross muscle atrophy, muscle strength muscle strength 5 out of 5 in all 4 extremities, no contractures Neuro: PERRL, Moving upper and lower extrmities independently against gravity does have some weakness in the right side especially in the right upper extremity. No seizure activity has been noted. No facial asymmetry. Speech is consistent with expressive aphasia. The patient also has receptive aphasia. Pupils are equal and reactive to light. No facial asymmetry. Tongue is in midline. - Labs CBC & Chem 7: 02/15/22 06:59 02/15/22 06:59 Labs: Abnormal Lab Results - Last 24 Hours (Table) 02/14/22 02/14/22 02/14/22 Range/Units 09:22 09:24 09:56 WBC (3.8-10.6) k/uL Neutrophils # (1.3-7.7) k/uL Lymphocytes # (1.0-4.8) k/uL Sodium (137-145) mmol/L Chloride (98-107) mmol/L BUN (9-20) mg/dL Creatinine (0.66-1.25) mg/dL Glucose (74-99) mg/dL POC Glucose (mg/dL) 44 L 38 L 112 H (75-99) mg/dL HDL Cholesterol (40.00-60.00) mg/dL 02/14/22 02/14/22 02/14/22 Range/Units 10:03 11:38 16:23 WBC (3.8-10.6) k/uL Neutrophils # (1.3-7.7) k/uL Lymphocytes # (1.0-4.8) k/uL Sodium 133 L (137-145) mmol/L Chloride 96 L (98-107) mmol/L BUN (9-20) mg/dL Creatinine 0.60 L (0.66-1.25) mg/dL Glucose 167 H (74-99) mg/dL POC Glucose (mg/dL) 73 L 68 L (75-99) mg/dL HDL Cholesterol 69.10 H (40.00-60.00) mg/dL 02/14/22 02/14/22 02/15/22 Range/Units 18:09 22:04 02:22 WBC (3.8-10.6) k/uL Neutrophils # (1.3-7.7) k/uL Lymphocytes # (1.0-4.8) k/uL Sodium (137-145) mmol/L Chloride (98-107) mmol/L BUN (9-20) mg/dL Creatinine (0.66-1.25) mg/dL Glucose (74-99) mg/dL POC Glucose (mg/dL) 102 H 102 H 131 H (75-99) mg/dL HDL Cholesterol (40.00-60.00) mg/dL 02/15/22 02/15/22 02/15/22 Range/Units 06:59 06:59 07:08 WBC 15.0 H (3.8-10.6) k/uL Neutrophils # 13.6 H (1.3-7.7) k/uL Lymphocytes # 0.6 L (1.0-4.8) k/uL Sodium 134 L (137-145) mmol/L Chloride (98-107) mmol/L BUN 28 H (9-20) mg/dL Creatinine (0.66-1.25) mg/dL Glucose 124 H (74-99) mg/dL POC Glucose (mg/dL) 120 H (75-99) mg/dL HDL Cholesterol (40.00-60.00) mg/dL Assessment and Plan Plan: Status epilepticus, known history of previous seizure and the patient is stable on Keppra, no seizure activity over the past 24 hours and the patient had an EEG and this was essentially a normal EEG without any ongoing seizure activity. Acute CVA, likely embolic. The patient presented to us with Right-sided flaccid paralysis, post TPA and the patient had an initial NIH score of 34 and the current score is down to 7, improving, and on today's evaluation, it's hard to assess the patient's motor function. Nevertheless, the motor function on the right is improved although still weak compared to the left. Follow-up CAT scan of the brain showed no evidence of any acute bleed and the patient remains on oral aspirin 81 mg by mouth daily.. The patient continues to be in atrial fibrillation. 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 No significant plaque. No significant stenosis and the remainder of the common or internal carotid arteries. 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 The left vertebral arteries were patent. paroxysmal atrial fibrillation current rhythm is atrial fibrillation with a controlled rate, and the patient remains in atrial fibrillation Aortic valve replacement and mitral valve repair , secondary pulmonary hypertension Hypertension Hyperlipidemia Severe OA Left foot surgery, surgical wound site is dry clean and intact. plan Neuro checks in the MICU MRI of the brain today No seizure activity MRI of the brain Continue with Keppra 1 gram BID Seizure precautions EEG results were noted PT/OT/speech evaluation/swallow evaluation was completed today and the patient was able to swallow appropriately Echo results are still pending for now Neurology consult Keep the patient intensive care unit or now and the patient should be able to chest out of the intensive care unit once cleared by neurology.
[2022-02-15] MEDS ORDERED: diphenhydrAMINE 50 MG/ML 1 ML VIAL IVP STA (11:25)
[2022-02-15 12:47] LABS: Glucose,Whole Blood 177 mg/dL (75-99)
--- NOTE | 2022-02-15 14:03 | MR ---
EXAMINATION TYPE: MR brain wo con DATE OF EXAM: 02/15/2022 COMPARISON: CT brain from yesterday HISTORY: Stroke, aphasia. Also seizure protocol TECHNIQUE: Multiplanar, multisequence imaging of the brain and brainstem is performed without IV cont rast. FINDINGS: Diffusion weighted images demonstrate no evidence of a recent infarct or other diffusion abnormality. There is mild to moderate ventricular and sulcal prominence. There are multifocal and confluent areas of T2 hyperintensity seen throughout the white matter bilaterally greatest at periventricular levels . T2 coronal weighted images show hippocampal gyri appear symmetric and felt within normal limits. Midline structures demonstrate normal morphology. The craniocervical junction appears within normal limits. Normal vascular flow voids are present. The visualized sinuses are clear and the globes are i ntact. Patchy fluid signal in the left mastoid air cells is now present. IMPRESSION: 1. No MRI evidence for a recent infarct. 2. [id number] diffuse cerebral atrophy and more moderate chronic small vessel ischemic changes redemonstrated. 3. Possible developing left side mastoiditis, correlate clinically.
--- NOTE | 2022-02-15 14:46 | P.PN ---
Subjective Progress Note Date: 02/15/22 The patient is seen at bedside and per nurse patient is about the same. He has a sitter at bedside since gets episodes of agitation. He had repeat CT head and it is reported as no acute intracranial hemorrhage or gross acute cortical infarct. I personally reviewed CT and agree with report. Routine EEG on 02/14/2022: Normal. Objective - Vital Signs Vital signs: Vital Signs Temp 97.9 F 02/15/22 12:00 Pulse 88 02/15/22 14:00 Resp 18 02/15/22 14:00 BP 114/88 02/15/22 14:00 Pulse Ox 94 L 02/15/22 14:00 FiO2 Intake & Output 02/14/22 02/15/22 02/15/22 18:59 06:59 18:59 Intake Total 320 100 Output Total 900 850 Balance -580 -750 Weight 65.4 kg Intake: IV 100 levETIRAcetam IV 1,000 mg 100 In Saline 1 100ml.bag @ 400 mls/hr IVPB ONCE STA Rx#:[id number] Intake, IV Titration 100 100 Amount Potassium Chloride 10 meq 100 In Water For Injection 1 100ml.bag @ 100 mls/hr IVPB ONCE STA Rx#: [id number] levETIRAcetam IV 1,000 mg 100 In Saline 1 100ml.bag @ 400 mls/hr IVPB Q12HR [facility] Rx#:[id number] Oral 120 Output: Urine 900 850 Other: Voiding Method Incontinent Incontinent Incontinent External Catheter External Catheter External Catheter # Voids 0 0 0 - Exam GENERAL: The patient is lying in bed and does not seem in acute distress. NEUROLOGICAL: Limited. Higher mental function: The patient is briefly awakeable to voice but most part is asleep. Not verbalizing or following commands. Cranial nerves: Could not assess because of his cooperation. Otherwise rest could not be assess. Motor: The strength is hard to assess because of his cooperation. He spontaneously lifts bilateral uppers above gravity and no focality noted. Cerebellum: Unable to assess. Sensation: Unable to assess sensation. SOME OF THE WORK-UP: * Routine EEG on 02/14/2022: Normal. 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 No significant plaque. No significant stenosis in the remainder of the common or internal carotid arteries. Significant narrowings of the nondominant right vertebral artery are normal present. Significant stenosis of the P1 segment on current study. 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 * He had repeat CT head post IV tpa and it is reported as no acute intracranial hemorrhage or gross acute cortical infarct. I personally reviewed CT and agree with report. * Lipid panel: T, Cholestrol 138, LDL 58. - Labs CBC & Chem 7: 02/15/22 06:59 02/15/22 06:59 Labs: Abnormal Lab Results - Last 24 Hours (Table) 02/14/22 02/14/22 02/14/22 Range/Units 10:03 16:23 18:09 WBC (3.8-10.6) k/uL Neutrophils # (1.3-7.7) k/uL Lymphocytes # (1.0-4.8) k/uL Sodium (137-145) mmol/L BUN (9-20) mg/dL Glucose (74-99) mg/dL POC Glucose (mg/dL) 68 L 102 H (75-99) mg/dL HDL Cholesterol 69.10 H (40.00-60.00) mg/dL 02/14/22 02/15/22 02/15/22 Range/Units 22:04 02:22 06:59 WBC 15.0 H (3.8-10.6) k/uL Neutrophils # 13.6 H (1.3-7.7) k/uL Lymphocytes # 0.6 L (1.0-4.8) k/uL Sodium (137-145) mmol/L BUN (9-20) mg/dL Glucose (74-99) mg/dL POC Glucose (mg/dL) 102 H 131 H (75-99) mg/dL HDL Cholesterol (40.00-60.00) mg/dL 02/15/22 02/15/22 02/15/22 Range/Units 06:59 07:08 12:46 WBC (3.8-10.6) k/uL Neutrophils # (1.3-7.7) k/uL Lymphocytes # (1.0-4.8) k/uL Sodium 134 L (137-145) mmol/L BUN 28 H (9-20) mg/dL Glucose 124 H (74-99) mg/dL POC Glucose (mg/dL) 120 H 177 H (75-99) mg/dL HDL Cholesterol (40.00-60.00) mg/dL Assessment and Plan Assessment: * 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 I feel unlikely seizure since continues aphasia and especially with history of atrial fibrillation (not compliant with medication) my suspicion of stroke is higher. Post IV tpa. For atrial fibrillation he was not on anticoagulation. Hypoglyc emia can mimick stroke symptoms. * Reported Status epilepticus, resolved. * Episodes of hypoglycemia as low as 38 * History of similar presentation on 04/12/2021. Patient had no residual deficits. * Paroxysmal Atrial fibrillation. Patient had atrial fibrillation also confirmed with the previous admission 04/12/2021. * Seizure disorder, currently not on seizure medication due to medication noncompliance. * Hyperlipidemia * Hypertension * History of cardiac valve replacement Plan: * He had repeat CT head post IV tpa and it is reported as no acute intracranial hemorrhage or gross acute cortical infarct. I personally reviewed CT and agree with report. * Primary team started on ASA 81mg daily. I will obtain MRI Brain to asses for stroke and if negative patient can be started on anticoagulation (consider Eliquis). On Lipitor 80mg qhs. From neurological perspective can be on Lipitor 40mg qhs. * Primary team ordered 2D echo. * Patient has clear seizure that is reported witnessed by family, as well as paramedics. Patient was not taking antiepileptic medication despite recommendation by the neurologist in the past. Patient will be continued on Keppra 1000 mg twice a day (changed from IV to PO). * Routine EEG on 02/14/2022: Normal. * PLEASE AVOID SEDATIONS MUCH POSSIBLE (since will affect with neurological examination and will have paradoxical effect of making him more agitated). Currently on Haldol 2mg every 4 hrs PRN. Consider seroquel 25 to 50mg qhs. * Avoid hypoglycemic event and will defer management to primary team. * For DVT prophylaxis: started on subq heparin 5000U every 8 hrs. The plan is discussed with the patient's nurse and primary team. Brian Antonio M.D. Neuro-Hospitalist Time with Patient: Less than 30
--- NOTE | 2022-02-15 14:55 | P.PN ---
Subjective Progress Note Date: 02/15/22 (delayed charting seen at 11am) Principal diagnosis: CVA Patient is an 82 yo male with hx of CVA, Seizures, HTN, and HLD who presented to the ED after a sizure and was noted to have lateral gaze preference and weakness. Stroke network was activated and patient was determined to be a TPA candidate. CT head showed no acute intracranial hemorrhage or midline shift. It did show chronic small vessel ischemic changes. 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 He was slightly tachycardic on arrival. Initial laboratory analysis showed an elevated white blood cell count of 11, sodium 131, BUN 31, carbon dioxide 21. EKG demonstrated a regular rhythm at 115 appears to be consistent with possible atrial tachycardia. He was also loaded with Keppra in the ER. He was admitted to the ICU for further monitoring. He was noted to have A fib with controlled ventri cular response on tele in the ICU. Patient had a similar episode in March 2021. Records reviewed from [place]. At that point in time he did have a small CVA. He was also known to have A. fib. He has been recommended for anticoagulation by [facility] and his primary care physician however he does not take this. He was also discharged from [facility] on Depakote but again has not been taking this per the . Patient seen and examined at bedside. keeps saying 2, but not conversing or foll owing commands. at bedside all questions answered. General: non toxic, no distress, appears at stated age Derm: warm, dry Head: atraumatic, normocephalic, symmetric Eyes: EOMI, no lid lag, anicteric sclera Mouth: no lip lesion, mucus membranes moist Cardiovascular: S1S2 reg, no murmur, positive posterior tibial pulse bilateral, Lungs: CTA bilateral, no rhonchi, no rales , no accessory muscle use Abdominal: soft, nontender to palpation, no guarding, no appreciable organomegaly Ext: no gross muscle atrophy, no edema, no contractures Neuro: CN II-XI grossly intact, unable to follow up commands or answer questions, moving all 4 extremities independently Psych: Awake, not following commands, agitated and keeps saying 2 over and over again, up and trying to walk Assessment/plan: Status epilepticus Right-sided flaccid paralysis, improving Difficulty following commands. -Status post TPA for possible CVA -[facility] -Neuro recommendations -Seizure precautions -EEG without seizure activity -MRI pending -PT/OT/speech evaluation -ASA - Echo pending Hyponatremia, mild -IV fluids -Improving -Repeat in a.m. Perminent Atrial fibrillation -patient has refused anticoagulation in the past -await echocardiogram - state AC once cleared by neurology Valvular disease status post valve replacement Hypertension Dyslipidemia Active Medications Generic Name Dose Route Start Last Admin Trade Name Freq PRN Reason Stop Dose Admin Acetaminophen 650 mg 02/14/22 11:12 Acetaminophen Tab 325 Mg Tab PO Q6HR PRN Fever and/ or Pain Aspirin 81 mg 02/14/22 20:00 02/14/22 20:01 Aspirin 81 Mg PO 81 mg DAILY@2000 NAVI Administration Atorvastatin Calcium 80 mg 02/13/22 21:00 02/14/22 20:01 Atorvastatin 80 Mg Tab PO 80 mg HS NAVI Administration Bisacodyl 5 mg 02/14/22 11:12 Bisacodyl 5 Mg Tablet.Dr PO DAILY PRN Constipation Famotidine 20 mg 02/13/22 21:00 02/15/22 08:43 Famotidine 20 Mg/2 Ml Vial IV 20 mg Q12HR [facility] Administration Haloperidol Lactate 2 mg 02/15/22 00:26 02/15/22 12:35 Haloperidol Lactate 5 Mg/Ml 1 Ml Vial IVP 2 mg Q4HR PRN Administration Agitation or Acute Psychosis Heparin Sodium (Porcine) 5,000 unit 02/15/22 08:00 02/15/22 08:43 Heparin Sodium,Porcine/Pf 5,000 Unit/0.5 Ml Syringe SQ 5,000 unit Q8HR [facility] Administration Hydrocortisone 1 applic 02/14/22 12:58 02/14/22 13:34 Hydrocortisone 1% Cream 30 Gm Tube TOPICAL 1 applic BID PRN Administration Skin Irritation Protocol Latanoprost 1 drops 02/16/22 21:00 Latanoprost 0.005% Ophth Drops 2.5 Ml Btl RIGHT EYE HS NAVI Levetiracetam 1,000 mg 02/15/22 09:00 02/15/22 08:43 Levetiracetam 500 Mg Tab PO 1,000 mg Q12HR [facility] Administration Melatonin 5 mg 02/14/22 11:12 Melatonin 5 Mg Tablet PO HS PRN Insomnia Metoprolol Succinate 25 mg 02/14/22 09:00 02/15/22 08:43 Metoprolol Succinate (Er) 25 Mg Tab.Er.24h PO 25 mg DAILY NAVI Administration Morphine Sulfate 4 mg 02/13/22 15:38 02/13/22 15:38 Morphine Sulfate 4 Mg/Ml Syringe IVP 4 mg ONCE PRN Administration Pain Naloxone HCl 0.2 mg 02/13/22 19:10 Naloxone 0.4 Mg/Ml 1 Ml Vial IV Q2M PRN Opioid Reversal Ondansetron HCl 4 mg 02/14/22 11:12 Ondansetron 4 Mg/2 Ml Vial IVP Q6H PRN Nausea Objective - Vital Signs Vital signs: Vital Signs Temp 97.9 F 02/15/22 12:00 Pulse 88 02/15/22 14:00 Resp 18 02/15/22 14:00 BP 114/88 02/15/22 14:00 Pulse Ox 94 L 02/15/22 14:00 FiO2 Intake & Output 02/14/22 02/15/22 02/15/22 18:59 06:59 18:59 Intake Total 320 100 Output Total 900 850 Balance -580 -750 Weight 65.4 kg Intake: IV 100 levETIRAcetam IV 1,000 mg 100 In Saline 1 100ml.bag @ 400 mls/hr IVPB ONCE STA Rx#:[id number] Intake, IV Titration 100 100 Amount Potassium Chloride 10 meq 100 In Water For Injection 1 100ml.bag @ 100 mls/hr IVPB ONCE STA Rx#: [id number] levETIRAcetam IV 1,000 mg 100 In Saline 1 100ml.bag @ 400 mls/hr IVPB Q12HR [facility] Rx#:[id number] Oral 120 Output: Urine 900 850 Other: Voiding Method Incontinent Incontinent Incontinent External Catheter External Catheter External Catheter # Voids 0 0 0 - Labs CBC & Chem 7: 02/15/22 06:59 02/15/22 06:59 Labs: Abnormal Lab Results - Last 24 Hours (Table) 02/14/22 02/14/22 02/14/22 Range/Units 16:23 18:09 22:04 WBC (3.8-10.6) k/uL Neutrophils # (1.3-7.7) k/uL Lymphocytes # (1.0-4.8) k/uL Sodium (137-145) mmol/L BUN (9-20) mg/dL Glucose (74-99) mg/dL POC Glucose (mg/dL) 68 L 102 H 102 H (75-99) mg/dL 02/15/22 02/15/22 02/15/22 Range/Units 02:22 06:59 06:59 WBC 15.0 H (3.8-10.6) k/uL Neutrophils # 13.6 H (1.3-7.7) k/uL Lymphocytes # 0.6 L (1.0-4.8) k/uL Sodium 134 L (137-145) mmol/L BUN 28 H (9-20) mg/dL Glucose 124 H (74-99) mg/dL POC Glucose (mg/dL) 131 H (75-99) mg/dL 02/15/22 02/15/22 Range/Units 07:08 12:46 WBC (3.8-10.6) k/uL Neutrophils # (1.3-7.7) k/uL Lymphocytes # (1.0-4.8) k/uL Sodium (137-145) mmol/L BUN (9-20) mg/dL Glucose (74-99) mg/dL POC Glucose (mg/dL) 120 H 177 H (75-99) mg/dL
[2022-02-15] MEDS ORDERED: ACETAMINOPHEN IV (For NPO) 1,000 MG in EMPTY BAG 1 BAG IVPB STA (16:42)
[2022-02-15 17:13] LABS: Glucose,Whole Blood 103 mg/dL (75-99)
--- NOTE | 2022-02-15 19:22 | CA ---
Transthoracic Echo Report Name: Ruel Cook Age: 82 Gender: M : 1940 Exam Date: 02/15/2022 08:39 Exam Location: [place] [facility] Ht (in): 66 Wt (lb): 144 Ordering Physician: Elsie Ramirez DO Attending/Referring Phys: [id number], James [employer] Caretaker Nette Ivan RDCS Procedure CPT: Indications: CVA Cardiac Hx: Technical Quality: Fair Contrast 1: Total Dose (mL): Contrast 2: Total Dose (mL): MEASUREMENTS (Male / Female) Normal Values 2D ECHO LV Diastolic Diameter PLAX 2.6 cm 4.2 - 5.9 / 3.9 - 5.3 cm LV Systolic Diameter PLAX 1.5 cm IVS Diastolic Thickness 2.0 cm 0.6 - 1.0 / 0.6 - 0.9 cm LVPW Diastolic Thickness 2.2 cm 0.6 - 1.0 / 0.6 - 0.9 cm LV Relative Wall Thickness 1.6 RV Internal Dim ED PLAX 2.9 cm LA Volume 128.1 cm??? 18 - 58 / 22 - 52 cm??? M-MODE Aortic Root Diameter MM 2.8 cm AV Cusp Separation MM 1.5 cm DOPPLER AV Peak Velocity 225.9 cm/s AV Peak Gradient 20.4 mmHg AV Mean Velocity 146.1 cm/s AV Mean Gradient 10.3 mmHg AV Velocity Time Integral 29.3 cm LVOT Peak Velocity 123.2 cm/s LVOT Peak Gradient 6.1 mmHg MV Area PHT 5.1 cm??? TR Peak Velocity 318.4 cm/s TR Peak Gradient 40.6 mmHg Right Ventricular Systolic Press 44.8 mmHg FINDINGS Left Ventricle Normal left ventricular wall motion. Left ventricular cavity size normal. Severely increased left ventricular wall thickness. Left ventricular ejection fraction is estimated at 55-60 %. Right Ventricle Mild right ventricular dilatation. .Mild pulmonary hypertension. Right Atrium Mild right atrial dilatation. Left Atrium Severe left atrial dilatation. Mitral Valve Mitral valve thickened. Moderate mitral annular calcification. No mitral stenosis. Trace to mild mitral regurgitation. S/P MV repair. Aortic Valve Normally functioning bioprosthetic aortic valve without stenosis with a peak velocity of 2 m/s, peak gradient 20 mmHg, mean gradient 10.3 mmHg. Tricuspid Valve Moderate tricuspid regurgitation. Pulmonic Valve No pulmonic stenosis. Trace pulmonic regurgitation. Pericardium No pericardial effusion. Aorta Normal size aortic root and proximal ascending aorta. CONCLUSIONS Left ventricular hypertrophy with hyperdynamic function Bioprosthetic aortic valve stable mild stenosis Severe left atrial enlargement Status post mitral valve repair with thickening of the mitral leaflets Previewed by: Dr. Guillaume Freeman MD (Electronically Signed) Final Date: 15 Feb 2022 19:21
[2022-02-15] MEDS: ATORVASTATIN 80 MG TAB PO SCH (20:21)
[2022-02-15] MEDS: ASPIRIN 81 MG PO SCH (20:23)
[2022-02-15 22:23] LABS: Glucose,Whole Blood 112 mg/dL (75-99)
[2022-02-16] MEDS: HEPARIN SODIUM,PORCINE/PF 5,000 UNIT/0.5 ML SYRINGE SQ SCH ×2 (00:40→09:47)
--- NOTE | 2022-02-16 05:55 | P.CONS ---
History of Present Illness - Chief Complaint medical debility and confusion - History of Present Illness I had the opportunity to see patient for inpatient rehab consultation with regard to medical debility. [facility] with noted history of seizure, a aphasia, leftward gaze, PAF. Patient noted to have atrial fibrillation but declined treatment or is noncompliant. Admitted to Dr. Pratt. Seen by neurology, Dr. Grider for the confusion and noted a aphasia. Seen by Dr. Payne for ICU care. Note head CT was done and demonstrated mild to moderate atrophy as does brain MRI. Brain MRI also demonstrates left mastoiditis. Chest x-ray demonstrates mild cardiomegaly and congestion. Aortogram CT demonstrates right common carotid artery mild atherosclerosis. Has started therapy. PT reports minimal assistance for bed mobility two-person assistance for transfer and gait 40 feet, hand-held. OT reports supervision for feeding, minimal assistance for grooming and upper dressing, maximal assistance for lower dressing and moderate assistance for bat doris. Total assistance for toileting with minimal assist for toilet transfer. Speech therapy assess swallow and recommend dysphagia 3 with chopped, thin, straws okay. Previous functional history unobtainable from patient due to confusion. Review of Systems Review of systems: ENT: Denies sneezes or discharge. Eyes: Denies discharge or photophobia. Cardiac: Denies chest pain or palpitation. Pulmonary: Denies cough or shortness of breath. Gastrointestinal: Denies nausea, emesis, constipation, diarrhea. Genitourinary: Denies discharge or frequency. Musculoskeletal: Denies muscle or bone aches. Neurologic: confusion. Endocrine: Denies shakes or sweats. Oncology: Denies cancers. Dermatologic: Denies rash, itching, pruritus. ALLERGY/immunology: Denies sneezes, rashes. Past Medical History Past Medical History: Deep Vein Thrombosis (DVT), Hyperlipidemia, Hypertension, Seizure Disorder Additional Past Medical History / Comment(s): hx:wound on buttocks since healed, severe OA, history of valvular heart disease and the patient has AVR (bioprosthetic valve and mitral valve repair and preserved LV with severe concentric LVH and secondary pulmonary hypertension. History of Any Multi-Drug Resistant Organisms: None Reported Past Surgical History: Appendectomy, Cardiac Valve Replacement, Heart Catheterization, Joint Replacement Additional Past Surgical History / Comment(s): cardiac valve replacement x2 bioprosthetic, taryn shoulder replacement, lt hip replacement, cataracts, lt eye retinal tear-sx to repair, dental implants, right toe surgeyr Past Anesthesia/Blood Transfusion Reactions: No Reported Reaction Additional Past Anesthesia/Blood Transfusion Reaction / Comm: past blood transfusions-no reactions Past Psychological History: No Psychological Hx Reported Additional Psychological History / Comment(s): lives with spouse alex Smoking Status: Never smoker Past Alcohol Use History: Occasional Additional Past Alcohol Use History / Comment(s): started smoking at age 11(1951) and quit 1984 smoked 1 ppd Past Drug Use History: None Reported - Past Family History Mother Family Medical History: Dementia Father History Unknown: Yes Brother(s) Family Medical History: Cancer Additional Family Medical History / Comment(s): melanoma Medications and Allergies Home Medications Medication Instructions Recorded Confirmed Type Metoprolol Succinate [Toprol XL] 25 mg PO DAILY 09/24/15 02/13/22 History lisinopriL [Zestril] 20 mg PO DAILY 09/24/15 02/13/22 History Rosuvastatin Calcium [Crestor] 10 mg PO DAILY #30 tab 09/03/21 02/13/22 Rx Acetaminophen [Tylenol Extra 1,000 mg PO BID 02/13/22 02/13/22 History Strength] Cephalexin [Keflex] 500 mg PO TID 02/13/22 02/13/22 History predniSONE 10 mg PO TID 02/13/22 02/13/22 History Allergies Allergy/AdvReac Type Severity Reaction Status Date / Time adhesive tape AdvReac Rash/Hives Verified 02/13/22 13:43 garlic AdvReac Rash/Hives Verified 02/13/22 13:43 hydrocodone AdvReac Rash/Hives Verified 02/13/22 15:39 lorazepam [From Ativan] AdvReac Hallucinati Verified 02/13/22 20:09 ons Physical Exam Vitals: Vital Signs Temp Pulse Resp BP Pulse Ox 02/16/22 04:00 98.3 F 86 14 123/81 94 L 02/16/22 00:00 98.1 F 62 18 104/53 95 02/15/22 22:00 112 H 22 126/50 95 02/15/22 20:00 87 20 127/105 94 L 02/15/22 18:00 90 20 121/73 95 02/15/22 16:00 98.4 F 90 16 137/94 96 02/15/22 14:00 88 18 114/88 94 L 02/15/22 13:00 85 18 125/91 94 L 02/15/22 12:00 97.9 F 89 18 157/90 94 L 02/15/22 10:00 20 141/89 93 L 02/15/22 09:00 89 18 115/80 94 L 02/15/22 08:00 98.5 F 120 H 18 169/107 94 L 02/15/22 07:59 30 H 02/15/22 07:00 125 H 18 158/106 94 L 02/15/22 06:00 124 H 24 159/112 95 Intake and Output 02/15/22 02/15/22 02/16/22 14:59 22:59 06:59 Intake Total 350 100 Output Total 0 350 Balance 350 -250 Intake: Oral 350 100 Output: Urine 0 350 Other: Voiding Method Incontinent Urinal Toilet External Catheter # Voids 0 1 1 Weight 63.2 kg Skin: atrophic, intact. General: thin build and comfortable appearance. Head: Normocephalic, atraumatic. Eyes: Symmetric. Pupils equal round. Ears: Symmetric. Hearing within normal limits. Mouth: Clear. Neck: Supple. Carotid without bruit. Cardiac: Regular rate and rhythm. Lungs: Clear anteriorly and posteriorly. Abdomen: Soft active nontender. Extremities: Normal tone. Neurological: Mental status: confused, a aphasic, impulsive. Cranial nerves: Symmetric facial tone and trapezius. Motor: active impulsive movements all 4 limbs. Sensation: Intact throughout. DTRs: Symmetric and equal throughout. Mobility: impulsively moves in bed including sitting up. Results CBC & Chem 7: 02/15/22 06:59 02/15/22 06:59 Labs: Abnormal Lab Results - Last 24 Hours (Table) 02/15/22 02/15/22 02/15/22 Range/Units 06:59 06:59 07:08 WBC 15.0 H (3.8-10.6) k/uL Neutrophils # 13.6 H (1.3-7.7) k/uL Lymphocytes # 0.6 L (1.0-4.8) k/uL Sodium 134 L (137-145) mmol/L BUN 28 H (9-20) mg/dL Glucose 124 H (74-99) mg/dL POC Glucose (mg/dL) 120 H (75-99) mg/dL 02/15/22 02/15/22 02/15/22 Range/Units 12:46 17:11 22:21 WBC (3.8-10.6) k/uL Neutrophils # (1.3-7.7) k/uL Lymphocytes # (1.0-4.8) k/uL Sodium (137-145) mmol/L BUN (9-20) mg/dL Glucose (74-99) mg/dL POC Glucose (mg/dL) 177 H 103 H 112 H (75-99) mg/dL Assessment and Plan (1) Atrial flutter Current Visit: Yes Status: Acute Code(s): I48.92 - UNSPECIFIED ATRIAL FLUTTER SNOMED Code(s): 9162540 (2) Cerebrovascular accident (CVA) Current Visit: Yes Status: Acute Code(s): I63.9 - CEREBRAL INFARCTION, UNSPECIFIED SNOMED Code(s): 438238414 (3) Noncompliance Current Visit: Yes Status: Acute Code(s): Z91.19 - PATIENT'S NONCOMPLIANCE W OTH MEDICAL TREATMENT AND REGIMEN SNOMED Code(s): 8295940 (4) Seizure Current Visit: Yes Status: Acute Code(s): R56.9 - UNSPECIFIED CONVULSIONS SNOMED Code(s): 68052992 Plan: comments and plan: At this time will continue PT, OT, ENTREPRENEUR. Patient currently not appropriate for inpatient rehab due to severe confusion. Currently requires 24/7 care multiple persons.
[2022-02-16 06:10] LABS: HCT 44.5 % (39.0-53.0); HGB 14.1 gm/dL (13.0-17.5); MCH 30.6 pg (25.0-35.0); MCHC 31.7 g/dL (31.0-37.0); MCV 96.5 fL (80.0-100.0); Mean Platelet Volume 7.2; Platelet Count 139 k/uL (150-450); RBC 4.61 m/uL (4.30-5.90); RDW 13.1 % (11.5-15.5); WBC 11.4 k/uL (3.8-10.6)
[2022-02-16 06:27] LABS: African American GFR (CKD) >90 (>60 ml/min/1.73 sqM); Anion Gap 5 mmol/L; Blood Urea Nitrogen 25 mg/dL (9-20); Calcium 8.8 mg/dL (8.4-10.2); Carbon Dioxide 25 mmol/L (22-30); Chloride 100 mmol/L (98-107); Glucose 69 mg/dL (74-99); Magnesium 2.1 mg/dL (1.6-2.3); Non-African American GFR(CKD) >90 (>60 ml/min/1.73 sqM); Phosphorus 3.2 mg/dL (2.5-4.5); Potassium 4.6 mmol/L (3.5-5.1); Sodium 130 mmol/L (137-145)
[2022-02-16 06:52] LABS: Glucose,Whole Blood 77 mg/dL (75-99)
--- NOTE | 2022-02-16 09:32 | P.PN ---
Subjective Progress Note Date: 02/16/22 Patient is an 82 yo male with hx of CVA, Seizures, HTN, and HLD who presented to the ED after a seizure and was noted to have lateral gaze preference and weakness. Per patient was attempting to place boot on recent surgery site on left foot. He did have surgery on his right foot to fix a great toe deformity about 2 weeks ago He was confused and not responding and staring. She lead him to a chair and he then developed tonic/clonic movements. This resolved and then recurred. On EMS arrival he was seizing in chair with right sided facial droop and right larios gaze. He again had another seizure during transport to the hospital and then another in the emergency department. Stroke network was activ ated and patient was determined to be a TPA candidate. He was given TPA for an NIH score of 34 , completed [address] head showed no acute intracranial hemorrhage or midline shift. It did show chronic small vessel ischemic changes. 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 He was also loaded with Keppra in the ER. He was admitted to the ICU for further monitoring. He was noted to have A fib with controlled ventricular response on telemetry in the ICU. He had a similar episode in March 2021 and he was evaluated at [place]. and son state that he had a continuous EEG and an MRI and they're unsure if he was diagnosed with a stroke at that time or just seizures. They report that he was discharged home on medications they're unsure what. He did follow with the neurologist and the believes he was supposed to be on seizure medications however he did not take these. He had an episode similar to this in June which abated after several minutes and he did not seek medical attention at that time. He follows with Dr. Garcia for cardiology. This morning, the patient is awake. He has expressive aphasia. He remains hard to communicate with. As such, no information can be obtained from this patient. He will occasionally gets agitated, shouts randomly and he is requiring a sitter at all times. He is unable to fully communicate. Have some right-sided weakness. Nevertheless, no seizure activity has been noted overnight. The patient is hemodynamically stable. His cardiac rhythm is atrial fibrillation. A swallow evaluation is to be done this morning. He is currently on oxygen at 4 L per minute nasal cannula. Neurologist on the case. EEG has been done . 02/15/2022, neurologically the patient is still having issues with expressive aphasia and receptive aphasia. I was told by the nursing staff that occasionally is following some commands. He has a sitter at the bedside and is resting comfortably in bed. No new onset focal neurological deficit. As far as motor function, it's hard to assess as the patient has also receptive aphasia. We have noted some weakness in the right upper extremity. A repeat CAT scan of the brain was done yesterday and showed no evidence of any acute bleed. The patient is going to have an MRI of the brain. Echocardiogram was also done today. His cardiac rhythm is still atrial fibrillation. No hypotension. Hemodynamically stable. He passed a swallow evaluation yesterday and the patient is being fed with chopped food diet. EEG of the brain was done yesterday and showed no this of any seizure activity. He was essentially normal EEG without any seizure activity. The CAT scan of the brain was repeated yesterday at 3:20 PM and it showed no evidence of any acute bleed. For now, the patient is being followed up by neurology. The patient was given aspirin 81 mg by mouth daily. He is also on heparin subcu for DVT prophylaxis. 02/15/2022, the patient neurologic functions are essentially unchanged compared to yesterday. No obvious focal neurological deficit. He continues to have issues with aphasia both expressive and receptive. At times, we feel that he understands what we tell him although this is not consistent. An MRI of the brain was done yesterday and the patient was found to have no evidence of any recent infarct. There was mild to moderate diffuse cerebral atrophy and moderate on a small vessel ischemic changes. No neck stiffness. No fever. The cardiac rhythm is atrial fibrillation. No anticoagulants yet, remains on aspirin. Electrolytes are normal. Sodium is at 1:30 in the normal renal function with a white cell count of 11.4 and a hemoglobin of 14.1. He is tolerating diet and he is able to swallow well. No agitation. There is a sitter at the bedside. The patient is being transferred to a medical surgical floor today. Objective - Vital Signs Vital signs: Vital Signs Temp 97.8 F 02/16/22 08:00 Pulse 93 02/16/22 08:00 Resp 20 02/16/22 08:00 BP 103/73 02/16/22 08:00 Pulse Ox 94 L 02/16/22 08:00 FiO2 Intake & Output 02/15/22 02/16/22 02/16/22 18:59 06:59 18:59 Intake Total 450 Output Total 0 350 Balance 0 100 Weight 63.2 kg Intake: Oral 450 Output: Urine 0 350 Other: Voiding Method Incontinent Toilet Toilet External Catheter # Voids 1 1 4 - Exam General: non toxic, no distress, the patient keeps on saying that he doesn't know. He is unable to ambulate conversation. He is unable to answer questions appropriately. He is currently on RA L per minute nasal cannula. Derm: warm, dry Head: atraumatic, normocephalic, symmetric Eyes: EOMI, no lid lag, anicteric sclera, pupils equal round reactive to light ENT: Nose and ears atraumatic, no thrush, no pharyngeal erythema Neck: No thyromegaly, no cervical lymphadenopathy, trachea midline, supple Mouth: no lip lesion, mucus membranes moist Cardiovascular: S1S2 reg, no murmur, positive posterior tibial pulse bilateral, no edema, capillary refill less than 2 seconds Lungs: clear to ascultation bilateral, no ronchi, no rales, no wheeze, no accessory muscle use Abdominal: soft, nontender to palpation, no guarding, no appreciable organomegaly, normal bowel sounds Ext: no gross muscle atrophy, muscle strength muscle strength 5 out of 5 in all 4 extremities, no contractures Neuro: PERRL, Moving upper and lower extrmities independently against gravity does have some weakness in the right side especially in the right upper extremity. No seizure activity has been noted. No facial asymmetry. Speech is consistent with expressive aphasia. The patient also has receptive aphasia. Pupils are equal and reactive to light. No facial asymmetry. Tongue is in midline. - Labs CBC & Chem 7: 02/16/22 05:48 02/16/22 05:48 Labs: Abnormal Lab Results - Last 24 Hours (Table) 02/15/22 02/15/22 02/15/22 Range/Units 12:46 17:11 22:21 WBC (3.8-10.6) k/uL Plt Count (150-450) k/uL Sodium (137-145) mmol/L BUN (9-20) mg/dL Creatinine (0.66-1.25) mg/dL Glucose (74-99) mg/dL POC Glucose (mg/dL) 177 H 103 H 112 H (75-99) mg/dL 02/16/22 02/16/22 Range/Units 05:48 05:48 WBC 11.4 H (3.8-10.6) k/uL Plt Count 139 L (150-450) k/uL Sodium 130 L (137-145) mmol/L BUN 25 H (9-20) mg/dL Creatinine 0.62 L (0.66-1.25) mg/dL Glucose 69 L (74-99) mg/dL POC Glucose (mg/dL) (75-99) mg/dL Assessment and Plan Plan: Mental status change. The patient continues to have ongoing alteration in mental status. Cannot carry conversation. Is not following commands regularly. He cannot make meaningful sentences and he does not answer questions appropriately. He verbalizes different words that have no meaning. He is moving all 4 extremities. Status epilepticus, known history of previous seizure and the patient is stable on Keppra, no seizure activity over the past 24 hours and the patient had an EEG and this was essentially a normal EEG without any ongoing seizure activity. MRI of the brain was negative and the patient has not had any further seizure episodes since his admission. Currently stable and seizure precautions are being implemented. The patient was also hypoglycemic at a time of admission. Consider hypoglycemia induced seizures/status. Acute CVA versus TIA, likely embolic. The patient's MRI of the brain showing mild to moderate diffuse atrophy. No evidence of any acute CVA. The patient presented to us with Right-sided flaccid paralysis, post TPA and the patient had an initial NIH score of 34 and the current score is down to 7, improving, and on today's evaluation, it's hard to assess the patient's motor function. Nevertheless, the motor function on the right is improved and he is on oral aspirin 81 mg by mouth daily.. The patient continues to be in atrial fibrillation. 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 No significant plaque. No significant stenosis and the remainder of the common or internal carotid arteries. 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 The left vertebral arteries were patent. paroxysmal atrial fibrillation current rhythm is atrial fibrillation with a controlled rate, and the patient remains in atrial fibrillation Aortic valve replacement and mitral valve repair , secondary pulmonary hypertension Hypertension Hyperlipidemia Severe OA Left foot surgery, surgical wound site is dry clean and intact. plan Neuro checks MRI of the brain was noted No seizure activity Continue with Keppra 1 gram BID Seizure precautions EEG results were noted PT/OT/speech evaluation/swallow evaluation was completed today and the patient was able to swallow appropriately Echo noted and the echocardiogram showed LVH, bioprosthetic aortic valve with mild stenosis, mitral valve repair, no significant regurgitation or stenosis. Left ventricular ejection fraction is around 55-60%. The need for anticoagulation is per neurology. He may be a high risk of falls because of his underlying neuro status remained on be a perfect candidate for anticoagulation and this will be left up to neurology.
[2022-02-16] MEDS: levETIRAcetam 500 MG TAB PO SCH (09:47)
[2022-02-16] MEDS: METOPROLOL SUCCINATE (ER) 25 MG TAB.ER.24H PO SCH (09:48)
[2022-02-16] MEDS: FAMOTIDINE 20 MG/2 ML VIAL IV SCH (09:48)
[2022-02-16 11:18] LABS: Glucose,Whole Blood 181 mg/dL (75-99)
--- NOTE | 2022-02-16 14:07 | P.PN ---
Subjective Progress Note Date: 02/16/22 The patient is seen at bedside and continues to be about the same. No further seizure-like activity. I personally reviewed that the patient workup from [place] and is seems the patient had an MRI of the brain is reported the patient has diffusion restriction in the right centrum; valve white matter which may reflect the presence of small acute to subacute lacunar infarct. He had half-way EEG at [facility] and reported as no epileptogenic features. No ictal events recorded Also seems the patient was discharged on the antiepileptic drug and I spoke with the patient's and she stated that he was discharged on antiepileptic drug and was told to take anticoagulation but patient refused to take any of his medication. Patient follows up with a neurologist once as an outpatient but ref used to follow-up. It seems that he supposed to be on Depakote for his seizure. Objective - Vital Signs Vital signs: Vital Signs Temp 97.9 F 02/16/22 12:00 Pulse 87 02/16/22 12:00 Resp 20 02/16/22 12:00 BP 103/76 02/16/22 12:00 Pulse Ox 94 L 02/16/22 12:00 FiO2 Intake & Output 02/15/22 02/16/22 02/16/22 18:59 06:59 18:59 Intake Total 450 Output Total 0 350 Balance 0 100 Weight 63.2 kg Intake: Oral 450 Output: Urine 0 350 Other: Voiding Method Incontinent Toilet Toilet External Catheter # Voids 1 1 4 - Exam GENERAL: The patient is lying in bed and does not seem in acute distress. NEUROLOGICAL: Limited. Higher mental function: The patient is awake, oriented to self. He kept on repeating his name and his daughter's name. aphasia . Not following commands. Cranial nerves: Pupils are round, equal. EOM is tacking throughout the room. No dysarthria. Otherwise rest could not be assess. Motor: The strength is hard to assess because of his cooperation. He spontaneously lifts bilateral uppers above gravity and no focality noted. Cerebellum: Unable to assess. Sensation: Unable to assess sensation. SOME OF THE WORK-UP: * Routine EEG on 02/14/2022: Normal. 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 No significant plaque. No significant stenosis in the remainder of the common or internal carotid arteries. Significant narrowings of the nondominant right vertebral artery are normal present. Significant stenosis of the P1 segment on current study. 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 * He had repeat CT head post IV tpa and it is reported as no acute intracranial hemorrhage or gross acute cortical infarct. I personally reviewed CT and agree with report. * MRI Brain is reported as No MRI evidence of recent infarct. Mild to moderate diffuse cerebral atrophy and more moderate chronic small vessel ischemic changes redemonstrated. * EEG: Is normal. * 2DEcho: Left ventricular hyperthrophy with hyperdynamic function. Severe left atrial enlargement. EF 55-60% * Lipid panel: T, Cholestrol 138, LDL 58. - Labs CBC & Chem 7: 02/16/22 05:48 02/16/22 05:48 Labs: Abnormal Lab Results - Last 24 Hours (Table) 02/15/22 02/15/22 02/16/22 Range/Units 17:11 22:21 05:48 WBC 11.4 H (3.8-10.6) k/uL Plt Count 139 L (150-450) k/uL Sodium (137-145) mmol/L BUN (9-20) mg/dL Creatinine (0.66-1.25) mg/dL Glucose (74-99) mg/dL POC Glucose (mg/dL) 103 H 112 H (75-99) mg/dL 02/16/22 02/16/22 Range/Units 05:48 11:16 WBC (3.8-10.6) k/uL Plt Count (150-450) k/uL Sodium 130 L (137-145) mmol/L BUN 25 H (9-20) mg/dL Creatinine 0.62 L (0.66-1.25) mg/dL Glucose 69 L (74-99) mg/dL POC Glucose (mg/dL) 181 H (75-99) mg/dL Assessment and Plan Assessment: * Global aphasia on presentation and slight improving to expressive aphasia: Unknown cause. MRI Brain is negative for stroke and routine EEG is normal. Not sure if patient has small lesion on MRI that was not picked up. Also cannot exclusively rule out seizure but unlikely since this prolonged for seizure and EEG was normal. * Likely underlying delirium * Reported Status epilepticus, resolved. * Episodes of hypoglycemia as low as 38 ---resolved * History of similar presentation on 04/12/2021. Patient had no residual deficits. * Paroxysmal Atrial fibrillation. Patient had atrial fibrillation also confirmed with the previous admission 04/12/2021. * Seizure disorder, currently not on seizure medication due to medication noncompliance. * Hyperlipidemia * Hypertension * History of cardiac valve replacement * Medication non-compliance Plan: * Continue ASA 81mg daily. He is clear to start anticoagulation (consider Eliquis). On Lipitor 80mg qhs. From neurological perspective can be on Lipitor 40mg qhs. * Stopped Keppra since has behavioral changes and started him on Depakote (which has antiepileptic effect and mood benefit). 500mg 1 tab bid * Continue neuro checks. * PT, OT and PATIENT SCHEDULING COORDINATOR are consulted. * Consider ambulatory EEG as outpatient. * PLEASE AVOID SEDATIONS MUCH POSSIBLE (since will affect with neurological examination and will have paradoxical effect of making him more agitated). Currently on Haldol 2mg every 4 hrs PRN. Consider seroquel 25 to 50mg qhs if needed. * Avoid hypoglycemic event and will defer management to primary team. * For DVT prophylaxis: On subq heparin 5000U every 8 hrs. * Recommend patient to follow-up with neurologist as outpatient within 1-2 weeks as outpatient. The plan is discussed with the patient's who is at bedside and primary te am. Brian Antonio M.D. Neuro-Hospitalist Time with Patient: Less than 30
--- NOTE | 2022-02-16 14:53 | P.PN ---
Subjective Progress Note Date: 02/16/22 (delayed charting seen at 1045) Principal diagnosis: CVA Patient is an 82 yo male with hx of CVA, Seizures, HTN, and HLD who presented to the ED after a sizure and was noted to have lateral gaze preference and weakness. Stroke network was activated and patient was determined to be a TPA candidate. CT head showed no acute intracranial hemorrhage or midline shift. It did show chronic small vessel ischemic changes. 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 He was slightly tachycardic on arrival. Initial laboratory analysis showed an elevated white blood cell count of 11, sodium 131, BUN 31, carbon dioxide 21. EKG demonstrated a regular rhythm at 115 appears to be consistent with possible atrial tachycardia. He was also loaded with Keppra in the ER. He was admitted to the ICU for further monitoring. He was noted to have A fib with controlled ventri cular response on tele in the ICU. Patient had a similar episode in March 2021. Records reviewed from [place]. At that point in time he did have a small CVA. He was also known to have A. fib. He has been recommended for anticoagulation by [facility] and his primary care physician however he does not take this. He was also discharged from [facility] on Depakote but again has not been taking this per the . Patient seen and examined at bedside. Does not follow commands. General: non toxic, no distress, appears at stated age Derm: warm, dry Head: atraumatic, normocephalic, symmetric Eyes: EOMI, no lid lag, anicteric sclera Mouth: no lip lesion, mucus membranes moist Cardiovascular: S1S2 reg, no murmur, positive posterior tibial pulse bilateral, Lungs: CTA bilateral, no rhonchi, no rales , no accessory muscle use Abdominal: soft, nontender to palpation, no guarding, no appreciable organomegaly Ext: no gross muscle atrophy, no edema, no contractures Neuro: CN II-XI grossly intact, unable to follow up commands or answer questions, moving all 4 extremities independently Psych: Awake, not following commands,resting comfortably Assessment/plan: Status epilepticus, resolved Global aphasia Agitation -Status post TPA for possible CVA -Keppra transitioned to Depakote per neurology -Neuro recommendations -Seizure precautions -EEG without seizure activity -MRI without acute stroke -PT/OT/speech recs -ASA - Echo preserved EF, bioprosthetic valve - Eliquis - continue with haldol and maintain a safe a supportive environment THrombocytopenia -mild - follow CBC - stop heparin and change to eliquis Hyponatremia, mild -IV fluids have been stopped - urine lytes/osmol -Improving -Repeat in a.m. Perminent Atrial fibrillation -patient has refused anticoagulation in the past - Eliquis Valvular disease status post valve replacement Hypertension Dyslipidemia Hypoglycemia Active Medications Generic Name Dose Route Start Last Admin Trade Name Freq PRN Reason Stop Dose Admin Acetaminophen 650 mg 02/14/22 11:12 Acetaminophen Tab 325 Mg Tab PO Q6HR PRN Fever and/ or Pain Aspirin 81 mg 02/14/22 20:00 02/15/22 20:23 Aspirin 81 Mg PO 81 mg DAILY@2000 NAVI Administration Atorvastatin Calcium 80 mg 02/13/22 21:00 02/15/22 20:21 Atorvastatin 80 Mg Tab PO 80 mg HS NAVI Administration Bisacodyl 5 mg 02/14/22 11:12 Bisacodyl 5 Mg Tablet. PO DAILY PRN Constipation Divalproex Sodium 500 mg 02/16/22 21:00 Divalproex 500 Mg Tablet. PO BID NAVI Famotidine 20 mg 02/16/22 21:00 Famotidine 20 Mg Tab PO BID NAVI Haloperidol Lactate 2 mg 02/15/22 00:26 02/15/22 20:22 Haloperidol Lactate 5 Mg/Ml 1 Ml Vial IVP 2 mg Q4HR PRN Administration Agitation or Acute Psychosis Heparin Sodium (Porcine) 5,000 unit 02/15/22 08:00 02/16/22 09:47 Heparin Sodium,Porcine/Pf 5,000 Unit/0.5 Ml Syringe SQ 5,000 unit Q8HR NAVI Administration Hydrocortisone 1 applic 02/14/22 12:58 02/14/22 13:34 Hydrocortisone 1% Cream 30 Gm Tube TOPICAL 1 applic BID PRN Administration Skin Irritation Protocol Latanoprost 1 drops 02/16/22 21:00 Latanoprost 0.005% Ophth Drops 2.5 Ml Btl RIGHT EYE HS NAVI Melatonin 5 mg 02/14/22 11:12 Melatonin 5 Mg Tablet PO HS PRN Insomnia Metoprolol Succinate 25 mg 02/14/22 09:00 02/16/22 09:48 Metoprolol Succinate (Er) 25 Mg Tab.Er.24h PO 25 mg DAILY NAVI Administration Morphine Sulfate 4 mg 02/13/22 15:38 02/13/22 15:38 Morphine Sulfate 4 Mg/Ml Syringe IVP 4 mg ONCE PRN Administration Pain Naloxone HCl 0.2 mg 02/13/22 19:10 Naloxone 0.4 Mg/Ml 1 Ml Vial IV Q2M PRN Opioid Reversal Ondansetron HCl 4 mg 02/14/22 11:12 Ondansetron 4 Mg/2 Ml Vial IVP Q6H PRN Nausea Objective - Vital Signs Vital signs: Vital Signs Temp 97.9 F 02/16/22 12:00 Pulse 87 02/16/22 12:00 Resp 20 02/16/22 12:00 BP 103/76 02/16/22 12:00 Pulse Ox 94 L 02/16/22 12:00 FiO2 Intake & Output 02/15/22 02/16/22 02/16/22 18:59 06:59 18:59 Intake Total 450 Output Total 0 350 Balance 0 100 Weight 63.2 kg Intake: Oral 450 Output: Urine 0 350 Other: Voiding Method Incontinent Toilet Toilet External Catheter # Voids 1 1 4 - Labs CBC & Chem 7: 02/16/22 05:48 02/16/22 05:48 Labs: Abnormal Lab Results - Last 24 Hours (Table) 02/15/22 02/15/22 02/16/22 Range/Units 17:11 22:21 05:48 WBC 11.4 H (3.8-10.6) k/uL Plt Count 139 L (150-450) k/uL Sodium (137-145) mmol/L BUN (9-20) mg/dL Creatinine (0.66-1.25) mg/dL Glucose (74-99) mg/dL POC Glucose (mg/dL) 103 H 112 H (75-99) mg/dL 02/16/22 02/16/22 Range/Units 05:48 11:16 WBC (3.8-10.6) k/uL Plt Count (150-450) k/uL Sodium 130 L (137-145) mmol/L BUN 25 H (9-20) mg/dL Creatinine 0.62 L (0.66-1.25) mg/dL Glucose 69 L (74-99) mg/dL POC Glucose (mg/dL) 181 H (75-99) mg/dL
[2022-02-16 19:03] LABS: Glucose,Whole Blood 74 mg/dL (75-99)
[2022-02-16] MEDS: ATORVASTATIN 80 MG TAB PO SCH (21:06)
[2022-02-16] MEDS: APIXABAN 5 MG TAB PO SCH (21:06)
[2022-02-16] MEDS: ASPIRIN 81 MG PO SCH (21:06)
[2022-02-16] MEDS: FAMOTIDINE 20 MG TAB PO SCH (21:06)
[2022-02-16] MEDS: DIVALPROEX 500 MG TABLET.DR PO SCH (21:25)
[2022-02-16] MEDS: LATANOPROST 0.005% OPHTH DROPS 2.5 ML BTL RIGHT EYE SCH (21:25)
[2022-02-16 21:49] LABS: Glucose,Whole Blood 96 mg/dL (75-99)
[2022-02-17] MEDS: HALOPERIDOL LACTATE 5 MG/ML 1 ML VIAL IVP PRN (01:16)
[2022-02-17 02:05] LABS: Glucose,Whole Blood 90 mg/dL (75-99)
[2022-02-17 06:25] LABS: Glucose,Whole Blood 66 mg/dL (75-99)
[2022-02-17 06:41] LABS: Glucose,Whole Blood 48 mg/dL (75-99)
[2022-02-17 07:14] LABS: Glucose,Whole Blood 33 mg/dL (75-99)
[2022-02-17 07:35] LABS: Glucose,Whole Blood 116 mg/dL (75-99)
[2022-02-17 08:21] LABS: HCT 46.2 % (39.0-53.0); HGB 14.6 gm/dL (13.0-17.5); MCH 31.3 pg (25.0-35.0); MCHC 31.7 g/dL (31.0-37.0); MCV 98.8 fL (80.0-100.0); Mean Platelet Volume 7.4; Platelet Count 136 k/uL (150-450); RBC 4.68 m/uL (4.30-5.90); RDW 13.6 % (11.5-15.5); WBC 13.2 k/uL (3.8-10.6)
[2022-02-17] MEDS: ACETAMINOPHEN TAB 325 MG TAB PO PRN (08:46)
[2022-02-17] MEDS: APIXABAN 5 MG TAB PO SCH ×2 (08:47→20:33)
[2022-02-17] MEDS: METOPROLOL SUCCINATE (ER) 25 MG TAB.ER.24H PO SCH (08:47)
[2022-02-17] MEDS: FAMOTIDINE 20 MG TAB PO SCH ×2 (08:47→20:33)
[2022-02-17] MEDS: DIVALPROEX 500 MG TABLET.DR PO SCH ×2 (08:47→20:33)
--- NOTE | 2022-02-17 09:30 | P.PN ---
Subjective Progress Note Date: 02/17/22 Patient is an 82 yo male with hx of CVA, Seizures, HTN, and HLD who presented to the ED after a seizure and was noted to have lateral gaze preference and weakness. Per patient was attempting to place boot on recent surgery site on left foot. He did have surgery on his right foot to fix a great toe deformity about 2 weeks ago He was confused and not responding and staring. She lead him to a chair and he then developed tonic/clonic movements. This resolved and then recurred. On EMS arrival he was seizing in chair with right sided facial droop and right larios gaze. He again had another seizure during transport to the hospital and then another in the emergency department. Stroke network was activ ated and patient was determined to be a TPA candidate. He was given TPA for an NIH score of 34 , completed [address] head showed no acute intracranial hemorrhage or midline shift. It did show chronic small vessel ischemic changes. 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 He was also loaded with Keppra in the ER. He was admitted to the ICU for further monitoring. He was noted to have A fib with controlled ventricular response on telemetry in the ICU. He had a similar episode in March 2021 and he was evaluated at [facility]. and son state that he had a continuous EEG and an MRI and they're unsure if he was diagnosed with a stroke at that time or just seizures. They report that he was discharged home on medications they're unsure what. He did follow with the neurologist and the believes he was supposed to be on seizure medications however he did not take these. He had an episode similar to this in June which abated after several minutes and he did not seek medical attention at that time. He follows with Dr. Garcia for cardiology. This morning, the patient is awake. He has expressive aphasia. He remains hard to communicate with. As such, no information can be obtained from this patient. He will occasionally gets agitated, shouts randomly and he is requiring a sitter at all times. He is unable to fully communicate. Have some right-sided weakness. Nevertheless, no seizure activity has been noted overnight. The patient is hemodynamically stable. His cardiac rhythm is atrial fibrillation. A swallow evaluation is to be done this morning. He is currently on oxygen at 4 L per minute nasal cannula. Neurologist on the case. EEG has been done . 02/15/2022, neurologically the patient is still having issues with expressive aphasia and receptive aphasia. I was told by the nursing staff that occasionally is following some commands. He has a sitter at the bedside and is resting comfortably in bed. No new onset focal neurological deficit. As far as motor function, it's hard to assess as the patient has also receptive aphasia. We have noted some weakness in the right upper extremity. A repeat CAT scan of the brain was done yesterday and showed no evidence of any acute bleed. The patient is going to have an MRI of the brain. Echocardiogram was also done today. His cardiac rhythm is still atrial fibrillation. No hypotension. Hemodynamically stable. He passed a swallow evaluation yesterday and the patient is being fed with chopped food diet. EEG of the brain was done yesterday and showed no this of any seizure activity. He was essentially normal EEG without any seizure activity. The CAT scan of the brain was repeated yesterday at 3:20 PM and it showed no evidence of any acute bleed. For now, the patient is being followed up by neurology. The patient was given aspirin 81 mg by mouth daily. He is also on heparin subcu for DVT prophylaxis. 02/16/2022, the patient neurologic functions are essentially unchanged compared to yesterday. No obvious focal neurological deficit. He continues to have issues with aphasia both expressive and receptive. At times, we feel that he understands what we tell him although this is not consistent. An MRI of the brain was done yesterday and the patient was found to have no evidence of any recent infarct. There was mild to moderate diffuse cerebral atrophy and moderate on a small vessel ischemic changes. No neck stiffness. No fever. The cardiac rhythm is atrial fibrillation. No anticoagulants yet, remains on aspirin. Electrolytes are normal. Sodium is at 1:30 in the normal renal function with a white cell count of 11.4 and a hemoglobin of 14.1. He is tolerating diet and he is able to swallow well. No agitation. There is a sitter at the bedside. The patient is being transferred to a medical surgical floor today. 02/17/2022, neurologically patient is about the same. He talks yet he doesn't make sense. He does not follow commands. No agitation. No focal neurological deficits. No seizure activity. As mentioned earlier, the MRI of the brain came back negative. The patient remains in atrial fibrillation and the patient will be started on anticoagulation regarding his A. fib. This was cleared by neurology. Meanwhile, no hemodynamic changes. No fever. No chills. No neck stiffness. Blood work from today showing a white cell count 13.2 with a hemoglobin of 14.6 and a platelet count of 136. Normal renal function. No other electrolyte abnormalities from yesterday, follow-up blood work is pending. Echo was completed yesterday and the patient has a preserved LV function. No significant valvular abnormalities patient has aortic valve replacement and mitral valve repair. In terms of his antiepileptics, the patient is currently on Depakote 500 mg by mouth twice a day. He was taken off Keppra . He remains on Eliquis 5 mg by mouth twice a day. He is also on aspirin 81 mg by mouth daily. He is post thrombolytic therapy. Note that the patient is having episodes of hypoglycemia. He is in the ICU, the patient had 2 episodes of hypoglycemia the last one being this morning at 7:12 AM with a blood sugar of 33. Yesterday morning at 6:40 AM, the patient's blood sugar was 48. As such, I am getting increased suspicion that the patient is having episodes of hypoglycemia and this could have contributed to his neurologic impairment. Objective - Vital Signs Vital signs: Vital Signs Temp 98.1 F 02/17/22 08:00 Pulse 82 02/17/22 08:00 Resp 20 02/17/22 08:00 BP 114/84 02/17/22 08:00 Pulse Ox 90 L 02/17/22 00:00 FiO2 Intake & Output 02/16/22 02/17/22 02/17/22 18:59 06:59 18:59 Intake Total 240 240 Output Total 200 300 Balance -200 -60 240 Weight 64 kg Intake: Oral 240 240 Output: Urine 200 300 Other: Voiding Method Toilet Toilet Toilet # Voids 4 2 - Exam General: non toxic, no distress, the patient keeps on saying that he doesn't know. He is unable to ambulate conversation. He is unable to answer questions appropriately. He is currently on RA L per minute nasal cannula. Derm: warm, dry Head: atraumatic, normocephalic, symmetric Eyes: EOMI, no lid lag, anicteric sclera, pupils equal round reactive to light ENT: Nose and ears atraumatic, no thrush, no pharyngeal erythema Neck: No thyromegaly, no cervical lymphadenopathy, trachea midline, supple Mouth: no lip lesion, mucus membranes moist Cardiovascular: S1S2 reg, no murmur, positive posterior tibial pulse bilateral, no edema, capillary refill less than 2 seconds Lungs: clear to ascultation bilateral, no ronchi, no rales, no wheeze, no accessory muscle use Abdominal: soft, nontender to palpation, no guarding, no appreciable organomegaly, normal bowel sounds Ext: no gross muscle atrophy, muscle strength muscle strength 5 out of 5 in all 4 extremities, no contractures Neuro: PERRL, Moving upper and lower extrmities independently against gravity does have some weakness in the right side especially in the right upper extremity. No seizure activity has been noted. No facial asymmetry. Speech is consistent with expressive aphasia. The patient also has receptive aphasia. Pupils are equal and reactive to light. No facial asymmetry. Tongue is in midline. - Labs CBC & Chem 7: 02/17/22 07:27 02/16/22 05:48 Labs: Abnormal Lab Results - Last 24 Hours (Table) 02/16/22 02/16/22 02/17/22 Range/Units 11:16 19:01 06:24 WBC (3.8-10.6) k/uL Plt Count (150-450) k/uL POC Glucose (mg/dL) 181 H 74 L 66 L (75-99) mg/dL 02/17/22 02/17/22 02/17/22 Range/Units 06:40 07:12 07:27 WBC 13.2 H (3.8-10.6) k/uL Plt Count 136 L (150-450) k/uL POC Glucose (mg/dL) 48 L 33 L (75-99) mg/dL 02/17/22 Range/Units 07:33 WBC (3.8-10.6) k/uL Plt Count (150-450) k/uL POC Glucose (mg/dL) 116 H (75-99) mg/dL Assessment and Plan Plan: Mental status change. The patient continues to have ongoing alteration in mental status. Cannot carry conversation. Is not following commands regularly. He cannot make meaningful sentences and he does not answer questions appropriat misael. He verbalizes different words that have no meaning. He is moving all 4 extremities. On today's evaluation of 02/17/2022, neurologic function is unchanged. We have not with this any seizure activity and the patient was started on Depakote. Neurologically on the case and we have made recomme ndations to start the patient a combination with Eliquis. Status epilepticus, known history of previous seizure and the patient is stable on Keppra, no seizure activity over 24 hours and the patient had an EEG and this was essentially a normal EEG without any ongoing seizure activity. MRI of the brain was negative and the patient has not had any further seizure episodes since his admission. Currently stable and seizure precautions are being implemented. The patient was also hypoglycemic at a time of admission. Consider hypoglycemia induced seizures/status. For now, the patient was taken off the Keppra and he was started on Depakote. I am considering the possibility of hypoglycemia causing neurologic impairment and damage probably due to prolonged hypoglycemic state Acute CVA versus TIA, likely embolic. The patient's MRI of the brain showing mild to moderate diffuse atrophy. No evidence of any acute CVA. The patient presented to us with Right-sided flaccid paralysis, post TPA and the patient had an initial NIH score of 34 and the current score is down to 7, improving, and on today's evaluation, it's hard to assess the patient's motor function. Nevertheless, the motor function on the right is improved and he is on oral aspirin 81 mg by mouth daily.. The patient continues to be in atrial fibrillation. 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 No significant plaque. No significant stenosis and the remainder of the common or internal carotid arteries. 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 The left vertebral arteries were patent. paroxysmal atrial fibrillation current rhythm is atrial fibrillation with a controlled rate, and the patient remains in atrial fibrillation Aortic valve replacement and mitral valve repair , secondary pulmonary hypertension Hypertension Hyperlipidemia Severe OA Left foot surgery, surgical wound site is dry clean and intact. plan Continue Neuro checks and he is unchanged clinically The episodes of hypoglycemia are concerning. We'll monitor the blood sugar and the patient develops any hypoglycemia, was immediately checked insulin, proinsulin, C-peptide and beta hydroxybutyric acid level. The patient is not taking any form of sulfonylureas. The patient has not taken any form of insulin as for now. We'll may need also to do a glucagon challenge should the patient have any hypoglycemic events. MRI of the brain was noted No seizure activity Continue Depakote for now Seizure precautions EEG results were noted PT/OT/speech evaluation/swallow evaluation was completed today and the patient was able to swallow appropriately Echo noted and the echocardiogram showed LVH, bioprosthetic aortic valve with mild stenosis, mitral valve repair, no significant regurgitation or stenosis. Left ventricular ejection fraction is around 55-60%. Initiate anticoagulation with Eliquis. Keep in ICU for monitoring of his blood sugar.
--- NOTE | 2022-02-17 14:42 | P.PN ---
Subjective Progress Note Date: 02/17/22 The patient is seen at bedside and per nurse is about the same. Patient had POC glucose as low as 33 today and prior to that was 48. On 02/14/2022 his sugar was n 30-40's Objective - Vital Signs Vital signs: Vital Signs Temp 98.1 F 02/17/22 08:00 Pulse 82 02/17/22 08:00 Resp 20 02/17/22 08:00 BP 114/84 02/17/22 08:00 Pulse Ox 90 L 02/17/22 00:00 FiO2 Intake & Output 02/16/22 02/17/22 02/17/22 18:59 06:59 18:59 Intake Total 240 240 Output Total 200 300 Balance -200 -60 240 Weight 64 kg Intake: Oral 240 240 Output: Urine 200 300 Other: Voiding Method Toilet Toilet Toilet # Voids 4 2 - Exam GENERAL: The patient is lying in bed and does not seem in acute distress. NEUROLOGICAL: Limited. Higher mental function: The patient is awake, oriented to self. He was able to name pen, watch, glasses. He kept on repeating that "Hung is coming today". He is following few commands (closing eyes, sticking tongue out) and mimics. Appear he has expressive aphasia. Cranial nerves: Pupils are round, equal. EOM is tacking throughout the room. No dysarthria. Otherwise rest could not be assess. Motor: The strength is hard to assess because of his cooperation. He spontaneously lifts bilateral uppers and lowers above gravity and no focality noted. Cerebellum: Unable to assess. Sensation: Unable to assess sensation. SOME OF THE WORK-UP: * Routine EEG on 02/14/2022: Normal. 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 No significant plaque. No significant stenosis in the remainder of the common or internal carotid arteries. Significant narrowings of the nondominant right vertebral artery are normal present. Significant stenosis of the P1 segment on current study. 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 * He had repeat CT head post IV tpa and it is reported as no acute intracranial hemorrhage or gross acute cortical infarct. I personally reviewed CT and agre e with report. * MRI Brain is reported as No MRI evidence of recent infarct. Mild to moderate diffuse cerebral atrophy and more moderate chronic small vessel ischemic changes redemonstrated. * EEG: Is normal. * 2DEcho: Left ventricular hyperthrophy with hyperdynamic function. Severe left atrial enlargement. EF 55-60% * Lipid panel: T, Cholestrol 138, LDL 58. - Labs CBC & Chem 7: 02/17/22 07:27 02/16/22 05:48 Labs: Abnormal Lab Results - Last 24 Hours (Table) 02/16/22 02/17/22 02/17/22 Range/Units 19:01 06:24 06:40 WBC (3.8-10.6) k/uL Plt Count (150-450) k/uL POC Glucose (mg/dL) 74 L 66 L 48 L (75-99) mg/dL 02/17/22 02/17/22 02/17/22 Range/Units 07:12 07:27 07:33 WBC 13.2 H (3.8-10.6) k/uL Plt Count 136 L (150-450) k/uL POC Glucose (mg/dL) 33 L 116 H (75-99) mg/dL Assessment and Plan Assessment: * Global aphasia on presentation improving to expressive aphasia: Unknown cause. Possible this is due to hypoglycemic events mimicking stroke (had mulitple hypoglycemic episodes on 02/14 and today as low as 30's). MRI Brain is negative for stroke and routine EEG is normal. * Hypoglycemic encephalopathy * Delirium due to above * Reported Status epilepticus, resolved. * Episodes of hypoglycemia as low as 30's * History of similar presentation on 04/12/2021. Patient had no residual deficits. * Paroxysmal Atrial fibrillation. Patient had atrial fibrillation also confirmed with the previous admission 04/12/2021. * Seizure disorder, currently not on seizure medication due to medication noncompliance. * Hyperlipidemia * Hypertension * History of cardiac valve replacement * Medication non-compliance Plan: * Continue ASA 81mg daily. He is clear to start anticoagulation (consider Clarita marc). On Lipitor 80mg qhs. From neurological perspective can be on Lipitor 40mg qhs. * Continue Depakote 500mg 1 tab bid (which has antiepileptic effect and mood benefit). * Continue neuro checks. * PT, OT and MEDIA ACCOUNT EXECUTIVE are consulted. * Consider ambulatory EEG as outpatient. * PLEASE AVOID SEDATIONS MUCH POSSIBLE (since will affect with neurological examination and will have paradoxical effect of making him more agitated). Currently on Haldol 2mg every 4 hrs PRN. Consider seroquel 25 to 50mg qhs if needed. * Avoid hypoglycemic event and will defer management to primary team. * For DVT prophylaxis: On subq heparin 5000U every 8 hrs. * Recommend patient to follow-up with neurologist as outpatient within 1-2 weeks as outpatient. The plan is discussed with the patient's nurse and primary team. Brian Antonio M.D. Neuro-Hospitalist Time with Patient: Less than 30
[2022-02-17 14:44] LABS: African American GFR (CKD) >90 (>60 ml/min/1.73 sqM); Anion Gap 7 mmol/L; Blood Urea Nitrogen 23 mg/dL (9-20); Calcium 8.8 mg/dL (8.4-10.2); Carbon Dioxide 29 mmol/L (22-30); Chloride 92 mmol/L (98-107); Glucose 74 mg/dL (74-99); Non-African American GFR(CKD) 88 (>60 ml/min/1.73 sqM); Potassium 4.7 mmol/L (3.5-5.1); Sodium 128 mmol/L (137-145)
[2022-02-17 14:45] LABS: Glucose,Whole Blood 107 mg/dL (75-99)
--- NOTE | 2022-02-17 14:52 | P.PN ---
Subjective Progress Note Date: 02/17/22 (delayed charting seen at 1105) Principal diagnosis: CVA Patient is an 82 yo male with hx of CVA, Seizures, HTN, and HLD who presented to the ED after a sizure and was noted to have lateral gaze preference and weakness. Stroke network was activated and patient was determined to be a TPA candidate. CT head showed no acute intracranial hemorrhage or midline shift. It did show chronic small vessel ischemic changes. 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 He was slightly tachycardic on arrival. Initial laboratory analysis showed an elevated white blood cell count of 11, sodium 131, BUN 31, carbon dioxide 21. EKG demonstrated a regular rhythm at 115 appears to be consistent with possible atrial tachycardia. He was also loaded with Keppra in the ER. He was admitted to the ICU for further monitoring. He was noted to have A fib with controlled ventri cular response on tele in the ICU. MRI did not show any signs of stoke. EEG was negative. He did have recurrent episode of hypoglycemia. Patient had a similar episode in March 2021. Records reviewed from [facility]. At that point in time he did have a small CVA. He was also known to have A. fib. He has been recommended for anticoagulation by [facility] and his primary care physician however he does not take this. He was also discharged from [facility] on Depakote but again has not been taking this per the . Patient seen and examined at bedside. Awake, not following commands. Multiple episodes of hypoglycemia overnight. General: non toxic, no distress, appears at stated age Derm: warm, dry Head: atraumatic, normocephalic, symmetric Eyes: EOMI, no lid lag, anicteric sclera Mouth: no lip lesion, mucus membranes moist Cardiovascular: S1S2 reg, no murmur, positive posterior tibial pulse bilateral, Lungs: CTA bilateral, no rhonchi, no rales , no accessory muscle use Abdominal: soft, nontender to palpation, no guarding, no appreciable organomegaly Ext: no gross muscle atrophy, no edema, no contractures Neuro: CN II-XI grossly intact, unable to follow up commands or answer qu estions, moving all 4 extremities independently Psych: Awake, not following commands,resting comfortably Assessment/plan: Status epilepticus, resolved Global aphasia Agitation -Status post TPA for possible CVA -Depakote per neurology -Neuro recommendations -Seizure precautions -EEG without seizure activity -MRI without acute stroke -PT/OT/speech recs -ASA - Echo preserved EF, bioprosthetic valve - Eliquis - maintain a safe a supportive environment Hypoglycemia, recurrent - insulin level, c-peptide, cortisol level - Accucheck [id number] Thrombocytopenia -mild - follow CBC - stop heparin and change to eliquis Hyponatremia, mild -IV fluids have been stopped - urine lytes/osmol -Improving - await AM lab results Perminent Atrial fibrillation -patient has refused anticoagulation in the past - Eliquis Valvular disease status post valve replacement Hypertension Dyslipidemia Active Medications Generic Name Dose Route Start Last Admin Trade Name Freq PRN Reason Stop Dose Admin Acetaminophen 650 mg 02/14/22 11:12 02/17/22 08:46 Acetaminophen Tab 325 Mg Tab PO 650 mg Q6HR PRN Administration Fever and/ or Pain Apixaban 5 mg 02/16/22 21:00 02/17/22 08:47 Apixaban 5 Mg Tab PO 5 mg BID NAVI Administration Protocol Aspirin 81 mg 02/14/22 20:00 02/16/22 21:06 Aspirin 81 Mg PO 81 mg DAILY@1999 NAVI Administration Atorvastatin Calcium 80 mg 02/13/22 21:00 02/16/22 21:06 Atorvastatin 80 Mg Tab PO 80 mg HS NAVI Administration Bisacodyl 5 mg 02/14/22 11:12 Bisacodyl 5 Mg Tablet. PO DAILY PRN Constipation Divalproex Sodium 500 mg 02/16/22 21:00 02/17/22 08:47 Divalproex 500 Mg Tablet. PO 500 mg BID NAVI Administration Famotidine 20 mg 02/16/22 21:00 02/17/22 08:47 Famotidine 20 Mg Tab PO 20 mg BID NAVI Administration Haloperidol Lactate 2 mg 02/15/22 00:26 02/17/22 01:16 Haloperidol Lactate 5 Mg/Ml 1 Ml Vial IVP 2 mg Q4HR PRN Administration Agitation or Acute Psychosis Hydrocortisone 1 applic 02/14/22 12:58 02/14/22 13:34 Hydrocortisone 1% Cream 30 Gm Tube TOPICAL 1 applic BID PRN Administration Skin Irritation Protocol Latanoprost 1 drops 02/16/22 21:00 02/16/22 21:25 Latanoprost 0.005% Ophth Drops 2.5 Ml Btl RIGHT EYE 1 drops HS NAVI Administration Melatonin 5 mg 02/14/22 11:12 Melatonin 5 Mg Tablet PO HS PRN Insomnia Metoprolol Succinate 25 mg 02/14/22 09:00 02/17/22 08:47 Metoprolol Succinate (Er) 25 Mg Tab.Er.24h PO 25 mg DAILY NAVI Administration Morphine Sulfate 4 mg 02/13/22 15:38 02/13/22 15:38 Morphine Sulfate 4 Mg/Ml Syringe IVP 4 mg ONCE PRN Administration Pain Naloxone HCl 0.2 mg 02/13/22 19:10 Naloxone 0.4 Mg/Ml 1 Ml Vial IV Q2M PRN Opioid Reversal Ondansetron HCl 4 mg 02/14/22 11:12 Ondansetron 4 Mg/2 Ml Vial IVP Q6H PRN Nausea Objective - Vital Signs Vital signs: Vital Signs Temp 97.6 F 02/17/22 12:00 Pulse 82 02/17/22 12:00 Resp 20 02/17/22 12:00 BP 133/80 02/17/22 12:00 Pulse Ox 90 L 02/17/22 00:00 FiO2 Intake & Output 02/16/22 02/17/22 02/17/22 18:59 06:59 18:59 Intake Total 240 240 Output Total 200 300 Balance -200 -60 240 Weight 64 kg Intake: Oral 240 240 Output: Urine 200 300 Other: Voiding Method Toilet Toilet Toilet # Voids 4 2 - Labs CBC & Chem 7: 02/17/22 07:27 02/16/22 05:48 Labs: Abnormal Lab Results - Last 24 Hours (Table) 02/16/22 02/17/22 02/17/22 Range/Units 19:01 06:24 06:40 WBC (3.8-10.6) k/uL Plt Count (150-450) k/uL POC Glucose (mg/dL) 74 L 66 L 48 L (75-99) mg/dL 02/17/22 02/17/22 02/17/22 Range/Units 07:12 07:27 07:33 WBC 13.2 H (3.8-10.6) k/uL Plt Count 136 L (150-450) k/uL POC Glucose (mg/dL) 33 L 116 H (75-99) mg/dL
[2022-02-17 16:11] LABS: Glucose,Whole Blood 137 mg/dL (75-99)
[2022-02-17] MEDS: ASPIRIN 81 MG PO SCH (20:00)
[2022-02-17] MEDS: ATORVASTATIN 80 MG TAB PO SCH (20:33)
[2022-02-17] MEDS: LATANOPROST 0.005% OPHTH DROPS 2.5 ML BTL RIGHT EYE SCH (21:00)
[2022-02-18 01:00] LABS: Glucose,Whole Blood 75 mg/dL (75-99)
[2022-02-18 03:28] LABS: Glucose,Whole Blood 63 mg/dL (75-99)
[2022-02-18 03:45] LABS: Glucose,Whole Blood 69 mg/dL (75-99)
[2022-02-18 04:04] LABS: Glucose,Whole Blood 99 mg/dL (75-99)
[2022-02-18 06:16] LABS: Glucose,Whole Blood 103 mg/dL (75-99)
[2022-02-18] MEDS: DIVALPROEX 500 MG TABLET.DR PO SCH ×2 (08:25→21:05)
[2022-02-18] MEDS: APIXABAN 5 MG TAB PO SCH ×2 (08:25→21:04)
[2022-02-18] MEDS: METOPROLOL SUCCINATE (ER) 25 MG TAB.ER.24H PO SCH (08:25)
[2022-02-18] MEDS: FAMOTIDINE 20 MG TAB PO SCH ×2 (08:25→21:04)
--- NOTE | 2022-02-18 10:08 | P.PN ---
Subjective Progress Note Date: 02/18/22 Patient is an 82 yo male with hx of CVA, Seizures, HTN, and HLD who presented to the ED after a seizure and was noted to have lateral gaze preference and weakness. Per patient was attempting to place boot on recent surgery site on left foot. He did have surgery on his right foot to fix a great toe deformity about 2 weeks ago He was confused and not responding and staring. She lead him to a chair and he then developed tonic/clonic movements. This resolved and then recurred. On EMS arrival he was seizing in chair with right sided facial droop and right larios gaze. He again had another seizure during transport to the hospital and then another in the emergency department. Stroke network was activ ated and patient was determined to be a TPA candidate. He was given TPA for an NIH score of 34 , completed [address] head showed no acute intracranial hemorrhage or midline shift. It did show chronic small vessel ischemic changes. 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 He was also loaded with Keppra in the ER. He was admitted to the ICU for further monitoring. He was noted to have A fib with controlled ventricular response on telemetry in the ICU. He had a similar episode in March 2021 and he was evaluated at [facility]. and son state that he had a continuous EEG and an MRI and they're unsure if he was diagnosed with a stroke at that time or just seizures. They report that he was discharged home on medications they're unsure what. He did follow with the neurologist and the believes he was supposed to be on seizure medications however he did not take these. He had an episode similar to this in June which abated after several minutes and he did not seek medical attention at that time. He follows with Dr. Garcia for cardiology. This morning, the patient is awake. He has expressive aphasia. He remains hard to communicate with. As such, no information can be obtained from this patient. He will occasionally gets agitated, shouts randomly and he is requiring a sitter at all times. He is unable to fully communicate. Have some right-sided weakness. Nevertheless, no seizure activity has been noted overnight. The patient is hemodynamically stable. His cardiac rhythm is atrial fibrillation. A swallow evaluation is to be done this morning. He is currently on oxygen at 4 L per minute nasal cannula. Neurologist on the case. EEG has been done . 02/15/2022, neurologically the patient is still having issues with expressive aphasia and receptive aphasia. I was told by the nursing staff that occasionally is following some commands. He has a sitter at the bedside and is resting comfortably in bed. No new onset focal neurological deficit. As far as motor function, it's hard to assess as the patient has also receptive aphasia. We have noted some weakness in the right upper extremity. A repeat CAT scan of the brain was done yesterday and showed no evidence of any acute bleed. The patient is going to have an MRI of the brain. Echocardiogram was also done today. His cardiac rhythm is still atrial fibrillation. No hypotension. Hemodynamically stable. He passed a swallow evaluation yesterday and the patient is being fed with chopped food diet. EEG of the brain was done yesterday and showed no this of any seizure activity. He was essentially normal EEG without any seizure activity. The CAT scan of the brain was repeated yesterday at 3:20 PM and it showed no evidence of any acute bleed. For now, the patient is being followed up by neurology. The patient was given aspirin 81 mg by mouth daily. He is also on heparin subcu for DVT prophylaxis. 02/16/2022, the patient neurologic functions are essentially unchanged compared to yesterday. No obvious focal neurological deficit. He continues to have issues with aphasia both expressive and receptive. At times, we feel that he understands what we tell him although this is not consistent. An MRI of the brain was done yesterday and the patient was found to have no evidence of any recent infarct. There was mild to moderate diffuse cerebral atrophy and moderate on a small vessel ischemic changes. No neck stiffness. No fever. The cardiac rhythm is atrial fibrillation. No anticoagulants yet, remains on aspirin. Electrolytes are normal. Sodium is at 1:30 in the normal renal function with a white cell count of 11.4 and a hemoglobin of 14.1. He is tolerating diet and he is able to swallow well. No agitation. There is a sitter at the bedside. The patient is being transferred to a medical surgical floor today. 02/17/2022, neurologically patient is about the same. He talks yet he doesn't make sense. He does not follow commands. No agitation. No focal neurological deficits. No seizure activity. As mentioned earlier, the MRI of the brain came back negative. The patient remains in atrial fibrillation and the patient will be started on anticoagulation regarding his A. fib. This was cleared by neurology. Meanwhile, no hemodynamic changes. No fever. No chills. No neck stiffness. Blood work from today showing a white cell count 13.2 with a hemoglobin of 14.6 and a platelet count of 136. Normal renal function. No other electrolyte abnormalities from yesterday, follow-up blood work is pending. Echo was completed yesterday and the patient has a preserved LV function. No significant valvular abnormalities patient has aortic valve replacement and mitral valve repair. In terms of his antiepileptics, the patient is currently on Depakote 500 mg by mouth twice a day. He was taken off Keppra . He remains on Eliquis 5 mg by mouth twice a day. He is also on aspirin 81 mg by mouth daily. He is post thrombolytic therapy. Note that the patient is having episodes of hypoglycemia. He is in the ICU, the patient had 2 episodes of hypoglycemia the last one being this morning at 7:12 AM with a blood sugar of 33. Yesterday morning at 6:40 AM, the patient's blood sugar was 48. As such, I am getting increased suspicion that the patient is having episodes of hypoglycemia and this could have contributed to his neurologic impairment. 02/18/2022, the patient is on room air oxygen. He is still mentally impaired as the patient is unable to communicate or have a reasonable conversation with us. He is moving all 4 extremities without any limitation and I was informed that the patient was able to get up to the bathroom and come back with assistance. He was started on anticoagulants yesterday and the patient remains in atrial fibrillation. He is currently on Eliquis and the dose of 5 mg by mouth twice a day. He is able to swallow his medications without any major difficulties. He remains hemodynamically stable. No seizure activity has been noted. He remains on Depakote for now for antiepileptics. No further episodes of hypoglycemia since yesterday and the patient's blood sugars adequately maintained. The rest of the medications unchanged. Neurologist on the case and the patient is going to be transferred to a medical surgical floor for now. He does not have a sitter and he does have a chair alarm. Objective - Vital Signs Vital signs: Vital Signs Temp 96.7 F L 02/18/22 04:00 Pulse 115 H 02/18/22 04:00 Resp 20 02/18/22 04:00 BP 103/73 02/18/22 04:00 Pulse Ox 91 L 02/18/22 04:00 FiO2 Intake & Output 02/17/22 02/18/22 02/18/22 18:59 06:59 18:59 Intake Total 240 240 Balance 240 240 Weight 67.2 kg Intake: Oral 240 240 Other: Voiding Method Toilet Toilet # Voids 2 1 - Exam General: non toxic, no distress, the patient keeps on saying that he doesn't know. He is unable to ambulate conversation. He is unable to answer questions appropriately. He is currently on RA L per minute nasal cannula. Derm: warm, dry Head: atraumatic, normocephalic, symmetric Eyes: EOMI, no lid lag, anicteric sclera, pupils equal round reactive to light ENT: Nose and ears atraumatic, no thrush, no pharyngeal erythema Neck: No thyromegaly, no cervical lymphadenopathy, trachea midline, supple Mouth: no lip lesion, mucus membranes moist Cardiovascular: S1S2 reg, no murmur, positive posterior tibial pulse bilateral, no edema, capillary refill less than 2 seconds Lungs: clear to ascultation bilateral, no ronchi, no rales, no wheeze, no accessory muscle use Abdominal: soft, nontender to palpation, no guarding, no appreciable orga nomegaly, normal bowel sounds Ext: no gross muscle atrophy, muscle strength muscle strength 5 out of 5 in all 4 extremities, no contractures Neuro: PERRL, Moving upper and lower extrmities independently against gravity does have some weakness in the right side especially in the right upper extre mity. No seizure activity has been noted. No facial asymmetry. Speech is consistent with expressive aphasia. The patient also has receptive aphasia. Pupils are equal and reactive to light. No facial asymmetry. Tongue is in midline. - Labs CBC & Chem 7: 02/17/22 07:27 02/17/22 10:11 Labs: Abnormal Lab Results - Last 24 Hours (Table) 02/17/22 02/17/22 02/17/22 Range/Units 10:11 10:11 11:22 Sodium 128 L (137-145) mmol/L Chloride 92 L (98-107) mmol/L BUN 23 H (9-20) mg/dL POC Glucose (mg/dL) 107 H (75-99) mg/dL Insulin Level 30.1 H (3.0-25.0) mIU/mL 02/17/22 02/18/22 02/18/22 Range/Units 16:10 03:24 03:44 Sodium (137-145) mmol/L Chloride (98-107) mmol/L BUN (9-20) mg/dL POC Glucose (mg/dL) 137 H 63 L 69 L (75-99) mg/dL Insulin Level (3.0-25.0) mIU/mL 02/18/22 Range/Units 06:14 Sodium (137-145) mmol/L Chloride (98-107) mmol/L BUN (9-20) mg/dL POC Glucose (mg/dL) 103 H (75-99) mg/dL Insulin Level (3.0-25.0) mIU/mL Assessment and Plan Plan: Mental status change. The patient continues to have ongoing alteration in mental status. Cannot carry conversation. Is not following commands regularly. He cannot make meaningful sentences and he does not answer questions appropriately. He verbalizes different words that have no meaning. He is movi ng all 4 extremities. On today's evaluation of 02/17/2022, neurologic function is unchanged. We have not with this any seizure activity and the patient was started on Depakote. Neurologically on the case and we have made recommendations to start the patient a combination with Eliquis. Status epilepticus, known history of previous seizure and the patient is stable on Keppra, no seizure activity over 24 hours and the patient had an EEG and this was essentially a normal EEG without any ongoing seizure activity. MRI of the brain was negative and the patient has not had any further seizure episodes since his admission. Currently stable and seizure precautions are being implemented. The patient was also hypoglycemic at a time of admission. Consider hypoglycemia induced seizures/status. For now, the patient was taken off the Keppra and he was started on Depakote. I am considering the possibility of hypoglycemia causing neurologic impairment and damage probably due to prolonged hypoglycemic state. 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 The patient's MRI of the brain showing mild to moderate diffuse atrophy. No evidence of any acute CVA. The patient presented to us with Right-sided flaccid paralysis, post TPA and the patient had an initial NIH score of 34 and the current score is down to 7, improving, and on today's evaluation, it's hard to assess the patient's motor function. Nevertheless, the motor function on the right is improved and he is on oral aspirin 81 mg by mouth daily.. The patient continues to be in atrial fibr illation. 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 No significant plaque. No significant stenosis and the remainder of the common or internal carotid arteries. 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 The left vertebral arteries were patent. paroxysmal atrial fibrillation current rhythm is atrial fibrillation with a controlled rate, and the patient remains in atrial fibrillation Aortic valve replacement and mitral valve repair , secondary pulmonary hypertension Hypertension Hyperlipidemia Severe OA Left foot surgery, surgical wound site is dry clean and intact. plan Continue Neuro checks and he is unchanged clinically Neurologically unchanged on today's evaluation There has been no further episodes of hypoglycemia. However, the episodes of hypoglycemia hypoglycemia were concerning . We'll monitor the blood sugar and the patient develops any hypoglycemia, was immediately checked insulin, proinsulin, C-peptide and beta hydroxybutyric acid level. The patient is not taking any form of sulfonylureas. The patient has no t taken any form of insulin as for now. We'll may need also to do a glucagon challenge should the patient have any hypoglycemic events. MRI of the brain was noted No seizure activity Continue Depakote for now Seizure precautions EEG results were noted PT/OT/speech evaluation/swallow evaluation was completed today and the patient was able to swallow appropriately Echo noted and the echocardiogram showed LVH, bioprosthetic aortic valve with mild stenosis, mitral valve repair, no significant regurgitation or stenosis. Left ventricular ejection fraction is around 55-60%. Initiate anticoagulation with Eliquis. Transferred outside the intensive care unit.
[2022-02-18 12:01] VITALS: BMI 23.9
--- NOTE | 2022-02-18 12:06 | P.PN ---
Subjective Progress Note Date: 02/18/22 The patient is seen at bedside and he feels doing better. He is asking when he can go home. Patient is having sugars in range of 60's to 100's. Objective - Vital Signs Vital signs: Vital Signs Temp 96.7 F L 02/18/22 04:00 Pulse 115 H 02/18/22 04:00 Resp 20 02/18/22 04:00 BP 103/73 02/18/22 04:00 Pulse Ox 91 L 02/18/22 04:00 FiO2 Intake & Output 02/17/22 02/18/22 02/18/22 18:59 06:59 18:59 Intake Total 240 240 240 Balance 240 240 240 Weight 67.2 kg 67.2 kg Intake: Oral 240 240 240 Other: Voiding Method Toilet Toilet # Voids 2 1 3 - Exam GENERAL: The patient is lying in bed and does not seem in acute distress. NEUROLOGICAL: Limited. Higher mental function: The patient is awake, oriented to self. He stated he is in the hospital. He was able to name pen, watch, glasses. He kept on "you are welcome" He is following some simple commands (closing eyes, sticking tongue out and moving arms and leg) and mimics. Appear he has expressive aphasia. Cranial nerves: Pupils are round, equal. EOM is tacking throughout the room. No dysarthria. Otherwise rest could not be assess. Motor: The strength is hard to assess because of his cooperation. He spontaneously lifts bilateral uppers and lowers above gravity and no focality noted. Cerebellum: Unable to assess. Sensation: Unable to assess sensation. SOME OF THE WORK-UP: * Routine EEG on 02/14/2022: Normal. 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 No significant plaque. No significant stenosis in the remainder of the common or internal carotid arteries. Significant narrowings of the nondominant right vertebral artery are normal present. Significant stenosis of the P1 segment on current study. 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 * He had repeat CT head post IV tpa and it is reported as no acute intracranial hemorrhage or gross acute cortical infarct. I personally reviewed CT and agree with report. * MRI Brain is reported as No MRI evidence of recent infarct. Mild to moderate diffuse cerebral atrophy and more moderate chronic small vessel ischemic changes redemonstrated. * EEG: Is normal. * 2DEcho: Left ventricular hyperthrophy with hyperdynamic function. Severe left atrial enlargement. EF 55-60% * Lipid panel: T, Cholestrol 138, LDL 58. - Labs CBC & Chem 7: 02/17/22 07:27 02/17/22 10:11 Labs: Abnormal Lab Results - Last 24 Hours (Table) 02/17/22 02/17/22 02/17/22 Range/Units 10:11 10:11 11:22 Sodium 128 L (137-145) mmol/L Chloride 92 L (98-107) mmol/L BUN 23 H (9-20) mg/dL POC Glucose (mg/dL) 107 H (75-99) mg/dL Insulin Level 30.1 H (3.0-25.0) mIU/mL 02/17/22 02/18/22 02/18/22 Range/Units 16:10 03:24 03:44 Sodium (137-145) mmol/L Chloride (98-107) mmol/L BUN (9-20) mg/dL POC Glucose (mg/dL) 137 H 63 L 69 L (75-99) mg/dL Insulin Level (3.0-25.0) mIU/mL 02/18/22 Range/Units 06:14 Sodium (137-145) mmol/L Chloride (98-107) mmol/L BUN (9-20) mg/dL POC Glucose (mg/dL) 103 H (75-99) mg/dL Insulin Level (3.0-25.0) mIU/mL Assessment and Plan Assessment: * Global aphasia on presentation improving to expressive aphasia: Unknown cause. Possible this is due to hypoglycemic events mimicking stroke (had mulitple hypoglycemic episodes on 02/14 and today as low as 30's). MRI Brain is negative for stroke and routine EEG is normal. His language is improving but not back to baseline. * Hypoglycemic encephalopathy * Delirium due to above * Reported Status epilepticus, resolved. * Episodes of hypoglycemia as low as 30's * History of similar presentation on 04/12/2021. Patient had no residual deficits. * Paroxysmal Atrial fibrillation. Patient had atrial fibrillation also confirmed with the previous admission 04/12/2021. * Seizure disorder, currently not on seizure medication due to medication noncompliance. * Hyperlipidemia * Hypertension * History of cardiac valve replacement * Medication non-compliance Plan: * Continue ASA 81mg daily. He was started on Eliquis 5mg bid by primary team. On Lipitor 80mg qhs. From neurological perspective can be on Lipitor 40mg qhs. * Continue Depakote 500mg 1 tab bid (which has antiepileptic effect and mood benefit). * Continue neuro checks. 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 * Consider ambulatory EEG as outpatient. * PLEASE AVOID SEDATIONS MUCH POSSIBLE (since will affect with neurological examination and will have paradoxical effect of making him more agitated). Currently on Haldol 2mg every 4 hrs PRN. Consider seroquel 25 to 50mg qhs if needed. * Avoid hypoglycemic event and will defer management to primary team. * For DVT prophylaxis: On subq heparin 5000U every 8 hrs. * Recommend patient to follow-up with neurologist as outpatient within 1-2 weeks as outpatient. The plan is discussed with the patient's nurse and primary team. There is no further neurological work-up. Neurology will sign off. Please reconsult if needed. Brian Antonio M.D. Neuro-Hospitalist Time with Patient: Less than 30
--- NOTE | 2022-02-18 12:18 | P.PN ---
Subjective Progress Note Date: 02/18/22 Principal diagnosis: CVA? Patient is an 82 yo male with hx of CVA, Seizures, HTN, and HLD who presented to the ED after a sizure and was noted to have lateral gaze preference and weakness. Stroke network was activated and patient was determined to be a TPA candidate. CT head showed no acute intracranial hemorrhage or midline shift. It did show chronic small vessel ischemic changes. 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 He was slightly tachycardic on arrival. Initial laboratory analysis showed an elevated white blood cell count of 11, sodium 131, BUN 31, carbon dioxide 21. EKG demonstrated a regular rhythm at 115 appears to be consistent with possible atrial tach ycardia. He was also loaded with Keppra in the ER. He was admitted to the ICU for further monitoring. He was noted to have A fib with controlled ventricular response on tele in the ICU. MRI did not show any signs of stoke. EEG was negative. He did have recurrent episode of hypoglycemia. Patient had a similar episode in March 2021. Records reviewed from [facility]. At that point in time he did have a small CVA. He was also known to have A. fib. He has been recommended for anticoagulation by [facility] and his primary care physician however he does not take this. He was also discharged from [facility] on Depakote but again has not been taking this per the . Patient seen and examined at bedside. He is awake, alert and responding to questions appropriately. He denies any specific complaints. Denies chest pain or shortness of breath. Blood sugar checks have revealed no hypoglycemic events overnight. Insulin level is mildly elevated. Cortisol level is pending. Discussed with RN. Objective - Vital Signs Vital signs: Vital Signs Temp 96.7 F L 02/18/22 04:00 Pulse 115 H 02/18/22 04:00 Resp 20 02/18/22 04:00 BP 103/73 02/18/22 04:00 Pulse Ox 91 L 02/18/22 04:00 FiO2 Intake & Output 02/17/22 02/18/22 02/18/22 18:59 06:59 18:59 Intake Total 240 240 240 Balance 240 240 240 Weight 67.2 kg 67.2 kg Intake: Oral 240 240 240 Other: Voiding Method Toilet Toilet # Voids 2 1 3 - Exam Constitutional: No acute distress, on room air HEENT: Pupils equally reactive to light, atraumatic, normocephalic. Lungs: Clear to auscultation bilaterally, no wheezing, no crackles Cardiovascular: RRR, S1-S2 normal, no murmur, no peripheral edema Abdominal: Soft, nontender, no guarding, rebound or rigidity Extremities: No cyanosis or clubbing Neuro: Moving all 4 extremities spontaneously, awake and alert - Labs CBC & Chem 7: 02/17/22 07:27 02/17/22 10:11 Labs: Abnormal Lab Results - Last 24 Hours (Table) 02/17/22 02/17/22 02/17/22 Range/Units 10:11 10:11 11:22 Sodium 128 L (137-145) mmol/L Chloride 92 L (98-107) mmol/L BUN 23 H (9-20) mg/dL POC Glucose (mg/dL) 107 H (75-99) mg/dL Insulin Level 30.1 H (3.0-25.0) mIU/mL 02/17/22 02/18/22 02/18/22 Range/Units 16:10 03:24 03:44 Sodium (137-145) mmol/L Chloride (98-107) mmol/L BUN (9-20) mg/dL POC Glucose (mg/dL) 137 H 63 L 69 L (75-99) mg/dL Insulin Level (3.0-25.0) mIU/mL 02/18/22 Range/Units 06:14 Sodium (137-145) mmol/L Chloride (98-107) mmol/L BUN (9-20) mg/dL POC Glucose (mg/dL) 103 H (75-99) mg/dL Insulin Level (3.0-25.0) mIU/mL Assessment and Plan Assessment: Status epilepticus, resolved Global aphasia Agitation -Status post TPA for possible CVA -Depakote per neurology -Neuro has signed off -Seizure precautions -EEG without seizure activity -MRI without acute stroke -PT/OT/speech recs -On aspirin and atorvastatin Hypoglycemia, recurrent - insulin level mildly elevated, c-peptide, cortisol level pending - Monitor blood sugars closely. -Recommend outpatient evaluation with relationship executive Thrombocytopenia -Continue to monitor, no evidence of bleeding at this time Hyponatremia, mild -IV fluids have been stopped - urine lytes/osmol -Improving - await AM lab results Perminent Atrial fibrillation Rate is controlled - Continue Eliquis Valvular disease status post valve replacement Hypertension Dyslipidemia Disposition: Start discharge planning to rehab facility. Discussed with RN and CM
[2022-02-18 16:25] LABS: Glucose,Whole Blood 111 mg/dL (75-99)
[2022-02-18] MEDS: ATORVASTATIN 80 MG TAB PO SCH (21:04)
[2022-02-18] MEDS: ASPIRIN 81 MG PO SCH (21:05)
[2022-02-18 23:58] LABS: Glucose,Whole Blood 79 mg/dL (75-99)
[2022-02-19] MEDS: LATANOPROST 0.005% OPHTH DROPS 2.5 ML BTL RIGHT EYE SCH ×2 (01:48→20:29)
[2022-02-19 06:37] LABS: Glucose,Whole Blood 53 mg/dL (75-99)
[2022-02-19 07:02] LABS: Glucose,Whole Blood 55 mg/dL (75-99)
[2022-02-19 07:33] LABS: Glucose,Whole Blood 250 mg/dL (75-99)
[2022-02-19] MEDS: METOPROLOL SUCCINATE (ER) 25 MG TAB.ER.24H PO SCH (08:10)
[2022-02-19] MEDS: APIXABAN 5 MG TAB PO SCH ×2 (08:10→20:29)
[2022-02-19] MEDS: FAMOTIDINE 20 MG TAB PO SCH ×2 (08:10→20:29)
--- NOTE | 2022-02-19 08:17 | P.PN ---
Subjective Progress Note Date: 02/19/22 Patient is an 82 yo male with hx of CVA, Seizures, HTN, and HLD who presented to the ED after a seizure and was noted to have lateral gaze preference and weakness. Per patient was attempting to place boot on recent surgery site on left foot. He did have surgery on his right foot to fix a great toe deformity about 2 weeks ago He was confused and not responding and staring. She lead him to a chair and he then developed tonic/clonic movements. This resolved and then recurred. On EMS arrival he was seizing in chair with right sided facial droop and right larios gaze. He again had another seizure during transport to the hospital and then another in the emergency department. Stroke network was activ ated and patient was determined to be a TPA candidate. He was given TPA for an NIH score of 34 , completed [address] head showed no acute intracranial hemorrhage or midline shift. It did show chronic small vessel ischemic changes. 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 He was also loaded with Keppra in the ER. He was admitted to the ICU for further monitoring. He was noted to have A fib with controlled ventricular response on telemetry in the ICU. He had a similar episode in March 2021 and he was evaluated at [place]. and son state that he had a continuous EEG and an MRI and they're unsure if he was diagnosed with a stroke at that time or just seizures. They report that he was discharged home on medications they're unsure what. He did follow with the neurologist and the believes he was supposed to be on seizure medications however he did not take these. He had an episode similar to this in June which abated after several minutes and he did not seek medical attention at that time. He follows with Dr. Garcia for cardiology. This morning, the patient is awake. He has expressive aphasia. He remains hard to communicate with. As such, no information can be obtained from this patient. He will occasionally gets agitated, shouts randomly and he is requiring a sitter at all times. He is unable to fully communicate. Have some right-sided weakness. Nevertheless, no seizure activity has been noted overnight. The patient is hemodynamically stable. His cardiac rhythm is atrial fibrillation. A swallow evaluation is to be done this morning. He is currently on oxygen at 4 L per minute nasal cannula. Neurologist on the case. EEG has been done . 02/15/2022, neurologically the patient is still having issues with expressive aphasia and receptive aphasia. I was told by the nursing staff that occasionally is following some commands. He has a sitter at the bedside and is resting comfortably in bed. No new onset focal neurological deficit. As far as motor function, it's hard to assess as the patient has also receptive aphasia. We have noted some weakness in the right upper extremity. A repeat CAT scan of the brain was done yesterday and showed no evidence of any acute bleed. The patient is going to have an MRI of the brain. Echocardiogram was also done today. His cardiac rhythm is still atrial fibrillation. No hypotension. Hemodynamically stable. He passed a swallow evaluation yesterday and the patient is being fed with chopped food diet. EEG of the brain was done yesterday and showed no this of any seizure activity. He was essentially normal EEG without any seizure activity. The CAT scan of the brain was repeated yesterday at 3:20 PM and it showed no evidence of any acute bleed. For now, the patient is being followed up by neurology. The patient was given aspirin 81 mg by mouth daily. He is also on heparin subcu for DVT prophylaxis. 02/16/2022, the patient neurologic functions are essentially unchanged compared to yesterday. No obvious focal neurological deficit. He continues to have issues with aphasia both expressive and receptive. At times, we feel that he understands what we tell him although this is not consistent. An MRI of the brain was done yesterday and the patient was found to have no evidence of any recent infarct. There was mild to moderate diffuse cerebral atrophy and moderate on a small vessel ischemic changes. No neck stiffness. No fever. The cardiac rhythm is atrial fibrillation. No anticoagulants yet, remains on aspirin. Electrolytes are normal. Sodium is at 1:30 in the normal renal function with a white cell count of 11.4 and a hemoglobin of 14.1. He is tolerating diet and he is able to swallow well. No agitation. There is a sitter at the bedside. The patient is being transferred to a medical surgical floor today. 02/17/2022, neurologically patient is about the same. He talks yet he doesn't make sense. He does not follow commands. No agitation. No focal neurological deficits. No seizure activity. As mentioned earlier, the MRI of the brain came back negative. The patient remains in atrial fibrillation and the patient will be started on anticoagulation regarding his A. fib. This was cleared by neurology. Meanwhile, no hemodynamic changes. No fever. No chills. No neck stiffness. Blood work from today showing a white cell count 13.2 with a hemoglobin of 14.6 and a platelet count of 136. Normal renal function. No other electrolyte abnormalities from yesterday, follow-up blood work is pending. Echo was completed yesterday and the patient has a preserved LV function. No significant valvular abnormalities patient has aortic valve replacement and mitral valve repair. In terms of his antiepileptics, the patient is currently on Depakote 500 mg by mouth twice a day. He was taken off Keppra . He remains on Eliquis 5 mg by mouth twice a day. He is also on aspirin 81 mg by mouth daily. He is post thrombolytic therapy. Note that the patient is having episodes of hypoglycemia. He is in the ICU, the patient had 2 episodes of hypoglycemia the last one being this morning at 7:12 AM with a blood sugar of 33. Yesterday morning at 6:40 AM, the patient's blood sugar was 48. As such, I am getting increased suspicion that the patient is having episodes of hypoglycemia and this could have contributed to his neurologic impairment. 02/18/2022, the patient is on room air oxygen. He is still mentally impaired as the patient is unable to communicate or have a reasonable conversation with us. He is moving all 4 extremities without any limitation and I was informed that the patient was able to get up to the bathroom and come back with assistance. He was started on anticoagulants yesterday and the patient remains in atrial fibrillation. He is currently on Eliquis and the dose of 5 mg by mouth twice a day. He is able to swallow his medications without any major difficulties. He remains hemodynamically stable. No seizure activity has been noted. He remains on Depakote for now for antiepileptics. No further episodes of hypoglycemia since yesterday and the patient's blood sugars adequately maintained. The rest of the medications unchanged. Neurologist on the case and the patient is going to be transferred to a medical surgical floor for now. He does not have a sitter and he does have a chair alarm. on 02/19/2022. Neurologic function is remaining essentially unchanged compared to yesterday. The patient continues to have difficulty with comprehension. I do not think the patient is understanding what his been told that he has a combination of receptive and expressive aphasia. No significant agitation at this point in time although over the afternoon, the patient became more restless. No hypoglycemic events noted. Sugar this morning was 53 and a subsequent level came at 250 after he was given juice. No seizure activity has been noted. He remains in atrial fibrillation. He was started on anticoagulation with Eliquis. Hemodynamically stable. He is on room air oxygen. He is on no sedation for now. Moving all 4 extremities. Remains on Depakote per neurology recommendation. Objective - Vital Signs Vital signs: Vital Signs Temp 97.9 F 02/19/22 04:00 Pulse 117 H 02/19/22 04:00 Resp 20 02/19/22 04:00 BP 134/96 02/19/22 04:00 Pulse Ox 94 L 02/19/22 04:00 FiO2 Intake & Output 02/18/22 02/19/22 02/19/22 18:59 06:59 18:59 Intake Total 240 200 Balance 240 200 Weight 67.2 kg 65.3 kg Intake: Oral 240 200 Other: Voiding Method Toilet Toilet # Voids 2 2 # Bowel Movements 1 - Exam General: non toxic, no distress, the patient keeps on saying that he doesn't know. He is unable to ambulate conversation. He is unable to answer questions appropriately. He is currently on RA L per minute nasal cannula. Derm: warm, dry Head: atraumatic, normocephalic, symmetric Eyes: EOMI, no lid lag, anicteric sclera, pupils equal round reactive to light ENT: Nose and ears atraumatic, no thrush, no pharyngeal erythema Neck: No thyromegaly, no cervical lymphadenopathy, trachea midline, supple Mouth: no lip lesion, mucus membranes moist Cardiovascular: S1S2 reg, no murmur, positive posterior tibial pulse bilateral, no edema, capillary refill less than 2 seconds Lungs: clear to ascultation bilateral, no ronchi, no rales, no wheeze, no accessory muscle use Abdominal: soft, nontender to palpation, no guarding, no appreciable organomegaly, normal bowel sounds Ext: no gross muscle atrophy, muscle strength muscle strength 5 out of 5 in all 4 extremities, no contractures Neuro: PERRL, Moving upper and lower extrmities independently against gravity does have some weakness in the right side especially in the right upper extremity. No seizure activity has been noted. No facial asymmetry. Speech is consistent with expressive aphasia. The patient also has receptive aphasia. Pupils are equal and reactive to light. No facial asymmetry. Tongue is in midline. - Labs CBC & Chem 7: 02/17/22 07:27 02/17/22 10:11 Labs: Abnormal Lab Results - Last 24 Hours (Table) 02/18/22 02/19/22 02/19/22 Range/Units 16:23 06:35 07:00 POC Glucose (mg/dL) 111 H 53 L 55 L (75-99) mg/dL 02/19/22 Range/Units 07:32 POC Glucose (mg/dL) 250 H (75-99) mg/dL Assessment and Plan Plan: Mental status change. The patient continues to have ongoing alteration in mental status. Cannot carry conversation. Is not following commands regularly. He cannot make meaningful sentences and he does not answer questions appropriately. He verbalizes different words that have no meaning. He is moving all 4 extremities. On today's evaluation of 02/17/2022, neurologic function is unchanged. We have not with this any seizure activity and the patient was started on Depakote. Neurologically on the case and we have made recommendations to start the patient a combination with Eliquis. Status epilepticus, known history of previous seizure and the patient is stable on Keppra, no seizure activity over 24 hours and the patient had an EEG and this was essentially a normal EEG without any ongoing seizure activity. MRI of the brain was negative and the patient has not had any further seizure episodes since his admission. Currently stable and seizure precautions are being implemented. The patient was also hypoglycemic at a time of admission. Consider hypoglycemia induced seizures/status. For now, the patient was taken off the Keppra and he was started on Depakote. I am considering the possibility of hypoglycemia causing neurologic impairment and damage probably due to prolonged hypoglycemic state. 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 The patient's MRI of the brain showing mild to moderate diffuse atrophy. No evidence of any acute CVA. The patient presented to us with Right-sided flaccid paralysis, post TPA and the patient had an initial NIH score of 34 and the current score is down to 7, improving, and on today's evaluation, it's hard to assess the patient's motor function. Nevertheless, the motor function on the right is improved and he is on oral aspirin 81 mg by mouth daily.. The patient continues to be in atrial fibrillation. 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 No significant plaque. No significant stenosis and the remainder of the common or internal carotid ar teries. 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 The left vertebral arteries were patent. paroxysmal atrial fibrillation current rhythm is atrial fibrillation with a c ontrolled rate, and the patient remains in atrial fibrillation Aortic valve replacement and mitral valve repair , secondary pulmonary hypertension Hypertension Hyperlipidemia Severe OA Left foot surgery, surgical wound site is dry clean and intact. plan Continue Neuro checks and he is unchanged clinically Neurologically unchanged on today's evaluation, and there is suspicion that the patient's neurologic impairment is related to hypoglycemia. The episodes hypoglycemia hypoglycemia were concerning . We'll monitor the blood sugar and the patient develops any hypoglycemia, was immediately checked insulin, proinsulin, C-peptide and beta hydroxybutyric acid level. The patient is not taking any form of sulfonylureas. The patient has not taken any form of insulin as for now. We'll may need also to do a glucagon challenge should the patient have any hypoglycemic events. MRI of the brain was noted No seizure activity Continue Depakote for now Seizure precautions EEG results were noted PT/OT/speech evaluation/swallow evaluation was completed today and the patient was able to swallow appropriately Echo noted and the echocardiogram showed LVH, bioprosthetic aortic valve with mild stenosis, mitral valve repair, no significant regurgitation or stenosis. Left ventricular ejection fraction is around 55-60%. Continue Eliquis. Transferred outside the intensive care unit.
[2022-02-19] MEDS: DIVALPROEX 500 MG TABLET.DR PO SCH ×2 (08:44→20:29)
[2022-02-19 11:37] LABS: Glucose,Whole Blood 89 mg/dL (75-99)
[2022-02-19 16:41] LABS: Glucose,Whole Blood 72 mg/dL (75-99)
[2022-02-19] MEDS: ASPIRIN 81 MG PO SCH (20:29)
[2022-02-19] MEDS: ATORVASTATIN 80 MG TAB PO SCH (20:29)
[2022-02-19 21:06] LABS: Glucose,Whole Blood 82 mg/dL (75-99)
[2022-02-20 03:07] LABS: Glucose,Whole Blood 68 mg/dL (75-99)
[2022-02-20] MEDS ORDERED: DEXTROSE 50% SYRINGE 50 ML IVP ONE (03:12)
[2022-02-20 06:58] LABS: Glucose,Whole Blood 82 mg/dL (75-99)
--- NOTE | 2022-02-20 07:23 | P.PN ---
Subjective Progress Note Date: 02/19/22 Principal diagnosis: CVA Patient is an 82 yo male with hx of CVA, Seizures, HTN, and HLD who presented to the ED after a sizure and was noted to have lateral gaze preference and we akness. Stroke network was activated and patient was determined to be a TPA candidate. CT head showed no acute intracranial hemorrhage or midline shift. It did show chronic small vessel ischemic changes. 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 He was slightly tachycardic on arrival. Initial laboratory analysis showed an elevated white blood cell count of 11, sodium 131, BUN 31, carbon dioxide 21. EKG demonstrated a regular rhythm at 115 appears to be consistent with possible atrial tachyc ardia. He was also loaded with Keppra in the ER. He was admitted to the ICU for further monitoring. He was noted to have A fib with controlled ventricular response on tele in the ICU. MRI did not show any signs of stoke. EEG was negative. He did have recurrent episode of hypoglycemia. Patient had a similar episode in March 2021. Records reviewed from [place]. At that point in time he did have a small CVA. He was also known to have A. fib. He has been recommended for anticoagulation by [facility] and his primary care physician however he does not take this. He was also discharged from [facility] on Depakote but again has not been taking this per the . 02/19 Patient seen and examined. He continues to have aphasia. Discussed with nursing staff. Patient does have some fluctuations in blood sugars. He does have some low readings which have improved with oral intake. Patient has not had symptomatic significant hypoglycemia events Objective - Vital Signs Vital signs: Vital Signs Temp 97.8 F 02/20/22 03:15 Pulse 96 02/20/22 03:15 Resp 16 02/20/22 03:15 BP 104/90 02/20/22 03:15 Pulse Ox 94 L 02/20/22 03:15 FiO2 Intake & Output 02/19/22 02/20/22 02/20/22 18:59 06:59 18:59 Intake Total 300 Balance 300 Weight 66.2 kg Intake: Oral 300 Other: Voiding Method Toilet Toilet # Voids 2 3 # Bowel Movements 1 - Exam Constitutional: No acute distress, on room air HEENT: Pupils equally reactive to light, atraumatic, normocephalic. Lungs: Clear to auscultation bilaterally, no wheezing, no crackles Cardiovascular: RRR, S1-S2 normal, no murmur, no peripheral edema Abdominal: Soft, nontender, no guarding, rebound or rigidity Extremities: No cyanosis or clubbing Neuro: Moving all 4 extremities spontaneously, awake and alert - Labs CBC & Chem 7: 02/17/22 07:27 02/17/22 10:11 Labs: Abnormal Lab Results - Last 24 Hours (Table) 02/19/22 02/19/22 02/20/22 Range/Units 07:32 16:40 03:05 POC Glucose (mg/dL) 250 H 72 L 68 L (75-99) mg/dL Assessment and Plan (1) Cerebrovascular accident (CVA) Current Visit: Yes Status: Acute Code(s): I63.9 - CEREBRAL INFARCTION, UNSPECIFIED SNOMED Code(s): 768516689 Plan: Status epilepticus, resolved Global aphasia Agitation -Status post TPA for possible CVA -Depakote per neurology -Neuro has signed off -Seizure precautions -EEG without seizure activity -MRI without acute stroke -PT/OT/speech recs -On aspirin and atorvastatin Hypoglycemia -insulin level mildly elevated, c-peptide, cortisol low -Monitor blood sugars closely. -Possible adrenal insufficiency. Recommend outpatient follow-up with end ocrinology. We'll continue to monitor blood sugars. Patient has not had any symptomatic events. Thrombocytopenia -Continue to monitor, no evidence of bleeding at this time Hyponatremia, mild -Patient's most recent sodium level was on 02/17/2022 which was 128. We will order repeat Perminent Atrial fibrillation Rate is controlled - Continue Eliquis Valvular disease status post valve replacement Hypertension Dyslipidemia Disposition: Discussed with nursing staff and patient scheduled for possible inpatient rehab discharge on Monday of upcoming week
--- NOTE | 2022-02-20 08:52 | P.PN ---
Subjective Progress Note Date: 02/20/22 Patient is an 82 yo male with hx of CVA, Seizures, HTN, and HLD who presented to the ED after a seizure and was noted to have lateral gaze preference and weakness. Per patient was attempting to place boot on recent surgery site on left foot. He did have surgery on his right foot to fix a great toe deformity about 2 weeks ago He was confused and not responding and staring. She lead him to a chair and he then developed tonic/clonic movements. This resolved and then recurred. On EMS arrival he was seizing in chair with right sided facial droop and right larios gaze. He again had another seizure during transport to the hospital and then another in the emergency department. Stroke network was activ ated and patient was determined to be a TPA candidate. He was given TPA for an NIH score of 34 , completed [address] head showed no acute intracranial hemorrhage or midline shift. It did show chronic small vessel ischemic changes. 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 He was also loaded with Keppra in the ER. He was admitted to the ICU for further monitoring. He was noted to have A fib with controlled ventricular response on telemetry in the ICU. He had a similar episode in March 2021 and he was evaluated at [facility]. and son state that he had a continuous EEG and an MRI and they're unsure if he was diagnosed with a stroke at that time or just seizures. They report that he was discharged home on medications they're unsure what. He did follow with the neurologist and the believes he was supposed to be on seizure medications however he did not take these. He had an episode similar to this in June which abated after several minutes and he did not seek medical attention at that time. He follows with Dr. Garcia for cardiology. This morning, the patient is awake. He has expressive aphasia. He remains hard to communicate with. As such, no information can be obtained from this patient. He will occasionally gets agitated, shouts randomly and he is requiring a sitter at all times. He is unable to fully communicate. Have some right-sided weakness. Nevertheless, no seizure activity has been noted overnight. The patient is hemodynamically stable. His cardiac rhythm is atrial fibrillation. A swallow evaluation is to be done this morning. He is currently on oxygen at 4 L per minute nasal cannula. Neurologist on the case. EEG has been done . 02/15/2022, neurologically the patient is still having issues with expressive aphasia and receptive aphasia. I was told by the nursing staff that occasionally is following some commands. He has a sitter at the bedside and is resting comfortably in bed. No new onset focal neurological deficit. As far as motor function, it's hard to assess as the patient has also receptive aphasia. We have noted some weakness in the right upper extremity. A repeat CAT scan of the brain was done yesterday and showed no evidence of any acute bleed. The patient is going to have an MRI of the brain. Echocardiogram was also done today. His cardiac rhythm is still atrial fibrillation. No hypotension. Hemodynamically stable. He passed a swallow evaluation yesterday and the patient is being fed with chopped food diet. EEG of the brain was done yesterday and showed no this of any seizure activity. He was essentially normal EEG without any seizure activity. The CAT scan of the brain was repeated yesterday at 3:20 PM and it showed no evidence of any acute bleed. For now, the patient is being followed up by neurology. The patient was given aspirin 81 mg by mouth daily. He is also on heparin subcu for DVT prophylaxis. 02/16/2022, the patient neurologic functions are essentially unchanged compared to yesterday. No obvious focal neurological deficit. He continues to have issues with aphasia both expressive and receptive. At times, we feel that he understands what we tell him although this is not consistent. An MRI of the brain was done yesterday and the patient was found to have no evidence of any recent infarct. There was mild to moderate diffuse cerebral atrophy and moderate on a small vessel ischemic changes. No neck stiffness. No fever. The cardiac rhythm is atrial fibrillation. No anticoagulants yet, remains on aspirin. Electrolytes are normal. Sodium is at 130 in the normal renal function with a white cell count of 11.4 and a hemoglobin of 14.1. He is tolerating diet and he is able to swallow well. No agitation. There is a sitter at the bedside. The patient is being transferred to a medical surgical floor today. 02/17/2022, neurologically patient is about the same. He talks yet he doesn't make sense. He does not follow commands. No agitation. No focal neurological deficits. No seizure activity. As mentioned earlier, the MRI of the brain came back negative. The patient remains in atrial fibrillation and the patient will be started on anticoagulation regarding his A. fib. This was cleared by neurology. Meanwhile, no hemodynamic changes. No fever. No chills. No neck stiffness. Blood work from today showing a white cell count 13.2 with a hemoglobin of 14.6 and a platelet count of 136. Normal renal function. No other electrolyte abnormalities from yesterday, follow-up blood work is pending. Echo was completed yesterday and the patient has a preserved LV function. No significant valvular abnormalities patient has aortic valve replacement and mitral valve repair. In terms of his antiepileptics, the patient is currently on Depakote 500 mg by mouth twice a day. He was taken off Keppra . He remains on Eliquis 5 mg by mouth twice a day. He is also on aspirin 81 mg by mouth daily. He is post thrombolytic therapy. Note that the patient is having episodes of hypoglycemia. He is in the ICU, the patient had 2 episodes of hypoglycemia the last one being this morning at 7:12 AM with a blood sugar of 33. Yesterday morning at 6:40 AM, the patient's blood sugar was 48. As such, I am getting increased suspicion that the patient is having episodes of hypoglycemia and this could have contributed to his neurologic impairment. 02/18/2022, the patient is on room air oxygen. He is still mentally impaired as the patient is unable to communicate or have a reasonable conversation with us. He is moving all 4 extremities without any limitation and I was informed that the patient was able to get up to the bathroom and come back with assistance. He was started on anticoagulants yesterday and the patient remains in atrial fibrillation. He is currently on Eliquis and the dose of 5 mg by mouth twice a day. He is able to swallow his medications without any major difficulties. He remains hemodynamically stable. No seizure activity has been noted. He remains on Depakote for now for antiepileptics. No further episodes of hypoglycemia since yesterday and the patient's blood sugars adequately maintained. The rest of the medications unchanged. Neurologist on the case and the patient is going to be transferred to a medical surgical floor for now. He does not have a sitter and he does have a chair alarm. on 02/19/2022. Neurologic function is remaining essentially unchanged compared to yesterday. The patient continues to have difficulty with comprehension. I do not think the patient is understanding what his been told that he has a combination of receptive and expressive aphasia. No significant agitation at this point in time although over the afternoon, the patient became more restless. No hypoglycemic events noted. Sugar this morning was 53 and a subsequent level came at 250 after he was given juice. No seizure activity has been noted. He remains in atrial fibrillation. He was started on anticoagulation with Eliquis. Hemodynamically stable. He is on room air oxygen. He is on no sedation for now. Moving all 4 extremities. Remains on Depakote per neurology recommendation. 02/20/2022, the patient remains confused. He is trying to get up and walk. He is globally weak. No focal neurological deficits. He is on room air oxygen. Cardiac rhythm remains A. fib and the patient was started on anticoagulants. No other significant events overnight.No episodes of hypoglycemia in the blood sugar from today was 82. He is on room air oxygen. No fever. No chills. No nausea. No vomiting. No emesis. He is able to swallow. He has a sitter at the bedside at all times. Note that the patient did not have any significantly low level blood sugars. Lowest blood sugar was 68 that occurred yesterday evening and the patient was given D50. This morning, his blood sugar is at 82. Objective - Vital Signs Vital signs: Vital Signs Temp 97.8 F 02/20/22 03:15 Pulse 96 02/20/22 03:15 Resp 16 02/20/22 03:15 BP 104/90 02/20/22 03:15 Pulse Ox 94 L 02/20/22 03:15 FiO2 Intake & Output 02/19/22 02/20/22 02/20/22 18:59 06:59 18:59 Intake Total 300 Balance 300 Weight 66.2 kg Intake: Oral 300 Other: Voiding Method Toilet Toilet # Voids 2 3 # Bowel Movements 1 - Exam General: non toxic, no distress, the patient keeps on saying that he doesn't know. He is unable to ambulate conversation. He is unable to answer questions appropriately. He is currently on RA L per minute nasal cannula. Derm: warm, dry Head: atraumatic, normocephalic, symmetric Eyes: EOMI, no lid lag, anicteric sclera, pupils equal round reactive to light ENT: Nose and ears atraumatic, no thrush, no pharyngeal erythema Neck: No thyromegaly, no cervical lymphadenopathy, trachea midline, supple Mouth: no lip lesion, mucus membranes moist Cardiovascular: S1S2 reg, no murmur, positive posterior tibial pulse bilateral, no edema, capillary refill less than 2 seconds Lungs: clear to ascultation bilateral, no ronchi, no rales, no wheeze, no accessory muscle use Abdominal: soft, nontender to palpation, no guarding, no appreciable organomegaly, normal bowel sounds Ext: no gross muscle atrophy, muscle strength muscle strength 5 out of 5 in all 4 extremities, no contractures Neuro: PERRL, Moving upper and lower extrmities independently against gravity does have some weakness in the right side especially in the right upper extremity. No seizure activity has been noted. No facial asymmetry. Speech is consistent with expressive aphasia. The patient also has receptive aphasia. Pupils are equal and reactive to light. No facial asymmetry. Tongue is in midline. - Labs CBC & Chem 7: 02/17/22 07:27 02/17/22 10:11 Labs: Abnormal Lab Results - Last 24 Hours (Table) 02/19/22 02/20/22 Range/Units 16:40 03:05 POC Glucose (mg/dL) 72 L 68 L (75-99) mg/dL Assessment and Plan Plan: Mental status change. The patient continues to have ongoing alteration in mental status. He is moving all 4 extremities. He is not able to carry a conversation. He has no insight on his condition. No focal neurological deficits. On today's evaluation of 02/17/2022, neurologic function is u nchanged. We have not with this any seizure activity and the patient was started on Depakote. Neurologically on the case and we have made recommendations to start the patient a combination with Eliquis. Consider hypoglycemia induced neurologic impairment Status epilepticus, known history of previous seizure and the patient is stable on Keppra, no seizure activity over 24 hours and the patient had an EEG and this was essentially a normal EEG without any ongoing seizure activity. MRI of the brain was negative and the patient has not had any further seizure episodes since his admission. Currently stable and seizure precautions are being implemented. The patient was also hypoglycemic at a time of admission. Consider hypoglycemia induced seizures/status. 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 The patient's MRI of the brain showing mild to moderate diffuse atrophy. No evidence of any acute CVA. The patient presented to us with Right-sided flaccid paralysis, post TPA and the patient had an initial NIH score of 34 and the current score is down to 7, improving, and on today's evaluation, it's hard to assess the patient's motor function. Nevert heless, the motor function on the right is improved and he is on oral aspirin 81 mg by mouth daily.. The patient continues to be in atrial fibrillation. 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 No significant plaque. No significant stenosis and the remainder of the common or internal carotid arteries. There was narrowing in the nondominant right vertebral artery and the re was also some stenosis in the left P1 segment and a small 3.6 mm aneurysm at the right A2 segment. The left vertebral arteries were patent. paroxysmal atrial fibrillation current rhythm is atrial fibrillation with a controlled rate, and the patient remains in atrial fibrillation Aortic valve replacement and mitral valve repair , secondary pulmonary hypertension Hypertension Hyperlipidemia Severe OA Left foot surgery, surgical wound site is dry clean and intact. plan Continue Neuro checks and he is unchanged clinically the patient is a sitter at all times at the bedside. The patient is a fall risk. At times, tried to get out of his chair. Nevertheless, he is not steady. He is weak. He remains confused. Neurologically unchanged on today's evaluation, and there is suspicion that the patient's neurologic impairment is related to hypoglycemia. The episodes hypoglycemia hypoglycemia were concerning . We'll monitor the blood sugar and the patient develops any hypoglycemia, was immediately checked insulin, proinsulin, C-peptide and beta hydroxybutyric acid level. The patient is not taking any form of sulfonylureas. The patient has not taken any form of insulin as for now. We'll may need also to do a glucagon challenge should the patient have any hypoglycemic events. No episodes of hypoglycemia since yesterday. Lowest sugar that the patient encountered was 68 last night. The patient was given D50 MRI of the brain was noted No seizure activity Continue Depakote for now Seizure precautions EEG results were noted PT/OT/speech evaluation/swallow evaluation was completed today and the patient was able to swallow appropriately Echo noted and the echocardiogram showed LVH, bioprosthetic aortic valve with mild stenosis, mitral valve repair, no significant regurgitation or stenosis. Left ventricular ejection fraction is around 55-60%. Continue Eliquis.
[2022-02-20 09:24] LABS: Basophils # (A) 0.1 k/uL (0-0.2); Basophils % (A) 0 %; Eosinophils # (A) 0.1 k/uL (0-0.7); Eosinophils % (A) 1 %; HCT 48.1 % (39.0-53.0); HGB 15.2 gm/dL (13.0-17.5); Lymphocytes # (A) 1.3 k/uL (1.0-4.8); Lymphocytes % (A) 10 %; MCH 30.4 pg (25.0-35.0); MCHC 31.6 g/dL (31.0-37.0); MCV 96.3 fL (80.0-100.0); Mean Platelet Volume 7.2; Monocytes # (A) 0.7 k/uL (0-1.0); Monocytes % (A) 6 %; Neutrophils # (A) 10.1 k/uL (1.3-7.7); Neutrophils % (A) 82 %; Platelet Count 165 k/uL (150-450); RBC 4.99 m/uL (4.30-5.90); WBC 12.4 k/uL (3.8-10.6)
[2022-02-20 09:55] LABS: African American GFR (CKD) >90 (>60 ml/min/1.73 sqM); Anion Gap 11 mmol/L; Blood Urea Nitrogen 31 mg/dL (9-20); Calcium 8.9 mg/dL (8.4-10.2); Carbon Dioxide 24 mmol/L (22-30); Chloride 91 mmol/L (98-107); Glucose 76 mg/dL (74-99); Non-African American GFR(CKD) 87 (>60 ml/min/1.73 sqM); Sodium 126 mmol/L (137-145)
[2022-02-20] MEDS: APIXABAN 5 MG TAB PO SCH ×2 (09:55→20:08)
[2022-02-20] MEDS: FAMOTIDINE 20 MG TAB PO SCH ×2 (09:55→20:08)
[2022-02-20] MEDS: METOPROLOL SUCCINATE (ER) 25 MG TAB.ER.24H PO SCH (09:55)
[2022-02-20] MEDS: DIVALPROEX 500 MG TABLET.DR PO SCH ×2 (09:55→20:08)
[2022-02-20 09:59] LABS: Potassium 4.9 mmol/L (3.5-5.1)
[2022-02-20 11:56] LABS: Glucose,Whole Blood 104 mg/dL (75-99)
[2022-02-20 16:19] LABS: Glucose,Whole Blood 59 mg/dL (75-99)
[2022-02-20 17:03] LABS: Glucose,Whole Blood 86 mg/dL (75-99)
[2022-02-20] MEDS: DEXTROSE 5%-0.9% NACL 1,000 ML IV SCH (18:45)
[2022-02-20] MEDS: LATANOPROST 0.005% OPHTH DROPS 2.5 ML BTL RIGHT EYE SCH (20:08)
[2022-02-20] MEDS: ATORVASTATIN 80 MG TAB PO SCH (20:08)
[2022-02-20] MEDS: ASPIRIN 81 MG PO SCH (20:08)
[2022-02-20 20:39] LABS: Glucose,Whole Blood 116 mg/dL (75-99)
[2022-02-21 01:31] LABS: Glucose,Whole Blood 84 mg/dL (75-99)
[2022-02-21 03:42] LABS: Glucose,Whole Blood 82 mg/dL (75-99)
[2022-02-21] MEDS: HALOPERIDOL LACTATE 5 MG/ML 1 ML VIAL IVP PRN (04:38)
[2022-02-21 07:00] LABS: Glucose,Whole Blood 65 mg/dL (75-99)
[2022-02-21 07:14] LABS: Glucose,Whole Blood 106 mg/dL (75-99)
[2022-02-21 07:32] LABS: Basophils % (A) 0 %; Eosinophils # (A) 0.1 k/uL (0-0.7); Eosinophils % (A) 1 %; HCT 45.3 % (39.0-53.0); HGB 14.6 gm/dL (13.0-17.5); Lymphocytes # (A) 0.7 k/uL (1.0-4.8); Lymphocytes % (A) 5 %; MCH 30.3 pg (25.0-35.0); MCHC 32.2 g/dL (31.0-37.0); MCV 94.1 fL (80.0-100.0); Monocytes # (A) 0.9 k/uL (0-1.0); Monocytes % (A) 6 %; Neutrophils # (A) 13.2 k/uL (1.3-7.7); Neutrophils % (A) 88 %; Platelet Count 142 k/uL (150-450); RBC 4.81 m/uL (4.30-5.90); RDW 12.8 % (11.5-15.5); WBC 15.1 k/uL (3.8-10.6)
[2022-02-21 08:00] LABS: African American GFR (CKD) >90 (>60 ml/min/1.73 sqM); Anion Gap 10 mmol/L; Blood Urea Nitrogen 26 mg/dL (9-20); Calcium 8.5 mg/dL (8.4-10.2); Carbon Dioxide 24 mmol/L (22-30); Chloride 94 mmol/L (98-107); Glucose 108 mg/dL (74-99); Non-African American GFR(CKD) >90 (>60 ml/min/1.73 sqM); Potassium 4.3 mmol/L (3.5-5.1); Sodium 128 mmol/L (137-145)
[2022-02-21] MEDS: APIXABAN 5 MG TAB PO SCH ×2 (08:46→20:21)
[2022-02-21] MEDS: DIVALPROEX 500 MG TABLET.DR PO SCH ×2 (08:46→20:21)
[2022-02-21] MEDS: FAMOTIDINE 20 MG TAB PO SCH ×2 (08:47→20:22)
[2022-02-21] MEDS: DEXTROSE 5%-0.9% NACL 1,000 ML IV SCH ×2 (08:47→20:35)
[2022-02-21] MEDS: METOPROLOL SUCCINATE (ER) 25 MG TAB.ER.24H PO SCH (08:47)
--- NOTE | 2022-02-21 09:04 | P.PN ---
Subjective Progress Note Date: 02/21/22 Patient is an 82 yo male with hx of CVA, Seizures, HTN, and HLD who presented to the ED after a seizure and was noted to have lateral gaze preference and weakness. Per patient was attempting to place boot on recent surgery site on left foot. He did have surgery on his right foot to fix a great toe deformity about 2 weeks ago He was confused and not responding and staring. She lead him to a chair and he then developed tonic/clonic movements. This resolved and then recurred. On EMS arrival he was seizing in chair with right sided facial droop and right larios gaze. He again had another seizure during transport to the hospital and then another in the emergency department. Stroke network was activ ated and patient was determined to be a TPA candidate. He was given TPA for an NIH score of 34 , completed [address] head showed no acute intracranial hemorrhage or midline shift. It did show chronic small vessel ischemic changes. 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 He was also loaded with Keppra in the ER. He was admitted to the ICU for further monitoring. He was noted to have A fib with controlled ventricular response on telemetry in the ICU. He had a similar episode in March 2021 and he was evaluated at [facility] [place]. and son state that he had a continuous EEG and an MRI and they're unsure if he was diagnosed with a stroke at that time or just seizures. They report that he was discharged home on medications they're unsure what. He did follow with the neurologist and the believes he was supposed to be on seizure medications however he did not take these. He had an episode similar to this in June which abated after several minutes and he did not seek medical attention at that time. He follows with Dr. Garcia for cardiology. This morning, the patient is awake. He has expressive aphasia. He remains hard to communicate with. As such, no information can be obtained from this patient. He will occasionally gets agitated, shouts randomly and he is requiring a sitter at all times. He is unable to fully communicate. Have some right-sided weakness. Nevertheless, no seizure activity has been noted overnight. The patient is hemodynamically stable. His cardiac rhythm is atrial fibrillation. A swallow evaluation is to be done this morning. He is currently on oxygen at 4 L per minute nasal cannula. Neurologist on the case. EEG has been done . 02/15/2022, neurologically the patient is still having issues with expressive aphasia and receptive aphasia. I was told by the nursing staff that occasionally is following some commands. He has a sitter at the bedside and is resting comfortably in bed. No new onset focal neurological deficit. As far as motor function, it's hard to assess as the patient has also receptive aphasia. We have noted some weakness in the right upper extremity. A repeat CAT scan of the brain was done yesterday and showed no evidence of any acute bleed. The patient is going to have an MRI of the brain. Echocardiogram was also done today. His cardiac rhythm is still atrial fibrillation. No hypotension. Hemodynamically stable. He passed a swallow evaluation yesterday and the patient is being fed with chopped food diet. EEG of the brain was done yesterday and showed no this of any seizure activity. He was essentially normal EEG without any seizure activity. The CAT scan of the brain was repeated yesterday at 3:20 PM and it showed no evidence of any acute bleed. For now, the patient is being followed up by neurology. The patient was given aspirin 81 mg by mouth daily. He is also on heparin subcu for DVT prophylaxis. 02/16/2022, the patient neurologic functions are essentially unchanged compared to yesterday. No obvious focal neurological deficit. He continues to have issues with aphasia both expressive and receptive. At times, we feel that he understands what we tell him although this is not consistent. An MRI of the brain was done yesterday and the patient was found to have no evidence of any recent infarct. There was mild to moderate diffuse cerebral atrophy and moderate on a small vessel ischemic changes. No neck stiffness. No fever. The cardiac rhythm is atrial fibrillation. No anticoagulants yet, remains on aspirin. Electrolytes are normal. Sodium is at 130 in the normal renal function with a white cell count of 11.4 and a hemoglobin of 14.1. He is tolerating diet and he is able to swallow well. No agitation. There is a sitter at the bedside. The patient is being transferred to a medical surgical floor today. 02/17/2022, neurologically patient is about the same. He talks yet he doesn't make sense. He does not follow commands. No agitation. No focal neurological deficits. No seizure activity. As mentioned earlier, the MRI of the brain came back negative. The patient remains in atrial fibrillation and the patient will be started on anticoagulation regarding his A. fib. This was cleared by neurology. Meanwhile, no hemodynamic changes. No fever. No chills. No neck stiffness. Blood work from today showing a white cell count 13.2 with a hemoglobin of 14.6 and a platelet count of 136. Normal renal function. No other electrolyte abnormalities from yesterday, follow-up blood work is pending. Echo was completed yesterday and the patient has a preserved LV function. No significant valvular abnormalities patient has aortic valve replacement and mitral valve repair. In terms of his antiepileptics, the patient is currently on Depakote 500 mg by mouth twice a day. He was taken off Keppra . He remains on Eliquis 5 mg by mouth twice a day. He is also on aspirin 81 mg by mouth daily. He is post thrombolytic therapy. Note that the patient is having episodes of hypoglycemia. He is in the ICU, the patient had 2 episodes of hypoglycemia the last one being this morning at 7:12 AM with a blood sugar of 33. Yesterday morning at 6:40 AM, the patient's blood sugar was 48. As such, I am getting increased suspicion that the patient is having episodes of hypoglycemia and this could have contributed to his neurologic impairment. 02/18/2022, the patient is on room air oxygen. He is still mentally impaired as the patient is unable to communicate or have a reasonable conversation with us. He is moving all 4 extremities without any limitation and I was informed that the patient was able to get up to the bathroom and come back with assistance. He was started on anticoagulants yesterday and the patient remains in atrial fibrillation. He is currently on Eliquis and the dose of 5 mg by mouth twice a day. He is able to swallow his medications without any major difficulties. He remains hemodynamically stable. No seizure activity has been noted. He remains on Depakote for now for antiepileptics. No further episodes of hypoglycemia since yesterday and the patient's blood sugars adequately maintained. The rest of the medications unchanged. Neurologist on the case and the patient is going to be transferred to a medical surgical floor for now. He does not have a sitter and he does have a chair alarm. on 02/19/2022. Neurologic function is remaining essentially unchanged compared to yesterday. The patient continues to have difficulty with comprehension. I do not think the patient is understanding what his been told that he has a combination of receptive and expressive aphasia. No significant agitation at this point in time although over the afternoon, the patient became more restless. No hypoglycemic events noted. Sugar this morning was 53 and a subsequent level came at 250 after he was given juice. No seizure activity has been noted. He remains in atrial fibrillation. He was started on anticoagulation with Eliquis. Hemodynamically stable. He is on room air oxygen. He is on no sedation for now. Moving all 4 extremities. Remains on Depakote per neurology recommendation. 02/20/2022, the patient remains confused. He is trying to get up and walk. He is globally weak. No focal neurological deficits. He is on room air oxygen. Cardiac rhythm remains A. fib and the patient was started on anticoagulants. No other significant events overnight.No episodes of hypoglycemia in the blood sugar from today was 82. He is on room air oxygen. No fever. No chills. No nausea. No vomiting. No emesis. He is able to swallow. He has a sitter at the bedside at all times. Note that the patient did not have any significantly low level blood sugars. Lowest blood sugar was 68 that occurred yesterday evening and the patient was given D50. This morning, his blood sugar is at 82. 02/21/2022, the patient remains confused and is not making much of a sense. I think is more interactive and communicative. Nevertheless, he is obvious to confused. He is able to walk. He is globally weak. He requires a sitter at all times. No focal neurological deficits. We are having issues with hypoglycemia and this is becoming more clear. Yesterday, the blood sugar dropped to 59 and based on that, the hypoglycemia workup was initiated. Labs were ordered and following that the patient was placed on D5 0.9 at the rate of 75 mL an hour. Morning, the blood sugar was asked 65 and following that came up to 106. The patient is tolerating diet, however he does not eat much. He is drinking is a sure probably 1 or 2 cans a day. His cardiac rhythm is still atrial fibrillation. The patient remains on anticoagulants. No seizure activity has been noted. No nausea. No vomiting. No emesis. No syncope. The blood work from today shows a white cell count of 15 with a hemoglobin of 14.6 and a platelet count of 42. Sodium level is up to 128 with an EF of 26 and a creatinine of 0.61. Blood sugar at this point in time is 106. Calcium level is at 8.5. Objective - Vital Signs Vital signs: Vital Signs Temp 97.1 F L 02/21/22 04:00 Pulse 91 02/21/22 04:00 Resp 21 02/21/22 04:00 BP 138/97 02/21/22 04:00 Pulse Ox 98 02/21/22 04:00 FiO2 Intake & Output 02/20/22 02/21/22 02/21/22 18:59 06:59 18:59 Intake Total 360 900 Output Total 945 Balance 360 -45 Intake: IV 900 D5-0.9NaCl- 900 Oral 360 Output: Urine 945 Other: Voiding Method Toilet Urinal # Voids 2 - Exam General: non toxic, no distress, the patient keeps on saying that he doesn't know. He is unable to ambulate conversation. He is unable to answer questions appropriately. He is currently on RA L per minute nasal cannula. Derm: warm, dry Head: atraumatic, normocephalic, symmetric Eyes: EOMI, no lid lag, anicteric sclera, pupils equal round reactive to light ENT: Nose and ears atraumatic, no thrush, no pharyngeal erythema Neck: No thyromegaly, no cervical lymphadenopathy, trachea midline, supple Mouth: no lip lesion, mucus membranes moist Cardiovascular: S1S2 reg, no murmur, positive posterior tibial pulse bilateral, no edema, capillary refill less than 2 seconds Lungs: clear to ascultation bilateral, no ronchi, no rales, no wheeze, no accessory muscle use Abdominal: soft, nontender to palpation, no guarding, no appreciable organomegaly, normal bowel sounds Ext: no gross muscle atrophy, muscle strength muscle strength 5 out of 5 in all 4 extremities, no contractures Neuro: PERRL, Moving upper and lower extrmities independently against gravity does have some weakness in the right side especially in the right upper extremity. No seizure activity has been noted. No facial asymmetry. Speech is consistent with expressive aphasia. The patient also has receptive aphasia. Pupils are equal and reactive to light. No facial asymmetry. Tongue is in midline. - Labs CBC & Chem 7: 02/21/22 07:09 02/21/22 07:09 Labs: Abnormal Lab Results - Last 24 Hours (Table) 02/20/22 02/20/22 02/20/22 Range/Units 09:00 09:00 11:54 WBC 12.4 H (3.8-10.6) k/uL Plt Count (150-450) k/uL Neutrophils # 10.1 H (1.3-7.7) k/uL Lymphocytes # (1.0-4.8) k/uL Sodium 126 L (137-145) mmol/L Chloride 91 L (98-107) mmol/L BUN 31 H (9-20) mg/dL Creatinine (0.66-1.25) mg/dL Glucose (74-99) mg/dL POC Glucose (mg/dL) 104 H (75-99) mg/dL 02/20/22 02/20/22 02/21/22 Range/Units 16:18 20:36 06:54 WBC (3.8-10.6) k/uL Plt Count (150-450) k/uL Neutrophils # (1.3-7.7) k/uL Lymphocytes # (1.0-4.8) k/uL Sodium (137-145) mmol/L Chloride (98-107) mmol/L BUN (9-20) mg/dL Creatinine (0.66-1.25) mg/dL Glucose (74-99) mg/dL POC Glucose (mg/dL) 59 L 116 H 65 L (75-99) mg/dL 02/21/22 02/21/22 02/21/22 Range/Units 07:09 07:09 07:12 WBC 15.1 H (3.8-10.6) k/uL Plt Count 142 L (150-450) k/uL Neutrophils # 13.2 H (1.3-7.7) k/uL Lymphocytes # 0.7 L (1.0-4.8) k/uL Sodium 128 L (137-145) mmol/L Chloride 94 L (98-107) mmol/L BUN 26 H (9-20) mg/dL Creatinine 0.61 L (0.66-1.25) mg/dL Glucose 108 H (74-99) mg/dL POC Glucose (mg/dL) 106 H (75-99) mg/dL Assessment and Plan Plan: Mental status change. The patient continues to have ongoing alteration in mental status. He is moving all 4 extremities. He is not able to carry a conversation. He has no insight on his condition. No focal neurological deficits. On today's evaluation of 02/17/2022, neurologic function is unchanged. We have not with this any seizure activity and the patient was started on Depakote. Neurologically on the case and we have made recommendations to start the patient a combination with Eliquis. Consider hypoglycemia induced neurologic impairment and it is likely the patient was hav ing hypoglycemic events on outpatient basis which could've contributed to his neurologic impairment. Structurally, the MRI of the brain is negative. EEG is also been negative. Status epilepticus, known history of previous seizure and the patient is stable on Keppra, no seizure activity over 24 hours and the patient had an EEG and this was essentially a normal EEG without any ongoing seizure activity. MRI of the brain was negative and the patient has not had any further seizure episodes since his admission. Currently stable and seizure precautions are being implemented. The patient was also hypoglycemic at a time of admission. Consider hypoglycemia induced seizures/status. 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 The patient's MRI of the brain showing mild to moderate diffuse atrophy. No evidence of any acute CVA. The patient presented to us with Right-sided flaccid paralysis, post TPA and the patient had an initial NIH score of 34 and the current score is down to 7, improving, and on today's evaluation, it's hard to assess the patient's motor function. Nevertheless, the motor function on the right is improved and he is on oral aspirin 81 mg by mouth daily.. The patient continues to be in atrial fibrillation. 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 Episodic hypoglycemia, currently under investigation. Not sugars dropped again yesterday and following that the patient was placed on D5 normal saline. The hypoglycemia workup is in progress. Right carotid stenosis, 60%. 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 No significant plaque. No significant stenosis and the remainder of the common or internal carotid arteries. 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 The left vertebral arteries were patent. paroxysmal atrial fibrillation current rhythm is atrial fibrillation with a controlled rate, and the patient remains in atrial fibrillation Aortic valve replacement and mitral valve repair , secondary pulmonary hypertension Hypertension Hyperlipidemia Severe OA Left foot surgery, surgical wound site is dry clean and intact. plan Continue Neuro checks and he is unchanged clinically the patient is a sitter at all times at the bedside. The patient is a fall risk. At times, tried to get out of his chair. Nevertheless, he is not steady. He is weak. He remains confused. Neurologically unchanged on today's evaluation, and there is suspicion that the patient's neurologic impairment is related to hypoglycemia. The is still having episodes of hypoglycemia. Last bout occurred yesterday and based on that investigation was initiated. checked insulin, proinsulin, C- peptide and beta hydroxybutyric acid level. The patient is not taking any form of sulfonylureas. The patient has not taken any form of insulin as for now. Cu rrently on D5 normal saline MRI of the brain was noted No seizure activity Continue Depakote for now Seizure precautions EEG results were noted PT/OT/speech evaluation/swallow evaluation was completed today and the patient was able to swallow appropriately Echo noted and the echocardiogram showed LVH, bioprosthetic aortic valve with mild stenosis, mitral valve repair, no significant regurgitation or stenosis. Left ventricular ejection fraction is around 55-60%. Continue Eliquis. Monitor the sodium level and the patient is currently on D5 normal saline We'll continue to follow
--- NOTE | 2022-02-21 10:31 | P.PN ---
Subjective Patient was examined at bedside today he continues to be very confused. He was unable to answer the questions asked. Case discussed with RN present at bedside. He did unfortunately have another episode of low glucose at 63 continues to be on D5. No family present at bedside today. Objective - Vital Signs Vital signs: Vital Signs Temp 97.1 F L 02/21/22 04:00 Pulse 91 02/21/22 04:00 Resp 21 02/21/22 04:00 BP 138/97 02/21/22 04:00 Pulse Ox 98 02/21/22 04:00 FiO2 Intake & Output 02/20/22 02/21/22 02/21/22 18:59 06:59 18:59 Intake Total 360 900 Output Total 945 Balance 360 -45 Intake: IV 900 D5-0.9NaCl- 900 Oral 360 Output: Urine 945 Other: Voiding Method Toilet Urinal # Voids 2 - Exam Constitutional: No acute distress, on room air HEENT: Pupils equally reactive to light, atraumatic, normocephalic. Lungs: Clear to auscultation bilaterally, no wheezing, no crackles Cardiovascular: RRR, S1-S2 normal, no murmur, no peripheral edema Abdominal: Soft, nontender, no guarding, rebound or rigidity Extremities: No cyanosis or clubbing Neuro: Moving all 4 extremities spontaneously, awake and alert - Labs CBC & Chem 7: 02/21/22 07:09 02/21/22 07:09 Labs: Abnormal Lab Results - Last 24 Hours (Table) 02/20/22 02/20/22 02/20/22 Range/Units 11:54 16:18 20:36 WBC (3.8-10.6) k/uL Plt Count (150-450) k/uL Neutrophils # (1.3-7.7) k/uL Lymphocytes # (1.0-4.8) k/uL Sodium (137-145) mmol/L Chloride (98-107) mmol/L BUN (9-20) mg/dL Creatinine (0.66-1.25) mg/dL Glucose (74-99) mg/dL POC Glucose (mg/dL) 104 H 59 L 116 H (75-99) mg/dL 02/21/22 02/21/22 02/21/22 Range/Units 06:54 07:09 07:09 WBC 15.1 H (3.8-10.6) k/uL Plt Count 142 L (150-450) k/uL Neutrophils # 13.2 H (1.3-7.7) k/uL Lymphocytes # 0.7 L (1.0-4.8) k/uL Sodium 128 L (137-145) mmol/L Chloride 94 L (98-107) mmol/L BUN 26 H (9-20) mg/dL Creatinine 0.61 L (0.66-1.25) mg/dL Glucose 108 H (74-99) mg/dL POC Glucose (mg/dL) 65 L (75-99) mg/dL 02/21/22 Range/Units 07:12 WBC (3.8-10.6) k/uL Plt Count (150-450) k/uL Neutrophils # (1.3-7.7) k/uL Lymphocytes # (1.0-4.8) k/uL Sodium (137-145) mmol/L Chloride (98-107) mmol/L BUN (9-20) mg/dL Creatinine (0.66-1.25) mg/dL Glucose (74-99) mg/dL POC Glucose (mg/dL) 106 H (75-99) mg/dL Assessment and Plan Assessment: Assessment: #1 status epilepticus resolved #2 essential hypertension #3 hypoglycemia cause unknown at this time #4 thrombocytopenia - stable >100 #5 hyponatremia #6 permanent atrial fibrillation #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
[2022-02-21 11:45] LABS: Glucose,Whole Blood 63 mg/dL (75-99)
[2022-02-21 12:21] LABS: Glucose,Whole Blood 93 mg/dL (75-99)
[2022-02-21 14:39] LABS: Glucose,Whole Blood 95 mg/dL (75-99)
[2022-02-21 16:20] LABS: Glucose,Whole Blood 102 mg/dL (75-99)
[2022-02-21 20:01] LABS: Glucose,Whole Blood 102 mg/dL (75-99)
[2022-02-21] MEDS: ATORVASTATIN 80 MG TAB PO SCH (20:21)
[2022-02-21] MEDS: ASPIRIN 81 MG PO SCH (20:21)
[2022-02-21] MEDS: LATANOPROST 0.005% OPHTH DROPS 2.5 ML BTL RIGHT EYE SCH (20:22)
[2022-02-22] MEDS: ACETAMINOPHEN TAB 325 MG TAB PO PRN ×2 (02:20→22:52)
[2022-02-22] MEDS: MELATONIN 5 MG TABLET PO PRN ×2 (02:21→20:50)
[2022-02-22 02:23] LABS: Glucose,Whole Blood 82 mg/dL (75-99)
[2022-02-22] MEDS: DEXTROSE 5%-0.9% NACL 1,000 ML IV SCH ×2 (03:33→17:52)
[2022-02-22 06:39] LABS: Glucose,Whole Blood 69 mg/dL (75-99)
[2022-02-22 07:04] LABS: Glucose,Whole Blood 107 mg/dL (75-99)
[2022-02-22] MEDS: APIXABAN 5 MG TAB PO SCH ×2 (08:05→20:50)
[2022-02-22] MEDS: DIVALPROEX 500 MG TABLET.DR PO SCH ×2 (08:05→20:50)
[2022-02-22] MEDS: METOPROLOL SUCCINATE (ER) 25 MG TAB.ER.24H PO SCH (08:05)
[2022-02-22] MEDS: FAMOTIDINE 20 MG TAB PO SCH ×2 (08:05→20:50)
--- NOTE | 2022-02-22 10:35 | P.PN ---
Subjective Progress Note Date: 02/22/22 Principal diagnosis: Acute aphasia, altered mental status, acute CVA On 02/22/2022 patient seen in follow-up in the intensive care unit, he has been an overflow for a monitored bed on [facility] care unit for the past several days. Neurologically he has been stable, still has confusion, and patient does not make any sense. Level of consciousness is awake and alert. There is a drug safety physician at the bedside. He is moving all 4 extremities, there is no focal neurological deficits. There has been no seizure activity. Vital signs have been stable, he remains on room air, patient remains on D5W at a rate of 75 ML per hour, this morning patient did have a blood sugar of 69, currently blood sugar is 107. Appetite is good, patient has consumed 100% of his meal with assistance. He remains on oral Eliquis for atrial fibrillation which is currently controlled. Patient is able to understand simple commands. Vital signs have been stable overnight, no fever or chills, room air pulse ox the 100%, blood pressure stable, breathing is nonlabored. Physical therapy evaluati on has been ordered, patient was evaluated by Dr. Bianchi for potential inpatient rehab admission, expect follow-up on that today. However at the time of initial evaluation patient was unable to comprehend commands and for that reason he was thought to be a poor candidate for inpatient rehab. Social work is following, and there is possibility patient may have to go to [facility] for subacute rehabilitati on. Objective - Vital Signs Vital signs: Vital Signs Temp 97.9 F 02/22/22 08:05 Pulse 103 H 02/22/22 09:00 Resp 18 02/22/22 09:00 BP 134/98 02/22/22 09:00 Pulse Ox 100 02/22/22 08:05 FiO2 Intake & Output 02/21/22 02/22/22 02/22/22 18:59 06:59 18:59 Intake Total 750 300 300 Output Total 1 Balance 749 300 300 Weight 69.9 kg Intake: IV 750 300 300 Dextrose 5%-0.9% NaCl 1, 750 300 300 000 ml @ 75 mls/hr IV . [id number] [facility] Rx#:[id number] Output: Urine 1 Other: Voiding Method Toilet Toilet Toilet # Voids 1 3 1 # Bowel Movements 1 1 - Exam GENERAL EXAM: Alert, 82-year-old white male, follows simple command, but has global aphasia, and does not make sense when verbally responding, comfortable in no apparent distress. HEAD: Normocephalic/atraumatic. EYES: Normal reaction of pupils, equal size. Conjunctiva pink, sclera white. NOSE: Clear with pink turbinates. THROAT: No erythema or exudates. NECK: No masses, no JVD, no thyroid enlargement, no adenopathy. CHEST: No chest wall deformity. Symmetrical expansion. LUNGS: Equal air entry with no crackles, wheeze, rhonchi or dullness. CVS: Irregular rate and rhythm, normal S1 and S2, no gallops, no murmurs, no rubs ABDOMEN: Soft, nontender. No hepatosplenomegaly, normal bowel sounds, no guarding or rigidity. EXTREMITIES: No clubbing, no edema, no cyanosis, 2+ pulses and upper and lower extremities. MUSCULOSKELETAL: Muscle strength and tone normal. SPINE: No scoliosis or deformity SKIN: No rashes CENTRAL NERVOUS SYSTEM: Alert, orientation is difficult to assess as the patient has global aphasia. No focal deficits, tone is normal in all 4 extremities. - Labs CBC & Chem 7: 02/21/22 07:09 02/21/22 07:09 Labs: Abnormal Lab Results - Last 24 Hours (Table) 02/20/22 02/20/22 02/21/22 Range/Units 18:16 18:16 11:42 POC Glucose (mg/dL) 63 L (75-99) mg/dL Insulin Level 44.2 H (3.0-25.0) mIU/mL C-Peptide 9.10 H (0.81-3.85) ng/mL 02/21/22 02/21/22 02/22/22 Range/Units 16:18 20:00 06:37 POC Glucose (mg/dL) 102 H 102 H 69 L (75-99) mg/dL Insulin Level (3.0-25.0) mIU/mL C-Peptide (0.81-3.85) ng/mL 02/22/22 Range/Units 07:03 POC Glucose (mg/dL) 107 H (75-99) mg/dL Insulin Level (3.0-25.0) mIU/mL C-Peptide (0.81-3.85) ng/mL Assessment and Plan Plan: Assessment: #1. 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 Patient initial presentation included right-sided flaccid paralysis, altered mental status. Currently patient Is moving all 4 extremities, however has global aphasia. #2. Mental status changes, related to acute CVA. Improved however patient still has global aphasia #3. Status epilepticus with known history of previous seizure disorder, remains on Keppra, and there has been no seizure activity for the past several days. MRI of the brain was negative, patient remains on seizure precautions, patient also had hypoglycemia at the time of admission with consideration of hypoglycemia induced seizure status #4. Episodic hypoglycemia under investigation. Patient remains on D5 0.9 at a rate of 75 ML per hour, he is tolerating oral intake and his appetite is good patient is consuming 75-100% of his meals #5. Right carotid artery stenosis of 60% no significant plaque, left vertebral arteries are patent #6. Paroxysmal atrial fibrillation currently in A. fib remains on Eliquis #7. Aortic valve replacement with mitral valve repair, secondary pulmonary hypertension #8. Hypertension #9. Hyperlipidemia #10. Severe osteoarthritis #11. Left foot surgery and the surgical wound is clean dry and intact Plan: Patient has remained stable over the last 24 hours Continue with oral anticoagulation Neurologically he is the same, continues with global aphasia but able to comprehend simple commands Generally weak, may need reevaluation for possibility of IPR admission or [facility] for subacute rehab Stable to go out of intensive care unit Continue D5 0.9 Monitor oral intake, monitor blood sugars Neurology recommendations I have personally seen and examined the patient, performed the documentation and the assessment and plan as written. Number of minutes spent on the visit: [15] Time with Patient: Greater than 30
[2022-02-22 11:14] LABS: Glucose,Whole Blood 96 mg/dL (75-99)
--- NOTE | 2022-02-22 14:49 | P.PN ---
Subjective Patient was examined at bedside today with his present. He continues to be alert oriented 1/2 at times. states that this is not his baseline that he was completely oriented and functional before this. He is able to tell me his full name but was not able to tell me the name of the president, his home address whether questions used to test his cognition. Objective - Vital Signs Vital signs: Vital Signs Temp 98.1 F 02/22/22 12:37 Pulse 104 H 02/22/22 12:37 Resp 13 02/22/22 12:37 BP 121/76 02/22/22 12:37 Pulse Ox 96 02/22/22 12:37 FiO2 Intake & Output 02/21/22 02/22/22 02/22/22 18:59 06:59 18:59 Intake Total 750 300 300 Output Total 1 Balance 749 300 300 Weight 69.9 kg Intake: IV 750 300 300 Dextrose 5%-0.9% NaCl 1, 750 300 300 000 ml @ 75 mls/hr IV . [id number] [facility] Rx#:[id number] Output: Urine 1 Other: Voiding Method Toilet Toilet Toilet # Voids 1 3 1 # Bowel Movements 1 1 - Exam Constitutional: No acute distress, on room air HEENT: Pupils equally reactive to light, atraumatic, normocephalic. Lungs: Clear to auscultation bilaterally, no wheezing, no crackles Cardiovascular: RRR, S1-S2 normal, no murmur, no peripheral edema Abdominal: Soft, nontender, no guarding, rebound or rigidity Extremities: No cyanosis or clubbing Neuro: Moving all 4 extremities spontaneously, awake and alert - Labs CBC & Chem 7: 02/21/22 07:09 02/21/22 07:09 Labs: Abnormal Lab Results - Last 24 Hours (Table) 02/21/22 02/21/22 02/22/22 Range/Units 16:18 20:00 06:37 POC Glucose (mg/dL) 102 H 102 H 69 L (75-99) mg/dL 02/22/22 Range/Units 07:03 POC Glucose (mg/dL) 107 H (75-99) mg/dL Assessment and Plan Assessment: Assessment: #1 status epilepticus resolved #2 essential hypertension #3 hypoglycemia cause unknown at this time #4 thrombocytopenia - stable >100 #5 hyponatremia #6 permanent atrial fibrillation #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 -Ideally the workup for an insulinoma Chevy done during the episode of hypoglycemia with a documented blood glucose levels less than 55, insulin level should be greater than 3 and a C-peptide level greater than 0.6 proinsulin level should be greater than 5. Patient is not on any sulfonylurea. -Monitor for his episodes of hypoglycemia administered dextrose as per protocol -Continues to be in atrial fibrillation currently rate controlled -PT/OT will require subacute rehab or inpatient rehab we'll coordinate with team. -DVT prophylaxis Jamilah
--- NOTE | 2022-02-22 16:03 | P.PN ---
Subjective Progress Note Date: 02/22/22 Patient was seen for a follow-up. Patient was in the ICU. Per nursing report, patient walked in the hallway, with his walker. He ate breakfast. He brushes teeth. He is doing better. Still somewhat confused. At present patient is sitting in the chair. Objective - Vital Signs Vital signs: Vital Signs Temp 97.9 F 02/22/22 08:05 Pulse 103 H 02/22/22 09:00 Resp 18 02/22/22 09:00 BP 134/98 02/22/22 09:00 Pulse Ox 100 02/22/22 08:05 FiO2 Intake & Output 02/21/22 02/22/22 02/22/22 18:59 06:59 18:59 Intake Total 750 300 300 Output Total 1 Balance 749 300 300 Weight 69.9 kg Intake: IV 750 300 300 Dextrose 5%-0.9% NaCl 1, 750 300 300 000 ml @ 75 mls/hr IV . [id number] [facility] Rx#:[id number] Output: Urine 1 Other: Voiding Method Toilet Toilet Toilet # Voids 1 3 1 # Bowel Movements 1 1 - Exam Patient is alert and awake. Patient states the month is July and the year is "". Patient able to name objects very well. Patient is very very hard of hearing. Speech is clear, with no obvious aphasia. Per nurse he occasionally gets agitated. Patient's muscle strength is normal in the arms. Ankles are normal. - Labs CBC & Chem 7: 02/21/22 07:09 02/21/22 07:09 Labs: Abnormal Lab Results - Last 24 Hours (Table) 02/20/22 02/20/22 02/21/22 Range/Units 18:16 18:16 11:42 POC Glucose (mg/dL) 63 L (75-99) mg/dL Insulin Level 44.2 H (3.0-25.0) mIU/mL C-Peptide 9.10 H (0.81-3.85) ng/mL 02/21/22 02/21/22 02/22/22 Range/Units 16:18 20:00 06:37 POC Glucose (mg/dL) 102 H 102 H 69 L (75-99) mg/dL Insulin Level (3.0-25.0) mIU/mL C-Peptide (0.81-3.85) ng/mL 02/22/22 Range/Units 07:03 POC Glucose (mg/dL) 107 H (75-99) mg/dL Insulin Level (3.0-25.0) mIU/mL C-Peptide (0.81-3.85) ng/mL Assessment and Plan Assessment: * Status epilepticus, resolved. Patient now with aphasia, perhaps postictal effect. Patient had global aphasia, which seems to have resolved. No evidence of CVA on MRI brain. Patient is status post TPA. MRI of brain negative for an acute stroke. * History of similar presentation on 04/12/2021. Patient had no residual deficits. * Paroxysmal Atrial fibrillation. Patient had atrial fibrillation also confirmed with the previous admission 04/12/2021. Patient was not on any ant icoagulation prior to arrival to the hospital. * Seizure disorder, currently not on seizure medication due to medication noncompliance. * Hypoglycemia * Hyperlipidemia * Hypertension * Hard of hearing. * History of cardiac valve replacement Plan: * Patient is doing better. No further strokes or seizure-type spells. * MRI of brain negative for any acute stroke. Mild to moderate diffuse cerebral atrophy and more moderate chronic small vessel ischemic changes. Possible developing left mastoiditis. I personally reviewed MRI, agree with the findings. No acute ischemic stroke. Small vessel disease and atrophy. Suggest ENT consult for possible mastoiditis. IM, critical care also on board. 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 No significant plaque. No significant stenosis in the remainder of the common or internal carotid arteries. Significant narrowings of the nondominant right vertebral artery are normal present. Significant stenosis of the P1 segment on current study. 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 * 2DEcho: Left ventricular hyperthrophy with hyperdynamic function. Severe left atrial enlargement. EF 55-60% * Lipid panel: T, Cholestrol 138, LDL 58. * Continue ASA 81mg daily. He was started on Eliquis 5mg bid by primary team. On Lipitor 80mg qhs. From neurological perspective can be on Lipitor 40mg qhs. * Continue Depakote 500mg 1 tab bid (which has antiepileptic effect and mood benefit). * Continue neuro checks. * PT, OT and HOME ENERGY CONSULTANT SUPERVISOR are consulted. * Consider ambulatory EEG as outpatient. * PLEASE AVOID SEDATIONS MUCH POSSIBLE (since will affect with neurological examination and will have paradoxical effect of making him more agitated). Currently on Haldol 2mg every 4 hrs PRN. Consider seroquel 25 to 50mg qhs if needed. * Avoid hypoglycemic event and will defer management to primary team. * For DVT prophylaxis: On subq heparin 5000U every 8 hrs. * Recommend patient to follow-up with neurologist as outpatient within 1-2 weeks as outpatient. * Neurology will sign off.
[2022-02-22 16:56] LABS: Glucose,Whole Blood 108 mg/dL (75-99)
[2022-02-22 19:38] LABS: Glucose,Whole Blood 121 mg/dL (75-99)
[2022-02-22] MEDS: ASPIRIN 81 MG PO SCH (20:50)
[2022-02-22] MEDS: ATORVASTATIN 80 MG TAB PO SCH (20:50)
[2022-02-22] MEDS: LATANOPROST 0.005% OPHTH DROPS 2.5 ML BTL RIGHT EYE SCH (20:51)
[2022-02-23 00:59] LABS: Glucose,Whole Blood 101 mg/dL (75-99)
[2022-02-23] MEDS: DEXTROSE 5%-0.9% NACL 1,000 ML IV SCH (06:24)
[2022-02-23 07:08] LABS: Glucose,Whole Blood 90 mg/dL (75-99)
[2022-02-23 08:49] LABS: African American GFR (CKD) >90 (>60 ml/min/1.73 sqM); Anion Gap 6 mmol/L; Blood Urea Nitrogen 15 mg/dL (9-20); Calcium 8.3 mg/dL (8.4-10.2); Carbon Dioxide 30 mmol/L (22-30); Chloride 93 mmol/L (98-107); Glucose 111 mg/dL (74-99); Magnesium 1.6 mg/dL (1.6-2.3); Non-African American GFR(CKD) >90 (>60 ml/min/1.73 sqM); Phosphorus 2.3 mg/dL (2.5-4.5); Potassium 3.6 mmol/L (3.5-5.1); Sodium 129 mmol/L (137-145)
[2022-02-23] MEDS: APIXABAN 5 MG TAB PO SCH ×2 (09:10→20:20)
[2022-02-23] MEDS: METOPROLOL SUCCINATE (ER) 25 MG TAB.ER.24H PO SCH (09:10)
[2022-02-23] MEDS: DIVALPROEX 500 MG TABLET.DR PO SCH ×2 (09:10→20:20)
[2022-02-23] MEDS: FAMOTIDINE 20 MG TAB PO SCH ×2 (09:10→20:19)
[2022-02-23 10:30] LABS: Basophils # (A) 0.03 X 10*3/uL (0.00-0.10); Basophils % (A) 0.4 %; Eosinophils # (A) 0.05 X 10*3/uL (0.04-0.35); Eosinophils % (A) 0.7 %; HCT 36.5 % (39.6-50.0); HGB 12.7 g/dL (13.0-17.0); Immature Grans, Automated 0.7 %; Lymphocytes # (A) 0.83 X 10*3/uL (0.90-5.00); Lymphocytes % (A) 10.8 %; MCH 31.1 pg (27.0-32.0); MCHC 34.8 g/dL (32.0-37.0); MCV 89.2 fL (80.0-97.0); Mean Platelet Volume 9.7 fL (9.5-12.2); Monocytes # (A) 0.76 X 10*3/uL (0.20-1.00); Monocytes % (A) 9.9 %; NRBC Per 100 WBC 0 /100 WBCS (0.0-0.0); Neutrophils # (A) 5.94 X 10*3/uL (1.80-7.70); Neutrophils % (A) 77.5 %; Platelet Count 114 X 10*3/uL (140-440); RBC 4.09 X 10*6/uL (4.40-5.60); RDW 13.1 % (11.5-14.5); WBC 7.66 X 10*3/uL (4.50-10.00)
[2022-02-23 10:52] LABS: African American GFR (CKD) 109.5 (60.0-200.0); Anion Gap 8.4 mmol/L (10.00-18.00); BUN/Creat Ratio 25.04 Ratio (12.00-20.00); Blood Urea Nitrogen 14.2 mg/dL (9.0-27.0); Calcium 8.4 mg/dL (8.7-10.3); Carbon Dioxide 24.1 mmol/L (20.0-27.5); Non-African American GFR(CKD) 94.5 (60.0-200.0); Potassium 4.1 mmol/L (3.5-5.5)
[2022-02-23 11:12] LABS: Glucose,Whole Blood 129 mg/dL (75-99)
--- NOTE | 2022-02-23 13:58 | P.PN ---
Subjective Patient was examined at bedside today continues to show signs of confusion. Currently running dextrose fluids no hypoglycemia noted. Case discussed with RN present at bedside. Objective - Vital Signs Vital signs: Vital Signs Temp 98 F 02/23/22 12:07 Pulse 89 02/23/22 12:07 Resp 13 02/23/22 12:07 BP 111/78 02/23/22 12:07 Pulse Ox 98 02/23/22 12:07 FiO2 Intake & Output 02/22/22 02/23/22 02/23/22 18:59 06:59 18:59 Intake Total 1200 100 Balance 1200 100 Intake: IV 1200 Dextrose 5%-0.9% NaCl 1, 1200 000 ml @ 75 mls/hr IV . [id number] [facility] Rx#:[id number] Oral 100 Other: Voiding Method Toilet Toilet # Voids 3 3 # Bowel Movements 1 - Exam Constitutional: No acute distress, on room air HEENT: Pupils equally reactive to light, atraumatic, normocephalic. Lungs: Clear to auscultation bilaterally, no wheezing, no crackles Cardiovascular: RRR, S1-S2 normal, no murmur, no peripheral edema Abdominal: Soft, nontender, no guarding, rebound or rigidity Extremities: No cyanosis or clubbing Neuro: Moving all 4 extremities spontaneously, awake and alert - Labs CBC & Chem 7: 02/23/22 06:16 02/23/22 08:20 Labs: Abnormal Lab Results - Last 24 Hours (Table) 02/22/22 02/22/22 02/23/22 Range/Units 16:54 19:35 00:47 RBC (4.40-5.60) X 10*6/uL Hgb (13.0-17.0) g/dL Hct (39.6-50.0) % Plt Count (140-440) X 10*3/uL Plt Count Comment Immature Gran # (0.00-0.04) X 10*3/uL Lymphocytes # (0.90-5.00) X 10*3/uL Sodium (135-145) mmol/L Chloride (96-109) mmol/L Anion Gap (10.00-18.00) mmol/L Creatinine (0.66-1.25) mg/dL BUN/Creatinine Ratio (12.00-20.00) Ratio Glucose (74-99) mg/dL POC Glucose (mg/dL) 108 H 121 H 101 H (75-99) mg/dL Calcium (8.7-10.3) mg/dL Phosphorus (2.5-4.5) mg/dL Vitamin B12 (200.0-944.0) pg/mL 02/23/22 02/23/22 02/23/22 Range/Units 06:16 06:16 08:20 RBC 4.09 L (4.40-5.60) X 10*6/uL Hgb 12.7 L (13.0-17.0) g/dL Hct 36.5 L (39.6-50.0) % Plt Count 114 L (140-440) X 10*3/uL Plt Count Comment DECREASED A Immature Gran # 0.05 H (0.00-0.04) X 10*3/uL Lymphocytes # 0.83 L (0.90-5.00) X 10*3/uL Sodium 128 L 129 L (135-145) mmol/L Chloride 95 L 93 L (96-109) mmol/L Anion Gap 8.40 L (10.00-18.00) mmol/L Creatinine 0.61 L (0.66-1.25) mg/dL BUN/Creatinine Ratio 25.04 H (12.00-20.00) Ratio Glucose 111 H (74-99) mg/dL POC Glucose (mg/dL) (75-99) mg/dL Calcium 8.4 L 8.3 L (8.7-10.3) mg/dL Phosphorus 2.3 L (2.5-4.5) mg/dL Vitamin B12 1264.0 H (200.0-944.0) pg/mL 02/23/22 Range/Units 11:10 RBC (4.40-5.60) X 10*6/uL Hgb (13.0-17.0) g/dL Hct (39.6-50.0) % Plt Count (140-440) X 10*3/uL Plt Count Comment Immature Gran # (0.00-0.04) X 10*3/uL Lymphocytes # (0.90-5.00) X 10*3/uL Sodium (135-145) mmol/L Chloride (96-109) mmol/L Anion Gap (10.00-18.00) mmol/L Creatinine (0.66-1.25) mg/dL BUN/Creatinine Ratio (12.00-20.00) Ratio Glucose (74-99) mg/dL POC Glucose (mg/dL) 129 H (75-99) mg/dL Calcium (8.7-10.3) mg/dL Phosphorus (2.5-4.5) mg/dL Vitamin B12 (200.0-944.0) pg/mL Assessment and Plan Assessment: Assessment: #1 status epilepticus resolved #2 essential hypertension #3 hypoglycemia cause unknown at this time #4 thrombocytopenia - stable >100 #5 hyponatremia #6 permanent atrial fibrillation #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 -Ideally the workup for an insulinoma should be done during the episode of hypoglycemia with a documented blood glucose levels less than 55, insulin level should be greater than 3 and a C-peptide level greater than 0.6 proinsulin level should be greater than 5. Patient is not on any sulfonylurea. -Monitor for his episodes of hypoglycemia administered dextrose as per protocol -Continues to be in atrial fibrillation currently rate controlled -PT/OT will require subacute rehab or inpatient rehab we'll coordinate with team. -DVT prophylaxis Eliquis -Pending placement
[2022-02-23 17:19] LABS: Glucose,Whole Blood 98 mg/dL (75-99)
[2022-02-23] MEDS: ASPIRIN 81 MG PO SCH (20:19)
[2022-02-23] MEDS: ATORVASTATIN 80 MG TAB PO SCH (20:19)
[2022-02-23] MEDS: LATANOPROST 0.005% OPHTH DROPS 2.5 ML BTL RIGHT EYE SCH (20:20)
[2022-02-23 20:26] LABS: Glucose,Whole Blood 137 mg/dL (75-99)
[2022-02-24 01:57] LABS: Glucose,Whole Blood 74 mg/dL (75-99)
[2022-02-24] MEDS: DEXTROSE 5%-0.9% NACL 1,000 ML IV SCH ×2 (04:22→17:46)
[2022-02-24 05:08] LABS: Glucose,Whole Blood 79 mg/dL (75-99)
[2022-02-24 07:24] LABS: Glucose,Whole Blood 51 mg/dL (75-99)
[2022-02-24 07:24] LABS: Glucose,Whole Blood 56 mg/dL (75-99)
[2022-02-24 07:45] LABS: Glucose,Whole Blood 47 mg/dL (75-99)
[2022-02-24 08:06] LABS: Glucose,Whole Blood 50 mg/dL (75-99)
[2022-02-24 08:25] LABS: Glucose,Whole Blood 88 mg/dL (75-99)
[2022-02-24] MEDS: DIVALPROEX 500 MG TABLET.DR PO SCH ×2 (08:45→21:10)
[2022-02-24] MEDS: METOPROLOL SUCCINATE (ER) 25 MG TAB.ER.24H PO SCH (08:45)
[2022-02-24] MEDS: APIXABAN 5 MG TAB PO SCH ×2 (08:45→21:10)
[2022-02-24] MEDS: FAMOTIDINE 20 MG TAB PO SCH ×2 (08:45→21:10)
[2022-02-24 10:49] LABS: Basophils # (A) 0.03 X 10*3/uL (0.00-0.10); Basophils % (A) 0.4 %; Eosinophils # (A) 0.08 X 10*3/uL (0.04-0.35); Eosinophils % (A) 1.1 %; HCT 38.2 % (39.6-50.0); HGB 12.8 g/dL (13.0-17.0); Immature Grans, Automated 1.2 %; Lymphocytes # (A) 0.78 X 10*3/uL (0.90-5.00); Lymphocytes % (A) 10.3 %; MCH 30.3 pg (27.0-32.0); MCHC 33.5 g/dL (32.0-37.0); MCV 90.5 fL (80.0-97.0); Mean Platelet Volume 9.8 fL (9.5-12.2); Monocytes # (A) 0.57 X 10*3/uL (0.20-1.00); Monocytes % (A) 7.5 %; NRBC Per 100 WBC 0 /100 WBCS (0.0-0.0); Neutrophils # (A) 6.05 X 10*3/uL (1.80-7.70); Neutrophils % (A) 79.5 %; Platelet Count 106 X 10*3/uL (140-440); RBC 4.22 X 10*6/uL (4.40-5.60); RDW 13.2 % (11.5-14.5)
[2022-02-24 11:10] LABS: Anion Gap 10.6 mmol/L (10.00-18.00); BUN/Creat Ratio 27.33 Ratio (12.00-20.00); Blood Urea Nitrogen 16.4 mg/dL (9.0-27.0); Calcium 8.5 mg/dL (8.7-10.3); Carbon Dioxide 26.4 mmol/L (20.0-27.5); Non-African American GFR(CKD) 92.3 (60.0-200.0); Potassium 3.9 mmol/L (3.5-5.5)
[2022-02-24 11:15] LABS: Glucose,Whole Blood 112 mg/dL (75-99)
--- NOTE | 2022-02-24 13:01 | P.PN ---
Subjective Patient was examined at bedside today denies any new symptomatology he is drinking juice comfortably. I also did discuss the case with the patient's son and present at bedside. Unfortunately his glucose levels dipped down to the low 50s was given appropriate treatment and was started on dextrose. Repeat glucose levels grated 100 patient is asymptomatic. Likely was able to obtain 0.7, insulin and C-peptide levels during this episode of hypoglycemia which should be tested at that time. Objective - Vital Signs Vital signs: Vital Signs Temp 97.9 F 02/24/22 12:18 Pulse 84 02/24/22 08:49 Resp 18 02/24/22 03:06 BP 117/83 02/24/22 12:18 Pulse Ox 91 L 02/24/22 03:06 FiO2 Intake & Output 02/23/22 02/24/22 02/24/22 18:59 06:59 18:59 Output Total 1 Balance -1 Output: Urine 1 Other: Voiding Method Toilet # Voids 4 4 2 # Bowel Movements 1 1 - Exam Constitutional: No acute distress, on room air HEENT: Pupils equally reactive to light, atraumatic, normocephalic. Lungs: Clear to auscultation bilaterally, no wheezing, no crackles Cardiovascular: RRR, S1-S2 normal, no murmur, no peripheral edema Abdominal: Soft, nontender, no guarding, rebound or rigidity Extremities: No cyanosis or clubbing Neuro: Moving all 4 extremities spontaneously, awake and alert - Labs CBC & Chem 7: 02/24/22 06:46 02/24/22 07:31 Labs: Abnormal Lab Results - Last 24 Hours (Table) 02/23/22 02/24/22 02/24/22 Range/Units 20:25 01:53 06:46 RBC 4.22 L (4.40-5.60) X 10*6/uL Hgb 12.8 L (13.0-17.0) g/dL Hct 38.2 L (39.6-50.0) % Plt Count 106 L (140-440) X 10*3/uL Immature Gran # 0.09 H (0.00-0.04) X 10*3/uL Lymphocytes # 0.78 L (0.90-5.00) X 10*3/uL Sodium (135-145) mmol/L Chloride (96-109) mmol/L BUN/Creatinine Ratio (12.00-20.00) Ratio POC Glucose (mg/dL) 137 H 74 L (75-99) mg/dL Calcium (8.7-10.3) mg/dL 02/24/22 02/24/22 02/24/22 Range/Units 07:17 07:22 07:31 RBC (4.40-5.60) X 10*6/uL Hgb (13.0-17.0) g/dL Hct (39.6-50.0) % Plt Count (140-440) X 10*3/uL Immature Gran # (0.00-0.04) X 10*3/uL Lymphocytes # (0.90-5.00) X 10*3/uL Sodium 131 L (135-145) mmol/L Chloride 94 L (96-109) mmol/L BUN/Creatinine Ratio 27.33 H (12.00-20.00) Ratio POC Glucose (mg/dL) 56 L 51 L (75-99) mg/dL Calcium 8.5 L (8.7-10.3) mg/dL 02/24/22 02/24/22 02/24/22 Range/Units 07:44 08:05 11:14 RBC (4.40-5.60) X 10*6/uL Hgb (13.0-17.0) g/dL Hct (39.6-50.0) % Plt Count (140-440) X 10*3/uL Immature Gran # (0.00-0.04) X 10*3/uL Lymphocytes # (0.90-5.00) X 10*3/uL Sodium (135-145) mmol/L Chloride (96-109) mmol/L BUN/Creatinine Ratio (12.00-20.00) Ratio POC Glucose (mg/dL) 47 L 50 L 112 H (75-99) mg/dL Calcium (8.7-10.3) mg/dL Assessment and Plan Assessment: Assessment: #1 status epilepticus resolved #2 essential hypertension #3 hypoglycemia cause unknown at this time rule out insulinoma #4 thrombocytopenia - stable >100 #5 hyponatremia #6 permanent atrial fibrillation #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 -Ideally the workup for an insulinoma should be done during the episode of hypoglycemia with a documented blood glucose levels less than 55, insulin level should be > 3 and a C-peptide level > 0.6 proinsulin level > 5. Patient is not on any sulfonylurea. Fortunately we were able to obtain this during the episode as a coordinate it with RN appropriately at that time. -Monitor for his episodes of hypoglycemia administered dextrose as per protocol -Continues to be in atrial fibrillation currently rate controlled -DVT prophylaxis Eliquis Disposition: Patient will be discharged to inpatient rehab. Glucose levels need to be well-controlled today to drop down again to 47 we are appropriately able to obtain biochemical testing as our differential includes insulinoma. We'll consider transitioning over to by mouth dextrose tablets and prepare for discharge.
[2022-02-24 16:37] LABS: Glucose,Whole Blood 91 mg/dL (75-99)
[2022-02-24 20:09] LABS: Glucose,Whole Blood 93 mg/dL (75-99)
[2022-02-24] MEDS: ATORVASTATIN 80 MG TAB PO SCH (21:10)
[2022-02-24] MEDS: ASPIRIN 81 MG PO SCH (21:10)
[2022-02-24] MEDS: LATANOPROST 0.005% OPHTH DROPS 2.5 ML BTL RIGHT EYE SCH (21:10)
[2022-02-24 23:10] LABS: C-Peptide 1.09 ng/mL (0.81-3.85)
[2022-02-24] MEDS: MELATONIN 5 MG TABLET PO PRN (23:43)
[2022-02-25 02:26] LABS: Glucose,Whole Blood 70 mg/dL (75-99)
[2022-02-25 04:59] LABS: Glucose,Whole Blood 97 mg/dL (75-99)
[2022-02-25] MEDS: DEXTROSE 5%-0.9% NACL 1,000 ML IV SCH (06:00)
[2022-02-25 07:15] LABS: Glucose,Whole Blood 50 mg/dL (75-99)
[2022-02-25 07:24] LABS: Glucose,Whole Blood 39 mg/dL (75-99)
[2022-02-25 07:33] LABS: Glucose,Whole Blood 78 mg/dL (75-99)
[2022-02-25] MEDS: APIXABAN 5 MG TAB PO SCH (08:47)
[2022-02-25] MEDS: METOPROLOL SUCCINATE (ER) 25 MG TAB.ER.24H PO SCH (08:47)
[2022-02-25] MEDS: FAMOTIDINE 20 MG TAB PO SCH (08:47)
[2022-02-25] MEDS: DIVALPROEX 500 MG TABLET.DR PO SCH (08:48)
--- NOTE | 2022-02-25 11:24 | P.DS ---
Providers Date of admission: 02/13/22 15:23 Expected date of discharge: 02/25/22 Attending physician: Elsie Ramirez, Consults: 02/13/22 15:23 Consult Physician Urgent Consulting Provider: Kaylynn Ho Consult Reason/Comments: CVA, seizure Do you want consulting provider notified?: Already Contacted 02/13/22 15:24 Consult Physician Urgent Consulting Provider: Beth Dave Consult Reason/Comments: ICU management post TPA Do you want consulting provider notified?: Already Contacted 02/15/22 14:51 Consult Physician Routine Consulting Provider: Alessio Emmanuel Consult Reason/Comments: CVA Do you want consulting provider notified?: Yes Primary care physician: [facility] Course: History of Present Illness per H&P H&P Date: 02/13/22 Chief Complaint: Decreased responsiveness Patient is an 82 yo male with hx of CVA, Seizures, HTN, and HLD who presented to the ED after a sizure and was noted to have lateral gaze preference and weakness. Stroke network was activated and patient was determined to be a TPA candidate. CT head showed no acute intracranial hemorrhage or midline shift. It did show chronic small vessel ischemic changes. 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 He was slightly tachycardic on arrival. Initial laboratory analysis showed an elevated white blood cell count of 11, sodium 131, BUN 31, carbon dioxide 21. EKG demonstrated a regular rhythm at 115 appears to be consistent with possible atrial tachycardia. He was also loaded with Keppra in the ER. He was admitted to the ICU for further monitoring. He was noted to have A fib with controlled ventricular response on tele in the ICU. Patient seen and examined at bedside. He is not responding to questioning. All information is gathered from family. Per patient was attempting to place boot on recent surgery site on left foot and stood back up. He was confused and not responding and staring into space. She lead him to a chair and he then developed tonic/clonic movements. This resolved and then recurred at home. On EMS arrival he was seiziin in chair with right sided facial droop and right larios gaze. He again had another seizure during transport to the hospital and then another in the emergency department. He had a similar episode in March 2021. It when he was here was difficult to ascertain whether he was continuing to have seizures due to his severe agitation. Patient ultimately required transfer to [place]. and son state that he had a continuous EEG and an MRI there area and they're unsure if he was diagnosed with a stroke at that time or just seizures. They report that he was discharged home on medications they're unsure what. He did follow with the neurologist and the believes he was supposed to be on seizure medications however he did not take these. He had an episode similar to this in June which abated after several minutes and he did not seek medical attention at that time. He follows with Dr. Garcia for cardiology. The pros reports no history of A. fib but he has had valve replacements. She also states that he does not typically follow cardiology's or physician's recommendation. He did have surgery on his right foot to fix a great toe deformity about 2 weeks ago. She states he was not supposed to be walking on it without a boot however he has been. She also states that his upper cutter out did not want him to undergo this surgery but he did so anyways. She is unsure of a history of congestive heart failure but states he did need to valve replacement. Past medical history confirmed with . Hospital course in detail the problem list: #Status epilepticus, resolved. -Patient with aphasia, perhaps postictal effect. Patient had global aphasia, which seems to have resolved. No evidence of CVA on MRI brain. Patient is status post TPA. MRI of brain negative for an acute stroke. -History of similar presentation on 04/12/2021. Patient had no residual deficits -currently not on seizure medication due to medication noncompliance. -Patient is doing better. No further strokes or seizure-type spells. -MRI of brain negative for any acute stroke. Mild to moderate diffuse cerebral atrophy and more moderate chronic small vessel ischemic changes. -2DEcho: Left ventricular hyperthrophy with hyperdynamic function. Severe left atrial enlargement. EF 55-60% -Lipid panel: T, Cholestrol 138, LDL 58. -Per neurology Continue ASA 81mg daily and Eliquis. -Resume Crestor -Patient was started on Depakote 500mg 1 tab bid per neurology (which has antiepileptic effect and mood benefit). 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 fib remains on Eliquis #Aortic valve replacement with mitral valve repair, secondary pulmonary hyp ertension #Hypertension #Hyperlipidemia #Severe osteoarthritis #Left foot surgery and the surgical wound is clean dry and intact Physical examination discharge: Constitutional: No acute distress, on room air HEENT: Pupils equally reactive to light, atraumatic, normocephalic. Lungs: Clear to auscultation bilaterally, no wheezing, no crackles Cardiovascular: RRR, S1-S2 normal, no murmur, no peripheral edema Abdominal: Soft, nontender, no guarding, rebound or rigidity Extremities: No cyanosis or clubbing Neuro: Patient is a 3. Moving all 4 extremities spontaneously, awake and alert Patient Condition at Discharge: Stable Plan - Discharge Summary Discharge Rx Participant: No New Discharge Prescriptions: New Apixaban [Eliquis] 5 mg PO BID tab Hydrocortisone Cream [Hydrocortisone 1% Cream] 1 applic TOPICAL BID PRN each PRN Reason: Skin Irritation Aspirin 81 mg PO DAILY@1999 tab Divalproex [Depakote] 500 mg PO BID tab Latanoprost Ophth [Xalatan 0.005%] 1 drops RIGHT EYE HS ml Continue Metoprolol Succinate [Toprol XL] 25 mg PO DAILY Acetaminophen [Tylenol Extra Strength] 1,000 mg PO BID Rosuvastatin Calcium [Crestor] 10 mg PO DAILY #30 tab Discontinued lisinopriL [Zestril] 20 mg PO DAILY Cephalexin [Keflex] 500 mg PO TID predniSONE 10 mg PO TID Discharge Medication List Metoprolol Succinate [Toprol XL] 25 mg PO DAILY 09/24/15 [History] Rosuvastatin Calcium [Crestor] 10 mg PO DAILY #30 tab 09/03/21 [Rx] Acetaminophen [Tylenol Extra Strength] 1,000 mg PO BID 02/13/22 [History] Apixaban [Eliquis] 5 mg PO BID tab 02/25/22 [Rx] Aspirin 81 mg PO DAILY@1999 tab 02/25/22 [Rx] Divalproex [Depakote] 500 mg PO BID tab 02/25/22 [Rx] Hydrocortisone Cream [Hydrocortisone 1% Cream] 1 applic TOPICAL BID PRN each 02/25/22 [Rx] Latanoprost Ophth [Xalatan 0.005%] 1 drops RIGHT EYE HS ml 02/25/22 [Rx] Follow up Appointment(s)/Referral(s): Campos Girard MD [Primary Care Provider] - 1-2 days Discharge Disposition: OTHER INSTITUTION NOT DEFINED
[2022-02-25 11:51] LABS: Glucose,Whole Blood 132 mg/dL (75-99)
[2022-02-25 14:32] VITALS: BP 119/81; PULSE 98; RESP 20; TEMP 97.7
== END 2022-02-25 15:50 | disposition other institution (70) | DRG 101 ==
LOC: EC 11:42 → 2SICU 15:23 → 5NMEDONC 02-22 11:45
PROVIDERS: ADMIT Internal Medicine; ATTEND Internal Medicine
PROC: 3E03317 Introduction of Other Thrombolytic into Peripheral Vein, Percutaneous Approach (ICD-10-PCS; 2022-02-13)
PROC: 4A10X4Z Monitoring of Central Nervous Electrical Activity, External Approach (ICD-10-PCS; principal; 2022-02-14)
DX: G40.901 Epilepsy, unspecified, not intractable, with status epilepticus (principal); E87.1 Hypo-osmolality and hyponatremia; F23 Brief psychotic disorder; G81.01 Flaccid hemiplegia affecting right dominant side; I48.21 Permanent atrial fibrillation; R47.01 Aphasia; F05 Delirium due to known physiological condition; I48.92 Unspecified atrial flutter; D69.6 Thrombocytopenia, unspecified; Z66 Do not resuscitate; E16.2 Hypoglycemia, unspecified; E78.5 Hyperlipidemia, unspecified; G47.00 Insomnia, unspecified; H70.92 Unspecified mastoiditis, left ear; H91.90 Unspecified hearing loss, unspecified ear; I10 Essential (primary) hypertension; R00.0 Tachycardia, unspecified; I27.29 Other secondary pulmonary hypertension; E16.1 Other hypoglycemia; G94 Other disorders of brain in diseases classified elsewhere; I48.0 Paroxysmal atrial fibrillation; I65.21 Occlusion and stenosis of right carotid artery; R29.734 NIHSS score 34; R29.707 NIHSS score 7; G31.89 Other specified degenerative diseases of nervous system; K59.00 Constipation, unspecified; M19.90 Unspecified osteoarthritis, unspecified site; I08.1 Rheumatic disorders of both mitral and tricuspid valves; I27.20 Pulmonary hypertension, unspecified; R29.810 Facial weakness; Z79.01 Long term (current) use of anticoagulants; Z79.82 Long term (current) use of aspirin; Z79.899 Other long term (current) drug therapy; Z80.8 Family history of malignant neoplasm of other organs or systems; Z86.73 Personal history of transient ischemic attack (TIA), and cerebral infarction without residual deficits; Z91.14 Patient's other noncompliance with medication regimen; Z91.19 Patient's noncompliance with other medical treatment and regimen; Z95.2 Presence of prosthetic heart valve; Z96.619 Presence of unspecified artificial shoulder joint; Z96.642 Presence of left artificial hip joint; Z98.42 Cataract extraction status, left eye; Z98.41 Cataract extraction status, right eye; Z88.5 Allergy status to narcotic agent; Z91.041 Radiographic dye allergy status
CPT/HCPCS: 36415; 37195; 70450; 70496; 70498; 70551; 71046; 80048; 80053; 80061; 80306; 82010; 82533; 82607; 83036; 83525; 83735; 84100; 84206; 84443; 84484; 84681; 85025; 85027; 85610; 85730; 93005; 93306; 95816; 96361; 96365; 96375; 99291

== ENCOUNTER 2022-03-15 16:02 | Emergency (ER) | payer MEDICARE ==
--- NOTE | 2022-03-15 18:22 | ED ---
Fall HPI - General Chief Complaint: Fall Stated Complaint: Fall Time Seen by Provider: 03/15/22 18:10 Source: patient Mode of arrival: wheelchair - History of Present Illness Initial Comments: this 82-year-old male presents with a complaint of a fall last night at 11 PM. He states that he was trying to get on the toilet when he missed, fell, and hit his right superior head. the patient currently is on blood thinners as well. Family brought him in for further evaluation of head injury while on blood thinners. He has been acting normally. He apparently did have a stroke approximately one month ago. He has been somewhat unsteady with ambulation but is able to get around fairly well when he utilizes his walker. He denies any other injuries. He apparently fell a couple weeks ago and hit his tailbone but this is not bothering him anymore. He apparently was complaining of some left shoulder pain earlier but this has resolved. There is been no syncope, nausea, vomiting, or other neurologic complaints. No other modifying factors. - Related Data Home Medications Medication Instructions Recorded Confirmed Metoprolol Succinate [Toprol XL] 25 mg PO DAILY 09/24/15 02/13/22 Acetaminophen [Tylenol Extra 1,000 mg PO BID 02/13/22 02/13/22 Strength] Previous Rx's Medication Instructions Recorded Rosuvastatin Calcium [Crestor] 10 mg PO DAILY #30 tab 09/03/21 Apixaban [Eliquis] 5 mg PO BID tab 02/25/22 Aspirin 81 mg PO DAILY@1999 tab 02/25/22 Divalproex [Depakote] 500 mg PO BID tab 02/25/22 Hydrocortisone Cream 1 applic TOPICAL BID PRN each 02/25/22 [Hydrocortisone 1% Cream] Latanoprost Ophth [Xalatan 0.005%] 1 drops RIGHT EYE HS ml 02/25/22 Allergies Allergy/AdvReac Type Severity Reaction Status Date / Time adhesive tape AdvReac Rash/Hives Verified 03/15/22 16:48 garlic AdvReac Rash/Hives Verified 03/15/22 16:48 hydrocodone AdvReac Rash/Hives Verified 03/15/22 16:48 lorazepam [From Ativan] AdvReac Hallucinati Verified 03/15/22 16:48 ons Review of Systems ROS Statement: Those systems with pertinent positive or pertinent negative responses have been documented in the HPI. ROS Other: All systems not noted in ROS Statement are negative. Past Medical History Past Medical History: Deep Vein Thrombosis (DVT), Hyperlipidemia, Hypertension, Seizure Disorder Additional Past Medical History / Comment(s): hx:wound on buttocks since healed, severe OA, history of valvular heart disease and the patient has AVR (bioprosthetic valve and mitral valve repair and preserved LV with severe concentric LVH and secondary pulmonary hypertension. History of Any Multi-Drug Resistant Organisms: None Reported Past Surgical History: Appendectomy, Cardiac Valve Replacement, Heart Catheterization, Joint Replacement Additional Past Surgical History / Comment(s): cardiac valve replacement x2 bioprosthetic, taryn shoulder replacement, lt hip replacement, cataracts, lt eye retinal tear-sx to repair, dental implants, right toe surgeyr Past Anesthesia/Blood Transfusion Reactions: No Reported Reaction Additional Past Anesthesia/Blood Transfusion Reaction / Comment(s): past blood transfusions-no reactions Past Psychological History: No Psychological Hx Reported Smoking Status: Never smoker Past Alcohol Use History: Occasional Past Drug Use History: None Reported - Past Family History Mother Family Medical History: Dementia Father History Unknown: Yes Brother(s) Family Medical History: Cancer Additional Family Medical History / Comment(s): melanoma General Exam - General Exam Comments Initial Comments: GENERAL: The patient is well nourished and well hydrated. VITAL SIGNS: Heart rate, blood pressure, respiratory rate reviewed as recorded in nurse's notes. EYES: Pupils are round and reactive. Extraocular movements are intact. No conjunctival / lid redness or swelling. ENT: There is mild bruising noted to the superior right scalp. No swelling identified.Airway is patent. Throat is clear. NECK: Nontender. No swelling or evidence of injury. No subcutaneous emphysema. Trachea is midline. No thyroid mass. HEART: Regular rate and rhythm. Good peripheral pulses. LUNGS/CHEST: Breath sounds clear and equal bilaterally. No rales, rhonchi, or wheezes. No ecchymosis, subcutaneous emphysema, or tenderness. ABDOMEN: Abdomen soft without tenderness. No palpable masses or organomegaly. No peritoneal signs. No abdominal wall swelling or ecchymosis. EXTREMITIES: No extremity tenderness. Normal muscle tone and function. No thoracolumbar tenderness. Good range of motion. NEUROLOGIC: Sensation is grossly intact. Cranial nerve exam reveals face is symmetrical, tongue is midline, speech is clear. SKIN: No abrasions or ecchymosis is noted. No induration or masses noted. PSYCHIATRIC: Alert and oriented. Appropriate behavior and judgment. Limitations: no limitations Course Vital Signs 03/15/22 16:44 Temperature 97.5 F L Pulse Rate 60 Respiratory 18 Rate Blood Pressure 139/91 O2 Sat by Pulse 92 L Oximetry Medical Decision Making - Medical Decision Making The patient was seen and examined. A computed tomography scan of the brain was done and this does not show any acute abnormalities per radiology. Patient is doing well on recheck. It is felt as though he is stable for discharge home. Fall precautions are discussed in detail. It is emphasized that he utilizes a walker for any ambulation whatsoever. Close follow-up with primary care recommended. Return parameters are discussed. Disposition Clinical Impression: Fall, Head injury Disposition: HOME SELF-CARE Condition: Good Instructions (If sedation given, give patient instructions): Fall Prevention f or Older Adults (ED), Head Injury (ED) Is patient prescribed a controlled substance at d/c from ED?: No Referrals: Campos Girard MD [Primary Care Provider] - 1-2 days Time of Disposition: 20:58
--- NOTE | 2022-03-15 20:48 | CT ---
EXAMINATION TYPE: CT brain wo con DATE OF EXAM: 03/15/2022 COMPARISON: 02/14/2022 HISTORY: AMS, weakness CT DLP: 1098.4 mGycm Automated exposure control for dose reduction was used. There is cerebral atrophy. There is no mass effect or midline shift. No sign of intracranial hemorrha ge. Calvarium is intact. IMPRESSION: Cerebral atrophy. No acute intracranial abnormality. No change.
[2022-03-16 00:47] VITALS: BP 140/76; PULSE 65; RESP 16; TEMP 97.8
== END 2022-03-15 21:00 | disposition home or self-care (01) ==
LOC: EC 16:02
DX: S09.90XA Unspecified injury of head, initial encounter (principal); I10 Essential (primary) hypertension; E78.5 Hyperlipidemia, unspecified; Z91.018 Allergy to other foods; Z91.048 Other nonmedicinal substance allergy status; Z88.5 Allergy status to narcotic agent; Z88.8 Allergy status to other drugs, medicaments and biological substances; W18.11XA Fall from or off toilet without subsequent striking against object, initial encounter
CPT/HCPCS: 70450; 99284

== ENCOUNTER 2022-03-20 12:11 | Emergency (ER) | payer MEDICARE ==
[2022-03-20 12:23] VITALS: RESP 18
--- NOTE | 2022-03-20 13:22 | ED ---
Arrhythmia/Palpitations HPI - General Chief Complaint: Arrhythmia/Palpitations Stated Complaint: Cardiac/Afib Time Seen by Provider: 03/20/22 12:13 Source: patient, family, EMS, RN notes reviewed Mode of arrival: EMS Limitations: no limitations - History of Present Illness Initial Comments: 82-year-old male presents emergency Department with chief complaint of dyspnea. Patient states unless her first increasing dyspnea, orthopnea, exertional dyspnea. Patient noticed increasing leg swelling. Patient does have a history of aortic valve replacement 2, A. fib atrial fibrillation, reports of congestive heart failure per family patient states he feels very weak, noticed increasing swelling lower extremities. Patient denies any dietary changes. No medication changes he was in the hospital for multiple seizures, possible stroke. Patient went to rehab and was discharged home. Patient denies any fevers or chills no productive cough states is occasional phlegm. - Related Data Home Medications Medication Instructions Recorded Confirmed Metoprolol Succinate [Toprol XL] 25 mg PO DAILY 09/24/15 02/13/22 Acetaminophen [Tylenol Extra 1,000 mg PO BID 02/13/22 02/13/22 Strength] Previous Rx's Medication Instructions Recorded Rosuvastatin Calcium [Crestor] 10 mg PO DAILY #30 tab 09/03/21 Apixaban [Eliquis] 5 mg PO BID tab 02/25/22 Aspirin 81 mg PO DAILY@1999 tab 02/25/22 Divalproex [Depakote] 500 mg PO BID tab 02/25/22 Hydrocortisone Cream 1 applic TOPICAL BID PRN each 02/25/22 [Hydrocortisone 1% Cream] Latanoprost Ophth [Xalatan 0.005%] 1 drops RIGHT EYE HS ml 02/25/22 Allergies Allergy/AdvReac Type Severity Reaction Status Date / Time adhesive tape AdvReac Rash/Hives Verified 03/15/22 16:48 garlic AdvReac Rash/Hives Verified 03/15/22 16:48 hydrocodone AdvReac Rash/Hives Verified 03/15/22 16:48 lorazepam [From Ativan] AdvReac Hallucinati Verified 03/15/22 16:48 ons Review of Systems ROS Statement: Those systems with pertinent positive or pertinent negative responses have been documented in the HPI. ROS Other: All systems not noted in ROS Statement are negative. Past Medical History Past Medical History: Deep Vein Thrombosis (DVT), Hyperlipidemia, Hypertension, Seizure Disorder Additional Past Medical History / Comment(s): hx:wound on buttocks since healed, severe OA, history of valvular heart disease and the patient has AVR (bioprosthetic valve and mitral valve repair and preserved LV with severe concentric LVH and secondary pulmonary hypertension. History of Any Multi-Drug Resistant Organisms: None Reported Past Surgical History: Appendectomy, Cardiac Valve Replacement, Heart Catheteriz ation, Joint Replacement Additional Past Surgical History / Comment(s): cardiac valve replacement x2 bioprosthetic, taryn shoulder replacement, lt hip replacement, cataracts, lt eye retinal tear-sx to repair, dental implants, right toe surgeyr Past Anesthesia/Blood Transfusion Reactions: No Reported Reaction Additional Past Anesthesia/Blood Transfusion Reaction / Comment(s): past blood transfusions-no reactions Past Psychological History: No Psychological Hx Reported Smoking Status: Never smoker Past Alcohol Use History: Occasional Past Drug Use History: None Reported - Past Family History Mother Family Medical History: Dementia Father History Unknown: Yes Brother(s) Family Medical History: Cancer Additional Family Medical History / Comment(s): melanoma General Exam Limitations: no limitations General appearance: alert, in no apparent distress Head exam: Present: atraumatic, normocephalic, normal inspection Eye exam: Present: normal appearance, PERRL, EOMI. Absent: scleral icterus, conjunctival injection, periorbital swelling ENT exam: Present: normal exam, normal oropharynx, mucous membranes moist Neck exam: Present: normal inspection, full ROM. Absent: tenderness, meningismus, lymphadenopathy Respiratory exam: Present: rales. Absent: normal lung sounds bilaterally, res piratory distress, wheezes, rhonchi, stridor Cardiovascular Exam: Present: regular rate, normal rhythm, systolic murmur. Absent: normal heart sounds, diastolic murmur, rubs, gallop, clicks GI/Abdominal exam: Present: soft, normal bowel sounds. Absent: distended, tenderness, guarding, rebound, rigid Extremities exam: Present: pedal edema Course Vital Signs 03/20/22 03/20/22 12:13 15:00 Temperature 97.5 F L Pulse Rate 63 75 Respiratory 18 18 Rate Blood Pressure 102/67 112/74 O2 Sat by Pulse 91 L 99 Oximetry Medical Decision Making - Medical Decision Making 82-year-old male present emergency from particular dyspnea, orthopnea exertional. Patient is found to be acutely anemic at 7.3 with prior hemoglobin was stable. Patient is on eliquis. Patient complaint of melanotic stools unsure how long this has been noted increasing weakness today. Patient was given Protonix 80 mg, patient ordered 1 unit of blood given symptomatic anemia, GI bleed. I discussed the case with on-call surgery recommends patient to be transferred given no GI coverage. Patient does have elevated troponin most likely related to anemia. Patient does have mild CHF changes. Patient will be transferred to [facility]. - Lab Data Result diagrams: 03/20/22 13:00 03/20/22 13:00 Lab Results 03/20/22 03/20/22 03/20/22 Range/Units 13:00 13:00 13:00 WBC 6.4 (3.8-10.6) k/uL RBC 2.24 L (4.30-5.90) m/uL Hgb 7.3 L D (13.0-17.5) gm/dL Hct 21.7 L (39.0-53.0) % MCV 96.5 (80.0-100.0) fL MCH 32.6 (25.0-35.0) pg MCHC 33.7 (31.0-37.0) g/dL RDW 16.7 H (11.5-15.5) % Plt Count 156 (150-450) k/uL MPV 7.7 Neutrophils % 87 % Lymphocytes % 6 % Monocytes % 5 % Eosinophils % 0 % Basophils % 0 % Neutrophils # 5.6 (1.3-7.7) k/uL Lymphocytes # 0.4 L (1.0-4.8) k/uL Monocytes # 0.3 (0-1.0) k/uL Eosinophils # 0.0 (0-0.7) k/uL Basophils # 0.0 (0-0.2) k/uL Anisocytosis Slight Macrocytosis Slight PT 13.5 H (9.0-12.0) sec INR 1.3 H (<1.2) APTT 26.9 (22.0-30.0) sec Sodium 129 L (137-145) mmol/L Potassium 4.0 (3.5-5.1) mmol/L Chloride 98 (98-107) mmol/L Carbon Dioxide 26 (22-30) mmol/L Anion Gap 5 mmol/L BUN 66 H (9-20) mg/dL Creatinine 0.79 (0.66-1.25) mg/dL Est GFR (CKD-EPI)AfAm >90 (>60 ml/min/1.73 sqM) Est GFR (CKD-EPI)NonAf 83 (>60 ml/min/1.73 sqM) Glucose 106 H (74-99) mg/dL Plasma Lactic Acid Osmin (0.7-2.0) mmol/L Calcium 7.7 L (8.4-10.2) mg/dL Magnesium 1.6 (1.6-2.3) mg/dL Total Bilirubin 0.4 (0.2-1.3) mg/dL AST 30 (17-59) U/L ALT 16 (4-49) U/L Alkaline Phosphatase 43 (38-126) U/L Troponin I (0.000-0.034) ng/mL Total Protein 5.0 L (6.3-8.2) g/dL Albumin 2.3 L (3.5-5.0) g/dL Blood Type Recheck Bld Type Recheck Status Spec Expiration Date 03/20/22 03/20/22 03/20/22 Range/Units 13:00 13:00 15:02 WBC (3.8-10.6) k/uL RBC (4.30-5.90) m/uL Hgb (13.0-17.5) gm/dL Hct (39.0-53.0) % MCV (80.0-100.0) fL MCH (25.0-35.0) pg MCHC (31.0-37.0) g/dL RDW (11.5-15.5) % Plt Count (150-450) k/uL MPV Neutrophils % % Lymphocytes % % Monocytes % % Eosinophils % % Basophils % % Neutrophils # (1.3-7.7) k/uL Lymphocytes # (1.0-4.8) k/uL Monocytes # (0-1.0) k/uL Eosinophils # (0-0.7) k/uL Basophils # (0-0.2) k/uL Anisocytosis Macrocytosis PT (9.0-12.0) sec INR (<1.2) APTT (22.0-30.0) sec Sodium (137-145) mmol/L Potassium (3.5-5.1) mmol/L Chloride (98-107) mmol/L Carbon Dioxide (22-30) mmol/L Anion Gap mmol/L BUN (9-20) mg/dL Creatinine (0.66-1.25) mg/dL Est GFR (CKD-EPI)AfAm (>60 ml/min/1.73 sqM) Est GFR (CKD-EPI)NonAf (>60 ml/min/1.73 sqM) Glucose (74-99) mg/dL Plasma Lactic Acid Osmin 2.8 H* (0.7-2.0) mmol/L Calcium (8.4-10.2) mg/dL Magnesium (1.6-2.3) mg/dL Total Bilirubin (0.2-1.3) mg/dL AST (17-59) U/L ALT (4-49) U/L Alkaline Phosphatase (38-126) U/L Troponin I 0.079 H* (0.000-0.034) ng/mL Total Protein (6.3-8.2) g/dL Albumin (3.5-5.0) g/dL Blood Type Recheck No Previous Record Bld Type Recheck Status CABO Indicated Spec Expiration Date 03/23/2022 - 2301 Critical Care Time Critical Care Time: Yes Total Critical Care Time: 35 Disposition Clinical Impression: GI bleed, Elevated troponin, CHF (congestive heart failure), Dyspnea Disposition: OTHER INSTITUTION NOT DEFINED Condition: Fair Referrals: Sae Girard MD [Primary Care Provider] - 1-2 days Time of Disposition: 15:25 - Out of Hospital Transfer - Req. Specs Out of Hospital Transfer - Requested Specifics: Other Emergency Center ([facility])
--- NOTE | 2022-03-20 13:26 | XR ---
EXAMINATION TYPE: XR chest 2V DATE OF EXAM: 03/20/2022 COMPARISON: 02/13/2022 HISTORY: Shortness of breath TECHNIQUE: Frontal and lateral views of the chest are obtained. FINDINGS: Scattered senescent parenchymal changes noted. Pulmonary venous congestion with small effusions and c ardiomegaly. Correlate for mild congestive failure. Mediastinal structures are stable and grossly unremarkable. No evidence for hilar prominence. Degenerative changes dorsal spine. IMPRESSION: 1. Pulmonary venous congestion with small effusions and cardiomegaly. Correlate for mild congestive f ailure.
[2022-03-20 13:29] LABS: ALT 16 U/L (4-49); AST 30 U/L (17-59); African American GFR (CKD) >90 (>60 ml/min/1.73 sqM); Albumin 2.3 g/dL (3.5-5.0); Alkaline Phosphatase 43 U/L (38-126); Anion Gap 5 mmol/L; Blood Urea Nitrogen 66 mg/dL (9-20); Calcium 7.7 mg/dL (8.4-10.2); Carbon Dioxide 26 mmol/L (22-30); Chloride 98 mmol/L (98-107); Glucose 106 mg/dL (74-99); INR 1.3 (<1.2); Magnesium 1.6 mg/dL (1.6-2.3); Non-African American GFR(CKD) 83 (>60 ml/min/1.73 sqM); Partial Thromboplastin Time 26.9 sec (22.0-30.0); Prothrombin Time 13.5 sec (9.0-12.0); Sodium 129 mmol/L (137-145); Total Bilirubin 0.4 mg/dL (0.2-1.3)
[2022-03-20 13:32] LABS: Anisocytosis Slight; Basophils % (A) 0 %; Eosinophils % (A) 0 %; HCT 21.7 % (39.0-53.0); Lymphocytes # (A) 0.4 k/uL (1.0-4.8); Lymphocytes % (A) 6 %; MCH 32.6 pg (25.0-35.0); MCHC 33.7 g/dL (31.0-37.0); MCV 96.5 fL (80.0-100.0); Macrocytosis Slight; Mean Platelet Volume 7.7; Monocytes # (A) 0.3 k/uL (0-1.0); Monocytes % (A) 5 %; Neutrophils # (A) 5.6 k/uL (1.3-7.7); Neutrophils % (A) 87 %; Platelet Count 156 k/uL (150-450); RBC 2.24 m/uL (4.30-5.90); RDW 16.7 % (11.5-15.5); WBC 6.4 k/uL (3.8-10.6)
[2022-03-20 13:34] LABS: HGB 7.3 gm/dL (13.0-17.5)
[2022-03-20] MEDS ORDERED: PANTOPRAZOLE 40 MG/10 ML VIAL IVP STA (14:54)
[2022-03-20 15:02] VITALS: PULSE 75
[2022-03-20] MEDS ORDERED: ACETAMINOPHEN TAB 500 MG TAB PO STA (15:03)
[2022-03-20 17:49] VITALS: BP 110/68; TEMP 98.1
== END 2022-03-20 17:20 | disposition other institution (70) ==
LOC: EC 12:11
DX: I50.9 Heart failure, unspecified (principal); K92.2 Gastrointestinal hemorrhage, unspecified; R77.8 Other specified abnormalities of plasma proteins; E78.5 Hyperlipidemia, unspecified; I10 Essential (primary) hypertension; Z91.048 Other nonmedicinal substance allergy status; Z91.018 Allergy to other foods; Z88.5 Allergy status to narcotic agent
CPT/HCPCS: 36415; 93005; 86900; 86901; 83880; 80053; 83605; 83735; 84484; 85025; 85610; 85730; 86850; 86920; 71046; 99291; 96374; P9016; C9113

== ENCOUNTER 2022-04-30 00:02 | Emergency (ER) | payer MEDICARE ==
[2022-04-30] MEDS ORDERED: SODIUM CHLORIDE 0.9% 1,000 ML IV STA (00:07)
[2022-04-30 00:11] LABS: Glucose,Whole Blood 137 mg/dL (70-110)
[2022-04-30 00:16] VITALS: TEMP 97.5
[2022-04-30 00:48] LABS: Basophils % (A) 1 %; Eosinophils # (A) 0.1 k/uL (0-0.7); Eosinophils % (A) 1 %; HCT 38.1 % (39.0-53.0); Lymphocytes # (A) 1.3 k/uL (1.0-4.8); Lymphocytes % (A) 25 %; MCH 33.5 pg (25.0-35.0); MCHC 32.4 g/dL (31.0-37.0); Macrocytosis Slight; Mean Platelet Volume 7.3; Monocytes # (A) 0.4 k/uL (0-1.0); Monocytes % (A) 8 %; Neutrophils # (A) 3.2 k/uL (1.3-7.7); Neutrophils % (A) 63 %; Platelet Count 158 k/uL (150-450); RBC 3.68 m/uL (4.30-5.90); RDW 15.3 % (11.5-15.5); WBC 5.1 k/uL (3.8-10.6)
[2022-04-30 00:49] LABS: HGB 12.3 gm/dL (13.0-17.5); MCV 103.3 fL (80.0-100.0)
--- NOTE | 2022-04-30 01:03 | ED ---
Seizure HPI - General Stated Complaint: Possible stroke, seizure Time Seen by Provider: 04/30/22 00:06 Source: EMS Mode of arrival: EMS - History of Present Illness Initial Comments: This patient is an 82-year-old man who has had previous seizures, brought in by ambulance to have evaluation of seizure. The patient reportedly was heard by his to have a fall and when she went to check him he was having seizure. She phoned EMS, who state that while they were transporting the patient he did have another seizure. Both seizures were reported to last period of minutes possibly up to 5 minutes. With the second seizure, EMS had given the patient Versed, 10 mg. On arrival, the patient is not able to give any additional history. Patient is appearing to be postictal. MD Complaint: seizure -: minutes(s) Description of Episode: loss of consciousness, tonic-clonic movement -: second(s) Witnessed: yes - by bystander Trauma: Yes Seizure History: known seizure disorder Place: home Possible Precipitating Event: none Treatments Prior to Arrival: benzodiazepines - Related Data Home Medications Medication Instructions Recorded Confirmed Metoprolol Succinate [Toprol XL] 25 mg PO DAILY 09/24/15 03/20/22 Acetaminophen [Tylenol Extra 1,000 mg PO BID 02/13/22 03/20/22 Strength] Celecoxib [CeleBREX] 100 mg PO DAILY 03/20/22 03/20/22 Famotidine [Pepcid] 20 mg PO DAILY 03/20/22 03/20/22 Furosemide [Lasix] 20 mg PO DAILY 03/20/22 03/20/22 QUEtiapine [SEROquel] 25 mg PO HS 03/20/22 03/20/22 Sennosides [Senokot] 8.6 mg PO BID 03/20/22 03/20/22 Thiamine [Vitamin B-1] 50 mg PO DAILY 03/20/22 03/20/22 Previous Rx's Medication Instructions Recorded Rosuvastatin Calcium [Crestor] 10 mg PO DAILY #30 tab 09/03/21 Apixaban [Eliquis] 5 mg PO BID tab 02/25/22 Aspirin 81 mg PO DAILY@2000 tab 02/25/22 Divalproex [Depakote] 500 mg PO BID tab 02/25/22 Hydrocortisone Cream 1 applic TOPICAL BID PRN each 02/25/22 [Hydrocortisone 1% Cream] Latanoprost Ophth [Xalatan 0.005%] 1 drops RIGHT EYE HS ml 02/25/22 Allergies Allergy/AdvReac Type Severity Reaction Status Date / Time adhesive tape AdvReac Rash/Hives Verified 03/20/22 16:08 garlic AdvReac Rash/Hives Verified 03/20/22 16:08 hydrocodone AdvReac Rash/Hives Verified 03/20/22 16:08 lorazepam [From Ativan] AdvReac Hallucinati Verified 03/20/22 16:08 ons Review of Systems ROS Statement: Those systems with pertinent positive or pertinent negative responses have been documented in the HPI. ROS Other: All systems not noted in ROS Statement are negative. Limitations: ROS unobtainable due to patients medical condition Constitutional: Denies: fever Neurological: Reports: other (Seizures) Past Medical History Past Medical History: Deep Vein Thrombosis (DVT), Hyperlipidemia, Hypertension, Seizure Disorder Additional Past Medical History / Comment(s): hx:wound on buttocks since healed, severe OA, history of valvular heart disease and the patient has AVR (bioprosthetic valve and mitral valve repair and preserved LV with severe dominique ntric LVH and secondary pulmonary hypertension. History of Any Multi-Drug Resistant Organisms: None Reported Past Surgical History: Appendectomy, Cardiac Valve Replacement, Heart Catheterization, Joint Replacement Additional Past Surgical History / Comment(s): cardiac valve replacement x2 bioprosthetic, taryn shoulder replacement, lt hip replacement, cataracts, lt eye retinal tear-sx to repair, dental implants, right toe surgeyr Past Anesthesia/Blood Transfusion Reactions: No Reported Reaction Additional Past Anesthesia/Blood Transfusion Reaction / Comment(s): past blood transfusions-no reactions Past Psychological History: No Psychological Hx Reported Smoking Status: Never smoker Past Alcohol Use History: Occasional Past Drug Use History: None Reported - Past Family History Mother Family Medical History: Dementia Father History Unknown: Yes Brother(s) Family Medical History: Cancer Additional Family Medical History / Comment(s): melanoma General Exam General appearance: in no apparent distress, other (Patient appears to be in postictal state. ) Head exam: Present: normocephalic, normal inspection Eye exam: Present: PERRL, EOMI. Absent: scleral icterus, conjunctival injection, nystagmus, periorbital swelling, periorbital tenderness ENT exam: Present: normal oropharynx Neck exam: Present: normal inspection. Absent: tenderness Respiratory exam: Present: normal lung sounds bilaterally. Absent: respiratory distress, wheezes, rales, rhonchi, stridor, accessory muscle use Cardiovascular Exam: Present: normal rhythm, tachycardia, normal heart sounds. Absent: systolic murmur, diastolic murmur, rubs, gallop GI/Abdominal exam: Present: soft. Absent: distended, tenderness, guarding, rebound, rigid, mass Extremities exam: Present: normal inspection, normal capillary refill. Absent: pedal edema, calf tenderness Back exam: Present: normal inspection. Absent: CVA tenderness (R), CVA tenderness (L), vertebral tenderness Neurological exam: Present: altered, CN II-XII intact, reflexes normal. Absent: motor sensory deficit Skin exam: Present: warm, dry, normal color, other (Patient has skin tear to the lateral aspect of upper portion of right arm and also to dorsal aspect right forearm.) Course Vital Signs 04/30/22 04/30/22 04/30/22 00:09 04:34 05:50 Temperature 97.5 F L Pulse Rate 114 H 69 70 Respiratory 22 18 16 Rate Blood Pressure 113/91 171/106 155/94 O2 Sat by Pulse 99 98 99 Oximetry Procedures - Laceration Laceration #1 Consent Obtained: emergent situation Indication: laceration Site: face Description: stellate Depth: simple, single layer Anesthetic Used: lidocaine 1% Anesthesia Technique: local infiltration Type of Sutures: nylon Size of Sutures: 5-0 Number of Sutures: 8 Technique: simple, interrupted Patient Tolerated Procedure: well, no complications - Restraint - Face to Face Restraint Occurrence 1 Patient's Immediate Situation: Endangers self safety Patient's Reaction to the Intervention: Restless, Resistive to care Patient's Medical & Behavioral Condition: Awake, Follows directions, Confused Need to Continue or Terminate Restraint or Seclusion: Continue Face to Face Eval of Restraint Date: 04/30/22 Face to Face Eval of Restraint Time: 04:05 Medical Decision Making - Medical Decision Making Patient is an 82-year-old man who arrives to the hospital after having had 2 generalized tonic-clonic seizures. The last one did cease after Versed. The patient was in a postictal state after arrival. He was starting to return towards baseline at time of admission. Case discussed with the admitting doctor and was pending bed availability. The patient's family had gone home and there was a bedside sitter watching over the patient. In the adjacent room there was a disturbance involving a possible child abduction, to which the sitter responded. On returning to the room, the patient appears to have attempted to get out of bed and a bedside. The patient was conscious but disoriented. There was bleeding from the right brow which had a laceration. Cervical collar was placed on the patient. The patient was log rolled onto a backboard and transferred to bed. Following that the patient is sent for CT brain and C- spine, which does reveal minimally displaced C2 fracture. I did discuss with patient's family, and the patient's is agreeable with transfer to [facility] so that the patient may be seen by neurosurgery. The patient is disoriented but able to answer simple yes no questions. Patient moving 4 extremities. I discussed the case with neurosurgery and with the emergency department physician who accepted transfer. - Lab Data Result diagrams: 04/30/22 00:23 04/30/22 00:23 Lab Results 04/30/22 04/30/22 04/30/22 Range/Units 00:08 00:23 00:23 WBC 5.1 (3.8-10.6) k/uL RBC 3.68 L (4.30-5.90) m/uL Hgb 12.3 L D (13.0-17.5) gm/dL Hct 38.1 L (39.0-53.0) % MCV 103.3 H D (80.0-100.0) fL MCH 33.5 (25.0-35.0) pg MCHC 32.4 (31.0-37.0) g/dL RDW 15.3 (11.5-15.5) % Plt Count 158 (150-450) k/uL MPV 7.3 Neutrophils % 63 % Lymphocytes % 25 % Monocytes % 8 % Eosinophils % 1 % Basophils % 1 % Neutrophils # 3.2 (1.3-7.7) k/uL Lymphocytes # 1.3 (1.0-4.8) k/uL Monocytes # 0.4 (0-1.0) k/uL Eosinophils # 0.1 (0-0.7) k/uL Basophils # 0.0 (0-0.2) k/uL Macrocytosis Slight Sodium 128 L (137-145) mmol/L Potassium 3.9 (3.5-5.1) mmol/L Chloride 95 L (98-107) mmol/L Carbon Dioxide 24 (22-30) mmol/L Anion Gap 9 mmol/L BUN 34 H (9-20) mg/dL Creatinine 0.89 (0.66-1.25) mg/dL Est GFR (CKD-EPI)AfAm >90 (>60 ml/min/1.73 sqM) Est GFR (CKD-EPI)NonAf 79 (>60 ml/min/1.73 sqM) Glucose 123 H (74-99) mg/dL POC Glucose (mg/dL) 137 H (70-110) mg/dL POC Glu Landscape Nurseryman MARY Yamilka Soto Calcium 8.6 (8.4-10.2) mg/dL Magnesium 1.7 (1.6-2.3) mg/dL Total Bilirubin 0.4 (0.2-1.3) mg/dL AST 39 (17-59) U/L ALT 19 (4-49) U/L Alkaline Phosphatase 92 (38-126) U/L Total Protein 6.5 (6.3-8.2) g/dL Albumin 3.6 (3.5-5.0) g/dL Valproic Acid ug/mL Serum Alcohol <10 mg/dL 04/30/22 Range/Units 00:23 WBC (3.8-10.6) k/uL RBC (4.30-5.90) m/uL Hgb (13.0-17.5) gm/dL Hct (39.0-53.0) % MCV (80.0-100.0) fL MCH (25.0-35.0) pg MCHC (31.0-37.0) g/dL RDW (11.5-15.5) % Plt Count (150-450) k/uL MPV Neutrophils % % Lymphocytes % % Monocytes % % Eosinophils % % Basophils % % Neutrophils # (1.3-7.7) k/uL Lymphocytes # (1.0-4.8) k/uL Monocytes # (0-1.0) k/uL Eosinophils # (0-0.7) k/uL Basophils # (0-0.2) k/uL Macrocytosis Sodium (137-145) mmol/L Potassium (3.5-5.1) mmol/L Chloride (98-107) mmol/L Carbon Dioxide (22-30) mmol/L Anion Gap mmol/L BUN (9-20) mg/dL Creatinine (0.66-1.25) mg/dL Est GFR (CKD-EPI)AfAm (>60 ml/min/1.73 sqM) Est GFR (CKD-EPI)NonAf (>60 ml/min/1.73 sqM) Glucose (74-99) mg/dL POC Glucose (mg/dL) (70-110) mg/dL POC Glu Landscape Nurseryman ID Calcium (8.4-10.2) mg/dL Magnesium (1.6-2.3) mg/dL Total Bilirubin (0.2-1.3) mg/dL AST (17-59) U/L ALT (4-49) U/L Alkaline Phosphatase (38-126) U/L Total Protein (6.3-8.2) g/dL Albumin (3.5-5.0) g/dL Valproic Acid 73.0 ug/mL Serum Alcohol mg/dL - EKG Data -: EKG Interpreted by [facility] EKG shows normal: axis (Normal), intervals (Normal), QRS complexes (Old septal infarct.) Rate: normal (Rate 92 bpm) Interpretation: other (Underlying rhythm appears to be atrial fibrillation versus atrial flutter.) Disposition Clinical Impression: Generalized tonic-clonic seizure, Closed C2 fracture, Concussion, Skin tear, Hyponatremia Disposition: OTHER INSTITUTION NOT DEFINED Instructions (If sedation given, give patient instructions): Seizure/Epilepsy Discharge Instructions & Follow-Up Is patient prescribed a controlled substance at d/c from ED?: No Referrals: Sae Girard MD [REFERRING] - 1-2 days - Out of Hospital Transfer - Req. Specs Out of Hospital Transfer - Requested Specifics: Other Emergency Center
[2022-04-30 01:18] LABS: ALT 19 U/L (4-49); AST 39 U/L (17-59); African American GFR (CKD) >90 (>60 ml/min/1.73 sqM); Albumin 3.6 g/dL (3.5-5.0); Alcohol <10 mg/dL; Alkaline Phosphatase 92 U/L (38-126); Anion Gap 9 mmol/L; Blood Urea Nitrogen 34 mg/dL (9-20); Calcium 8.6 mg/dL (8.4-10.2); Carbon Dioxide 24 mmol/L (22-30); Chloride 95 mmol/L (98-107); Glucose 123 mg/dL (74-99); Magnesium 1.7 mg/dL (1.6-2.3); Non-African American GFR(CKD) 79 (>60 ml/min/1.73 sqM); Potassium 3.9 mmol/L (3.5-5.1); Sodium 128 mmol/L (137-145); Total Bilirubin 0.4 mg/dL (0.2-1.3); Total Protein 6.5 g/dL (6.3-8.2)
--- NOTE | 2022-04-30 01:34 | CT ---
EXAMINATION TYPE: CT brain wo con DATE OF EXAM: 04/30/2022 COMPARISON: 03/15/2022 HISTORY: seizure activity CT DLP: 1157.4 mGycm Automated exposure control for dose reduction was used. There is cerebral cortical atrophy. There is no mass effect or midline shift. No sign of intracranial hemorrhage. The calvarium is intact. Skull base is intact. There is normal aeration of the mastoid s inuses. IMPRESSION: Cerebral atrophy. No acute intracranial abnormality. No change.
[2022-04-30] MEDS ORDERED: LIDOCAINE 1%-EPI 1:100,000 20 ML VIAL SQ STA (03:49)
[2022-04-30] MEDS ORDERED: ACETAMINOPHEN TAB 325 MG TAB PO PRN (04:46)
[2022-04-30] MEDS ORDERED: NALOXONE 0.4 MG/ML 1 ML VIAL IV PRN (04:46)
[2022-04-30] MEDS ORDERED: SODIUM CHLORIDE 0.9% 1,000 ML IV SCH (05:00)
[2022-04-30] MEDS ORDERED: MORPHINE SULFATE 4 MG/ML SYRINGE IV STA (05:15)
--- NOTE | 2022-04-30 05:17 | CT ---
EXAMINATION TYPE: CT brain vladimirine wo con DATE OF EXAM: 04/30/2022 COMPARISON: CT brain today HISTORY: fall CT DLP: 1539.7 mGycm Automated exposure control for dose reduction was used. Images of the brain and cervical spine obtained with no contrast. There is cerebral cortical atrophy. There is no mass effect or midline shift. No sign of intracranial hemorrhage. There is right frontal scalp hematoma. The calvarium is intact. There is normal aeration of mastoid sinuses. The skull base is intact. The cervical vertebra have fairly normal alignment. There is a degenerative subluxation at C7-T1 that measures 3.5 mm. Facet joints are intact. There is mild multilevel hypertrophic facet arthropathy. T here is moderate narrowing of the disc spaces at C5-6 and C6-7. There is a transverse fracture through the base of the odontoid process. There is 2 mm posterior disp lacement of the odontoid. IMPRESSION: Cerebral atrophy. Right frontal scalp hematoma. No acute intracranial abnormality. Brain not changed compared to exam earlier today. There is an acute fracture of the odontoid process without significant displacement. No sign of insta bility. Spondylotic changes in the lower cervical spine. Degenerative subluxation at C7-T1. Exam discussed with emergency room attending staff at 5:15 AM.
[2022-04-30 05:54] VITALS: BP 155/94; PULSE 70; RESP 16
== END 2022-04-30 06:32 | disposition other institution (70) ==
LOC: EC 00:02
DX: S02.91XA Unspecified fracture of skull, initial encounter for closed fracture (principal); R56.9 Unspecified convulsions; Z86.73 Personal history of transient ischemic attack (TIA), and cerebral infarction without residual deficits; E78.5 Hyperlipidemia, unspecified; I10 Essential (primary) hypertension; Z91.048 Other nonmedicinal substance allergy status; Z88.9 Allergy status to unspecified drugs, medicaments and biological substances; Z91.018 Allergy to other foods; X58.XXXA Exposure to other specified factors, initial encounter
CPT/HCPCS: 12011; 99285; 96361; 96374; 36415; 93005; 80164; 80053; 83735; 85025; 72125; 70450; G0480; J2270; 80320